=== PATIENT | female | born 1950 | race Caucasian/White ===

== ENCOUNTER → 2019-10-27 15:47 | Outpatient (BNVA) | payer MEDICARE, OTHER, SELFPAY | PROVIDERS: Visit Provider Internal Medicine | DX: K52.9 Noninfective gastroenteritis and colitis, unspecified (principal); R63.4 Abnormal weight loss; Z72.0 Tobacco use | CPT/HCPCS: 82784; 83516; 84443 ==

== ENCOUNTER 2019-11-01 09:09 | Day surgery (SDC) | payer MEDICARE, OTHER, SELFPAY ==
[2019-10-29 08:18] VITALS: BMI 21.1
[2019-11-01 09:49] VITALS: BP 171/62; PULSE 81; RESP 18; TEMP 36.1; O2SAT 100
[2019-11-01] MEDS: sodium chloride 0.9% 1,000 ML 30 ML IV (09:51)
[2019-11-01 10:02] LABS: Glucose Point of Care 121 mg/dL (70-110)
--- NOTE | 2019-11-01 10:16 | ANES.PREANE2 ---
Pre-Anesthetic Assessment Pre-Anesthetic Assessment: Height/Weight: Height 1.73 m Weight 63.049 kg Temp Pulse Resp BP Pulse Ox 97 F L 81 18 171/62 100 11/01/19 09:49 11/01/19 09:49 11/01/19 09:49 11/01/19 09:49 11/01/19 09:49 Preop Diagnosis: d Proposed Procedure: Operation Date: 11/01/19 11:00 Proposed Procedures p EGD/colon 76191 21003 K52.9(Not Applicable) - Caleb Mike MD s Colonoscopy(Not Applicable) - Caleb Mike MD Was Beta Williams taken within 24 hours: N/A Last intake: Intake Last Liquid Date 10/31/19 Last Liquid Time 16:00 Last Solid Date 10/30/19 Social: Social History: Tobacco and No alcohol Exam: Pre-Anes Outpt Exam: alert, oriented x 3, clear to auscultation bilaterally and regular rate & rhythm Airway: Submandibular: WNL Cervical ROM: WNL MP: 2 Dentition: False Pulmonary: Pulmonary: COPD CV/HEM: CV/HEM: None reported : : None reported Hepatic: Hepatic: None reported GI: Comments: Chronic diarrhea Metabolic: Metabolic: DM Musc/skel: Musc/skel: None reported Neuropsych: Neuropsych: None reported Anesthetic Plan: ASA status: 3 Anesthesia: MAC Risk of > 500 ml blood loss (7ml/kg in children): No Meds/Allergies Current Medications: Current Medications Generic Name Dose Route Start Last Admin Trade Name Freq PRN Reason Stop Dose Admin Sodium Chloride 1,000 mls @ 30 ml s/hr 11/01/19 09:45 11/01/19 09:51 Sodium Chloride 0.9% IV 30 mls/hr .Q24H DEREK Administration PFSH Anesthesia PFSH: Family History (Updated 10/27/19 @ 14:[address]) Other Cancer Diabetes Heart disease Social History (Updated 10/27/19 @ 14:54 by LEE Israel) Smoking and tobacco status: current every day smoker Alcohol intake: former Adopted: No service: No History of recent travel: No Current gender identity: Female Data Anesthesia Other Labs: Laboratory Results - last 48 hr 11/01/19 09:58 POC Glucose 121 Cardiac Studies: No Data to Display
--- NOTE | 2019-11-01 10:40 | W.PM.OPSUD ---
Surgery/Procedure H&P Update DATE OF PROCEDURE: November 01, 2019 DATE H&P PERFORMED: 10/27/19 PREOP DIAGNOSIS: d PLANNED PROCEDURE: Operation Date: 11/01/19 11:00 Proposed Procedures p EGD/colon 50796 44834 K52.9(Not Applicable) - Caleb Mike MD s Colonoscopy(Not Applicable) - Caleb Mike MD
[2019-11-01 11:00] VITALS: BP 182/74; PULSE 77; RESP 16; TEMP 36.4; O2SAT 98
--- NOTE | 2019-11-01 11:01 | ANE.PACU2 ---
Inpatient post-anesthesia follow up: Airway intact: Yes Vital signs: Temperature 97.6 F Pulse Rate 77 Respiratory Rate 16 Blood Pressure 182/74 Pulse Oximetry 98 Oxygen Delivery Me thod Nasal Cannula Oxygen Flow Rate 3.0 Fraction of Inspir ed Oxygen Hydration adequate: Yes Nausea and vomiting: No Pain level: Other (0/10) Mental status: Baseline
[2019-11-01 11:14] VITALS: BP 167/55; PULSE 74; RESP 18; O2SAT 99
[2019-11-02 07:52] LABS: H. Pylori / CLO Test Negative
== END 2019-11-01 11:35 | disposition home or self-care (01) ==
PROVIDERS: PCP Physician Assistant Medical; Visit Provider Internal Medicine
PROC: 0DJ08ZZ Inspection of Upper Intestinal Tract, Via Natural or Artificial Opening Endoscopic (ICD-10-PCS; CPT 43235; principal; 2019-11-01 11:00)
PROC: 0DJD8ZZ Inspection of Lower Intestinal Tract, Via Natural or Artificial Opening Endoscopic (ICD-10-PCS; CPT 45378; 2019-11-01 11:00)
DX: K52.9 Noninfective gastroenteritis and colitis, unspecified (principal); K29.71 Gastritis, unspecified, with bleeding; J44.9 Chronic obstructive pulmonary disease, unspecified; E11.9 Type 2 diabetes mellitus without complications; F17.200 Nicotine dependence, unspecified, uncomplicated; Z88.0 Allergy status to penicillin; Z88.2 Allergy status to sulfonamides; Z79.82 Long term (current) use of aspirin; Z79.84 Long term (current) use of oral hypoglycemic drugs
CPT/HCPCS: 12345; 36416; 43239; 45378; 82274; 82962; 83630; 87077; 87493; 87506; J2704; J7030

== ENCOUNTER 2020-06-05 07:41 | Outpatient (CLI) | payer MEDICARE, OTHER, SELFPAY ==
--- NOTE | 2020-06-05 08:05 | NM_ITS ---
WS: [id number] NUCLEAR MEDICINE HIDA SCAN HISTORY: EPIGASTRIC PAIN COMPARISON: None available. TECHNIQUE: The patient was intravenously injected with 7.8 mCi of TC99m Mebrofenin. Immediate imaging over the right upper quadrant was followed by 5 minute image and additional images for a total of 12 0 minutes. Normal uptake of radiotracer throughout the liver. Activity is never identified in the gallbladder. Imaging to 120 minutes. Activity in the proximal small bowel was seen by 20 minutes. Good washout of the radiotracer from the liver by 60 minutes. NM/NM hepatobiliary wo phar [id number] IMPRESSION: 1. Nonvisualization of the gallbladder. In the correct clinical setting this m ay represent acute cholecystitis and cystic duct obstruction. No history of sophy or cholecystectomy. 2. No common bile duct obstruction.
== END 2020-06-05 07:42 | disposition home or self-care (01) ==
LOC: RAD 07:45
PROVIDERS: PCP Physician Assistant Medical; Visit Provider Internal Medicine
DX: R10.13 Epigastric pain (principal)
CPT/HCPCS: 78226; A9537

== ENCOUNTER 2020-06-06 16:02 | Emergency (ER) | payer MEDICARE, OTHER, SELFPAY ==
[2020-06-06 16:06] VITALS: BP 171/79; PULSE 91; RESP 16; TEMP 36.5; O2SAT 97; BMI 20.5
--- NOTE | 2020-06-06 16:26 | ECG_ITS ---
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 Measurements Intervals Darby Rate: 81 P: 71 OK: 192 QRS: -5 QRSD: 97 T: 69 QT: 389 QTc: 454 Interpretive Statements SINUS RHYTHM SEPTAL MYOCARDIAL INFARCTION , PROBABLY OLD [40+ ms Q WAVE IN V1/V2] Compared to ECG 03/07/2018 01:32:35 Myocardial infarct finding now present Sinus bradycardia no longer present First degree AV block no longer present Electronically Signed On 06-06-2020 20:20:24 CDT by Yanet Darby M.D. [email or web address]
--- NOTE | 2020-06-06 16:26 | CTR_ITS ---
PROCEDURE INFORMATION: Exam: CT Abdomen And Pelvis With Contrast Exam date and time: 06/06/2020 5:04 PM Age: 69 years old Clinical indication: Nausea; Abdominal pain; Prior surgery; Surgery type: Ovary; Patient HX: PT states she is suppose to see On to schedule gb removal; Additional info: Abd pain TECHNIQUE: Imaging protocol: Computed tomography of the abdomen and pelvis with contrast. Radiation optimization: All CT scans at this facility use at least one of these dose optimization techniques: automated exposure control; mA and/or kV adjustment per patient size (includes targeted exams where dose is matched to clinical indication); or iterative reconstruction. Contrast material: OMNI 300; Contrast volume: 95 ml; Contrast route: INTRAVENOUS (IV); COMPARISON: US gall bladder [id number] 06/06/2020 4:56 PM RADIATION DOSE METRICS: Total DLP (mGy-cm): 855.7 FINDINGS: Lungs: Trace atelectasis in the lung bases. Liver: Normal size and density. No focal mass. Gallbladder and bile ducts: The patient is status post cholecystectomy with surgical clips seen in the gallbladder fossa. No biliary dilatation. Pancreas: No evidence of mass. No ductal dilation. Spleen: No splenomegaly or mass. Adrenal glands: Normal. Kidneys and ureters: No stones or hydronephrosis. No evidence of focal mass. Stomach and bowel: A few distal diverticula. No signs of acute diverticulitis. Moderate to large amount of formed stool throughout the colon. No signs of bowel obstruction. No focal bowel wall thickening or mass. Appendix: The appendix is not clearly seen, but there are no secondary signs of acute appendicitis. Intraperitoneal space: No free air. No free fluid or evidence of abscess. Vasculature: Moderate mixed hard and soft plaque throughout the abdominal aorta. Bilateral common iliac stents are noted. There is some suspected in stent restenosis. Lymph nodes: No lymphadenopathy. Urinary bladder: Normal CT appearance. Reproductive: Status post hysterectomy. Bones/joints: No acute abnormality. Soft tissues: Within normal limits. CT/CT abdomen pelvis w con* [id number] IMPRESSION: 1. The patient is status post cholecystectomy. 2. Mild to moderate distal diverticulosis. No signs of acute diverticulitis. 3. Moderate to large amount of formed stool throughout the colon suggesting constipation. 4. Moderate atherosclerotic disease with some suspected in stent stenosis of the bilateral proximal common iliac artery stents. Radiation Dose CTDIVOL = (mGy): DLP = 855.7 (mGy-cm)
--- NOTE | 2020-06-06 16:26 | XR_ITS ---
WS: [id number] Exam: XR chest 1V portable [id number] Date/Time of Exam: 06/06/2020 4:37 PM Reason For Exam: dyspnea/cough Comparison 06/02/2018 The lungs are hyperinflated and clear. Normal cardiomediastinal structures and regional bony elements . XR/XR chest 1V portable [id number] IMPRESSION: 1. Pulmonary hyperinflation. No acute process.
--- NOTE | 2020-06-06 16:37 | USR_ITS ---
PROCEDURE INFORMATION: Exam: US Abdomen, Limited; Right Upper Quadrant Exam date and time: 06/06/2020 4:44 PM Age: 69 years old Clinical indication: Abdominal pain; Acute; Additional info: Ruq abd pain TECHNIQUE: Imaging protocol: US abdomen. Real time ultrasound with image documentation. Limited exam focused on the right upper quadrant. COMPARISON: No relevant prior studies available. FINDINGS: Liver: Normal. No masses. Gallbladder: Not seen. Common bile duct: Normal. No stones. No dilation. Pancreas: Visualized pancreas is unremarkable. Right kidney: Normal size and appearance other than minimal dilatation of the renal pelvis. US/US gall bladder [id number] IMPRESSION: No acute findings.
[2020-06-06 16:38] LABS: Basophils # 0.1 10^3/uL (0.0-0.1); Basophils % 0.9 %; Eosinophils # 0.1 10^3/uL (0.0-0.8); Eosinophils % 1.9 %; Hematocrit 43.4 % (37.0-47.0); Hemoglobin 14.1 g/dL (11.5-15.3); Lymphocytes # 2.1 10^3/uL (0.8-4.8); Lymphocytes % 31.1 %; Mean Corpuscular HGB Conc 32.5 g/dL (30.0-36.0); Mean Corpuscular Volume 95.4 fL (81-99); Monocytes # 0.4 10^3/uL (0.2-0.9); Monocytes % 5.7 %; Neutrophils # 4.11 10^3/uL (1.8-7.7); Neutrophils % 60.1 %; Nucleated Red Blood Cells % 0 %; Platelet Count 254 10^3/cmm (130-400); Red Blood Count 4.55 10^6/uL (4.1-5.3); Red Cell Distribution Width 12.5 % (12.1-15.1); White Blood Count 6.8 10^3/uL (4.0-10.0)
[2020-06-06] MEDS: sodium chloride 0.9% 1,000 ML 999 ML IV (16:42)
[2020-06-06] MEDS: ondansetron 2 mg/ML SDV 2 mL 4 MG IVP (16:42)
[2020-06-06 16:50] LABS: Ketone (Acetest) Serum Negative (Negative)
[2020-06-06 16:54] LABS: Lactic Sepsis W/Reflex 1.6 mmol/L (0.5-2.2)
[2020-06-06 16:59] LABS: Alanine Aminotransferase 6 U/L (0-33); Albumin Level 3.9 g/dL (3.5-5.2); Alkaline Phosphatase 122 IU/L (35-105); Anion Gap 12.8 (5-19); Aspartate Amino Transferase 9 U/L (0-32); Blood Urea Nitrogen 15 mg/dL (8-23); Calcium 9.1 mg/dL (8.5-10.5); Carbon Dioxide 28 mmol/L (22-29); Chloride 98 mmol/L (98-107); Creatine Phosphokinase 21 U/L (26-192); Globulin 2.7 g/dL (1.3-4.6); Glomerular Filtration Rate 71.1 mL/min (90-130); Glucose 179 mg/dL (65-115); Lipase 35 U/L (13-60); Magnesium 1.8 mg/dL (1.7-2.3); Osmolality Calculated 285 mOsm/kg (285-295); Potassium 3.8 mmol/L (3.5-5.1); Sodium 135 mmol/L (136-145); Total Bilirubin 0.2 mg/dL (0.15-1.2); Total Protein 6.6 g/dL (6.6-8.7)
--- NOTE | 2020-06-06 17:03 | ED_ITS ---
HPI - Abdominal Pain General: Chief Complaint: Abdominal Pain Stated Complaint: AB PAIN, POSS GALLBLADDER ATTACK Time Seen by Provider: 06/06/20 16:19 History of Present Illness: HPI narrative: 69-year-old female presents emergency room with complaint of right upper quadrant epigastric abdominal pain she has had this for the last several weeks she has been worked up through Dr. Mike's office I do not see a ultrasound on her imaging file but I do see a HI DA scan they were not able to visualize the gallbladder. Patient complains of abdominal pain triggered by foods getting progressively worse she has severe abdominal pain right upper quadrant abdominal pain her exam is consistent with that complaint. She has been having severe nausea. She presents here stating she wants to have her gallbladder taken out. MD elicited complaint: abdominal pain Pertinent past history: other (Biliary colic) Onset (ago): week(s) Pain Consistency: constant Location: RUQ Severity: severe Quality: cramping and stabbing Radiation: R flank Exacerbating factors: eating Relieving factors: nothing Associated Symptoms: Reports bloating, GI cramping, diarrhea, nausea and poor appetite; Denies anorexia, belching, change in bowel habits, change in stool character, chills, coffee ground emesis, constipation, dyspepsia, dysuria, excessive flatus, fever(s), heartburn, hematochezia, hematuria, hematemesis, fecal incontinence, loose stools, melena, syncope and vomiting Review of Systems Const: Denies: fever(s) or chills ENMT: Denies: throat pain, ear or mastoid pain, nasal discharge or nasal congestion Card: Denies: syncope Resp: Denies: dyspnea, productive cough or non-productive cough GI: Reports: nausea, diarrhea, bloating and GI cramping; Denies: vomiting, hematemesis, coffee ground emesis, heartburn, constipation, belching, excessive flatus, fecal incontinence, change in bowel habits, change in stool character, hematochezia or melena : Denies: dysuria or hematuria Skin/Breast: Denies: rash or pruritus PFSH ED PFSH: Family History Other Cancer Diabetes Heart disease Social History Smoking and tobacco status: current every day smoker Alcohol intake: former Adopted: No service: No History of recent travel: No Current gender identity: Female Physical Exam Const: COMMON NORMALS: no acute distress GENERAL APPEARANCE: cooperative and comfortable ORIENTATION/CONSCIOUSNESS: Yes awake, Yes oriented to person, Yes oriented to place and Yes oriented to time HENMT: COMMON NORMALS: normocephalic, atraumatic and hearing grossly normal bilaterally HEAD & SCALP: normocephalic and atraumatic Eye: COMMON NORMALS: Equal, round and reactive pupils present, EOMs intact bilaterally, conjunctivae normal and no scleral icterus CONJUNCTIVA: Yes conjunctivae normal PUPIL: Yes Equal, round and reactive pupils present Neck/C-Spine: COMMON NORMALS: full ROM, no lymphadenopathy, supple and no JVD Lymph: LYMPHATIC: no lymphadenopathy noted and no lymphedema noted Resp: COMMON NORMALS: normal respiratory effort, No retractions, No use of accessory muscles and clear to auscultation bilaterally AUSCULTATION: clear to auscultation bilaterally Cardio: COMMON NORMALS: no JVD, regular rate, regular rhythm and No murmurs present (Cardio) RATE: regular rate RHYTHM: regular rhythm GI: COMMON NORMALS: Soft to palpation and No hepatosplenomegaly present AUSCULTATION: Yes normoactive bowel sounds PALPATION: Yes Soft to palpation, No Tenderness to palpation present (GI), No Guarding due to palpation present (GI) and Yes No hepatosplenomegaly present Extremity: COMMON NORMALS: normal to inspection, capillary refill normal, no clubbing, cyanosis or edema, no calf tenderness and no pedal edema Neuro: SENSORIUM/ORIENTATION: Yes oriented to person, Yes oriented to place and Yes oriented to time Skin: COMMON NORMALS: no rashes or lesions noted GENERAL SKIN EXAM: no rashes or lesions noted Course Vital Signs: Vital signs: Vital Signs Temperature 97.7 F 06/06/20 16:06 Pulse Rate 78 06/06/20 18:43 Respiratory Rate 18 06/06/20 18:43 Blood Pressure 179/76 06/06/20 18:43 Pulse Oximetry 100 06/06/20 18:43 MDM - Abdominal Pain MDM Narrative: Medical decision making narrative: Patient has biliary colic- like symptoms however 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 It was not noted on HIDA scan ultrasound or CT. In fact radiologist made a comment on the CT of the abdomen and pelvis report that the patient is post cholecystectomy. At this point I recommend that she see GI. Medications given to assist with symptoms for now encourage clear liquid diet for 24 to 48 hours and then bland diet. Lab Data: Labs: Lab Results 06/06/20 06/06/20 06/06/20 Range/Units 16:04 16:04 16:04 WBC 6.8 (4.0-10.0) 10^3/ uL RBC 4.55 (4.1-5.3) 10^6/u L Hgb 14.1 (11.5-15.3) g/dL Hct 43.4 (37.0-47.0) % MCV 95.4 (81-99) fL MCH 31.0 (28.0-34.0) pg MCHC 32.5 (30.0-36.0) g/dL RDW 12.5 (12.1-15.1) % Plt Count 254 (130-400) 10^3/c mm MPV 10.0 (7.4-10.4) fL Neut % (Auto) 60.1 % Lymph % (Auto) 31.1 % [place] % (Auto) 5.7 % Eos % (Auto) 1.9 % Baso % (Auto) 0.9 % Neut # (Auto) 4.11 (1.8-7.7) 10^3/u L Lymph # (Auto) 2.1 (0.8-4.8) 10^3/u L [place] # (Auto) 0.4 (0.2-0.9) 10^3/u L Eos # (Auto) 0.1 (0.0-0.8) 10^3/u L Baso # (Auto) 0.1 (0.0-0.1) 10^3/u L Nucleated RBC % (a uto) 0 % Nucleated RBCs # 0.0 /100WBC Sodium 135 L (136-145) mmol/L Potassium 3.8 (3.5-5.1) mmol/L Chloride 98 (98-107) mmol/L Carbon Dioxide 28 (22-29) mmol/L Anion Gap 12.8 (5-19) BUN 15 (8-23) mg/dL Creatinine 0.8 (0.5-0.9) mg/dL GFR Calculation 71.1 L (90-130) mL/min Glucose 179 H (65-115) mg/dL Calculated Osmolal ity 285 (285-295) mOsm/k g Lactic Acid 1.6 (0.5-2.2) mmol/L Calcium 9.1 (8.5-10.5) mg/dL Magnesium 1.8 (1.7-2.3) mg/dL Total Bilirubin 0.2 (0.15-1.2) mg/dL AST 9 (0-32) U/L ALT 6 (0-33) U/L Alkaline Phosphata se 122 H (35-105) IU/L Creatine Kinase 21 L (26-192) U/L Total Protein 6.6 (6.6-8.7) g/dL Albumin 3.9 (3.5-5.2) g/dL Globulin 2.7 (1.3-4.6) g/dL Lipase 35 (13-60) U/L Urine Color (Yellow) Urine Appearance (CLEAR) Urine pH (5-7) Ur Specific Gravit y (1.005-1.030) Urine Protein (Negative) Urine Glucose (UA) (Normal) Urine Ketones (Negative) Urine Blood (Negative) Urine Nitrate (Negative) Urine Bilirubin (Negative) Prot Sulfosalicyli c Acd (Negative) Urine Urobilinogen (Negative) mg/dL Ur Leukocyte Cynthia ase (Negative) Serum Ketones (Negative) 06/06/20 06/06/20 Range/Units 16:04 17:43 WBC (4.0-10.0) 10^3/ uL RBC (4.1-5.3) 10^6/u L Hgb (11.5-15.3) g/dL Hct (37.0-47.0) % MCV (81-99) fL MCH (28.0-34.0) pg MCHC (30.0-36.0) g/dL RDW (12.1-15.1) % Plt Count (130-400) 10^3/c mm MPV (7.4-10.4) fL Neut % (Auto) % Lymph % (Auto) % [place] % (Auto) % Eos % (Auto) % Baso % (Auto) % Neut # (Auto) (1.8-7.7) 10^3/u L Lymph # (Auto) (0.8-4.8) 10^3/u L [place] # (Auto) (0.2-0.9) 10^3/u L Eos # (Auto) (0.0-0.8) 10^3/u L Baso # (Auto) (0.0-0.1) 10^3/u L Nucleated RBC % (a uto) % Nucleated RBCs # /100WBC Sodium (136-145) mmol/L Potassium (3.5-5.1) mmol/L Chloride (98-107) mmol/L Carbon Dioxide (22-29) mmol/L Anion Gap (5-19) BUN (8-23) mg/dL Creatinine (0.5-0.9) mg/dL GFR Calculation (90-130) mL/min Glucose (65-115) mg/dL Calculated Osmolal ity (285-295) mOsm/k g Lactic Acid (0.5-2.2) mmol/L Calcium (8.5-10.5) mg/dL Magnesium (1.7-2.3) mg/dL Total Bilirubin (0.15-1.2) mg/dL AST (0-32) U/L ALT (0-33) U/L Alkaline Phosphata se (35-105) IU/L Creatine Kinase (26-192) U/L Total Protein (6.6-8.7) g/dL Albumin (3.5-5.2) g/dL Globulin (1.3-4.6) g/dL Lipase (13-60) U/L Urine Color Yellow (Yellow) Urine Appearance Clear (CLEAR) Urine pH 8 H (5-7) Ur Specific Gravit y 1.010 (1.005-1.030) Urine Protein Neg (Negative) Urine Glucose (UA) Norm (Normal) Urine Ketones Negative (Negative) Urine Blood Neg (Negative) Urine Nitrate Negative (Negative) Urine Bilirubin Neg (Negative) Prot Sulfosalicyli c Acd Negative (Negative) Urine Urobilinogen Norm (Negative) mg/dL Ur Leukocyte Cynthia ase Negative (Negative) Serum Ketones Negative (Negative) Discharge Plan Discharge Patient Disposition: Home Clinical Impression: Abdominal pain, Congenital absence of gallbladder Condition: Stable Prescriptions: New Reglan 10 mg tablet 10 mg PO Q6H PRN (Reason: nausea and vomiting) Qty: 60 RF: 0 No Action atorvastatin 80 mg tablet 80 mg PO DAILY RF: 0 buspirone 10 mg tablet 10 mg PO BID RF: 0 estradiol 1 mg tablet 0.5 mg PO DAILY RF: 0 gabapentin 600 mg tablet 600 mg PO TID RF: 0 lamotrigine 200 mg tablet 200 mg PO BID RF: 0 meloxicam 7.5 mg tablet 7.5 mg PO DAILY RF: 0 metformin 500 mg tablet 500 mg PO BID RF: 0 hydrocodone-acetaminophen [[place]] 5-325 mg tablet 1 tab PO Q8H PRN (Reason: Pain) RF: 0 lorazepam 0.5 mg tablet 0.5 mg PO DAILY PRNRF: 0 pantoprazole 40 mg tablet,delayed release (DR/EC) 40 mg PO BID Qty: 180 RF: 3 Discharge Orders: Discharge ED (Routine); Ordered 06/06/20 Ordered By: Giacomo Landin Referrals: Sukumar Andrade [Primary Care Provider] - Discharge Diet: Clear Liquid Discharge Activity: Increase activity as tolerated Patient Instructions: Abdominal Pain (ED), Opioid Safety Activity Restrictions/Additional Instructions: Clear liquid diet for 24 [address] Mike's office tomorrow. Advance diet as tolerated. 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
[2020-06-06 17:24] VITALS: BP 187/79; PULSE 78; RESP 18; O2SAT 97
[2020-06-06] MEDS: iohexol 300 mg/mL 100 mL Btl IV (17:41)
[2020-06-06 17:53] VITALS: RESP 18
[2020-06-06] MEDS: morphine 4 mg/mL SDV 1 mL 2 MG IVP (17:53)
[2020-06-06 18:02] VITALS: BP 194/84; PULSE 75; RESP 18; O2SAT 100
[2020-06-06] MEDS: metoclopramide 5 mg/mL SDV 2 mL 10 MG IVP (18:10)
[2020-06-06 18:43] VITALS: BP 179/76; PULSE 78; RESP 18; O2SAT 100
[2020-06-06 19:00] LABS: Add Urine Microscopic? NO
[2020-06-06 19:09] LABS: Urine Appearance Clear (CLEAR); Urine Color Yellow (Yellow); pH Urine 8 (5-7)
[2020-06-06 19:10] LABS: Bilirubin Urine Neg (Negative); Blood Urine Neg (Negative); Glucose Urine UA Norm (Normal); Ketones Urine Negative (Negative); Leukocyte Esterase Urine Negative (Negative); Nitrate Urine Negative (Negative); Protein Urine Neg (Negative); Sulfosalicylic Acid Urine Negative (Negative); Urobilinogen Urine Norm (Negative)
== END 2020-06-06 18:49 | disposition home or self-care (01) ==
PROVIDERS: Emergency Provider Family Medicine; PCP Physician Assistant Medical
DX: R10.9 Unspecified abdominal pain (principal); Q44.0 Agenesis, aplasia and hypoplasia of gallbladder; F17.210 Nicotine dependence, cigarettes, uncomplicated
CPT/HCPCS: 71045; 74177; 76705; 80053; 81003; 82009; 82550; 83605; 83690; 83735; 85025; 93005; 96374; 96375; 99284; J2270; J2405; J2765; J7030; Q9967

== ENCOUNTER 2020-07-06 01:40 | Emergency (ER) | payer MEDICARE, OTHER, SELFPAY ==
[2020-07-06 01:42] VITALS: BP 151/79; PULSE 95; RESP 20; TEMP 36.3; O2SAT 97; BMI 20.3
--- NOTE | 2020-07-06 01:50 | W.ED.NAVMDI ---
HPI - Nausea/Vomiting/Diarrhea General: Chief complaint: Nausea/Vomiting/Diarrhea Stated complaint: n/v Time Seen by Provider: 07/06/20 01:41 Source: patient and EMS Mode of arrival: EMS Limitations: no limitations History of Present Illness: HPI Narrative: 69-year-old female she history of gastroparesis states she had epigastric abdominal cramping type pain all vomiting diarrhea throughout the day. States she had multiple episodes of vomiting and diarrhea. States the pain happened after vomiting and rates it a 5 out of 10. States she feels improved here after Zofran. She denies any fevers. Denies any worsening improving factors. Associated nausea: Yes Associated symtoms: Reports nausea; Denies chest pain, dysuria or headache(s) Review of Systems Const: Denies: fever(s), chills, body aches or change in appetite Eyes: Denies: blurry vision or eye discomfort ENMT: Denies: throat pain or dental pain Card: Denies: chest pain Resp: Denies: dyspnea GI: Reports: abdominal pain, nausea, vomiting and diarrhea : Denies: dysuria Musc: Denies: neck pain or back pain Skin/Breast: Denies: rash Neuro: Denies: headache(s) Psych: Denies: depression Afshin/Lymph: Denies: easy bruising All/Imm: Denies: urticaria PFSH ED PFSH: Family History Other Cancer Diabetes Heart disease Social History Smoking and tobacco status: current every day smoker Alcohol intake: former Adopted: No service: No History of recent travel: No Current gender identity: Female Physical Exam Const: COMMON NORMALS: no acute distress, patient oriented x3 and healthy appearing HENMT: COMMON NORMALS: normocephalic and atraumatic HEAD & SCALP: normocephalic and atraumatic Eye: COMMON NORMALS: Equal, round and reactive pupils present and EOMs intact bilaterally PUPIL: Yes Equal, round and reactive pupils present Neck/C-Spine: COMMON NORMALS: full ROM and supple Chest: COMMONS NORMALS: normal inspection of the chest and normal palpation of entire chest wall Resp: COMMON NORMALS: normal respiratory effort, No retractions, No use of accessory muscles and clear to auscultation bilaterally AUSCULTATION: clear to auscultation bilaterally Cardio: COMMON NORMALS: regular rate, regular rhythm and No murmurs present (Cardio) RATE: regular rate RHYTHM: regular rhythm GI: COMMON NORMALS: Normal to inspection, nondistended, normoactive bowel sounds present, Soft to palpation, non-tender and no masses PALPATION: Yes Soft to palpation Extremity: COMMON NORMALS: normal to inspection and full ROM Neuro: COMMON NORMALS: patient oriented x3, moves all extremities and no focal motor deficits Psych: COMMON NORMALS: mental status grossly normal, Normal thought process present and cooperative THOUGHT PROCESS: Normal thought process present Skin: COMMON NORMALS: no rashes or lesions noted and no wounds GENERAL SKIN EXAM: no rashes or lesions noted Course Vital Signs: Vital signs: Vital Signs Temperature 97.4 F L 07/06/20 01:42 Pulse Rate 95 07/06/20 01:42 Respiratory Rate 20 H 07/06/20 02:03 Blood Pressure 151/79 07/06/20 01:42 Pulse Oximetry 95 07/06/20 02:03 MDM - Nausea/Vomiting/Diarrhea MDM Narrative: Medical decision making narrative: Brenda presents here with a fall along with diarrhea. She feels much improved here after Reglan is able to tolerate p.o. here. Abdominal exam at discharge is benign. Blood work here is all normal. She has Reglan at home and she is stable for discharge. She is to follow-up with PCP and return if worsening. She understands and agrees to plan. She has no signs of small bowel obstruction or acute surgical cause for her vomiting Lab Data: Labs: Lab Results 07/06/20 07/06/20 Range/Units 01:00 01:00 WBC 10.4 H (4.0-10.0) 10^3/ uL RBC 4.96 (4.1-5.3) 10^6/u L Hgb 15.2 (11.5-15.3) g/dL Hct 48.2 H (37.0-47.0) % MCV 97.2 (81-99) fL MCH 30.6 (28.0-34.0) pg MCHC 31.5 (30.0-36.0) g/dL RDW 12.6 (12.1-15.1) % Plt Count 271 (130-400) 10^3/c mm MPV 10.9 H (7.4-10.4) fL Neut % (Auto) 74.1 % Lymph % (Auto) 16.0 % [place] % (Auto) 8.0 % Eos % (Auto) 1.0 % Baso % (Auto) 0.7 % Neut # (Auto) 7.70 (1.8-7.7) 10^3/u L Lymph # (Auto) 1.7 (0.8-4.8) 10^3/u L [place] # (Auto) 0.8 (0.2-0.9) 10^3/u L Eos # (Auto) 0.1 (0.0-0.8) 10^3/u L Baso # (Auto) 0.1 (0.0-0.1) 10^3/u L Nucleated RBC % (a uto) 0 % Nucleated RBCs # 0.0 /100WBC Sodium 139 (136-145) mmol/L Potassium 3.7 (3.5-5.1) mmol/L Chloride 99 (98-107) mmol/L Carbon Dioxide 26 (22-29) mmol/L Anion Gap 17.7 (5-19) BUN 14 (8-23) mg/dL Creatinine 0.9 (0.5-0.9) mg/dL GFR Calculation 62.1 L (90-130) mL/min Glucose 193 H (65-115) mg/dL Calculated Osmolal ity 294 (285-295) mOsm/k g Calcium 9.6 (8.5-10.5) mg/dL Total Bilirubin 0.3 (0.15-1.2) mg/dL AST 11 (0-32) U/L ALT 9 (0-33) U/L Alkaline Phosphata se 179 H (35-105) IU/L Total Protein 7.0 (6.6-8.7) g/dL Albumin 4.3 (3.5-5.2) g/dL Globulin 2.7 (1.3-4.6) g/dL Lipase 23 (13-60) U/L Discharge Plan Discharge Patient Disposition: Home Clinical Impression: Vomiting Qualifiers: Vomiting type: unspecified Vomiting Intractability: non-intractable Nausea presence: with nausea Qualified Code(s): R11.2 - Nausea with vomiting, unspecified Condition: Stable Prescriptions: No Action atorvastatin 80 mg tablet 80 mg PO DAILY RF: 0 buspirone 10 mg tablet 10 mg PO BID RF: 0 estradiol 1 mg tablet 0.5 mg PO DAILY RF: 0 gabapentin 600 mg tablet 600 mg PO TID RF: 0 lamotrigine 200 mg tablet 200 mg PO BID RF: 0 meloxicam 7.5 mg tablet 7.5 mg PO DAILY RF: 0 metformin 500 mg tablet 500 mg PO BID RF: 0 polyethylene glycol 3350 [[place]] 17 gram/dose powder 17 g PO DAILY RF: 0 docusate sodium 100 mg capsule 200 mg PO .at bedtime RF: 0 hydrocodone-acetaminophen [[place]] 5-325 mg tablet 1 tab PO Q8H PRN (Reason: Pain) RF: 0 lorazepam 0.5 mg tablet 0.5 mg PO DAILY PRNRF: 0 pantoprazole 40 mg tablet,delayed release (DR/EC) 40 mg PO BID Qty: 180 RF: 3 Reglan 10 mg tablet 10 mg PO Q6H PRN (Reason: nausea and vomiting) Qty: 60 RF: 0 Discharge Orders: Discharge ED (Routine); Ordered 07/06/20 Ordered By: Martin Fay Referrals: Sukumar Andrade [Primary Care Provider] - 1-3 days Discharge Diet: Advance as tolerated Discharge Activity: Resume usual activity Patient Instructions: Acute Nausea and Vomiting (ED) Coding Level of Care Code ED 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
[2020-07-06 02:00] LABS: Basophils # 0.1 10^3/uL (0.0-0.1); Basophils % 0.7 %; Eosinophils # 0.1 10^3/uL (0.0-0.8); Hematocrit 48.2 % (37.0-47.0); Hemoglobin 15.2 g/dL (11.5-15.3); Lymphocytes # 1.7 10^3/uL (0.8-4.8); Mean Corpuscular HGB Conc 31.5 g/dL (30.0-36.0); Mean Corpuscular Hemoglobin 30.6 pg (28.0-34.0); Mean Corpuscular Volume 97.2 fL (81-99); Mean Platelet Volume 10.9 fL (7.4-10.4); Monocytes # 0.8 10^3/uL (0.2-0.9); Neutrophils % 74.1 %; Nucleated Red Blood Cells % 0 %; Platelet Count 271 10^3/cmm (130-400); Red Blood Count 4.96 10^6/uL (4.1-5.3); Red Cell Distribution Width 12.6 % (12.1-15.1); White Blood Count 10.4 10^3/uL (4.0-10.0)
[2020-07-06] MEDS: sodium chloride 0.9% 1,000 ML 999 ML IV (02:02)
[2020-07-06 02:03] VITALS: RESP 20; O2SAT 95
[2020-07-06] MEDS: morphine 4 mg/mL SDV 1 mL IVP (02:03)
[2020-07-06] MEDS: metoclopramide 5 mg/mL SDV 2 mL IVP (02:16)
[2020-07-06 02:17] LABS: Alanine Aminotransferase 9 U/L (0-33); Albumin Level 4.3 g/dL (3.5-5.2); Alkaline Phosphatase 179 IU/L (35-105); Anion Gap 17.7 (5-19); Aspartate Amino Transferase 11 U/L (0-32); Blood Urea Nitrogen 14 mg/dL (8-23); Calcium 9.6 mg/dL (8.5-10.5); Carbon Dioxide 26 mmol/L (22-29); Chloride 99 mmol/L (98-107); Globulin 2.7 g/dL (1.3-4.6); Glomerular Filtration Rate 62.1 mL/min (90-130); Glucose 193 mg/dL (65-115); Lipase 23 U/L (13-60); Osmolality Calculated 294 mOsm/kg (285-295); Potassium 3.7 mmol/L (3.5-5.1); Sodium 139 mmol/L (136-145); Total Bilirubin 0.3 mg/dL (0.15-1.2)
[2020-07-06] MEDS: diphenhydrAMINE 50 mg/mL SDV 1mL 25 MG IVP (02:19)
[2020-07-06 03:22] VITALS: BP 178/74; PULSE 82; O2SAT 97
== END 2020-07-06 03:22 | disposition home or self-care (01) ==
PROVIDERS: Emergency Provider Emergency Medicine; PCP Physician Assistant Medical
DX: R11.2 Nausea with vomiting, unspecified (principal); F17.210 Nicotine dependence, cigarettes, uncomplicated
CPT/HCPCS: 80053; 83690; 85025; 96361; 96374; 96375; 99284; J1200; J2270; J2765; J7030

== ENCOUNTER 2020-08-24 09:09 | Outpatient (CLI) | payer MEDICARE, OTHER, SELFPAY ==
--- NOTE | 2020-08-24 09:30 | USCV_ITS ---
Bertha Brenda Age: 69 Gender: F : 1950 Exam Date: 08/24/2020 09:43 Ordering Phys: Margarito Lott MD (Andy) ([email or web address] [place]) Technologist: Lee Ann Barnes [place] [facility] [place]: H[place]ORY: PROCEDURES: FINDINGS: The veins were found to be easily compressible with spontaneous blood flow. Non pulsatile flow pattern. CONCLUSIONS No evidence of DVT in the above-mentioned identifiable veins. No significant venous reflux in the superficial or deep venous system, based on the above findings. Electively small caliber superficial veins bilaterally Dr Yanet Darby MD FACC (Electronically Signed) Final Date: 24 August 2020 18:41 S
--- NOTE | 2020-08-24 11:00 | USCV_ITS ---
Bertha Brenda Age: 69 Gender: F : 1950 Exam Date: 08/24/2020 09:25 Ordering Phys: Margarito Lott MD ([place] [place] Technologist: Lee Ann Barnes [place] [facility] [place]: Occlusion and stenosis of bilateral carotid arteries Risk Factors: Previous Vascular Surgery: Right Brachial BP: / Left Brachial BP: / Right Left Velocity (cm/s) Spectral Plaque Velocity (cm/s) Spectral Plaque Syst/Diast Broadening Syst/Diast Broadening 118.00/16.50 Prox CCA 92.00 / 21.00 91.50/ 13.20 Mid CCA 100.30/ 22.10 69.10/ 12.90 Distal CCA 227.20/ 60.30 89.40/ 12.70 Prox ICA 246.50/ 48.90 97.40/ 18.80 Mid ICA 135.20/ 40.40 101.20/23.30 Distal ICA 107.00/ 31.70 96.30 ECA 148.60 0.86 ICA/CCA 2.46 Antegrade Vertebral Antegrade 46.60/ 5.40 cm/s 83.70/ 17.90 cm/s Bi Subclavian Bi 215.9 224.5 0 0 FINDINGS Comparison: none available. Diffuse bilateral scattered calcified plaque and intimal thickening throughout the common carotid arteries and extending through the bifurcation. Moderate elevation of velocity left ICA. Antegrade vertebral arteries. CONCLUSIONS Left ICA stenosis 50-69%. Right ICA stenosis < 50%. Dr. Marely Gilmore DO (Electronically Signed) Final Date: 24 August 2020 10:03 S
== END 2020-08-24 09:10 | disposition home or self-care (01) ==
LOC: RAD 09:11
PROVIDERS: PCP Physician Assistant Medical; Visit Provider Thoracic Surgery (Cardiothoracic Vascular Surgery)
DX: M79.606 Pain in leg, unspecified (principal); I65.23 Occlusion and stenosis of bilateral carotid arteries
CPT/HCPCS: 93880; 93970

== ENCOUNTER 2021-02-23 10:25 | Outpatient (CLI) | payer MEDICARE, OTHER, SELFPAY ==
--- NOTE | 2021-02-23 11:00 | USCV_ITS ---
Brenda Stone Age: 70 Gender: F : 1950 Exam Date: 02/23/2021 10:35 Ordering Phys: Margarito Lott MD (Andy) ([email or web address] [place]) Technologist: CECELIA Exam Location: [facility] [place] Indication: s/p RIGHT endarterectomy 2016 Risk Factors: long-term smoker, quit 2019. DM2 Previous Vascular Surgery: RIGHT endarterectomy 2016. No current carotid territory symptoms. Right Brachial BP: / Left Brachial BP: / Right Left Velocity (cm/s) Spectral Plaque Velocity (cm/s) Spectral Plaque Syst/Diast Broadening Syst/Diast Broadening 82.70/ 6.60 Min Homo Prox CCA 84.00 / 18.90 Min Homo 75.00/ 13.20 Min Homo Mid CCA 94.80 / 27.60 Min Homo 70.60/ 18.70 Min Homo Distal CCA 108.10/ 26.50 Min Homo 86.00/ 14.30 Min Homo Prox ICA 203.30/ 44.10 Mod Homo 84.90/ 22.10 Min Homo Mid ICA 192.50/ 43.20 Mod Homo 101.40/25.40 Min Homo Distal ICA 106.10/ 30.60 Min Hetro 140.00 Mod Homo ECA 192.50 Mod Homo 1.23 ICA/CCA 2.05 Antegrade Vertebral Antegrade 32.00/ 8.80 cm/s 55.10/ 14.30 cm/s Tri Subclavian Tri 65.10 84.90 FINDINGS Comparison:. 08/24/20. Prior right carotid endarterectomy. Diffuse bilateral scattered calcified plaque and intimal thickening throughout the common carotid arteries and extending through the bifurcation. No progression of plaque or stenosis. Moderate stenosis left ICA. Antegrade vertebral arteries. CONCLUSIONS No interval change in stenosis since prior exam. Left ICA stenosis 50-69%. Right ICA stenosis < 50%. Dr. Marely Gilmore DO (Electronically Signed) Final Date: 23 February 2021 13:16 S
== END 2021-02-23 10:26 | disposition home or self-care (01) ==
LOC: US 10:26
PROVIDERS: PCP Physician Assistant Medical; Visit Provider Thoracic Surgery (Cardiothoracic Vascular Surgery)
DX: I65.23 Occlusion and stenosis of bilateral carotid arteries (principal)
CPT/HCPCS: 93880

== ENCOUNTER 2021-04-22 10:54 | Emergency (ER) | payer MEDICARE, OTHER, SELFPAY ==
[2021-04-22 11:27] VITALS: BP 152/70; PULSE 89; RESP 18; TEMP 36.4; O2SAT 98; BMI 21.9
--- NOTE | 2021-04-22 11:36 | W.ED.EXTPRO ---
HPI - Extremity Problem General: Chief complaint: Extremity Problem,Nontraumatic Stated complaint: bilateral feet pain Time Seen by Provider: 04/22/21 11:36 History of Present Illness: Ms. Stone is a 70-year-old lady with significant past medical history of diabetes on oral agents, history of vascular stenting, and history of tobaccoism (quit about 7 months ago) who presents emergency department due to discoloration and increased pain in her feet. She previously saw podiatry for consideration of diabetic shoes. She received these short time ago and noted that they initially were not comfortable. About 10 days ago she had a day where she was walking in them for most of the day and subsequently had increased foot pain. She is has since noticed increased discoloration of her toes and feet. She denies specific numbness however does endorse overall feeling cold. She has not noticed any weakness. Overall the course of symptoms has been worsening. Intensity of pain is moderate. She had a ultrasound study on Friday that showed decreased blood flow and was supposed to have a CTA and vascular surgery follow-up however last night/today she noticed black spots on her toes and decided to come to the emergency department. Denies any trauma or known wounds. No other significant changes in health, exacerbating, relieving factors identified. Onset (ago): week(s) Pain Consistency: intermittent Location: left, right and lower extremity Radiation: none Associated symptoms: Reports no associated symptoms Review of Systems General: Reports: 10 or more systems reviewed and unremarkable except in HPI and below PFSH ED PFSH: Medical History Epilepsy FH: carotid endarterectomy Hyperlipemia Stenosis of peripheral vascular stent Type 2 diabetes mellitus Surgical History H/O abdominal hysterectomy S/P knee surgery Family History Other Cancer Diabetes Heart disease Social History Smoking and tobacco status: former smoker Quit status (tobacco): has quit using tobacco Year quit tobacco: 2020 Former quit date comment: 6 WEEKS AGO Alcohol intake: former Adopted: No service: No History of recent travel: No Current gender identity: Female Physical Exam Const: COMMON NORMALS: alert GENERAL APPEARANCE: cooperative and well developed HENMT: COMMON NORMALS: normocephalic and atraumatic HEAD & SCALP: normocephalic and atraumatic Eye: COMMON NORMALS: conjunctivae normal CONJUNCTIVA: Yes conjunctivae normal SCLERA: sclerae normal Neck/C-Spine: COMMON NORMALS: supple GENERAL: Yes trachea midline Resp: COMMON NORMALS: normal respiratory effort EFFORT & INSPECTION: Yes able to speak in complete sentences Cardio: COMMON NORMALS: regular rate and regular rhythm RATE: regular rate RHYTHM: regular rhythm GI: COMMON NORMALS: Soft to palpation PALPATION: Yes Soft to palpation and No Tenderness to palpation present (GI) PERCUSSION: normal to percussion Extremity: NARRATIVE EXTREMITY EXAM: Bilateral lower extremities have some discoloration from proximal forefoot towards the toes. Mildly purple with few focal few millimeter in diameter distal circles of darker purple. There is no evidence of wounds. Bilateral DP pulses faint but palpable. Cap refill approx 3 seconds Motor intact. GENERAL: No edema Neuro: COMMON NORMALS: moves all extremities SENSORIUM/ORIENTATION: Yes alert and No Orientation impaired Psych: COMMON NORMALS: mental status grossly normal and Normal thought process present THOUGHT PROCESS: Normal thought process present Course ED course: - Patient was seen and evaluated by me at bedside - Patient placed on cardiac monitors, IV access obtained - Initial evaluation notable for exam as above - Labs notable for no leukocytosis. Metabolic panel without significant derangement requiring intervention. - Imaging notable for multivessel atherosclerotic disease with multiple regions of stenosis. The patient's prior grafts are noted to have mild to moderate in-stent stenosis. There is mention of loss of flow in the distal most vessels however in comparison to ultrasound report which was obtained where flow was present in bilateral DPs I believe that there is a component of differences strictly related to imaging modality. I do not believe based on clinical history or exam that the patient has had complete occlusion of DPs within the past 2 days. - I discussed additional findings including mesenteric disease, patient does have symptoms of postprandial pain - Discussed with cardiothoracic surgeon Dr. Lott, as patient is seen him in clinic before, plan to start antiplatelet agent and pentoxifylline and have patient follow-up. - Upon serial reexamination after treatment the patient was - Based on patient history, evaluation, labs, and imaging as interpreted the most likely cause of the patient's condition is peripheral arterial disease - The results of ED evaluation were discussed with the patient including prescriptions and/or symptomatic cares (if applicable) including appropriate and responsible use, followup plan, and return precautions. The patient verbalized understanding and felt safe for discharge. - Patient discharged in satisfactory condition. Note: Click bubbles or prepopulated cox in note writing are used for assistance with data collection and billing and are inherently more limited than narrative and other text portions of this note. Please use narrative for additional clinical history and defer to narrative/free test for any case of contradictory information. If information appears in only free text or click bubble it should be considered present or absent as reported. Please contact note telegraphic typewriter mechanic for clarifications of clinical information or contradictory information. MDM is a brief summary, contradictory or erroneous seeming information should be clarified and full note should be reviewed. Discussed with Dr Lott Vital Signs: Vital signs: Vital Signs Temperature 97.6 F 04/22/21 11:27 Pulse Rate 77 04/22/21 15:35 Respiratory Rate 12 04/22/21 15:35 Blood Pressure 162/76 04/22/21 15:35 Pulse Oximetry 100 04/22/21 15:35 MDM - Extremity (Nontraumatic) Medical Decision Making 70-year-old lady with history of known peripheral arterial disease requiring stenting, history of tobaccoism (formerly), and history of diabetes presenting to the emergency department with bilateral foot discoloration. She was previously evaluated and had ultrasounds performed approximately 2 days ago. CTA imaging obtained. Case was discussed with Dr. Lott, who patient has previously seen, patient satisfactory for outpatient management with additional medications. Most likely etiology of the patient's symptoms unfortunately is largely small vessel and microvascular in nature. Satisfactory for outpatient follow-up. Medical Records I reviewed the patient's medical records. Lab Data I reviewed the patient's lab results. : 04/22/21 11:57 04/22/21 11:57 Radiology Impressions Aorta w/Runoff CTA 04/22/21 12:51 IMPRESSION: Multi-vessel atherosclerotic disease with multiple regions of stenosis as described in detail above. Laboratory Results WBC 6.5 10^3/uL (4.0-10.0) 04/22/21 11:57 RBC 4.22 10^6/uL (4.1-5.3) 04/22/21 11:57 Hgb 12.8 g/dL (11.5-15.3) 04/22/21 11:57 Hct 40.4 % (37.0-47.0) 04/22/21 11:57 MCV 95.7 fl (81-99) 04/22/21 11:57 MCH 30.3 pg (28.0-34.0) 04/22/21 11:57 MCHC 31.7 g/dL (30.0-36.0) 04/22/21 11:57 RDW 12.5 % (12.1-15.1) 04/22/21 11:57 Plt Count 268 10^3/cmm (130-400) 04/22/21 11:57 MPV 10.4 fL (7.4-10.4) 04/22/21 11:57 Neut % (Auto) 67.8 % 04/22/21 11:57 Lymph % (Auto) 21.8 % 04/22/21 11:57 [place] % (Auto) 6.5 % 04/22/21 11:57 Eos % (Auto) 2.8 % 04/22/21 11:57 Baso % (Auto) 0.8 % 04/22/21 11:57 Neut # (Auto) 4.38 10^3/uL (1.8-7.7) 04/22/21 11:57 Lymph # (Auto) 1.4 10^3/uL (0.8-4.8) 04/22/21 11:57 [place] # (Auto) 0.4 10^3/uL (0.2-0.9) 04/22/21 11:57 Eos # (Auto) 0.2 10^3/uL (0.0-0.8) 04/22/21 11:57 Baso # (Auto) 0.1 10^3/uL (0.0-0.1) 04/22/21 11:57 Nucleated RBC % (auto) 0 % 04/22/21 11:57 Nucleated RBCs # 0.0 /100WBC 04/22/21 11:57 PT 12.60 SECONDS (12.1-14.9) 04/22/21 12:30 INR 0.92 (0.8-1.2) 04/22/21 12:30 APTT 27.5 SECONDS (23.9-36.7) 04/22/21 12:30 Sodium 140 mmol/L (136-145) 04/22/21 11:57 Potassium 3.9 mmol/L (3.5-5.1) 04/22/21 11:57 Chloride 106 mmol/L (98-107) 04/22/21 11:57 Carbon Dioxide 21 mmol/L (22-29) L 04/22/21 11:57 Anion Gap 16.9 (5-19) 04/22/21 11:57 BUN 13 mg/dL (8-23) 04/22/21 11:57 Creatinine 0.9 mg/dL (0.5-0.9) 04/22/21 11:57 GFR Calculation 61.9 mL/min (90-130) L 04/22/21 11:57 Glucose 134 mg/dL (65-115) H 04/22/21 11:57 Calculated Osmolality 292 mOsm/kg (285-295) 04/22/21 11:57 Lactic Acid 1.5 mmol/L (0.5-2.2) 04/22/21 12:30 Calcium 9.9 mg/dL (8.5-10.5) 04/22/21 11:57 Total Bilirubin 0.3 mg/dL (0.15-1.2) 04/22/21 11:57 AST 12 U/L (0-32) 04/22/21 11:57 ALT 10 U/L (0-33) 04/22/21 11:57 Alkaline Phosphatase 149 IU/L (35-105) H 04/22/21 11:57 Total Protein 6.9 g/dL (6.6-8.7) 04/22/21 11:57 Albumin 4.6 g/dL (3.5-5.2) 04/22/21 11:57 Globulin 2.3 g/dL (1.3-4.6) 04/22/21 11:57 Discharge Plan Discharge Patient Disposition: Home Clinical Impression: PAD (peripheral artery disease), Mesenteric vascular insufficiency, Vascular insufficiency of limb Condition: Stable Prescriptions: New aspirin 325 mg tablet,delayed release (DR/EC) 325 mg PO DAILY Qty: 30 0RF hydrocodone-acetaminophen 5-325 mg tablet 1 tab PO Q6H PRN (Reason: pain) Qty: 20 0RF No Action atorvastatin 80 mg tablet 80 mg PO DAILY 0RF buspirone 10 mg tablet 10 mg PO BID 0RF estradiol 1 mg tablet 0.5 mg PO DAILY 0RF gabapentin 600 mg tablet 600 mg PO TID 0RF lamotrigine 200 mg tablet 200 mg PO BID 0RF meloxicam 7.5 mg tablet 7.5 mg PO DAILY 0RF metformin 500 mg tablet 1,000 mg PO BID 0RF (DME) Diabetic shoes with 3 inserts See Rx Instructions .ROUTE .MEDSUPPLY Qty: 1 0RF Rx Instructions: As directed by DIAN&O docusate sodium 100 mg capsule 200 mg PO .at bedtime PRN0RF polyethylene glycol 3350 [ClearLax] 17 gram/dose powder 17 g PO DAILY PRN0RF hydrocodone-acetaminophen [[place]] 5-325 mg tablet 1 tab PO Q8H PRN (Reason: Pain) 0RF lorazepam 0.5 mg tablet 0.5 mg PO DAILY PRN0RF nifedipine 30 mg tablet extended release 30 mg PO DAILY Qty: 30 3RF pantoprazole 40 mg tablet,delayed release (DR/EC) 40 mg PO BID Qty: 180 3RF Reglan 10 mg tablet 10 mg PO Q6H PRN (Reason: nausea and vomiting) Qty: 60 0RF Discharge Orders: Discharge ED (Routine); Ordered 04/22/21 Ordered By: Praful Griffin Referrals: Sukumra Andrade [Primary Care Provider] - Discharge Diet: Usual diet Discharge Activity: Resume usual activity Patient Instructions: Peripheral Artery Disease (ED), Opioid Safety Activity Restrictions/Additional Instructions: Thank you for visiting the emergency department. You were seen and evaluated for bilateral foot distal coloration. This is likely related to your chronic peripheral arterial disease. Based on ED evaluation and discussion with vascular surgery you can safely be seen in clinic and optimize medical management. I will message our rn field case manager for assistance in scheduling. As discussed, you have significant arterial disease noted on your imaging. Your symptoms may be consistent with intestinal angina and may require further intervention. Please follow-up with your primary care provider. Please follow-up with Dr. Lott. Please return to the emergency department for worsening symptoms, loss of motor function, wounds, or anything else that you are concerned about and feel needs emergency department evaluation. Coding Level of Care Code ED Rn Ed for [facility] Exam Comprehensive
[2021-04-22 11:44] VITALS: BP 174/80; PULSE 81; RESP 16; O2SAT 97
[2021-04-22 12:04] LABS: Basophils # 0.1 10^3/uL (0.0-0.1); Basophils % 0.8 %; Eosinophils # 0.2 10^3/uL (0.0-0.8); Eosinophils % 2.8 %; Hematocrit 40.4 % (37.0-47.0); Hemoglobin 12.8 g/dL (11.5-15.3); Lymphocytes # 1.4 10^3/uL (0.8-4.8); Lymphocytes % 21.8 %; Mean Corpuscular HGB Conc 31.7 g/dL (30.0-36.0); Mean Corpuscular Hemoglobin 30.3 pg (28.0-34.0); Mean Corpuscular Volume 95.7 fl (81-99); Mean Platelet Volume 10.4 fL (7.4-10.4); Monocytes # 0.4 10^3/uL (0.2-0.9); Monocytes % 6.5 %; Neutrophils # 4.38 10^3/uL (1.8-7.7); Neutrophils % 67.8 %; Nucleated Red Blood Cells % 0 %; Platelet Count 268 10^3/cmm (130-400); Red Blood Count 4.22 10^6/uL (4.1-5.3); Red Cell Distribution Width 12.5 % (12.1-15.1); White Blood Count 6.5 10^3/uL (4.0-10.0)
[2021-04-22 12:08] VITALS: RESP 16
[2021-04-22] MEDS: morphine 4 mg/mL SDV 1 mL IVP (12:08)
--- NOTE | 2021-04-22 12:12 | PC.NURSE ---
Pt provided warm blankets at this time.
[2021-04-22 12:39] LABS: Alanine Aminotransferase 10 U/L (0-33); Albumin Level 4.6 g/dL (3.5-5.2); Alkaline Phosphatase 149 IU/L (35-105); Anion Gap 16.9 (5-19); Aspartate Amino Transferase 12 U/L (0-32); Blood Urea Nitrogen 13 mg/dL (8-23); Calcium 9.9 mg/dL (8.5-10.5); Carbon Dioxide 21 mmol/L (22-29); Chloride 106 mmol/L (98-107); Globulin 2.3 g/dL (1.3-4.6); Glomerular Filtration Rate 61.9 mL/min (90-130); Glucose 134 mg/dL (65-115); Osmolality Calculated 292 mOsm/kg (285-295); Potassium 3.9 mmol/L (3.5-5.1); Sodium 140 mmol/L (136-145); Total Bilirubin 0.3 mg/dL (0.15-1.2); Total Protein 6.9 g/dL (6.6-8.7)
--- NOTE | 2021-04-22 12:51 | CTR_ITS ---
PROCEDURE INFORMATION: Exam: CTA Angiogram of the Abdominal Aorta and Bilateral Lower Extremities (Run-off) With IV Contrast Exam date and time: 04/22/2021 12:51 PM Age: 70 years old Clinical indication: Foot pain; Bilateral; Prior surgery; Surgery date: 6+ months; Surgery type: Iliac stents, knee; Patient HX: C/O ble pain and discoloration; Additional info: Bilat foot discoloration, HX iliac stents, abnormal US TECHNIQUE: Imaging protocol: CT angiogram of the abdominal aorta, pelvis and bilateral lower extremities with IV iodinated contrast. 3D rendering (Not supervised by radiologist): MIP and/or 3D reconstructed images were created by the technologist. Radiation optimization: All CT scans at this facility use at least one of these dose optimization techniques: automated exposure control; mA and/or kV adjustment per patient size (includes targeted exams where dose is matched to clinical indication); or iterative reconstruction. Contrast material: OMNI 350; Contrast volume: 95 ml; Contrast route: INTRAVENOUS (IV); COMPARISON: CT abdomen pelvis w con* [id number] 06/06/2020 5:54 PM RADIATION DOSE METRICS: Total DLP (mGy-cm): 1333.79 FINDINGS: Aorta: There is atherosclerotic plaque throughout the abdominal aorta with regions of mild narrowing. No aortic aneurysm. No aortic dissection. Celiac trunk and mesenteric arteries: There is a short segment of moderate to severe stenosis of the proximal celiac trunk measuring 3 mm in AP dimension with poststenotic dilatation measuring 9 mm. There is moderate stenosis of the proximal superior mesenteric artery with poststenotic dilatation measuring 7 mm. Inferior mesenteric artery not visualized. Renal arteries: Atherosclerotic plaque at the origin of the left renal artery results in focal moderate to severe stenosis. There is normal flow 1.1 mm distal to the origin. There is atherosclerotic plaque at the origin of the main right renal artery without significant stenosis. There is and accessory right renal artery originating from the aorta inferior to the main right renal artery. Atherosclerotic plaque at the origin of the accessory right renal artery results in focal severe stenosis. Right iliac arteries: There is a stent in the right common iliac artery. Visualization within the stent is limited however there appears to be some mild to moderate in stent stenosis. There is atherosclerotic plaque in the external iliac artery with regions of mild narrowing. Right femoral/popliteal arteries: There is scattered atherosclerotic plaque in the common femoral, superficial femoral, and popliteal arteries with regions of mild narrowing of the distal right superficial femoral and popliteal arteries. Right infrapopliteal arteries: There is thready flow in the mid right anterior tibialis artery. No flow is seen within the distal right anterior tibialis artery. No flow is seen in within the distal most aspect of the peroneal artery. Left iliac arteries: There is a stent in the left common iliac artery. Visualization within the stent is limited however there appears to be some mild to moderate in stent stenosis. There is atherosclerotic plaque in the external iliac artery without significant stenosis. Left femoral/popliteal arteries: Scattered atherosclerotic plaque in the common femoral , superficial femoral, and popliteal arteries with regions of mild stenosis. Left infrapopliteal arteries: No flow is seen within the distal most aspects of the anterior tibialis and peroneal arteries. Liver: No mass. Gallbladder and bile ducts: The gallbladder has been removed. Prominence of the intrahepatic and extrahepatic biliary ducts. This can be seen after cholecystectomy. No radiopaque retained stones are seen. Pancreas: Unremarkable. No mass. No ductal dilation. Spleen: Normal. No splenomegaly. Adrenals: Normal. No mass. Kidneys and ureters: Normal. No mass. Stomach and bowel: There is diverticulosis of the colon without evidence of diverticulitis. Colonic constipation is present. Appendix: No evidence of appendicitis. Urinary bladder: Unremarkable. No mass. Reproductive: The uterus is not visualized, consistent with hysterectomy. Intraperitoneal space: Unremarkable. No free air. No significant fluid collection. Lymph nodes: No lymphadenopathy. Bones/joints: No acute fracture. No dislocation. Soft tissues: Unremarkable. CT/CT angio abd aorta runof [id number] IMPRESSION: Multi-vessel atherosclerotic disease with multiple regions of stenosis as described in detail above.
[2021-04-22 13:02] LABS: INR 0.92 (0.8-1.2)
[2021-04-22 13:03] LABS: Partial Thromboplastin Time 27.5 SECONDS (23.9-36.7)
[2021-04-22 13:08] LABS: Lactic Sepsis W/Reflex 1.5 mmol/L (0.5-2.2)
[2021-04-22] MEDS: iohexol 350 mg/mL 100 mL Btl IV (13:23)
[2021-04-22 13:33] VITALS: BP 169/59; PULSE 78; RESP 16; O2SAT 100
[2021-04-22 15:35] VITALS: BP 162/76; PULSE 77; RESP 12; O2SAT 100
--- NOTE | 2021-04-24 12:02 | DCPLANNER ---
Addendum entered by Mira Campbell 04/27/21 09:20: Patient had an appointment scheduled for 04.26.21 with [facility] - patient did attend appointment. Original Note: car inspection and repair manager had message to schedule a follow up appointment for patient with [facility]. car inspection and repair manager called [facility], spoke with Sirena, gave clinic patients information. A follow up appointment was scheduled for patient for April at 10:[address] Lott, patient is aware of appointment.
== END 2021-04-22 15:36 | disposition home or self-care (01) ==
PROVIDERS: Emergency Provider Emergency Medicine; PCP Physician Assistant Medical
DX: I73.9 Peripheral vascular disease, unspecified (principal); K55.1 Chronic vascular disorders of intestine; I99.8 Other disorder of circulatory system; Z79.84 Long term (current) use of oral hypoglycemic drugs; E78.5 Hyperlipidemia, unspecified; E11.9 Type 2 diabetes mellitus without complications; Z87.891 Personal history of nicotine dependence
CPT/HCPCS: 75635; 80053; 83605; 85025; 85610; 85730; 96374; 99284; J2270; Q9967

== ENCOUNTER 2021-05-28 21:05 | Emergency (ER) | payer MEDICARE, OTHER, SELFPAY ==
[2021-05-28 21:20] VITALS: BP 128/71; PULSE 123; RESP 18; TEMP 36.8; O2SAT 96; BMI 23.4
[2021-05-28 21:35] LABS: Basophils # 0.1 10^3/uL (0.0-0.1); Basophils % 0.8 %; Eosinophils # 0.3 10^3/uL (0.0-0.8); Eosinophils % 3.3 %; Hematocrit 39.1 % (37.0-47.0); Hemoglobin 12.4 g/dL (11.5-15.3); Lymphocytes # 1.1 10^3/uL (0.8-4.8); Mean Corpuscular HGB Conc 31.7 g/dL (30.0-36.0); Mean Corpuscular Hemoglobin 30.7 pg (28.0-34.0); Mean Corpuscular Volume 96.8 fl (81-99); Mean Platelet Volume 10.2 fL (7.4-10.4); Monocytes # 0.7 10^3/uL (0.2-0.9); Monocytes % 7.9 %; Neutrophils # 6.57 10^3/uL (1.8-7.7); Neutrophils % 74.8 %; Nucleated Red Blood Cells % 0 %; Platelet Count 303 10^3/cmm (130-400); Red Blood Count 4.04 10^6/uL (4.1-5.3); White Blood Count 8.8 10^3/uL (4.0-10.0)
[2021-05-28 21:47] LABS: Alanine Aminotransferase 12 U/L (0-33); Albumin Level 4.4 g/dL (3.5-5.2); Alkaline Phosphatase 138 IU/L (35-105); Anion Gap 18.9 (5-19); Aspartate Amino Transferase 12 U/L (0-32); Blood Urea Nitrogen 17 mg/dL (8-23); Calcium 8.6 mg/dL (8.5-10.5); Carbon Dioxide 19 mmol/L (22-29); Chloride 104 mmol/L (98-107); Globulin 2.5 g/dL (1.3-4.6); Glomerular Filtration Rate 44.4 mL/min (90-130); Glucose 190 mg/dL (65-115); Lipase 17 U/L (13-60); Osmolality Calculated 293 mOsm/kg (285-295); Potassium 3.9 mmol/L (3.5-5.1); Sodium 138 mmol/L (136-145); Total Bilirubin 0.3 mg/dL (0.15-1.2); Total Protein 6.9 g/dL (6.6-8.7)
[2021-05-28 22:48] VITALS: BP 166/98; PULSE 107; RESP 18; TEMP 36.4; O2SAT 95
[2021-05-28] MEDS: sodium chloride 0.9% 1,000 ML 999 ML IV (22:58)
[2021-05-28] MEDS: ondansetron 2 mg/ML SDV 2 mL 4 MG IVP (22:58)
--- NOTE | 2021-05-28 23:02 | ED_ITS ---
HPI - Nausea/Vomiting/Diarrhea General: Chief complaint: Nausea/Vomiting/Diarrhea Stated complaint: N\V Time Seen by Provider: 05/28/21 22:38 History of Present Illness: Patient is a 70-year-old female comes to the ED with nausea and vomiting. Symptoms started 2 days ago. Nausea has been constant for the past 2 days whenever she tries to eat something she throws it up. She denies any diarrhea and has been having normal daily bowel movements. She states that she feels a little dehydrated. She is unsure what caused symptoms and she has not been in contact with anybody who has had similar symptoms. Denies any fever, abdominal pain, chest pains, shortness of breath, upper respiratory symptoms, fever, chills, dysuria or hematuria. Associated nausea: Yes Associated symtoms: Reports nausea; Denies change in vision, chest pain, dysuria, fatigue, headache(s) or palpitations Review of Systems Const: Denies: fever(s), chills or fatigue Eyes: Denies: change in vision or eye discomfort ENMT: Denies: throat pain, odynophagia, nasal discharge or nasal congestion Card: Denies: chest pain, palpitations, edema, swelling of feet/ankles, dyspnea on exertion or orthopnea Resp: Denies: dyspnea, productive cough or non-productive cough GI: Reports: nausea and vomiting; Denies: abdominal pain, diarrhea, constipation or hematochezia : Denies: flank pain, dysuria or hematuria Musc: Denies: neck pain, back pain or extremity swelling Skin/Breast: Denies: rash or new lesions Neuro: Denies: headache(s), numbness in extremities or weakness in extremities PFS ED PFSH: Medical History Epilepsy FH: carotid endarterectomy Hyperlipemia Stenosis of peripheral vascular stent Type 2 diabetes mellitus Surgical History H/O abdominal hysterectomy S/P knee surgery Family History Other Cancer Diabetes Heart disease Social History Smoking and tobacco status: former smoker Quit status (tobacco): has quit using tobacco Year quit tobacco: 2020 Former quit date comment: 6 WEEKS AGO Alcohol intake: former Adopted: No service: No History of recent travel: No Current gender identity: Female Physical Exam Const: COMMON NORMALS: no acute distress, patient oriented x3, healthy ap pearing and alert GENERAL APPEARANCE: cooperative and comfortable HENMT: COMMON NORMALS: normocephalic HEAD & SCALP: normocephalic MOUTH: moist mucous membranes abnormal (Mild dryness to oral mucous membranes.) THROAT: posterior oropharynx normal and uvula midline Eye: COMMON NORMALS: Equal, round and reactive pupils present and conjunctivae normal CONJUNCTIVA: Yes conjunctivae normal PUPIL: Yes Equal, round and reactive pupils present Neck/C-Spine: COMMON NORMALS: supple GENERAL: Yes normal visual inspection Resp: COMMON NORMALS: normal respiratory effort, No retractions, No use of accessory muscles and clear to auscultation bilaterally AUSCULTATION: clear to auscultation bilaterally Cardio: COMMON NORMALS: regular rate, regular rhythm, S1 normal heart sound present, S2 normal heart sound present, No gallops present (Cardio), No clicks present (Cardio), No murmurs present (Cardio) and Peripheral pulses 2+ throughout RATE: regular rate RHYTHM: regular rhythm HEART SOUNDS: S1 normal heart sound present and S2 normal heart sound present PERIPHERAL PULSES: Peripheral pulses 2+ throughout GI: COMMON NORMALS: Normal to inspection, nondistended, normoactive bowel sounds present, Soft to palpation, non-tender and no masses PALPATION: Yes Soft to palpation and No Tenderness to palpation present (GI) : COMMON NORMALS: Yes no CVA tenderness BLADDER/KIDNEY EXAM: Yes no CVA tenderness Back/Pelvis: COMMON NORMALS: no CVA tenderness Extremity: COMMON NORMALS: normal to inspection Neuro: COMMON NORMALS: patient oriented x3 and moves all extremities SENSO RIUM/ORIENTATION: Yes alert Skin: GENERAL SKIN EXAM: dry skin Course Reevaluation(s): Reevaluation #1: After patient received 1 L of IV fluids and some Zofran she said her symptoms had improved. She was having no more nausea and felt a lot better. She was given p.o. water and was able to keep it down and had no nausea or episodes of emesis after drinking water. Patient states she is ready to be discharged home. Time: 00:16 Vital Signs: Vital signs: Vital Signs Temperature 97.6 F 05/28/21 22:48 Pulse Rate 107 H 05/28/21 22:48 Respiratory Rate 18 05/28/21 22:48 Blood Pressure 166/98 05/28/21 22:48 Pulse Oximetry 95 05/28/21 22:48 MDM - Nausea/Vomiting/Diarrhea Medical Decision Making Patient is a 70-year-old female who comes to the ED with nausea and vomiting. Symptoms started approximately 2 days ago. She is had a hard time keeping any food or fluids down since start of symptoms. She feels a little dehydrated currently. Denies any fever, chills, abdominal pain, bladder or bowel symptoms. Patient had a pulse of 123 during triage in the rest of her vitals were unremarkable. Her pulse improved and was close to 100 after she received IV fluids and Zofran. Patient appears nontoxic and in no acute distress or pain. Exam showed some mild dryness of oral mucous membranes. She has no abdominal tenderness and rest of exam is benign. CBC unremarkable. Creatinine was 1.2 but the rest of CMP, lipase and UA were unremarkable. She was given 1 L of IV fluids and Zofran here in the ED and her symptoms improved greatly. She says she felt a lot better and had no more nausea. She was given p.o. fluids here in the ED and she was able to keep it down and had no episodes of emesis. Patient was stable for discharge home and was diagnosed with acute nausea and vomiting and elevated creatinine. She was told to follow-up with her PCP in the next 3 days for reevaluation and to have her creatinine level rechecked. She was sent home with a prescription for Zofran for nausea. Return to ED precautions given. Patient understood and agreed with plan. Lab Data I reviewed the patient's lab results. : 05/28/21 21:31 05/28/21 21:31 Laboratory Results WBC 8.8 10^3/uL (4.0-10.0) 05/28/21 21: RBC 4.04 10^6/uL (4.1-5.3) L 05/28/21 21: Hgb 12.4 g/dL (11.5-15.3) 05/28/21 21: Hct 39.1 % (37.0-47.0) 05/28/21 21: MCV 96.8 fl (81-99) 05/28/21 21: MCH 30.7 pg (28.0-34.0) 05/28/21 21: MCHC 31.7 g/dL (30.0-36.0) 05/28/21 21: RDW 13.0 % (12.1-15.1) 05/28/21 21: Plt Count 303 10^3/cmm (130-400) 05/28/21 21: MPV 10.2 fL (7.4-10.4) 05/28/21 21: Neut % (Auto) 74.8 % 05/28/21 21: Lymph % (Auto) 13.0 % 05/28/21 21: [place] % (Auto) 7.9 % 05/28/21 21: Eos % (Auto) 3.3 % 05/28/21 21: Baso % (Auto) 0.8 % 05/28/21 21: Neut # (Auto) 6.57 10^3/uL (1.8-7.7) 05/28/21 21: Lymph # (Auto) 1.1 10^3/uL (0.8-4.8) 05/28/21 21: [place] # (Auto) 0.7 10^3/uL (0.2-0.9) 05/28/21 21: Eos # (Auto) 0.3 10^3/uL (0.0-0.8) 05/28/21 21: Baso # (Auto) 0.1 10^3/uL (0.0-0.1) 05/28/21: Nucleated RBC % (auto) 0 % 05/28/21: Nucleated RBCs # 0.0 /100WBC 05/28/21 21: Sodium 138 mmol/L (136-145) 05/28/21 21: Potassium 3.9 mmol/L (3.5-5.1) 05/28/21 21: Chloride 104 mmol/L (98-107) 05/28/21 21: Carbon Dioxide 19 mmol/L (22-29) L 05/28/21 21: Anion Gap 18.9 (5-19) 05/28/21 21: BUN 17 mg/dL (8-23) 05/28/21 21:31 Creatinine 1.2 mg/dL (0.5-0.9) H 05/28/21 21:31 GFR Calculation 44.4 mL/min (90-130) L 05/28/21 21:31 Glucose 190 mg/dL (65-115) H 05/28/21 21:31 Calculated Osmolality 293 mOsm/kg (285-295) 05/28/21 21:31 Calcium 8.6 mg/dL (8.5-10.5) 05/28/21 21:31 Total Bilirubin 0.3 mg/dL (0.15-1.2) 05/28/21 21: AST 12 U/L (0-32) 05/28/21 21: ALT 12 U/L (0-33) 05/28/21 21: Alkaline Phosphatase 138 IU/L (35-105) H 05/28/21 21:31 Total Protein 6.9 g/dL (6.6-8.7) 05/28/21 21: Albumin 4.4 g/dL (3.5-5.2) 05/28/21 21: Globulin 2.5 g/dL (1.3-4.6) 05/28/21 21: Lipase 17 U/L (13-60) 05/28/21 21:31 Urine Color Yellow (Yellow) 05/28/21 23:40 Urine Appearance Sl hazy (CLEAR) 05/28/21 23:40 Urine pH 5 (5-7) 05/28/21 23:40 Ur Specific [place] 1.015 (1.005-1.030) 05/28/21 23:40 Urine Protein Neg (Negative) 05/28/21 23:40 Urine Glucose (UA) 4+ (Normal) H 05/28/21 23:40 Urine Ketones Negative (Negative) 05/28/21 23:40 Urine Blood Neg (Negative) 05/28/21 23:40 Urine Nitrate Negative (Negative) 05/28/21 23:40 Urine Bilirubin Neg (Negative) 05/28/21 23:40 Urine Urobilinogen Norm mg/dL (Negative) 05/28/21 23:40 Ur Leukocyte Esterase Negative (Negative) 05/28/21 23:40 Urine RBC 0-4 /hpf (0-2) H 05/28/21 23:40 Urine WBC 15-25 /hpf (0-5) H 05/28/21 23:40 Ur Squamous Epith Cells 25-40 /hpf (0-5) H 05/28/21 23:40 Amorphous Sediment Not Reportable 05/28/21 23:40 Urine Bacteria 4+ /hpf (NONE) H 05/28/21 23:40 Discharge Plan Discharge Patient Disposition: Home Clinical Impression: Elevated serum creatinine Nausea & vomiting Qualifiers: Vomiting type: unspecified Qualified Code(s): R11.2 - Nausea with vomiting, unspecified Condition: Stable Prescriptions: New ondansetron 4 mg tablet,disintegrating 4 mg PO Q8H PRN (Reason: nausea and vomiting) Qty: 15 0RF No Action atorvastatin 80 mg tablet 80 mg PO DAILY 0RF buspirone 10 mg tablet 10 mg PO BID 0RF estradiol 1 mg tablet 0.5 mg PO DAILY 0RF gabapentin 600 mg tablet 600 mg PO TID 0RF lamotrigine 200 mg tablet 200 mg PO BID 0RF meloxicam 7.5 mg tablet 7.5 mg PO DAILY 0RF metformin 500 mg tablet 1,000 mg PO BID 0RF (DME) Diabetic shoes with 3 inserts See Rx Instructions .ROUTE .MEDSUPPLY Qty: 1 0RF Rx Instructions: As directed by DIAN&O docusate sodium 100 mg capsule 200 mg PO .at bedtime PRN0RF polyethylene glycol 3350 [ClearLax] 17 gram/dose powder 17 g PO DAILY PRN0RF cilostazol 50 mg tablet 50 mg PO BID Qty: 180 3RF lorazepam 0.5 mg tablet 0.5 mg PO DAILY PRN0RF nifedipine 30 mg tablet extended release 30 mg PO DAILY Qty: 30 3RF pantoprazole 40 mg tablet,delayed release (DR/EC) 40 mg PO BID Qty: 180 3RF Reglan 10 mg tablet 10 mg PO Q6H PRN (Reason: nausea and vomiting) Qty: 60 0RF aspirin 325 mg tablet,delayed release (DR/EC) 325 mg PO DAILY Qty: 30 0RF hydrocodone-acetaminophen 5-325 mg tablet 1 tab PO Q6H PRN (Reason: pain) Qty: 20 0RF Discharge Orders: Discharge ED (Routine); Ordered 05/29/21 Ordered By: Victorino Rodriguez Referrals: Sukumar Andrade [Primary Care Provider] - Discharge Diet: Advance as tolerated and Clear Liquid Discharge Activity: Increase activity as tolerated Activity Restrictions/Additional Instructions: Follow-up with medical provider as directed in the next 3 to 5 days for reevaluation. Have your primary care doctor also reach check your creatinine level at next visit. Continue a clear liquid diet for the next 12 hours then ad suh diet as tolerated. Make sure you drink plenty of fluids and stay hydrated. Take medications as prescribed. Return to the ER or your medical provider if condition worsens. Please read and understand discharge instructions. Thank you for choosing [facility] for your healthcare needs today. Please realize this is an emergency room and that we are providing you with a medical screening exam and this may not be complete and all inclusive of all the testing and or work up that you may need to determine your ailment or severity of your illness. It is very important that you follow up as instructed or that you return to the Emergency Department should you have concerns or if your condition changes or worsens in any way. 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
[2021-05-29 00:11] LABS: Add Urine Microscopic? YES; Bilirubin Urine Neg (Negative); Blood Urine Neg (Negative); Glucose Urine UA 4+ (Normal); Ketones Urine Negative (Negative); Leukocyte Esterase Urine Negative (Negative); Nitrate Urine Negative (Negative); Protein Urine Neg (Negative); Specific Gravity, Urine 1.015 (1.005-1.030); Urine Appearance SL Hazy (CLEAR); Urine Color Yellow (Yellow); Urobilinogen Urine Norm (Negative); pH Urine 5 (5-7)
[2021-05-29 00:12] LABS: Add Urine Culture? No; Bacteria Urine 4+ /hpf; RBC Urine 0-4 /hpf (0-2); Squamous Epithelial Cell Urine 25-40 /hpf (0-5); WBC Urine 15-25 /hpf (0-5)
== END 2021-05-29 00:33 | disposition home or self-care (01) ==
PROVIDERS: Emergency Provider Physician Assistant; PCP Physician Assistant Medical
DX: R11.2 Nausea with vomiting, unspecified (principal); R74.8 Abnormal levels of other serum enzymes; Z79.84 Long term (current) use of oral hypoglycemic drugs; Z79.82 Long term (current) use of aspirin; E78.5 Hyperlipidemia, unspecified; E11.9 Type 2 diabetes mellitus without complications; Z87.891 Personal history of nicotine dependence
CPT/HCPCS: 80053; 81001; 81003; 83690; 85025; 96361; 96374; 99284; J2405; J7030

== ENCOUNTER → 2021-06-07 14:01 | Outpatient (BNVA) | payer MEDICARE, OTHER, SELFPAY | PROVIDERS: PCP Physician Assistant Medical; Visit Provider Nurse Practitioner Family | DX: I73.9 Peripheral vascular disease, unspecified (principal); Z87.891 Personal history of nicotine dependence | CPT/HCPCS: 99213 ==

== ENCOUNTER → 2021-10-01 12:46 | Outpatient (BNVA) | payer MEDICARE, OTHER, SELFPAY | PROVIDERS: PCP Physician Assistant Medical; Visit Provider Internal Medicine | DX: I73.9 Peripheral vascular disease, unspecified (principal); E11.9 Type 2 diabetes mellitus without complications; I10 Essential (primary) hypertension; Z87.891 Personal history of nicotine dependence; Z79.84 Long term (current) use of oral hypoglycemic drugs; R06.00 Dyspnea, unspecified | CPT/HCPCS: 99214 ==

== ENCOUNTER 2021-10-23 06:47 | Outpatient (CLI) | payer MEDICARE, OTHER, SELFPAY ==
--- NOTE | 2021-10-23 06:56 | USCV_ITS ---
Bertha Brenda Age: 71 Gender: F : 1950 Exam Date: 10/23/2021 07:17 Ordering Phys: Margarito Lott MD (Andy) ([email or web address] [place]) Technologist: Devin Argueta Exam Location: [facility] [place] Indication: occlusion and stenosis of carotid arteries Risk Factors: Previous Vascular Surgery: Right Brachial BP: / Left Brachial BP: / Right Left Velocity (cm/s) Spectral Plaque Velocity (cm/s) Spectral Plaque Syst/Diast Broadening Syst/Diast Broadening 81.60/ 14.30 Prox CCA 62.40 / 11.80 71.70/ 15.40 Mid CCA 81.10 / 19.90 71.70/ 16.50 Distal CCA 81.30 / 16.60 102.50/16.20 Prox ICA 276.50/ 59.70 89.70/ 25.60 Mid ICA 194.70/ 35.40 81.10/ 24.30 Distal ICA 125.70/ 36.70 111.10 ECA 116.70 1.25 ICA/CCA 2.40 Antegrade Vertebral Antegrade 25.20/ 4.30 cm/s 76.90/ 22.60 cm/s Tri Subclavian Bi 73.00 68.90 FINDINGS Comparison:. 02/23/21. Prior right endarterectomy. Normal velocities right carotid artery. Increasing velocity left ICA since the prior exam. Spectral broadening left ICA and increasing plaque left carotid. Antegrade vertebral arteries. CONCLUSIONS Left ICA stenosis 70-99%. Increasing velocity since the prior study, stenosis estimated at just greater than 70%. Right ICA stenosis < 50%. Dr. Marely Gilmore DO (Electronically Signed) Final Date: 23 October 2021 08:06 S
== END 2021-10-23 06:48 | disposition home or self-care (01) ==
LOC: RAD 06:47
PROVIDERS: PCP Physician Assistant Medical; Visit Provider Thoracic Surgery (Cardiothoracic Vascular Surgery)
DX: I65.23 Occlusion and stenosis of bilateral carotid arteries (principal)
CPT/HCPCS: 93880

== ENCOUNTER 2021-11-08 14:14 | Outpatient (CLI) | payer MEDICARE, OTHER, SELFPAY ==
--- NOTE | 2021-11-08 14:30 | USCV_ITS ---
Brenda Stone Age: 71 Gender: F : 1950 Exam Date: 11/08/2021 14:36 Ordering Phys: Martir Myers M.D ([email or web address]) Technologist: ELIZA Exam Location: [facility] [place] Indication: SOB, dyspnea BP: 130 / 64 HR: 85 Rhythm: Sinus Technical Quality: adequate MEASUREMENTS (Male / Female) Normal Values 2D ECHO LV Diastolic Diameter PLAX 3.5 cm 4.2 - 5.9 / 3.9 - 5.3 cm LV Systolic Diameter PLAX 1.9 cm IVS Diastolic Thickness 1.5 cm 0.6 - 1.0 / 0.6 - 0.9 cm IVS Systolic Thickness 1.5 cm LVPW Diastolic Thickness 1.2 cm 0.6 - 1.0 / 0.6 - 0.9 cm LVPW Systolic Thickness 1.6 cm LVOT Diameter 2.0 cm LV Ejection Fraction 2D Teich 77.4 % LV Ejection Fraction MOD 2C 66.1 % LV Ejection Fraction 2C AL 66.4 % LA Diameter 2.9 cm RA Width 3.4 cm RA Height 4.1 cm Aorta at Sinotubular Diameter 2.2 cm M-MODE MV E Point Septal Separation 0.5 cm DOPPLER AV Peak Velocity 136.0 cm/s LVOT Peak Velocity 62.0 cm/s AV Area Cont Eq vti 1.4 cm squared AV Area Cont Eq pk 1.4 cm squared MV Peak Velocity 98.0 cm/s MV Area PHT 5.0 cm squared Mitral E to A Ratio 0.7 MV E' Velocity 39.5 cm/s Mitral E to MV E' Ratio 10.4 Mitral E to LV E' Lateral Ratio 9.3 Mitral E to LV E' Septal Ratio 11.7 TR Peak Velocity 227.0 cm/s TR Peak Gradient 20.6 mmHg Right Atrial Pressure 5.0 mmHg Pulmonary Artery Systolic Pressu 25.6 mmHg PV Peak Velocity 76.0 cm/s FINDINGS Left Ventricle Left ventricle is normal in size. LV systolic function is normal with EF of 55 to 60%. No regional wall motion abnormalities are seen. Grade 1 diastolic dysfunction. Right Ventricle Right ventricle is normal in size and function. Right Atrium Normal in size Left Atrium Normal in size Mitral Valve Structurally normal mitral valve. Mild mitral regurgitation. Aortic Valve Grossly normal. No significant stenosis or regurgitation seen. Tricuspid Valve Trace tricuspid regurgitation. Insufficient TR jet to calculate RVSP. Pulmonic Valve Not well-visualized Pericardium Normal Aorta Normal in size IVC CONCLUSIONS LV systolic function is normal with EF 55 to 60%. Grade 1 diastolic dysfunction. Mild mitral regurgitation. Trace tricuspid regurgitation. No comparison studies are available Martir Myers MD (Electronically Signed) Final Date: 21 November 2021 21:19 S
== END 2021-11-08 14:15 | disposition home or self-care (01) ==
LOC: RAD 14:16
PROVIDERS: PCP Physician Assistant Medical; Visit Provider Internal Medicine
DX: R06.00 Dyspnea, unspecified (principal); R06.02 Shortness of breath; I08.1 Rheumatic disorders of both mitral and tricuspid valves
CPT/HCPCS: 93306

== ENCOUNTER → 2021-11-15 14:04 | Outpatient (BNVA) | payer MEDICARE, OTHER, SELFPAY | PROVIDERS: PCP Physician Assistant Medical; Visit Provider Thoracic Surgery (Cardiothoracic Vascular Surgery) | DX: I65.22 Occlusion and stenosis of left carotid artery (principal); Z87.891 Personal history of nicotine dependence | CPT/HCPCS: 99213 ==

== ENCOUNTER 2022-01-19 12:38 | Inpatient (IN) | payer MEDICARE, OTHER, SELFPAY ==
[2022-01-19] VITALS (7 sets, daily range): BP systolic 125–166; BP diastolic 63–85; PULSE 89–106; RESP 14–16; TEMP 38.2; O2SAT 94–96; BMI 24.3
--- NOTE | 2022-01-19 12:56 | CTR_ITS ---
PROCEDURE INFORMATION: Exam: CT Head Without Contrast Exam date and time: 01/19/2022 1:11 PM Age: 71 years old Clinical indication: Other: Weakness TECHNIQUE: Imaging protocol: Computed tomography of the head without contrast. Radiation optimization: All CT scans at this facility use at least one of these dose optimization techniques: automated exposure control; mA and/or kV adjustment per patient size (includes targeted exams where dose is matched to clinical indication); or iterative reconstruction. 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 There is generalized chronic atrophy with prominence of the ventricles and sulci. No intracranial hemorrhage, edema or other acute abnormality. There is no mass effect or midline shift. Cerebral ventricles: Mild ventricular prominence consistent with chronic atrophy. Paranasal sinuses: Visualized sinuses are unremarkable. No fluid levels. Mastoid air cells: Visualized mastoid air cells are well aerated. Bones/joints: Unremarkable. No acute fracture. Soft tissues: Unremarkable. CT/CT head wo con* [id number] IMPRESSION: No acute intracranial abnormality.
--- NOTE | 2022-01-19 12:59 | ED_ITS ---
HPI - Weakness General: Chief complaint: Weakness Stated complaint: WEAKNESS Time Seen by Provider: 01/19/22 12:42 History of Present Illness: 71-year-old female who comes in for generalized weakness. Patient received her second COVID booster, Moderna yesterday. During the night, she started having weakness. This morning when her tried to get her up to the bathroom, she was unable to walk, having difficulty with weakness of both arms and both legs. He also thought she had a petit mal seizure. She has a history of a seizure disorder. She has not missed any of her medications. She has not had loss of bowel or bladder control. No fever. She denies a headache or neck pain. Last known normal was 7 PM last night. She does have a history of diabetes as well as hyperlipidemia. Review of Systems Const: Reports: fatigue and malaise GI: Reports: diarrhea and constipation Neuro: Reports: weakness in extremities, difficulty walking and seizure-like activity PFSH ED PFSH: Medical History Epilepsy FH: carotid endarterectomy Hyperlipemia Stenosis of peripheral vascular stent Type 2 diabetes mellitus Surgical History H/O abdominal hysterectomy S/P knee surgery Family History Other Cancer Diabetes Heart disease Social History Smoking and tobacco status: former smoker Quit status (tobacco): has quit using tobacco Year quit tobacco: 2020 Former quit date comment: 6 WEEKS AGO Alcohol intake: former Adopted: No service: No History of recent travel: No Current gender identity: Female Physical Exam Narrative: EXAM NARRATIVE: Well appearing female; no acute distress; clear speech; patient is alert Const: COMMON NORMALS: no acute distress, healthy appearing, alert and well nourished HENMT: COMMON NORMALS: normocephalic, atraumatic and moist oral mucous membranes HEAD & SCALP: normocephalic and atraumatic Eye: COMMON NORMALS: Equal, round and reactive pupils present and EOMs intact bilaterally PUPIL: Yes Equal, round and reactive pupils present Neck/C-Spine: COMMON NORMALS: full ROM and no meningeal signs Resp: COMMON NORMALS: normal respiratory effort, No retractions, No use of accessory muscles and clear to auscultation bilaterally AUSCULTATION: clear to auscultation bilaterally Cardio: COMMON NORMALS: regular rate and regular rhythm RATE: regular rate RHYTHM: regular rhythm GI: COMMON NORMALS: Normal to inspection, nondistended, normoactive bowel sounds present, Soft to palpation and non-tender (tender in suprapubic region) PALPATION: Yes Soft to palpation Neuro: SENSORIUM/ORIENTATION: Yes alert MENINGEAL SIGNS: Yes no meningeal signs CRANIAL NERVES: Yes CN normal except as noted COORDINATION/BALANCE: [id number] test normal MOTOR EXAM: Motor fasciculations not present and Abnormal motor strength present (lower ext 2/5 bilaterally) COORDINATION: [id number]-[id number] test normal PUPIL EXAM: Normal pupillary reactivity/response: bilateral OTHER: bilateral upper extremity weakness 4/5 strength bilaterall; lower extremities 2/5 stregth; DTRs intact upper extremities 0/4 reflexes in lower extremities bilaterally Skin: COMMON NORMALS: no rashes or lesions noted and turgor normal GENERAL SKIN EXAM: no rashes or lesions noted and turgor normal Procedures Lumbar Puncture Time Out Performed: Yes Patient Position: left lateral decubitus Skin Prep: Povidone-Iodine 1% Local Anesthetic: lidocaine 1% Amount of anesthesia used (mL): 5 Spinal Needle Gauge: 22G Interspace Used: L3-L4 Fluid Initially Obtained: clear Complications: none Course ED course: Patient's been evaluated in the emergency department. She presents with a low-grade fever and generalized weakness, lower extremities more severe than upper extremities. She is hyperreflexic in her lower extremities but not in her upper extremities. She had an IV placed and labs obtained. She has been given Tylenol for her fever. She is had blood cultures and a lactic acid obtained. Laboratory studies to reveal a low magnesium of 1.3. White blood cell count is normal. Chest x-ray is negative. Her urinalysis is negative. Her strength is significantly improved after IV magnesium has been infused. This suggest that this is probably weakness due to hypomagnesemia. Given that she is postvaccination for COVID, as of yesterday with a low-grade fever, certainly Fiorella StarksDestini is of concern. Discussed with the hospitalist who were request that neurology be consulted first in the event the patient may need plasmapheresis. Reevaluation(s): Reevaluation #1: Patient's strength has improved but not back to normal Reevaluation #2: patient is able to stand and get up to commode with assistance Consultations: Consultation #1: Dr. Joy - requests neuology be consulted Consultation #2: Discussed with neurology at [place] who recommended a lumbar puncture to evaluate for protein levels as well as having respiratory check a sniff which hurst was - 58 which anything over 20 is considered okay. Consultation #3: CSF normal; NIF normal. Discussed iwth Dr. Joy who will admit the patient. Vital Signs: Vital signs: Vital Signs Temperature 100.8 F H 01/19/22 12:41 Pulse Rate 96 01/19/22 12:41 Respiratory Rate 16 01/19/22 12:41 Blood Pressure 166/85 01/19/22 12:41 Pulse Oximetry 96 01/19/22 12:41 Oxygen Delivery Me thod 01/19/22 12:41 Oxygen Flow Rate 2 01/19/22 12:41 MDM - Weakness Medical Decision Making 71-year-old female, history of seizure disorder as well as hypertension and diabetes who presents with generalized weakness. She has a low-grade fever. Certainly urinary tract infection or sepsis could be the cause. She could have COVID. With receiving her COVID booster yesterday, concern for transverse myelitis or [place] Starks?. She also could have an electrolyte abnormality contributing to her generalized weakness. Will obtain labs, CT of her head, given IV fluid bolus and treat her fever. Differential Diagnosis Likely anemia, hypoglycemia, hypothyroidism, sepsis and dehydration Lab Data : 01/19/22 13:05 01/19/22 13:[address] 01/19/22 12:56 IMPRESSION: No acute intracranial abnormality. Chest X-Ray 01/19/22 13:21 IMPRESSION: No acute findings. Laboratory Results WBC 5.2 10^3/uL (4.0-10.0) 01/19/22 13:05 RBC 4.33 10^6/uL (4.1-5.3) 01/19/22 13:05 Hgb 12.5 g/dL (11.5-15.3) 01/19/22 13:05 Hct 39.1 % (37.0-47.0) 01/19/22 13:05 MCV 90.3 fl (81-99) 01/19/22 13:05 MCH 28.9 pg (28.0-34.0) 01/19/22 13:05 MCHC 32.0 g/dL (30.0-36.0) 01/19/22 13:05 RDW 12.5 % (12.1-15.1) 01/19/22 13:05 Plt Count 248 10^3/cmm (130-400) 01/19/22 13:05 MPV 10.5 fL (7.4-10.4) H 01/19/22 13:05 Neut % (Auto) 82.2 % 01/19/22 13:05 Lymph % (Auto) 11.6 % 01/19/22 13:05 [place] % (Auto) 4.6 % 01/19/22 13:05 Eos % (Auto) 0.4 % 01/19/22 13:05 Baso % (Auto) 0.8 % 01/19/22 13:05 Neut # (Auto) 4.27 10^3/uL (1.8-7.7) 01/19/22 13:05 Lymph # (Auto) 0.6 10^3/uL (0.8-4.8) L 01/19/22 13:05 [place] # (Auto) 0.2 10^3/uL (0.2-0.9) 01/19/22 13:05 Eos # (Auto) 0.0 10^3/uL (0.0-0.8) 01/19/22 13:05 Baso # (Auto) 0.0 10^3/uL (0.0-0.1) 01/19/22 13:05 Nucleated RBC % (auto) 0 % 01/19/22 13:05 Nucleated RBCs # 0.0 /100WBC 01/19/22 13:05 Sodium 137 mmol/L (136-145) 01/19/22 13:05 Potassium 3.5 mmol/L (3.5-5.1) 01/19/22 13:05 Chloride 98 mmol/L (98-107) 01/19/22 13:05 Carbon Dioxide 25 mmol/L (22-29) 01/19/22 13:05 Anion Gap 17.5 (5-19) 01/19/22 13:05 BUN 13 mg/dL (8-23) 01/19/22 13:05 Creatinine 1.0 mg/dL (0.5-0.9) H 01/19/22 13:05 GFR Calculation Not Reportable 01/19/22 13:05 Glucose 250 mg/dL (65-115) H 01/19/22 13:05 Calculated Osmolality 293 mOsm/kg (285-295) 01/19/22 13:05 Lactate 1.3 mmol/L (0.5-2.2) 01/19/22 13:05 Calcium 9.6 mg/dL (8.5-10.5) 01/19/22 13:05 Magnesium 1.3 mg/dL (1.7-2.3) L 01/19/22 13:05 Total Bilirubin 0.4 mg/dL (0.15-1.2) 01/19/22 13:05 AST 13 U/L (0-32) 01/19/22 13:05 ALT 9 U/L (0-33) 01/19/22 13:05 Alkaline Phosphatase 142 U/L (35-105) H 01/19/22 13:05 Creatine Kinase 41 U/L (26-192) 01/19/22 13:05 Total Protein 6.8 g/dL (6.6-8.7) 01/19/22 13:05 Albumin 3.9 g/dL (3.5-5.2) 01/19/22 13:05 Globulin 2.9 g/dL (1.3-4.6) 01/19/22 13:05 TSH 0.01 uIU/mL (0.27-4.20) L 01/19/22 13:05 Urine Color Yellow (Yellow) 01/19/22 14:00 Urine Appearance Clear (CLEAR) 01/19/22 14:00 Urine pH 7 (5-7) 01/19/22 14:00 Ur Specific [place] 1.005 (1.005-1.030) 01/19/22 14:00 Urine Protein Neg (Negative) 01/19/22 14:00 Urine Glucose (UA) 4+ (Normal) H 01/19/22 14:00 Urine Ketones Negative (Negative) 01/19/22 14:00 Urine Blood Neg (Negative) 01/19/22 14:00 Urine Nitrate Negative (Negative) 01/19/22 14:00 Urine Bilirubin Neg (Negative) 01/19/22 14:00 Urine Urobilinogen Norm mg/dL (Negative) 01/19/22 14:00 Ur Leukocyte Esterase Negative (Negative) 01/19/22 14:00 Urine RBC None /hpf (0-2) 01/19/22 14:00 Urine WBC None /hpf (0-5) 01/19/22 14:00 Ur Squamous Epith Cells 5-10 /hpf (0-5) H 01/19/22 14:00 Amorphous Sediment Not Reportable 01/19/22 14:00 Urine Bacteria 1+ /hpf (NONE) H 01/19/22 14:00 Hyaline Casts 0-4 /lpf H 01/19/22 14:00 Urine Mucus 1+ /hpf 01/19/22 14:00 CSF Appearance Clear (CLEAR) 01/19/22 16:50 CSF Appearance Clear (CLEAR) 01/19/22 16:50 CSF Color Colorless (COLORLESS) 01/19/22 16:50 CSF Color Colorless (COLORLESS) 01/19/22 16:50 CSF WBC 1 /uL (0-5) 01/19/22 16:50 CSF WBC 1 /uL (0-5) 01/19/22 16:50 CSF RBC 0 10^3/uL (0-0) 01/19/22 16:50 CSF RBC 0 10^3/uL (0-0) 01/19/22 16:50 CSF Mononuclear # Auto 0.000 10^3/uL (50-90) L 01/19/22 16:50 CSF Mononuclear # Auto 0.001 10^3/uL (50-90) L 01/19/22 16:50 CSF Mononuclear WBCs % 0 % (50-90) L 01/19/22 16:50 CSF Mononuclear WBCs % 100 % (50-90) H 01/19/22 16:50 CSF Polynuclear WBCs # 0.000 10^3/uL (0-10) 01/19/22 16:50 CSF Polynuclear WBCs # 0.001 10^3/uL (0-10) 01/19/22 16:50 CSF Polynuclear WBCs % 0 % (0-10) 01/19/22 16:50 CSF Polynuclear WBCs % 100 % (0-10) H 01/19/22 16:50 CSF Diff Comment Yes 01/19/22 16:50 CSF Glucose 135 mg/dL (40-70) H 01/19/22 16:50 CSF Total Protein 36 mg/dL (15-45) 01/19/22 16:50 Nasal Influ A H1 2009 PCR Not detected (NOT DETECT) 01/19/22 13:40 Coronavirus 229E (PCR) Not detected (NOT DETECT) 01/19/22 13:40 Influenza A (H1) PCR Not detected (NOT DETECT) 01/19/22 13:40 Influenza A (H3) PCR Not detected (NOT DETECT) 01/19/22 13:40 Influenza Type A (PCR) Not detected (NOT DETECT) 01/19/22 13:40 Influenza Type B (PCR) Not detected (NOT DETECT) 01/19/22 13:40 SARS-CoV-2 (PCR) Not detected (NOT DETECT) 01/19/22 13:40 EKG Data EKG 1: EKG interpretation date: 01/19/22 EKG interpretation time: 14:23 Interpretation: normal sinus rhythm, no ST or T wave changes Critical Care Time Critical Care Time: Critical Care Time: Yes Total Critical Care Time: 45 Attestation: Critical care time involved interviewing the patient and her family, reevaluation of the patient, ordering tests and treatment, discussion with admission to hospitalist as well as specialist. Discharge Plan Discharge Patient Disposition: Placed in Observation Clinical Impression: Hypomagnesemia, Bilateral leg weakness, Fever Coding Level of Care Code ED [place] Worker for [facility] History Comprehensive Exam Comprehensive Medical Decision Making High Complexity Time Spent (min) 120
[2022-01-19 13:15] LABS: Basophils % 0.8 %; Eosinophils % 0.4 %; Hematocrit 39.1 % (37.0-47.0); Hemoglobin 12.5 g/dL (11.5-15.3); Lymphocytes # 0.6 10^3/uL (0.8-4.8); Lymphocytes % 11.6 %; Mean Corpuscular Hemoglobin 28.9 pg (28.0-34.0); Mean Corpuscular Volume 90.3 fl (81-99); Mean Platelet Volume 10.5 fL (7.4-10.4); Monocytes # 0.2 10^3/uL (0.2-0.9); Monocytes % 4.6 %; Neutrophils # 4.27 10^3/uL (1.8-7.7); Neutrophils % 82.2 %; Nucleated Red Blood Cells % 0 %; Platelet Count 248 10^3/cmm (130-400); Red Blood Count 4.33 10^6/uL (4.1-5.3); Red Cell Distribution Width 12.5 % (12.1-15.1); White Blood Count 5.2 10^3/uL (4.0-10.0)
--- NOTE | 2022-01-19 13:21 | XRR_ITS ---
PROCEDURE INFORMATION: Exam: XR Chest Exam date and time: 01/19/2022 1:42 PM Age: 71 years old Clinical indication: Fever TECHNIQUE: Imaging protocol: Radiologic exam of the chest. Views: 1 view. COMPARISON: CR XR chest 1V portable [id number] 06/06/2020 5:22 PM FINDINGS: Lungs: Unremarkable. No consolidation. Pleural spaces: Unremarkable. No pleural effusion. No pneumothorax. Heart/Mediastinum: Unremarkable. No cardiomegaly. Bones/joints: Unremarkable. XR/XR chest 1V portable [id number] IMPRESSION: No acute findings.
--- NOTE | 2022-01-19 13:37 | ECG_ITS ---
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 Measurements Intervals [place] Rate: 93 P: 41 SD: 164 QRS: -17 QRSD: 98 T: 56 QT: 380 QTc: 474 Interpretive Statements SINUS RHYTHM MODERATE VOLTAGE CRITERIA FOR LVH, CONSIDER NORMAL VARIANT [MEETS CRITERIA IN ONE OF: R(aVL), S(V1), R(V5), R(V5/V6)+S(V1)] NONSPECIFIC T-WAVE ABNORMALITY Compared to ECG 06/06/2020 16:46:50 T-wave abnormality now present Myocardial infarct finding no longer present Electronically Signed On 01-19-2022 15:26:08 CDT by Lilian Senior M.D. [id number]
[2022-01-19 13:44] LABS: Alanine Aminotransferase 9 U/L (0-33); Albumin Level 3.9 g/dL (3.5-5.2); Alkaline Phosphatase 142 U/L (35-105); Blood Urea Nitrogen 13 mg/dL (8-23); Calcium 9.6 mg/dL (8.5-10.5); Carbon Dioxide 25 mmol/L (22-29); Chloride 98 mmol/L (98-107); Creatine Phosphokinase 41 U/L (26-192); Globulin 2.9 g/dL (1.3-4.6); Glucose 250 mg/dL (65-115); Magnesium 1.3 mg/dL (1.7-2.3); Osmolality Calculated 293 mOsm/kg (285-295); Sodium 137 mmol/L (136-145); Total Bilirubin 0.4 mg/dL (0.15-1.2); Total Protein 6.8 g/dL (6.6-8.7)
[2022-01-19] MEDS: acetaminophen 325 mg Tablet 650 MG PO (13:46)
[2022-01-19] MEDS: lactated ringers 1,000 ML 999 ML IV (13:46)
[2022-01-19 13:48] LABS: Anion Gap 17.5 (5-19)
[2022-01-19 13:49] LABS: Aspartate Amino Transferase 13 U/L (0-32); Potassium 3.5 mmol/L (3.5-5.1)
[2022-01-19 14:18] LABS: Thyroid Stimulating Hormone 0.01 uIU/mL (0.27-4.20)
[2022-01-19] MEDS: magnesium sulfate premix 2 GM/50 ML PIGGYBACK IV (14:36)
[2022-01-19] MEDS: ondansetron 2 mg/ML SDV 2 mL 4 MG IVP (14:36)
[2022-01-19 14:37] LABS: Lactate (Lactic Acid level) 1.3 mmol/L (0.5-2.2)
[2022-01-19 15:14] LABS: Add Urine Microscopic? YES; Bilirubin Urine Neg (Negative); Blood Urine Neg (Negative); Glucose Urine UA 4+ (Normal); Ketones Urine Negative (Negative); Leukocyte Esterase Urine Negative (Negative); Nitrate Urine Negative (Negative); Protein Urine Neg (Negative); Specific Gravity, Urine 1.005 (1.005-1.030); Urine Appearance Clear (CLEAR); Urine Color Yellow (Yellow); Urobilinogen Urine Norm (Negative); pH Urine 7 (5-7)
[2022-01-19 15:15] LABS: Bacteria Urine 1+ /hpf; Hyaline Casts Urine 0-4 /lpf; Mucus Urine 1+ /hpf
[2022-01-19 15:16] LABS: Add Urine Culture? No
[2022-01-19 15:53] LABS: Adenovirus Not Detected (NOT DETECT); Chlamydia Pneumoniae Not Detected (NOT DETECT); Coronavirus 229E,HKU1,NL63,OC4 Not Detected (NOT DETECT); Human Metapneumovirus Not Detected (NOT DETECT); Human Rhinovirus/Enterovirus Not Detected (NOT DETECT); Influenza A Not Detected (NOT DETECT); Influenza A H1 Not Detected (NOT DETECT); Influenza A H1-2009 Not Detected (NOT DETECT); Influenza A H3 Not Detected (NOT DETECT); Influenza B Not Detected (NOT DETECT); Mycoplasma Pneumoniae Not Detected (NOT DETECT); Parainfluenza Virus Type 1 Not Detected (NOT DETECT); Parainfluenza Virus Type 2 Not Detected (NOT DETECT); Parainfluenza Virus Type 3 Not Detected (NOT DETECT); Parainfluenza Virus Type 4 Not Detected (NOT DETECT); Respiratory Syncytial Virus A Not Detected (NOT DETECT); Respiratory Syncytial Virus B Not Detected (NOT DETECT); SARS-COV-2 Not Detected (NOT DETECT)
[2022-01-19 15:56] LABS: Results from Genmark
--- NOTE | 2022-01-19 16:24 | PC.RESP ---
NIF -[id number]
[2022-01-19 17:10] LABS: Cyto Order Verification No Order
[2022-01-19 17:13] LABS: CSF Mononuclear # 0.001 10^3/uL (50-90); Mononuclear WBC CSF % 100 % (50-90); Polynuclear WBC CSF % 0 % (0-10); Red Blood Cell CSF 0 10^3/uL (0-0)
[2022-01-19 17:16] LABS: Appearance CSF CLEAR (CLEAR); Color CSF COLORLESS (COLORLESS); White Blood Cell CSF 1 /uL (0-5)
[2022-01-19 17:27] LABS: Mononuclear WBC CSF % 0 % (50-90); Polynuclear Cells ,CSF # 0.001 10^3/uL (0-10); Polynuclear WBC CSF % 100 % (0-10); Red Blood Cell CSF 0 10^3/uL (0-0); White Blood Cell CSF 1 /uL (0-5)
[2022-01-19 17:28] LABS: Appearance CSF CLEAR (CLEAR); Color CSF COLORLESS (COLORLESS); Pathology Referral Yes
[2022-01-19 17:33] LABS: Glucose CSF 135 mg/dL (40-70); Total Protein CSF 36 mg/dL (15-45)
[2022-01-19 17:39] LABS: Pathology Referral Yes
[2022-01-19 18:03] LABS: Magnesium 1.9 mg/dL (1.7-2.3)
--- NOTE | 2022-01-19 18:25 | MRR_ITS ---
PROCEDURE INFORMATION: Exam: MR Cervical Spine Without and With Contrast Exam date and time: 01/19/2022 8:41 PM Age: 71 years old Clinical indication: Patient HX: Upper/lower extremity weakness; Additional info: Acute onset of exetremity weakness TECHNIQUE: Imaging protocol: Magnetic resonance imaging of the cervical spine without and with contrast. Contrast material: MULTIHANCE; Contrast volume: 16 ml; Contrast route: INTRAVENOUS (IV); COMPARISON: CT cervical spin wo con* [id number] 03/07/2018 1:48 AM FINDINGS: Bones/joints: Unremarkable. No fracture. Normal alignment. Negative for abnormal enhancement. Spinal cord: The upper cervical spinal cord is unremarkable in shape and diameter. No intrinsic signal abnormality is identified. Negative for abnormal enhancement. The distal cervical spinal cord and the included upper thoracic spinal cord has a diminished caliber of uncertain significance with no definite focal cord lesion. C2-C3: No significant disc disease. No significant spinal stenosis. C3-C4: No significant disc disease. No significant spinal stenosis. C4-C5: No significant disc disease. No significant spinal stenosis. C5-C6: No significant disc disease. No significant spinal stenosis. C6-C7: Moderate to severe disc height loss. Relatively large broad posterior disc osteophyte complex. Moderate severity spinal canal stenosis. Mild severity bilateral foraminal stenosis. C7-T1: No significant disc disease. No significant spinal stenosis. Soft tissues: Unremarkable. Negative for abnormal enhancement. Vasculature: Expected flow voids in the vertebral arteries. MR/MR cervical spine wo/w [id number] IMPRESSION: 1. Negative for acute cervical spine abnormality. 2. Significant intervertebral disc disease at C6-C7. 3. Unusual caliber change with diminished thickness of the lower cervical spinal cord and included thoracic spinal cord of uncertain significance.
--- NOTE | 2022-01-19 18:25 | MRR_ITS ---
PROCEDURE INFORMATION: Exam: MR Thoracic Spine Without and With Contrast Exam date and time: 01/19/2022 8:50 PM Age: 71 years old Clinical indication: Patient HX: Upper/lower extremity weakness; Additional info: Acute onset of exetremity weakness TECHNIQUE: Imaging protocol: Magnetic resonance imaging of the thoracic spine without and with contrast. Contrast material: MULTIHANCE; Contrast volume: 16 ml; Contrast route: INTRAVENOUS (IV); COMPARISON: MR cervical spine wo/w [id number] 01/19/2022 8:41 PM FINDINGS: Bones/joints: Unremarkable. No fracture. Normal alignment. Negative for abnormal enhancement.The thoracic spine demonstrates mild degenerative changes at multiple levels. Spinal cord: The thoracic spinal cord has a generally diminished caliber throughout its course. Negative for abnormal enhancement. No definite focal lesion identified. Soft tissues: Unremarkable. MR/MR thoracic spine wo/w [id number] IMPRESSION: 1. Negative for acute thoracic spine abnormality. 2. Diffuse, mild diminished caliber of the thoracic spinal cord without focal lesion which is of uncertain significance.
--- NOTE | 2022-01-19 18:25 | MRR_ITS ---
PROCEDURE INFORMATION: Exam: MR Lumbar Spine Without and With Contrast Exam date and time: 01/19/2022 7:55 PM Age: 71 years old Clinical indication: Patient HX: Upper/lower extremity weakness; Additional info: Acute onset of exetremity weakness TECHNIQUE: Imaging protocol: Magnetic resonance imaging of the lumbar spine without and with contrast. Contrast material: MULTIHANCE; Contrast volume: 16 ml; Contrast route: INTRAVENOUS (IV); COMPARISON: CT angio abd aorta runof [id number] 04/22/2021 1:21 PM FINDINGS: Bones/joints: Unremarkable. No fracture. Normal alignment. Negative for abnormal enhancement. Spinal cord: Visualized cord, conus medullaris and cauda equina are unremarkable without compression. Negative for abnormal enhancement. L1-L2: No significant disc disease. No significant spinal canal stenosis. No neural foraminal stenosis. L2-L3: No significant disc disease. No significant spinal canal stenosis. No neural foraminal stenosis. L3-L4: No significant disc disease. No significant spinal canal stenosis. No neural foraminal stenosis. Mild severity arthropathic changes of facet joints. L4-L5: No significant disc disease. No significant spinal canal stenosis. No neural foraminal stenosis. Mild severity arthropathic changes of facet joints. L5-S1: No significant disc disease. No significant spinal canal stenosis. No neural foraminal stenosis. Mild severity arthropathic changes of facet joints. Soft tissues: Unremarkable. Negative for fluid collection. Negative for abnormal enhancement. MR/MR lumbar spine wo/w con [id number] IMPRESSION: Negative for acute lumbar spine abnormality.
--- NOTE | 2022-01-19 18:25 | MRR_ITS ---
PROCEDURE INFORMATION: Exam: MR Head Without and With Contrast Exam date and time: 01/19/2022 8:22 PM Age: 71 years old Clinical indication: Weakness, extremity; Bilateral; Additional info: Acute onset of extremity weakness TECHNIQUE: Imaging protocol: Magnetic resonance imaging of the head without and with contrast. Contrast material: MULTIHANCE; Contrast volume: 16 ml; Contrast route: INTRAVENOUS (IV); COMPARISON: CT head wo con* [id number] 01/19/2022 1:11 PM FINDINGS: Brain: Mild diffuse cerebral cortical volume loss. No acute infarct. No hemorrhage. No small area of subcortical white matter gliosis in the right frontal lobe. Small focus T2 hyperintense signal change in the subcortical white matter of the posterior right cerebral hemisphere. Negative for abnormal intracranial enhancement. No edema. Cerebral ventricles: Normal. No ventriculomegaly. Bones/joints: Unremarkable. Paranasal sinuses: Normal as visualized. No acute sinusitis. Mastoid air cells: Normal as visualized. No mastoid effusion. Orbital cavities: Unremarkable. Soft tissues: Unremarkable. MR/MR head wo/w con [id number] IMPRESSION: No acute findings.
--- NOTE | 2022-01-19 18:38 | P.HP_ITS ---
Providers/Chief Complaint Primary Care Provider: Sukumar Andrade Chief Complaint: WEAKNESS History of Present Illness Brenda Stone is a 71 year old female with past medical history of hypertension peripheral arterial disease, seizure disorder, Was brought in with chief complaint of acute onset of extremity weakness, more in bilateral lower extremity, started around 3 AM this morning, when she woke up to go to the bathroom, was also concerned about she having possible seizure, patient currently, denies any, headache, neck pain ,chest pain shortness of breath cough, has control over her bowel and bladder function, denies any fever, chills at home, but on arrival in the ER her T-max was noted to be 100.8. Patient has received her second COVID Moderna booster shot. Post vaccinations she started having generalized weakness. Upon arrival in the ER she was worked up for above-mentioned complaint. Pertinent imaging studies: CT head without contrast: No acute intracranial pathology. Chest x-ray: No acute findings. Pertinent labs: WBC 5.2, H&H:12/39 , PLT : 248 , serum sodium 137 serum potassium 3.5, BUN and serum creatinine 13/ 1 RBS : 250 , TSH 0.01, CSF: CSF WBC 1 , CSF total protein: 36 36 , no albumin cytological dissociation COVID PCR negative MRI brain with contrast: MRI spine with contrast: Review of Systems General: Reports: 10 or more systems reviewed and unremarkable except in HPI and below Const: Denies: chills, body aches, change in appetite or diaphoresis Card: Denies: palpitations, edema, swelling of feet/ankles, dyspnea on exertion, orthopnea or leg pain with exertion Resp: Denies: dyspnea, productive cough, wheezing or pain on inspiration GI: Denies: abdominal pain, nausea, vomiting, diarrhea or constipation : Denies: flank pain Musc: Denies: back pain, extremity pain or extremity swelling Neuro: Reports: difficulty walking; Denies: headache(s) or confusion Medications/Allergies Home Medications Medication Instructions Recorded Confirmed Last Taken Type atorvastatin 80 mg tablet 80 mg PO DAILY 10/18/19 01/19/22 01/18/22 History buspirone 10 mg tablet 10 mg PO BID 10/18/19 01/19/22 01/19/22 History estradiol 1 mg tablet 0.5 mg PO DAILY 10/18/19 01/19/22 01/18/22 History gabapentin 600 mg tablet 600 mg PO TID 10/18/19 01/19/22 01/19/22 History lamotrigine 200 mg tablet 200 mg PO BID 10/18/19 01/19/22 01/19/22 History meloxicam 7.5 mg tablet 7.5 mg PO DAILY 10/18/19 01/19/22 01/19/22 History pantoprazole 40 mg tablet,delayed 40 mg PO BID #180 tabs 11/23/19 01/19/22 01/19/22 Rx release lorazepam 0.5 mg tablet 0.5 mg PO DAILY PRN Anxiety 06/08/20 01/19/22 Unknown History Diabetic shoes with 3 inserts #1 ea 09/12/20 01/19/22 Unknown Rx aspirin 325 mg tablet,delayed 325 mg PO DAILY #30 tabs 04/22/21 01/19/22 01/19/22 Rx release hydrocodone 5 mg-acetaminophen 325 1 tab PO Q6H PRN pain #20 tabs 04/22/21 01/19/22 Unknown Rx mg tablet docusate sodium 100 mg capsule 200 mg PO BEDTIME PRN Constipation 04/26/21 01/19/22 Unknown History polyethylene glycol 3350 17 17 g PO DAILY PRN Constipation 04/26/21 01/19/22 Unknown History gram/dose oral powder (ClearLax) cilostazol 50 mg tablet 50 mg PO BID #180 tabs 05/08/21 01/19/22 01/19/22 Rx nifedipine 30 mg tablet,extended 30 mg PO DAILY #90 tabs 07/05/21 01/19/22 01/19/22 Rx release furosemide 40 mg tablet (Lasix) 40 mg PO DAILY 10/01/21 01/19/22 01/19/22 History metformin 500 mg tablet 500 mg PO BID 10/01/21 01/19/22 01/19/22 History potassium 99 mg tablet 99 mg PO DAILY 10/01/21 01/19/22 01/19/22 History Allergies Allergy/AdvReac Type Severity Reaction Status Date / Time pentoxifylline Allergy Severe ITCHING Verified 01/19/22 12:45 Penicillins Allergy Mild unknown Verified 01/19/22 12:45 Sulfa (Sulfonamide Allergy Mild unknown Verified 01/19/22 12:45 Antibiotics) PFSH Acute PFSH: Medical History Epilepsy FH: carotid endarterectomy Hyperlipemia Stenosis of peripheral vascular stent Type 2 diabetes mellitus Surgical History H/O abdominal hysterectomy S/P knee surgery Family History Other Cancer Diabetes Heart disease Social History Smoking and tobacco status: former smoker Quit status (tobacco): has quit using tobacco Year quit tobacco: 2020 Former quit date comment: 6 WEEKS AGO Alcohol intake: former Adopted: No service: No History of recent travel: No Current gender identity: Female Vitals/I&O/Wt Last Vital Signs Temp 100.8 F H 01/19/22 12:41 Pulse 95 01/19/22 18:34 Resp 14 01/19/22 18:34 BP 125/68 01/19/22 18:34 Pulse Ox 94 01/19/22 18:34 O2 Del Method 01/19/22 18:34 O2 Flow Rate 2 01/19/22 12:41 Weight last 48 hrs Weight 72.575 kg Physical Exam Const: COMMON NORMALS: patient oriented x3 HENMT: COMMON NORMALS: normocephalic, atraumatic, hearing grossly normal bilaterally and external ears normal HEAD & SCALP: normocephalic and atraumatic EXTERNAL EAR: Yes external ears normal Resp: COMMON NORMALS: normal respiratory effort, No retractions, No use of accessory muscles and clear to auscultation bilaterally EFFORT & INSPECTION: Yes symmetric chest movement AUSCULTATION: clear to auscultation bilaterally Cardio: COMMON NORMALS: regular rate, regular rhythm, S1 normal heart sound present, S2 normal heart sound present, No gallops present (Cardio), No murmurs present (Cardio), No rub (Cardio) and Peripheral pulses 2+ throughout RATE: regular rate RHYTHM: regular rhythm HEART SOUNDS: S1 normal heart sound present and S2 normal heart sound present PERIPHERAL PULSES: Peripheral pulses 2+ throughout GI: COMMON NORMALS: Normal to inspection, nondistended, normoactive bowel sounds present, Soft to palpation, non-tender, No hepatosplenomegaly present and no masses AUSCULTATION: Yes normoactive bowel sounds PALPATION: Yes Soft to palpation and Yes No hepatosplenomegaly present RECTAL EXAM: deferred Extremity: COMMON NORMALS: no clubbing, cyanosis or edema and no pedal edema Neuro: COMMON NORMALS: patient oriented x3 OTHER: Bilateral lower and upper extremity sensations intact, bilateral lower extremity power 4/5, reflexes intact Data : 01/19/22 13:05 01/19/22 13:05 Micro: Microbiology 01/19/22 14:20 Blood Culture - Preliminary Blood SPECIMEN COLLECTED 01/19/22 14:23 Blood Culture - Preliminary Blood SPECIMEN COLLECTED A&P Assessment and plan (1) Hypomagnesemia: (2) Bilateral leg weakness: (3) Fever: (4) Hypertension: (5) Type 2 diabetes mellitus: Plan 71 year old female with past medical history of hypertension peripheral arterial disease, seizure disorder, Was brought in with chief complaint of acute onset of extremity weakness, more in bilateral lower extremity, started around 3 AM this morning, when she woke up to go to the bathroom, was also concerned about she having possible seizure, patient currently, denies any, headache, neck pain ,chest pain shortness of breath cough, has control over her bowel and bladder function, denies any fever, chills at home, but on arrival in the ER her T-max was noted to be 100.8. Patient has received her second COVID Moderna booster shot. Post vaccinations she started having generalized weakness. Assessment: Extremity weakness predominantly bilateral lower extremity weakness: Bilateral upper extremity weakness has resolved: Initial consideration was possible transverse myelitis, Guillain-Starks? syndrome, possible Taye's paralysis, given the possibility of seizure at home. Abnormal TSH History of seizure History of hypertension History of PAD Fever: Possibly postvaccination Plan: CSF fluid analysis: Results appreciated:, No albumin cytological dissociation CT head without contrast: No acute intracranial pathology. MRI brain with contrast: MRI spine with contrast: Follow Blood culture CSF culture Lactic acid:1.3 Follow repeat TSH free T3 free T4 Follow lamotrigine level Hypomagnesemia has been corrected Monitor and correct electrolytes Case was discussed with neurology at [facility], currently there clinical suspicion for GBS is low For now we will avoid any antibiotics, will monitor for now off antibiotics. CODE STATUS: Full code DVT prophylaxis: On Lovenox Attestations Medical Necessity Statement*: Patient is in hospital for management of bilateral lower extremity weakness. Anticipated length of stay greater 2 midnights. Time Spent in Patient Care: Greater than 35 minutes (>than 50% of time spent in counselling and/or direct pt care on unit) . Coding Level of Care Code Acute Food Safety Director for Chg Fwd Diagnoses Hypomagnesemia E83.42 Bilateral leg weakness R29.898 Fever R50.9 Hypertension I10 Type 2 diabetes mellitus E11.9
--- NOTE | 2022-01-19 19:24 | PC.NURSE ---
attempted to call nurse report, no answer at this time. Will attempt again after shift change.
[2022-01-19] MEDS: gadobenate dimeglumine 20 mL vial IV (21:06)
[2022-01-20 00:30] VITALS: BP 132/61; PULSE 102; RESP 16; TEMP 37.7; O2SAT 93
[2022-01-20 03:46] VITALS: BP 146/73; PULSE 86; RESP 14; TEMP 36.8; O2SAT 93
[2022-01-20 05:39] LABS: Basophils % 0.7 %; Eosinophils % 1.3 %; Hematocrit 36.6 % (37.0-47.0); Hemoglobin 11.5 g/dL (11.5-15.3); Lymphocytes # 0.6 10^3/uL (0.8-4.8); Lymphocytes % 21.1 %; Mean Corpuscular HGB Conc 31.4 g/dL (30.0-36.0); Mean Corpuscular Hemoglobin 28.5 pg (28.0-34.0); Mean Corpuscular Volume 90.6 fl (81-99); Mean Platelet Volume 10.3 fL (7.4-10.4); Monocytes # 0.4 10^3/uL (0.2-0.9); Monocytes % 12.1 %; Neutrophils # 1.92 10^3/uL (1.8-7.7); Neutrophils % 64.5 %; Nucleated Red Blood Cells % 0 %; Platelet Count 225 10^3/cmm (130-400); Red Blood Count 4.04 10^6/uL (4.1-5.3); Red Cell Distribution Width 12.5 % (12.1-15.1)
[2022-01-20 06:00] VITALS: PULSE 83
[2022-01-20 06:13] LABS: Alanine Aminotransferase 12 U/L (0-33); Albumin Level 3.8 g/dL (3.5-5.2); Alkaline Phosphatase 129 U/L (35-105); Anion Gap 15.3 (5-19); Aspartate Amino Transferase 19 U/L (0-32); Blood Urea Nitrogen 10 mg/dL (8-23); Calcium 9.2 mg/dL (8.5-10.5); Carbon Dioxide 28 mmol/L (22-29); Chloride 97 mmol/L (98-107); Globulin 2.6 g/dL (1.3-4.6); Glucose 234 mg/dL (65-115); Magnesium 1.9 mg/dL (1.7-2.3); Osmolality Calculated 291 mOsm/kg (285-295); Phosphorus 3.4 mg/dL (2.5-4.5); Potassium 3.3 mmol/L (3.5-5.1); Procalcitonin 0.29 ng/mL (0-0.5); Sodium 137 mmol/L (136-145); Thyroid Stimulating Hormone 0.01 uIU/mL (0.27-4.20); Total Bilirubin 0.3 mg/dL (0.15-1.2); Total Protein 6.4 g/dL (6.6-8.7)
[2022-01-20] MEDS: enoxaparin 40 mg/0.4 mL Syringe SUBCUT (06:17)
[2022-01-20 06:36] LABS: Glucose Point of Care 228 mg/dL (70-110)
[2022-01-20 07:18] VITALS: BP 145/73; PULSE 84; RESP 18; TEMP 36.8; O2SAT 94
[2022-01-20 08:00] VITALS: PULSE 80; O2SAT 94
[2022-01-20] MEDS: insulin lispro 100 unit/1 mL SUBCUT ×2 (08:38→12:39)
[2022-01-20] MEDS: lamoTRIgine 100 mg Tablet 200 MG PO (08:39)
[2022-01-20] MEDS: gabapentin 300 mg Capsule 600 MG PO (08:39)
[2022-01-20] MEDS: BuSPIRONE 10 mg Tablet PO (08:39)
[2022-01-20] MEDS: aspirin 325 mg EC Tablet PO (08:39)
[2022-01-20] MEDS: atorvastatin 40 mg Tablet 80 MG PO (08:40)
[2022-01-20 11:50] LABS: Glucose Point of Care 197 mg/dL (70-110)
--- NOTE | 2022-01-20 12:25 | PM.DCS ---
Discharge Providers Date of Admission: 01/19/22 18:01 Date of Discharge: January 20, 2022 Attending Provider at Admission: Javier Joy MD Attending Provider at Discharge: Javier Joy MD Primary Care Provider: Sukumar Andrade Diagnoses at Discharge Discharge Diagnosis (1) Hypomagnesemia: Status: Acute (2) Bilateral leg weakness: Status: Acute (3) Fever: Status: Acute (4) Hypertension: Status: Acute (5) Type 2 diabetes mellitus: Status: Acute Reason for Visit Reason for Visit: WEAKNESS Hospital Course Hospital Course Brenda Stone is a 71 year old female with past medical history of hypertension peripheral arterial disease, seizure disorder, Was brought in with chief complaint of acute onset of extremity weakness, more in bilateral lower extremity, started around 3 AM this morning, when she woke up to go to the bathroom, was also concerned about she having possible seizure, patient currently, denies any, headache, neck pain ,chest pain shortness of breath cough, has control over her bowel and bladder function, denies any fever, chills at home, but on arrival in the ER her T-max was noted to be 100.8. Patient has received her second COVID Moderna booster shot. Post vaccinations she started having generalized weakness. She was admitted for the management of both upper and lower extremity weakness, with profound lower extremity weakness, underwent extensive work-up, including extensive imaging studies: That included CT head without contrast: Which showed no acute intracranial pathology, MRI brain with MRI spine: Which was unremarkable in the current clinical setting: MRI C-spine though showed: Significant intervertebral disc disease at C6-C7. She also underwent lumbar puncture: CSF WBC 1 , CSF total protein: 36 36 , no albumin cytological dissociation. Upon arrival in the ER she was worked up for above-mentioned complaint. Chest x-ray:?No acute findings. Hypomagnesemia was corrected. Though she had abnormal TSH, but her free T4 and free T3 was normal, COVID PCR was negative.Extremity weakness started improving later, at the time of discharge she was ambulating well, though she was still little wobbly but that is her baseline. Possible explanation for acute extremity weakness could be hypomagnesemia, or possible Taye's paralysis. I did not feel the need to pursue EMG or NCV. Overall patient responded well to medical management and she was advised to follow-up with neurology as outpatient, which she refused. Patient was discharged in stable condition to home. Physical Exam Const: COMMON NORMALS: patient oriented x3 HENMT: COMMON NORMALS: normocephalic and atraumatic HEAD & SCALP: normocephalic and atraumatic Resp: COMMON NORMALS: clear to auscultation bilaterally EFFORT & INSPECTION: Yes symmetric chest movement AUSCULTATION: clear to auscultation bilaterally Cardio: COMMON NORMALS: regular rate, regular rhythm, S1 normal heart sound present, S2 normal heart sound present, No gallops present (Cardio), No murmurs present (Cardio), No rub (Cardio) and Peripheral pulses 2+ throughout RATE: regular rate RHYTHM: regular rhythm HEART SOUNDS: S1 normal heart sound present and S2 normal heart sound present PERIPHERAL PULSES: Peripheral pulses 2+ throughout GI: COMMON NORMALS: Normal to inspection, nondistended, normoactive bowel sounds present, Soft to palpation, non-tender, No hepatosplenomegaly present and no masses AUSCULTATION: Yes normoactive bowel sounds PALPATION: Yes Soft to palpation and Yes No hepatosplenomegaly present RECTAL EXAM: deferred Extremity: COMMON NORMALS: no clubbing, cyanosis or edema and no pedal edema Neuro: COMMON NORMALS: patient oriented x3 Discharge Data Studies Completed and Pending Completed Studies During Hospitalization Category Date Time Status CT head wo con* [id number] Stat Cat Scan 01/19/22 12:56 Completed XR chest 1V portable [id number] Stat Exams 01/19/22 13:21 Completed MR cervical spine wo/w [id number] Stat MRI 01/19/22 18:25 Completed MR head wo/w con [id number] Stat MRI 01/19/22 18:25 Completed MR lumbar spine wo/w con [id number] Stat MRI 01/19/22 18:25 Completed MR thoracic spine wo/w [id number] Stat MRI 01/19/22 18:25 Completed Pending at discharge Category Date Time Status Blood Culture Stat Lab 01/19/22 14:20 Results CSF Culture Stat Lab 01/19/22 16:50 Results Complete Blood Count w/Auto AM LABS Lab 01/21/22 04:00 Ordered Complete Blood Count w/Auto AM LABS Lab 01/22/22 04:00 Ordered Comprehensive Metabolic Panel AM LABS Lab 01/21/22 04:00 Ordered Comprehensive Metabolic Panel AM LABS Lab 01/22/22 04:00 Ordered Lamotrigine (Lamictal) Level AM LABS Lab 01/20/22 05:21 Received Magnesium AM LABS Lab 01/21/22 04:00 Ordered Magnesium AM LABS Lab 01/22/22 04:00 Ordered Radiology Impressions Head CT 01/19/22 12:56 IMPRESSION: No acute intracranial abnormality. Chest X-Ray 01/19/22 13:21 IMPRESSION: No acute findings. Cervical Spine MRI 01/19/22 18:25 IMPRESSION: 1. Negative for acute cervical spine abnormality. 2. Significant intervertebral disc disease at C6-C7. 3. Unusual caliber change with diminished thickness of the lower cervical spinal cord and included thoracic spinal cord of uncertain significance. Head MRI 01/19/22 18:25 IMPRESSION: No acute findings. Lumbar Spine MRI 01/19/22 18:25 IMPRESSION: Negative for acute lumbar spine abnormality. Thoracic Spine MRI 01/19/22 18:25 IMPRESSION: 1. Negative for acute thoracic spine abnormality. 2. Diffuse, mild diminished caliber of the thoracic spinal cord without focal lesion which is of uncertain significance. Laboratory Results WBC 3.0 10^3/uL (4.0-10.0) L 01/20/22 05:21 RBC 4.04 10^6/uL (4.1-5.3) L 01/20/22 05:21 Hgb 11.5 g/dL (11.5-15.3) 01/20/22 05:21 Hct 36.6 % (37.0-47.0) L 01/20/22 05:21 MCV 90.6 fl (81-99) 01/20/22 05:21 MCH 28.5 pg (28.0-34.0) 01/20/22 05:21 MCHC 31.4 g/dL (30.0-36.0) 01/20/22 05:21 RDW 12.5 % (12.1-15.1) 01/20/22 05:21 Plt Count 225 10^3/cmm (130-400) 01/20/22 05:21 MPV 10.3 fL (7.4-10.4) 01/20/22 05:21 Neut % (Auto) 64.5 % 01/20/22 05:21 Lymph % (Auto) 21.1 % 01/20/22 05:21 [place] % (Auto) 12.1 % 01/20/22 05:21 Eos % (Auto) 1.3 % 01/20/22 05:21 Baso % (Auto) 0.7 % 01/20/22 05:21 Neut # (Auto) 1.92 10^3/uL (1.8-7.7) 01/20/22 05:21 Lymph # (Auto) 0.6 10^3/uL (0.8-4.8) L 01/20/22 05:21 [place] # (Auto) 0.4 10^3/uL (0.2-0.9) 01/20/22 05:21 Eos # (Auto) 0.0 10^3/uL (0.0-0.8) 01/20/22 05:21 Baso # (Auto) 0.0 10^3/uL (0.0-0.1) 01/20/22 05:21 Nucleated RBC % (auto) 0 % 01/20/22 05:21 Nucleated RBCs # 0.0 /100WBC 01/20/22 05:21 Sodium 137 mmol/L (136-145) 01/20/22 05:21 Potassium 3.3 mmol/L (3.5-5.1) L 01/20/22 05:21 Chloride 97 mmol/L (98-107) L 01/20/22 05:21 Carbon Dioxide 28 mmol/L (22-29) 01/20/22 05:21 Anion Gap 15.3 (5-19) 01/20/22 05:21 BUN 10 mg/dL (8-23) 01/20/22 05:21 Creatinine 0.9 mg/dL (0.5-0.9) 01/20/22 05:21 GFR Calculation Not Reportable 01/20/22 05:21 Glucose 234 mg/dL (65-115) H 01/20/22 05:21 POC Glucose 197 mg/dL (70-110) H 01/20/22 11:01 Calculated Osmolality 291 mOsm/kg (285-295) 01/20/22 05:21 Lactate 1.3 mmol/L (0.5-2.2) 01/19/22 13:05 Calcium 9.2 mg/dL (8.5-10.5) 01/20/22 05:21 Phosphorus 3.4 mg/dL (2.5-4.5) 01/20/22 05:21 Magnesium 1.9 mg/dL (1.7-2.3) 01/20/22 05:21 Total Bilirubin 0.3 mg/dL (0.15-1.2) 01/20/22 05:21 AST 19 U/L (0-32) 01/20/22 05:21 ALT 12 U/L (0-33) 01/20/22 05:21 Alkaline Phosphatase 129 U/L (35-105) H 01/20/22 05:21 Creatine Kinase 41 U/L (26-192) 01/19/22 13:05 Total Protein 6.4 g/dL (6.6-8.7) L 01/20/22 05:21 Albumin 3.8 g/dL (3.5-5.2) 01/20/22 05:21 Globulin 2.6 g/dL (1.3-4.6) 01/20/22 05:21 Procalcitonin 0.29 ng/mL (0-0.5) 01/20/22 05:21 TSH 0.01 uIU/mL (0.27-4.20) L 01/20/22 05:21 Free T4 2.40 ng/dL (0.82-1.77) H 01/20/22 05:21 Free T3 4.0 PG/ML (2.0-4.4) 01/20/22 05:21 Urine Color Yellow (Yellow) 01/19/22 14:00 Urine Appearance Clear (CLEAR) 01/19/22 14:00 Urine pH 7 (5-7) 01/19/22 14:00 Ur Specific [place] 1.005 (1.005-1.030) 01/19/22 14:00 Urine Protein Neg (Negative) 01/19/22 14:00 Urine Glucose (UA) 4+ (Normal) H 01/19/22 14:00 Urine Ketones Negative (Negative) 01/19/22 14:00 Urine Blood Neg (Negative) 01/19/22 14:00 Urine Nitrate Negative (Negative) 01/19/22 14:00 Urine Bilirubin Neg (Negative) 01/19/22 14:00 Urine Urobilinogen Norm mg/dL (Negative) 01/19/22 14:00 Ur Leukocyte Esterase Negative (Negative) 01/19/22 14:00 Urine RBC None /hpf (0-2) 01/19/22 14:00 Urine WBC None /hpf (0-5) 01/19/22 14:00 Ur Squamous Epith Cells 5-10 /hpf (0-5) H 01/19/22 14:00 Amorphous Sediment Not Reportable 01/19/22 14:00 Urine Bacteria 1+ /hpf (NONE) H 01/19/22 14:00 Hyaline Casts 0-4 /lpf H 01/19/22 14:00 Urine Mucus 1+ /hpf 01/19/22 14:00 CSF Appearance Clear (CLEAR) 01/19/22 16:50 CSF Appearance Clear (CLEAR) 01/19/22 16:50 CSF Color Colorless (COLORLESS) 01/19/22 16:50 CSF Color Colorless (COLORLESS) 01/19/22 16:50 CSF WBC 1 /uL (0-5) 01/19/22 16:50 CSF WBC 1 /uL (0-5) 01/19/22 16:50 CSF RBC 0 10^3/uL (0-0) 01/19/22 16:50 CSF RBC 0 10^3/uL (0-0) 01/19/22 16:50 CSF Mononuclear # Auto 0.000 10^3/uL (50-90) L 01/19/22 16:50 CSF Mononuclear # Auto 0.001 10^3/uL (50-90) L 01/19/22 16:50 CSF Mononuclear WBCs % 0 % (50-90) L 01/19/22 16:50 CSF Mononuclear WBCs % 100 % (50-90) H 01/19/22 16:50 CSF Polynuclear WBCs # 0.000 10^3/uL (0-10) 01/19/22 16:50 CSF Polynuclear WBCs # 0.001 10^3/uL (0-10) 01/19/22 16:50 CSF Polynuclear WBCs % 0 % (0-10) 01/19/22 16:50 CSF Polynuclear WBCs % 100 % (0-10) H 01/19/22 16:50 CSF Diff Comment Yes 01/19/22 16:50 CSF Diff Comment Yes 01/19/22 16:50 CSF Glucose 135 mg/dL (40-70) H 01/19/22 16:50 CSF Total Protein 36 mg/dL (15-45) 01/19/22 16:50 Nasal Influ A H1 2009 PCR Not detected (NOT DETECT) 01/19/22 13:40 Coronavirus 229E (PCR) Not detected (NOT DETECT) 01/19/22 13:40 Influenza A (H1) PCR Not detected (NOT DETECT) 01/19/22 13:40 Influenza A (H3) PCR Not detected (NOT DETECT) 01/19/22 13:40 Influenza Type A (PCR) Not detected (NOT DETECT) 01/19/22 13:40 Influenza Type B (PCR) Not detected (NOT DETECT) 01/19/22 13:40 SARS-CoV-2 (PCR) Not detected (NOT DETECT) 01/19/22 13:40 Vitals Last Vital Signs Temp 98.3 F 01/20/22 07:18 Pulse 80 01/20/22 08:00 Resp 18 01/20/22 07:18 BP 145/73 01/20/22 07:18 Pulse Ox 94 01/20/22 08:00 O2 Del Method 01/20/22 08:00 O2 Flow Rate 2 01/20/22 00:30 Discharge Plan Discharge Patient Disposition: Home Condition: Stable Prescriptions: New magnesium L-lactate 84 mg tablet extended release 84 mg PO BID 7 Days Qty: 14 0RF Continued atorvastatin 80 mg tablet 80 mg PO DAILY buspirone 10 mg tablet 10 mg PO BID estradiol 1 mg tablet 0.5 mg PO DAILY gabapentin 600 mg tablet 600 mg PO TID lamotrigine 200 mg tablet 200 mg PO BID meloxicam 7.5 mg tablet 7.5 mg PO DAILY metformin 500 mg tablet 500 mg PO BID (DME) Diabetic shoes with 3 inserts See Rx Instructions .ROUTE .MEDSUPPLY Qty: 1 0RF Rx Instructions: As directed by DIAN&O docusate sodium 100 mg capsule 200 mg PO BEDTIME PRN (Reason: Constipation) polyethylene glycol 3350 [ClearLax] 17 gram/dose powder 17 g PO DAILY PRN (Reason: Constipation) cilostazol 50 mg tablet 50 mg PO BID Qty: 180 3RF lorazepam 0.5 mg tablet 0.5 mg PO DAILY PRN (Reason: Anxiety) furosemide [Lasix] 40 mg tablet 40 mg PO DAILY potassium 99 mg tablet 99 mg PO DAILY pantoprazole 40 mg tablet,delayed release (DR/EC) 40 mg PO BID Qty: 180 3RF nifedipine 30 mg tablet extended release 30 mg PO DAILY Qty: 90 4RF aspirin 325 mg tablet,delayed release (DR/EC) 325 mg PO DAILY Qty: 30 0RF hydrocodone-acetaminophen 5-325 mg tablet 1 tab PO Q6H PRN (Reason: pain) Qty: 20 0RF Discharge Orders: Discharge Order (Routine); Ordered 01/20/22 Ordered By: Javier Joy Referrals: Sukumar Andrade [Primary Care Provider] - 1 week (Please call Friday to schedule a follow up appointment.) Patient Instructions: Magnesium (By mouth), Weakness (DC), Hypomagnesemia (ED) Discharge Attestations Time Spent in Discharge Care*: less than 30 min Quality Metrics Clinical Quality Measures [ No reported AMI, CVA or VTE this stay] Coding Level of Care Code Acute Chg FW DC note Diagnoses Hypomagnesemia E83.42 Bilateral leg weakness R29.898 Fever R50.9 Hypertension I10 Type 2 diabetes mellitus E11.9
[2022-01-20] MEDS: potassium chloride ER 20 mEq Tablet 40 MEQ PO (12:38)
[2022-01-20 13:47] VITALS: BP 145/73; PULSE 80; RESP 18; TEMP 36.8; O2SAT 94
[2022-01-29 09:51] LABS: Lamotrigine (Lamictal) Level 7.4 mcg/mL (4.0-18.0)
== END 2022-01-20 13:48 | disposition home or self-care (01) | DRG 641 ==
LOC: ER 15:33 → MEDSURG 18:52
PROVIDERS: Admitting Provider Internal Medicine; Emergency Provider Emergency Medicine; PCP Physician Assistant Medical; Visit Provider Internal Medicine
DX: E83.42 Hypomagnesemia (principal); M50.323 Other cervical disc degeneration at C6-C7 level; I10 Essential (primary) hypertension; E11.51 Type 2 diabetes mellitus with diabetic peripheral angiopathy without gangrene; Z95.820 Peripheral vascular angioplasty status with implants and grafts; G40.909 Epilepsy, unspecified, not intractable, without status epilepticus; E78.5 Hyperlipidemia, unspecified; Z87.891 Personal history of nicotine dependence; R50.9 Fever, unspecified; G83.84 Todd's paralysis (postepileptic); Z79.890 Hormone replacement therapy; Z79.84 Long term (current) use of oral hypoglycemic drugs; Z79.891 Long term (current) use of opiate analgesic
CPT/HCPCS: 36415; 36416; 70450; 70553; 71045; 72156; 72157; 72158; 80053; 80175; 80503; 81001; 82550; 82945; 82962; 83605; 83735; 84100; 84145; 84157; 84439; 84443; 84481; 85025; 87040; 87070; 87075; 87205; 87631; 87635; 89050; 93005; 96365; 96367; 96372; 96375; 97161; 99285; A9577; J1650; J1815; J2405; J3475; J7120

== ENCOUNTER → 2022-03-20 13:08 | Outpatient (BNVA) | payer MEDICARE, OTHER, SELFPAY | PROVIDERS: PCP Physician Assistant Medical; Visit Provider Internal Medicine Cardiovascular Disease | DX: I65.22 Occlusion and stenosis of left carotid artery (principal); R42 Dizziness and giddiness; I73.9 Peripheral vascular disease, unspecified; E11.42 Type 2 diabetes mellitus with diabetic polyneuropathy; Z79.84 Long term (current) use of oral hypoglycemic drugs; K31.84 Gastroparesis; Z87.891 Personal history of nicotine dependence | CPT/HCPCS: 99213 ==

== ENCOUNTER 2022-05-04 15:54 | Inpatient (IN) | payer MEDICARE, OTHER, SELFPAY ==
[2022-05-04] VITALS (21 sets, daily range): BP systolic 129–180; BP diastolic 64–97; PULSE 87–102; RESP 12–18; TEMP 36.6–36.7; O2SAT 87–97; BMI 25.0
--- NOTE | 2022-05-04 16:05 | CTR_ITS ---
PROCEDURE INFORMATION: Exam: CT Abdomen And Pelvis With Contrast Exam date and time: 05/04/2022 6:35 PM Age: 71 years old Clinical indication: Abdominal pain; Generalized; Prior surgery; Surgery date: 6+ months; Surgery type: Juanita; Hyst; Additional info: Eval diverticulitis, abdominal chadwick and diarrhea, prev rosanne TECHNIQUE: Imaging protocol: Computed tomography of the abdomen and pelvis with contrast. Radiation optimization: All CT scans at this facility use at least one of these dose optimization techniques: automated exposure control; mA and/or kV adjustment per patient size (includes targeted exams where dose is matched to clinical indication); or iterative reconstruction. Contrast material: OMNI 350; Contrast volume: 100 ml; Contrast route: INTRAVENOUS (IV); Other protocol: This patient has received [address] and 0 known cardiac nuclear medicine studies in the 12 months prior to the current study. COMPARISON: CT abdomen pelvis w con* [id number] 06/06/2020 5:54 PM RADIATION DOSE METRICS: Total DLP (mGy-cm): 390.44 FINDINGS: Lungs: There is subpleural atelectasis of the dependent portions of the lungs. Liver: Unremarkable.No mass. Gallbladder and bile ducts: There has been a cholecystectomy. There is no common bile duct dilation. Pancreas: The pancreas is normal. Spleen: The spleen is normal. Adrenal glands: The adrenal glands are normal. Kidneys and ureters: There is no evidence of hydronephrosis. There is no evidence of renal calcifications. There is unchanged mild atrophy of the right kidney. Stomach and bowel: Moderate diverticulosis is present in the distal colon. There is no evidence of intestinal perforation or obstruction. There is diffuse small bowel wall thickening, consistent with infectious, ischemic, or inflammatory enteritis. The wall of the entire colon is thickened but partially collapsed. Wall thickening is most prominently involving the descending and sigmoid colon. There is mild haziness of the distal pericolonic fat compatible with mild colitis. Gastric wall is mildly thickened but is also partially collapsed. Appendix: The appendix is not definitively identified. However, there is no CT evidence of a right lower quadrant inflammatory process. Intraperitoneal space: Unremarkable. No free air. No significant fluid collection. Vasculature: No aortic aneurysm. Diffuse atherosclerotic changes of the aorta are noted. Lymph nodes: Unremarkable.No enlarged lymph nodes. Urinary bladder: The bladder is normal. Reproductive: There has been a hysterectomy. Bones/joints: Unremarkable. No acute fracture. Soft tissues: Unremarkable. CT/CT abdomen pelvis w con* [id number] IMPRESSION: 1. There is diffuse small bowel wall thickening, consistent with infectious, ischemic, or inflammatory enteritis. 2. The wall of the entire colon is thickened but partially collapsed. Wall thickening is most prominently involving the descending and sigmoid colon. There is mild haziness of the distal pericolonic fat compatible with mild colitis.
--- NOTE | 2022-05-04 16:19 | ECG_ITS ---
[facility] Test Date: 2022-05-04 Pat Name: Brenda Stone Department: Room: Gender: Female Telephone Messenger: : 1950 Requested By: Hansel Wylie Order Number: [id number] Adames MD: Yanet Darby M.D. Measurements Intervals [place] Rate: 96 P: 62 AR: 215 QRS: -7 QRSD: 90 T: 102 QT: 363 QTc: 460 Interpretive Statements SINUS RHYTHM WITH FIRST DEGREE AV BLOCK POSSIBLE LEFT ATRIAL ENLARGEMENT [-0.1mV P-WAVE IN V1/V2] LOW QRS VOLTAGE IN PRECORDIAL LEADS [QRS DEFLECTION < 1.0 mV IN CHEST LEADS] LEFT VENTRICULAR HYPERTROPHY AND ST-T CHANGE [VOLTAGE CRITERIA PLUS ST/T ABNORMALITY] POSSIBLE ANTERIOR MYOCARDIAL INFARCTION , PROBABLY OLD [30 ms Q WAVE IN V3/V4, OR R < 0.2 mV IN V4] Compared to ECG 01/19/2022 14:13:19 First degree AV block now present Low QRS voltage now present ST (T wave) deviation now present Myocardial infarct finding now present T-wave abnormality no longer present Electronically Signed On 05-04-2022 19:33:14 OPERATIONS INSPECTOR by Yanet Darby M.D. [id number]
[2022-05-04] MEDS: ketorolac 30 mg/mL INJ 15 MG IVP (16:21)
[2022-05-04] MEDS: dicyclomine 20 mg Tablet PO (16:21)
[2022-05-04] MEDS: sodium chloride 0.9% 1,000 ML 999 ML IV ×3 (16:22→19:50)
--- NOTE | 2022-05-04 16:28 | PC.NURSE ---
PT FOUND TO BE AT 84% ON ROOM AIR. PT DENIES USE OF HOME OXYGEN. STATES SHE OFTEN FEELS DIZZY AND SHORT OF BREATH WHEN UP MOVING AROUND AT HOME. IS SCHEDULED TO SEE CARDIOLOGY ON FRIDAY. NURSE PLACED PATIENT ON 2L NC AND IMPROVED SATURATIONS NOTED (MID 90S) PHYSICIAN NOTIFIED.
--- NOTE | 2022-05-04 16:35 | XRR_ITS ---
PROCEDURE INFORMATION: Exam: XR Chest Exam date and time: 05/04/2022 4:41 PM Age: 71 years old Clinical indication: Dyspnea; Additional info: Hypoxia TECHNIQUE: Imaging protocol: Radiologic exam of the chest. Views: 1 view. COMPARISON: CR XR chest 1V portable [id number] 01/19/2022 1:42 PM FINDINGS: Lungs: Mild basilar fibrosis/scarring. No consolidation. Pulmonary vascularity is within normal limits. The lungs are hyperinflated. Pleural spaces: Unremarkable. No pleural effusion. No pneumothorax. Heart/Mediastinum: Unremarkable. No cardiomegaly. Bones/joints: No acute abnormality. XR/XR chest 1V portable [id number] IMPRESSION: No acute findings.
[2022-05-04 16:43] LABS: Basophils % 0.5 %; Eosinophils # 0.1 10^3/uL (0.0-0.8); Eosinophils % 0.8 %; Hematocrit 41.8 % (37.0-47.0); Hemoglobin 13.1 g/dL (11.5-15.3); Lymphocytes # 1.2 10^3/uL (0.8-4.8); Lymphocytes % 14.6 %; Mean Corpuscular HGB Conc 31.3 g/dL (30.0-36.0); Mean Corpuscular Volume 89.3 fl (81-99); Mean Platelet Volume 10.2 fL (7.4-10.4); Monocytes # 0.7 10^3/uL (0.2-0.9); Monocytes % 8.4 %; Neutrophils # 6.34 10^3/uL (1.8-7.7); Neutrophils % 75.6 %; Nucleated Red Blood Cells % 0 %; Platelet Count 365 10^3/cmm (130-400); Red Blood Count 4.68 10^6/uL (4.1-5.3); Red Cell Distribution Width 14.8 % (12.1-15.1); White Blood Count 8.4 10^3/uL (4.0-10.0)
[2022-05-04 17:15] LABS: Alanine Aminotransferase 7 U/L (0-33); Alkaline Phosphatase 150 U/L (35-105); Anion Gap 21.5 (5-19); Aspartate Amino Transferase 11 U/L (0-32); Blood Urea Nitrogen 16 mg/dL (8-23); Calcium 9.5 mg/dL (8.5-10.5); Carbon Dioxide 24 mmol/L (22-29); Chloride 94 mmol/L (98-107); Globulin 2.6 g/dL (1.3-4.6); Glucose 195 mg/dL (65-115); NT Pro B Type Natriuretic Pept 164 pg/mL (0-125); Osmolality Calculated 291 mOsm/kg (285-295); Sodium 137 mmol/L (136-145); Total Bilirubin 0.2 mg/dL (0.15-1.2); Total Protein 6.6 g/dL (6.6-8.7)
[2022-05-04 17:18] LABS: Potassium 2.5 mmol/L (3.5-5.1)
[2022-05-04] MEDS: potassium chloride oral liq 20 mEq/15 mL UDC 40 MEQ PO (17:32)
[2022-05-04] MEDS: potassium chloride premix 100 ML 25 MEQ IV (17:34)
--- NOTE | 2022-05-04 18:02 | P.HP_ITS ---
Providers/Chief Complaint Primary Care Provider: XIMENA Su Chief Complaint: N/V History of Present Illness Brenda Stone is a 71 year old female with a past medical history of noninsulin- dependent type 2 diabetes mellitus, history of diabetic gastroparesis, history of severe gastritis, history of seizures, history of chronic weakness bilateral extremities, dizziness, history of peripheral arterial disease with bilateral iliac stents, history of carotid artery stenosis status post carotid enterectomy who presents [facility] due to diarrhea, nausea, vomiting. Patient tells me that her symptoms started a few days ago, when she was not feeling well she is not exactly sure what she felt dizzy, she has been dealing with her dizziness for some period of time she has an event monitor ordered she sees cardiology. Denies ever passing out, denies any facial droop no slurring of her words, no paresthesias, no back pain, no urinary or bowel incontinence. Denies ever blacking out. But then her symptoms progressed to developing profuse watery diarrhea, with nausea. No bloody or black stools. No history of antibio tic exposure. No history of food poisoning. No other person the family is sick at home. She tells me that this similar thing happened roughly 2 years ago when she saw Dr. Miek she had a colonoscopy which showed something that only Dr. Mike knows about, according to patient, and she was given something and she got better. She is not exactly sure what it was. She is on Reglan for diabetic gastroparesis but that is not working anymore, so she is on this new medication she cannot remember. Denies any chest pain, palpitations, lightheadedness her potassium was 2.5. Her creatinine was 1.3. Review of Systems Const: Reports: fatigue and malaise; Denies: fever(s) or chills Eyes: Denies: change in vision Card: Reports: lightheadedness; Denies: chest pain or palpitations Resp: Denies: dyspnea or non-productive cough GI: Reports: nausea, vomiting and diarrhea; Denies: abdominal pain : Denies: flank pain Musc: Denies: back pain Skin/Breast: Denies: rash Neuro: Denies: headache(s) or numbness in extremities Psych: Denies: anxiety Endo: Denies: polyuria Medications/Allergies Home Medications Medication Instructions Recorded Confirmed Last Taken Type atorvastatin 80 mg tablet 80 mg PO DAILY 10/18/19 05/04/22 05/03/22 History buspirone 10 mg tablet 10 mg PO BID 10/18/19 05/04/22 05/04/22 History estradiol 1 mg tablet 0.5 mg PO DAILY 10/18/19 05/04/22 05/04/22 History gabapentin 600 mg tablet 600 mg PO TID 10/18/19 05/04/22 05/04/22 History lamotrigine 200 mg tablet 200 mg PO BID 10/18/19 05/04/22 05/04/22 History meloxicam 7.5 mg tablet 7.5 mg PO DAILY 10/18/19 05/04/22 05/03/22 History pantoprazole 40 mg tablet,delayed 40 mg PO BID #180 tabs 11/23/19 05/04/22 05/04/22 Rx release lorazepam 0.5 mg tablet 0.5 mg PO DAILY PRN Anxiety 06/08/20 05/04/22 Unknown History Diabetic shoes with 3 inserts #1 ea 09/12/20 05/04/22 Unknown Rx aspirin 325 mg tablet,delayed 325 mg PO DAILY #30 tabs 04/22/21 05/04/22 05/04/22 Rx release hydrocodone 5 mg-acetaminophen 325 1 tab PO Q6H PRN pain #20 tabs 04/22/21 05/04/22 Unknown Rx mg tablet docusate sodium 100 mg capsule 200 mg PO BEDTIME PRN Constipation 04/26/21 05/04/22 05/03/22 History polyethylene glycol 3350 17 17 g PO DAILY PRN Constipation 04/26/21 05/04/22 Unknown History gram/dose oral powder (ClearLax) cilostazol 50 mg tablet 50 mg PO BID #180 tabs 05/08/21 05/04/22 05/04/22 Rx nifedipine 30 mg tablet,extended 30 mg PO DAILY #90 tabs 07/05/21 05/04/22 05/04/22 Rx release furosemide 40 mg tablet (Lasix) 40 mg PO DAILY 10/01/21 05/04/22 05/04/22 History metformin 500 mg tablet 500 mg PO BID 10/01/21 05/04/22 05/03/22 History magnesium L-lactate 84 mg 84 mg PO DAILY 03/20/22 05/04/2205/04/23 History tablet,extended release potassium chloride 10 mEq 10 meq PO DAILY 03/20/22 05/04/22 05/04/22 History tablet,extended release lansoprazole 30 mg capsule,delayed 30 mg PO DAILY 05/04/22 05/04/22 05/04/22 History release Allergies Allergy/AdvReac Type Severity Reaction Status Date / Time pentoxifylline Allergy Severe ITCHING Verified 03/20/22 09:20 Penicillins Allergy Mild unknown Verified 03/20/22 09:20 Sulfa (Sulfonamide Allergy Mild unknown Verified 03/20/22 09:20 Antibiotics) PFSH Acute PFSH: Medical History Bilateral leg weakness Dizziness Epilepsy Fever FH: carotid endarterectomy Hyperlipemia Hypertension Hypomagnesemia Stenosis of peripheral vascular stent Type 2 diabetes mellitus Surgical History H/O abdominal hysterectomy S/P knee surgery Family History Other Cancer Diabetes Heart disease Social History Smoking and tobacco status: former smoker Quit status (tobacco): has quit using tobacco Year quit tobacco: 2020 Former quit date comment: 6 WEEKS AGO Alcohol intake: former Adopted: No service: No Current gender identity: Female Vitals/I&O/Wt Last Vital Signs Temp 98.0 F 05/04/22 15:58 Pulse 90 05/04/22 16:51 Resp 16 05/04/22 16:51 BP 158/81 05/04/22 17:25 Pulse Ox 93 05/04/22 17:25 O2 Del Method 05/04/22 16:51 05/04/22 05/04/22 05/04/22 06:59 14:59 22:59 Intake Total 1000 / 1000 Balance 1000 / 1000 Weight last 48 hrs Weight 74.843 kg Physical Exam Const: COMMON NORMALS: no acute distress and patient oriented x3 HENMT: COMMON NORMALS: normocephalic Eye: COMMON NORMALS: Equal, round and reactive pupils present Neck/C-Spine: COMMON NORMALS: full ROM Lymph: LYMPHATIC: no lymphadenopathy noted Resp: COMMON NORMALS: normal respiratory effort, No retractions, No use of accessory muscles and clear to auscultation bilaterally AUSCULTATION: clear to auscultation bilaterally Cardio: COMMON NORMALS: no JVD, regular rate, regular rhythm, S1 normal heart sound present and S2 normal heart sound present RATE: regular rate RHYTHM: regular rhythm HEART SOUNDS: S1 normal heart sound present and S2 normal heart sound present GI: COMMON NORMALS: Normal to inspection, nondistended, normoactive bowel sounds present, Soft to palpation and non-tender : COMMON NORMALS: Yes no CVA tenderness Extremity: COMMON NORMALS: no pedal edema Neuro: COMMON NORMALS: patient oriented x3, CN's II-XII intact bilaterally, moves all extremities and no focal motor deficits Psych: COMMON NORMALS: mental status grossly normal Data 05/04/22 16:15 05/04/22 16:15 A&P Assessment and plan (1) Acute hypokalemia: (2) Dizziness: (3) Diabetic peripheral neuropathy associated with type 2 diabetes mellitus: (4) Gastroparesis: (5) Gastritis: (6) Tobacco abuse: (7) Type 2 diabetes mellitus: (8) Hypertension: (9) Goals of care, counseling/discussion: Plan Acute hypokalemia -No chest pain, no palpitations, no lightheadedness, no acute ST-T wave changes -Ordered telemetry monitoring -Has received 40 p.o. in the emergency room currently receiving IV -Recheck BMP at 11 PM -Magnesium, phosphorus -No lightheadedness, dizziness Acute diarrhea -Reports a chronic history of diarrhea and diabetic gastroparesis had a colonoscopy [place] [address] Mike that showed severe gastritis -Protonix 40 IV twice daily -Carafate -Stool studies -KELLY -Celiac panel Dizziness -Acute on chronic dizziness -She has had hospitalizations for bilateral leg weakness -We will continue IV hydration -Has a history of carotid artery stenosis, monitor -Currently event monitor ordered, no acute events that I can see Type 2 diabetes mellitus, low-dose sliding scale Generalized weakness, PT OT MOOKIE, IV fluids Diabetic gastroparesis, Reglan as needed Peripheral vascular disease, with history of arthrosclerosis of abdominal arteries -Aortic Aorta: There is atherosclerotic plaque throughout the abdominal aorta with regions of mild narrowing. No aortic aneurysm. No aortic dissection. Celiac trunk and mesenteric arteries: There is a short segment of moderate to severe stenosis of the proximal celiac trunk measuring 3 mm in AP dimension with poststenotic dilatation measuring 9 mm. There is moderate stenosis of the proximal superior mesenteric artery with poststenotic dilatation measuring 7 mm. Inferior mesenteric artery not visualized. Renal arteries: Atherosclerotic plaque at the origin of the left renal artery results in focal moderate to severe stenosis. There is normal flow 1.1 mm distal to the origin. There is atherosclerotic plaque at the origin of the main right renal artery without significant stenosis. There is and accessory right renal artery originating from the aorta inferior to the main right renal artery. Atherosclerotic plaque at the origin of the accessory right renal artery results in focal severe stenosis. Right iliac arteries: There is a stent in the right common iliac artery. Visualization within the stent is limited however there appears to be some mild to moderate in stent stenosis. There is atherosclerotic plaque in the external iliac artery with regions of mild narrowing. Right femoral/popliteal arteries: There is scattered atherosclerotic plaque in the common femoral, superficial femoral, and popliteal arteries with regions of mild narrowing of the distal right superficial femoral and popliteal arteries. Right infrapopliteal arteries: There is thready flow in the mid right anterior tibialis artery. No flow is seen within the distal right anterior tibialis artery. No flow is seen in within the distal most aspect of the peroneal artery. Left iliac arteries: There is a stent in the left common iliac artery. Visualization within the stent is limited however there appears to be some mild to moderate in stent stenosis. There is atherosclerotic plaque in the external iliac artery without significant stenosis. Left femoral/popliteal arteries: Scattered atherosclerotic plaque in the common femoral , superficial femoral, and popliteal arteries with regions of mild stenosis. Left infrapopliteal arteries: No flow is seen within the distal most aspects of the anterior tibialis and peroneal arteries. -Abdominal exam benign -Obtain lactic acid -IV fluids -CT angiogram abdomen pelvis Goals of care discussion, she does not want chest compressions, she is okay with intubation if required, she is okay with ICU admission, but she does not want to be kept on life-sustaining measures Her TSH has been depressed, check free T3, check free T4 Attestations Medical Necessity Statement*: Patient requires hospitalization, for diarrhea, nausea, vomiting, hypokalemia, MOOKIE, dehydration, dizziness Diagnoses Acute hypokalemia E87.6 Dizziness R42 Diabetic peripheral neuropathy associated with type 2 diabetes mellitus E11.42 Gastroparesis K31.84 Gastritis K29.70 Tobacco abuse Z72.0 Type 2 diabetes mellitus E11.9 Hypertension I10 Goals of care, counseling/discussion Z71.89
--- NOTE | 2022-05-04 18:19 | ECG_ITS ---
[facility] Test Date: 2022-05-04 Pat Name: Brenda Stone Department: Room: Gender: Female Route Sales Specialist: : 1950 Requested By: Hansel Wylie Order Number: [id number] Adames MD: Yanet Darby M.D. Measurements Intervals [place] Rate: 92 P: 48 FL: 176 QRS: -1 QRSD: 90 T: 76 QT: 394 QTc: 487 Interpretive Statements SINUS RHYTHM LOW QRS VOLTAGE IN PRECORDIAL LEADS [QRS DEFLECTION < 1.0 mV IN CHEST LEADS] MINIMAL VOLTAGE CRITERIA FOR LVH, CONSIDER NORMAL VARIANT [MEETS CRITERIA IN ONE OF: R(aVL), S(V1), R(V5), R(V5/V6)+S(V1)] SEPTAL MYOCARDIAL INFARCTION , OF INDETERMINATE AGE [40+ ms Q WAVE IN V1/V2] Compared to ECG 05/04/2022 16:19:44 First degree AV block no longer present ST (T wave) deviation no longer present Myocardial infarct finding still present Electronically Signed On 05-04-2022 19:34:04 RECYCLING SPECIALIST by Yanet Darby M.D. [email or web address] [email or web address] [facility].[employer]/store/[id number]
[2022-05-04 18:29] LABS: Magnesium 1.2 mg/dL (1.7-2.3)
[2022-05-04 18:32] LABS: Lactate (Lactic Acid level) 2.2 mmol/L (0.5-2.2)
[2022-05-04] MEDS: iohexol 350 mg/mL 500 mL Btl (per mL) IV (18:43)
[2022-05-04 18:50] LABS: Phosphorus 2.9 mg/dL (2.5-4.5)
[2022-05-04 18:52] LABS: Troponin(5th) Baseline 11 ng/L (0-10)
[2022-05-04 19:30] LABS: Lactic Sepsis W/Reflex 5.4 mmol/L (0.5-2.2)
[2022-05-04] MEDS: ondansetron 2 mg/ML SDV 2 mL 4 MG IVP (19:50)
[2022-05-04 20:15] LABS: Reflex Lactate Order REFLEX LACTIC ORDERD
--- NOTE | 2022-05-04 20:22 | ECG_ITS ---
[facility] Test Date: 2022-05-04 Pat Name: Brenda Stone Department: Room: 255 Gender: Female [place]: : 1950 Requested By: Yordan Mejia Order Number: [id number] Rosangela MD: Yanet Darby M.D. Measurements Intervals [place] Rate: 85 P: 71 FL: 220 QRS: 0 QRSD: 92 T: 73 QT: 420 QTc: 501 Interpretive Statements SINUS RHYTHM WITH FIRST DEGREE AV BLOCK NONSPECIFIC T-WAVE ABNORMALITY Compared to ECG 05/04/2022 18:19:54 First degree AV block now present T-wave abnormality now present Myocardial infarct finding no longer present Electronically Signed On 05-05-2022 22:14:27 ELECTRICIAN SUPERVISOR AIRPLANE by Yanet Darby M.D. [email or web address]/[id number]
[2022-05-04] MEDS: pantoprazole 40 mg SDV IVP (21:12)
[2022-05-04] MEDS: BuSPIRONE 10 mg Tablet PO (21:12)
[2022-05-04] MEDS: gabapentin 300 mg Capsule 600 MG PO (21:12)
[2022-05-04] MEDS: enoxaparin 40 mg/0.4 mL Syringe SUBCUT (21:12)
[2022-05-04] MEDS: sucralfate 1 gm Tablet PO (21:12)
[2022-05-04] MEDS: sodium chlor 0.9% + KCl 20 mEq 20 MEQ/1,000 ML BAG 100 MEQ IV (21:14)
[2022-05-04 21:41] LABS: Lactic Acid level (Lactate) 1.6 mmol/L (0.5-2.2)
[2022-05-04 21:45] LABS: Troponin 5 2HR 16.61 ng/L (0-10)
[2022-05-04 21:47] LABS: Troponin 5 2HR Delta 5.61 ABS# (0-10)
[2022-05-04 21:52] LABS: Chol HDL Ratio 3.54 mg/dL (0.0-4.40); Cholesterol 131 mg/dL (0-200); HDL Cholesterol 37 mg/dL (60-100); LDL Cholesterol Calculated 65 mg/dL (50-129); LDL HDL Ratio 1.76 RATIO (0.00-3.22); Thyroid Stimulating Hormone 0.06 uIU/mL (0.27-4.20); Triglycerides 145 mg/dL (0-150)
[2022-05-04 21:57] LABS: Glucose Point of Care 132 mg/dL (70-110)
[2022-05-04 22:09] LABS: Add Urine Microscopic? YES; Bilirubin Urine Neg (Negative); Blood Urine Neg (Negative); Glucose Urine UA Norm (Normal); Ketones Urine 1+ (Negative); Leukocyte Esterase Urine Negative (Negative); Nitrate Urine Negative (Negative); Protein Urine 1+ (Negative); Specific Gravity, Urine 1.015 (1.005-1.030); Urine Appearance Clear (CLEAR); Urine Color Yellow (Yellow); Urobilinogen Urine Neg (Negative); pH Urine 7 (5-7)
[2022-05-04 22:15] LABS: Add Urine Culture? No; Bacteria Urine TRACE /hpf; Mucus Urine TRACE /hpf; RBC Urine 0-4 /hpf (0-2); Renal Epithelial Cells Urine 0 /hpf; Squamous Epithelial Cell Urine 0-4 /hpf (0-5); WBC Urine 0-4 /hpf (0-5)
[2022-05-04 23:56] LABS: Anion Gap 10.6 (5-19); Blood Urea Nitrogen 14 mg/dL (8-23); Calcium 8.3 mg/dL (8.5-10.5); Carbon Dioxide 27 mmol/L (22-29); Chloride 102 mmol/L (98-107); Glucose 130 mg/dL (65-115); Osmolality Calculated 284 mOsm/kg (285-295); Potassium 3.6 mmol/L (3.5-5.1); Sodium 136 mmol/L (136-145)
[2022-05-05] VITALS (8 sets, daily range): BP systolic 119–170; BP diastolic 66–76; PULSE 76–90; RESP 16; TEMP 36.5–36.8; O2SAT 90–99
[2022-05-05 01:11] LABS: Free T4 Free Thyroxine 1.48 ng/dL (0.82-1.77); T3 Free 3.6 PG/ML (2.0-4.4)
[2022-05-05] MEDS: sodium chlor 0.9% + KCl 20 mEq 20 MEQ/1,000 ML BAG 100 MEQ IV ×3 (05:23→19:24)
[2022-05-05 05:36] LABS: Basophils % 0.9 %; Eosinophils # 0.1 10^3/uL (0.0-0.8); Eosinophils % 2.2 %; Hematocrit 32.5 % (37.0-47.0); Hemoglobin 9.8 g/dL (11.5-15.3); Lymphocytes # 1.2 10^3/uL (0.8-4.8); Lymphocytes % 26.7 %; Mean Corpuscular HGB Conc 30.2 g/dL (30.0-36.0); Mean Corpuscular Hemoglobin 27.8 pg (28.0-34.0); Mean Corpuscular Volume 92.1 fl (81-99); Mean Platelet Volume 10.1 fL (7.4-10.4); Monocytes # 0.5 10^3/uL (0.2-0.9); Monocytes % 10.3 %; Neutrophils # 2.66 10^3/uL (1.8-7.7); Neutrophils % 59.7 %; Nucleated Red Blood Cells % 0 %; Platelet Count 281 10^3/cmm (130-400); Red Blood Count 3.53 10^6/uL (4.1-5.3); White Blood Count 4.5 10^3/uL (4.0-10.0)
[2022-05-05 05:55] LABS: Magnesium 1.3 mg/dL (1.7-2.3); Phosphorus 1.8 mg/dL (2.5-4.5)
[2022-05-05 05:57] LABS: Estmated Average Glucose 174; Hemoglobin A1C 7.7 % (4.0-6.0)
--- NOTE | 2022-05-05 06:12 | ED_ITS ---
HPI - Abdominal Pain General: Chief Complaint: Abdominal Pain Stated Complaint: N/V Time Seen by Provider: 05/04/22 15:59 History of Present Illness: Brenda presents with 3 days of nausea, vomiting, and diarrhea. There has been no blood in the stool or emesis associated with this visit. She was progressively worse over the last few days as judged by her increase in dizziness. She describes the dizziness as lightheadedness and feeling as if she will be unstable on her feet, not associated with vertiginous symptoms. She has baseline peripheral neuropathy secondary to her diabetes and her bilateral lower extremities which is not assist her in walking. Furthermore she has vascular stents in her bilateral lower extremities. Denies claudication type symptoms in her legs when she is walking, however. Denies fevers, sweats, chills, chest pain. She states she has diffuse cramping abdominal pain. She is having up to 6 loose bowel movements per day and a few episodes of nausea and nonbloody vomiting. Associated Symptoms: Reports nausea and vomiting; Denies chills, fever(s) and hematemesis Review of Systems General: Reports: 10 or more systems reviewed and unremarkable except in HPI and below Const: Denies: fever(s) or chills Eyes: Denies: change in vision or blurry vision ENMT: Denies: throat pain or uvular edema Card: Denies: chest pain or palpitations Resp: Denies: dyspnea or productive cough GI: Reports: abdominal pain (Diffuse crampy abdominal pain), nausea and vomiti ng; Denies: hematemesis : Denies: flank pain or difficulty voiding Musc: Denies: neck pain or back pain Skin/Breast: Denies: rash or pruritus Neuro: Denies: headache(s) or numbness in extremities Endo: Denies: polyuria or polydipsia PFSH ED PFSH: Medical History Bilateral leg weakness Dizziness Epilepsy Fever FH: carotid endarterectomy Hyperlipemia Hypertension Hypomagnesemia Stenosis of peripheral vascular stent Type 2 diabetes mellitus Surgical History H/O abdominal hysterectomy S/P knee surgery Family History Other Cancer Diabetes Heart disease Social History Smoking and tobacco status: former smoker Quit status (tobacco): has quit using tobacco Year quit tobacco: 2020 Former quit date comment: 6 WEEKS AGO Alcohol intake: former Adopted: No service: No Current gender identity: Female Physical Exam Const: COMMON NORMALS: no acute distress HENMT: COMMON NORMALS: normocephalic and atraumatic HEAD & SCALP: normocephalic and atraumatic TEETH & GINGIVA: Yes other (Dry mucous membranes) THROAT: no uvular edema Eye: COMMON NORMALS: Equal, round and reactive pupils present and EOMs intact bilaterally PUPIL: Yes Equal, round and reactive pupils present Course Vital Signs: Vital signs: Vital Signs Temperature 97.7 F 05/05/22 04:00 Pulse Rate 80 05/05/22 06:43 Respiratory Rate 16 05/05/22 04:00 Blood Pressure 147/76 05/05/22 04:00 Pulse Oximetry 91 05/05/22 04:00 Oxygen Delivery Me thod 05/05/22 04:00 MDM - Abdominal Pain Medical Decision Making 71-year-old female with history of gastroenteritis presenting with a recurrent episode today. Vitals demonstrate tachycardia and intermittent hypoxia that resolves with sitting upright and small amount of nasal oxygen cannula. Considering intra-abdominal pathology including vascular stent stenosis, diverticulitis, bowel obstruction, others. Electrolyte derangements not ruled out given history of excessive vomiting episodes. Electrolytes determine critical potassium level. Initiate repletion of potassi um along with intravenous fluids for tachycardia. Other findings during this emergency encounter nonactionable. Hospitalist consulted for admission for continued electrolyte repletion and volume resuscitation. EKG: EKG demonstrates tachycardic rate with IL interval greater than 200. No ischemia or ischemia equivalents. Not paced rhythm, QRS within normal limits Procedure: Bedside [id number] trans abdominal aortic ultrasonography. Cardiac probe utilized to scan the lateral plane of the aorta from the subcostal area to the branching of the iliac arteries. No evidence of aneurysmal changes, false lumen, or free fluid. Lab Data 05/05/22 04:58 05/04/22 23:05 Labs/Radiology: Radiology Impressions Abdomen/Pelvis CT 05/04/22 16:05 IMPRESSION: 1. There is diffuse small bowel wall thickening, consistent with infectious, ischemic, or inflammatory enteritis. 2. The wall of the entire colon is thickened but partially collapsed. Wall thickening is most prominently involving the descending and sigmoid colon. There is mild haziness of the distal pericolonic fat compatible with mild colitis. Chest X-Ray 05/04/22 16:35 IMPRESSION: No acute findings. Laboratory Results WBC 8.4 10^3/uL (4.0-10.0) 05/04/22 16:15 RBC 4.68 10^6/uL (4.1-5.3) 05/04/22 16:15 Hgb 13.1 g/dL (11.5-15.3) 05/04/22 16:15 Hct 41.8 % (37.0-47.0) 05/04/22 16:15 MCV 89.3 fl (81-99) 05/04/22 16:15 MCH 28.0 pg (28.0-34.0) 05/04/22 16:15 MCHC 31.3 g/dL (30.0-36.0) 05/04/22 16:15 RDW 14.8 % (12.1-15.1) 05/04/22 16:15 Plt Count 365 10^3/cmm (130-400) 05/04/22 16:15 MPV 10.2 fL (7.4-10.4) 05/04/22 16:15 Neut % (Auto) 75.6 % 05/04/22 16:15 Lymph % (Auto) 14.6 % 05/04/22 16:15 [place] % (Auto) 8.4 % 05/04/22 16:15 Eos % (Auto) 0.8 % 05/04/22 16:15 Baso % (Auto) 0.5 % 05/04/22 16:15 Neut # (Auto) 6.34 10^3/uL (1.8-7.7) 05/04/22 16:15 Lymph # (Auto) 1.2 10^3/uL (0.8-4.8) 05/04/22 16:15 [place] # (Auto) 0.7 10^3/uL (0.2-0.9) 05/04/22 16:15 Eos # (Auto) 0.1 10^3/uL (0.0-0.8) 05/04/22 16:15 Baso # (Auto) 0.0 10^3/uL (0.0-0.1) 05/04/22 16:15 Nucleated RBC % (auto) 0 % 05/04/22 16:15 Nucleated RBCs # 0.0 /100WBC 05/04/22 16:15 Sodium 137 mmol/L (136-145) 05/04/22 16:15 Potassium 2.5 mmol/L (3.5-5.1) L* 05/04/22 16:15 Chloride 94 mmol/L (98-107) L 05/04/22 16:15 Carbon Dioxide 24 mmol/L (22-29) 05/04/22 16:15 Anion Gap 21.5 (5-19) H 05/04/22 16:15 BUN 16 mg/dL (8-23) 05/04/22 16:15 Creatinine 1.3 mg/dL (0.5-0.9) H 05/04/22 16:15 GFR Calculation Not Reportable 05/04/22 16:15 Glucose 195 mg/dL (65-115) H 05/04/22 16:15 Calculated Osmolality 291 mOsm/kg (285-295) 05/04/22 16:15 Lactic Acid 5.4 mmol/L (0.5-2.2) H* 05/04/22 16:15 Calcium 9.5 mg/dL (8.5-10.5) 05/04/22 16:15 Phosphorus 2.9 mg/dL (2.5-4.5) 05/04/22 16:15 Total Bilirubin 0.2 mg/dL (0.15-1.2) 05/04/22 16:15 AST 11 U/L (0-32) 05/04/22 16:15 ALT 7 U/L (0-33) 05/04/22 16:15 Alkaline Phosphatase 150 U/L (35-105) H 05/04/22 16:15 Troponin T Baseline 11 ng/L (0-10) H 05/04/22 16:15 NT-Pro-B Natriuret Pep 164 pg/mL (0-125) H 05/04/22 16:15 Total Protein 6.6 g/dL (6.6-8.7) 05/04/22 16:15 Albumin 4.0 g/dL (3.5-5.2) 05/04/22 16:15 Globulin 2.6 g/dL (1.3-4.6) 05/04/22 16:15 Urine Color Yellow (Yellow) 05/04/22 16:50 Urine Appearance Clear (CLEAR) 05/04/22 16:50 Urine pH 7 (5-7) 05/04/22 16:50 Ur Specific Damar 1.015 (1.005-1.030) 05/04/22 16:50 Urine Protein 1+ (Negative) H 05/04/22 16:50 Urine Glucose (UA) Norm (Normal) 05/04/22 16:50 Urine Ketones 1+ (Negative) H 05/04/22 16:50 Urine Blood Neg (Negative) 05/04/22 16:50 Urine Nitrate Negative (Negative) 05/04/22 16:50 Urine Bilirubin Neg (Negative) 05/04/22 16:50 Urine Urobilinogen Neg mg/dL (Negative) 05/04/22 16:50 Ur Leukocyte Esterase Negative (Negative) 05/04/22 16:50 Urine RBC 0-4 /hpf (0-2) H 05/04/22 16:50 Urine WBC 0-4 /hpf (0-5) H 05/04/22 16:50 Ur Squamous Epith Cells 0-4 /hpf (0-5) H 05/04/22 16:50 Ur Renal Epithelial Cell 0 /hpf 05/04/22 16:50 Amorphous Sediment Not Reportable 05/04/22 16:50 Urine Bacteria Trace /hpf (NONE) 05/04/22 16:50 Urine Mucus Trace /hpf 05/04/22 16:50 Discharge Plan Discharge Patient Disposition: Admitted As Inpatient Admit Provider: Yodran Mejia Clinical Impression: Acute hypokalemia Condition: Stable Coding Level of Care Code 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
[2022-05-05 07:41] LABS: Adenovirus Not Detected (NOT DETECT); Chlamydia Pneumoniae Not Detected (NOT DETECT); Coronavirus 229E,HKU1,NL63,OC4 Not Detected (NOT DETECT); Human Metapneumovirus Not Detected (NOT DETECT); Human Rhinovirus/Enterovirus Not Detected (NOT DETECT); Influenza A Not Detected (NOT DETECT); Influenza A H1 Not Detected (NOT DETECT); Influenza A H1-2009 Not Detected (NOT DETECT); Influenza A H3 Not Detected (NOT DETECT); Influenza B Not Detected (NOT DETECT); Mycoplasma Pneumoniae Not Detected (NOT DETECT); Parainfluenza Virus Type 1 Not Detected (NOT DETECT); Parainfluenza Virus Type 2 Not Detected (NOT DETECT); Parainfluenza Virus Type 3 Not Detected (NOT DETECT); Parainfluenza Virus Type 4 Not Detected (NOT DETECT); Respiratory Syncytial Virus A Not Detected (NOT DETECT); Respiratory Syncytial Virus B Not Detected (NOT DETECT); SARS-COV-2 Not Detected (NOT DETECT)
[2022-05-05 08:53] LABS: Glucose Point of Care 118 mg/dL (70-110)
[2022-05-05] MEDS: atorvastatin 40 mg Tablet 80 MG PO (09:56)
[2022-05-05] MEDS: lamoTRIgine 100 mg Tablet 200 MG PO ×2 (09:56→17:51)
[2022-05-05] MEDS: NIFEdipine ER (24 hr) 30 mg Tablet PO (09:57)
[2022-05-05] MEDS: gabapentin 300 mg Capsule 600 MG PO ×3 (09:57→21:42)
[2022-05-05] MEDS: estradiol 1 mg Tablet 0.5 MG PO (09:57)
[2022-05-05] MEDS: cilostazol 100 mg Tablet 50 MG PO ×2 (09:58→17:51)
[2022-05-05] MEDS: phosphorus 250 mg Tablet PO ×2 (09:58→17:51)
[2022-05-05] MEDS: sucralfate 1 gm Tablet PO ×2 (09:58→21:43)
--- NOTE | 2022-05-05 09:59 | USR_ITS ---
PROCEDURE INFORMATION: Exam: US Soft Tissue Head and Neck, Thyroid Exam date and time: 05/05/2022 1:35 PM Age: 71 years old Clinical indication: Condition or disease; Other: Low tsh TECHNIQUE: Imaging protocol: Real-time ultrasound scan of the neck with image documentation. Exam focused on the thyroid. COMPARISON: CT head wo con* [id number] 01/19/2022 1:11 PM FINDINGS: Right thyroid lobe: No nodules. Left thyroid lobe: No nodules. Isthmus: No nodules. US/US thyroid [id number] IMPRESSION: Unremarkable thyroid.
[2022-05-05] MEDS: aspirin 325 mg EC Tablet PO (10:00)
[2022-05-05] MEDS: BuSPIRONE 10 mg Tablet PO ×2 (10:00→17:51)
[2022-05-05] MEDS: magnesium sulfate premix 4 GM/100 ML PREMIX IV (10:00)
[2022-05-05] MEDS: pantoprazole 40 mg SDV IVP ×2 (10:00→21:42)
--- NOTE | 2022-05-05 11:08 | PC.OT ---
HOLD UNTIL 05/06; PT NOT FEELING WELL AND DID NOT WANT TO MOVE; PT REFUSED EVALUATION
[2022-05-05 11:24] LABS: Erythrocyte Sedimentation Rate 4 mm/hr (0-15)
[2022-05-05 11:29] LABS: Glucose Point of Care 157 mg/dL (70-110)
[2022-05-05] MEDS: ondansetron 2 mg/ML SDV 2 mL 4 MG IVP (12:48)
[2022-05-05] MEDS: insulin lispro 100 unit/1 mL SUBCUT ×2 (12:48→17:50)
--- NOTE | 2022-05-05 13:59 | PM.PN ---
Subjective Subjective: Patient was seen this morning, she had 1 bout of diarrhea earlier this morning that is bothering her continues to have abdominal pain, no fevers, no chills, she denies a history of ulcerative colitis or Crohn's disease, no history of food poisoning, Vitals/I&O/Wt Last Vital Signs Temp 98.1 F 05/05/22 12:00 Pulse 76 05/05/22 12:00 Resp 16 05/05/22 12:00 BP 170/73 05/05/22 12:00 Pulse Ox 90 05/05/22 12:00 O2 Del Method 05/05/22 12:00 05/04/22 05/05/22 05/05/22 22:59 06:59 14:59 Intake Total 19995 / 3915 460 / 460 Balance 1999 460 / 460 Weight last 48 hrs Weight 62.505 kg Weight 74.843 kg Physical Exam Const: COMMON NORMALS: no acute distress and patient oriented x3 Resp: COMMON NORMALS: normal respiratory effort, No retractions, No use of accessory muscles and clear to auscultation bilaterally AUSCULTATION: clear to auscultation bilaterally Cardio: COMMON NORMALS: regular rate, regular rhythm, S1 normal heart sound present and S2 normal heart sound present RATE: regular rate RHYTHM: regular rhythm HEART SOUNDS: S1 normal heart sound present and S2 normal heart sound present GI: COMMON NORMALS: Normal to inspection, nondistended, normoactive bowel sounds present and non-tender Extremity: COMMON NORMALS: no pedal edema Neuro: COMMON NORMALS: patient oriented x3 Psych: COMMON NORMALS: mental status grossly normal Data 05/05/22 04:58 05/04/22 23:05 Micro: Microbiology 05/04/22 20:50 Blood Culture - Preliminary Blood SPECIMEN COLLECTED 05/04/22 20:45 Blood Culture - Preliminary Blood SPECIMEN COLLECTED A&P Assessment and plan (1) Acute hypokalemia: (2) Dizziness: (3) Diabetic peripheral neuropathy associated with type 2 diabetes mellitus: (4) Gastroparesis: (5) Gastritis: (6) Tobacco abuse: (7) Type 2 diabetes mellitus: (8) Hypertension: (9) Goals of care, counseling/discussion: (10) Thickened small bowel: (11) Colitis: (12) Lactic acidosis: (13) Hypophosphatemia: (14) Hypomagnesemia: (15) Anemia: Plan Lactic acidosis, 5.4 -Currently 1.0 -Likely secondary dehydration -No abdominal pain complaints, abdominal exam benign -However ischemic colitis could be a possibility however no significant CT evidence -Monitor for now Small bowel wall thickening, colitis 1. There is diffuse small bowel wall thickening, consistent with infectious, ischemic, or inflammatory enteritis. 2. The wall of the entire colon is thickened but partially collapsed. Wall thickening is most prominently involving the descending and sigmoid colon. There is mild haziness of the distal pericolonic fat compatible with mild colitis. Plan -We will start on high-dose steroids for possible ulcerative colitis -Await stool studies -ESR ordered -Spoke to general surgery, General surgery consulted for consideration of EGD and colonoscopy Acute anemia -Hemoglobin 9.8, likely dilutional, monitor repeat at 6 PM Acute hypokalemia -Resolved -No chest pain, no palpitations, no lightheadedness, no acute ST-T wave changes -Ordered telemetry monitoring -Receiving IV replacement -No lightheadedness, dizziness Hypomagnesemia, will replace Hypophosphatemia we will replace Acute diarrhea -Reports a chronic history of diarrhea and diabetic gastroparesis had a colonoscopy [place] [address] Mike that showed severe gastritis -Protonix 40 IV twice daily -Carafate -Stool studies -KELLY -Celiac panel Dizziness -Acute on chronic dizziness -She has had hospitalizations for bilateral leg weakness -We will continue IV hydration -Has a history of carotid artery stenosis, monitor -Currently event monitor ordered, no acute events that I can see Type 2 diabetes mellitus, low-dose sliding scale Generalized weakness, PT OT MOOKIE, IV fluids Diabetic gastroparesis, Reglan as needed Peripheral vascular disease, with history of arthrosclerosis of abdominal arteries -Aortic Aorta: There is atherosclerotic plaque throughout the abdominal aorta with regions of mild narrowing. No aortic aneurysm. No aortic dissection. Celiac trunk and mesenteric arteries: There is a short segment of moderate to severe stenosis of the proximal celiac trunk measuring 3 mm in AP dimension with poststenotic dilatation measuring 9 mm. There is moderate stenosis of the proximal superior mesenteric artery with poststenotic dilatation measuring 7 mm. Inferior mesenteric artery not visualized. Renal arteries: Atherosclerotic plaque at the origin of the left renal artery results in focal moderate to severe stenosis. There is normal flow 1.1 mm distal to the origin. There is atherosclerotic plaque at the origin of the main right renal artery without significant stenosis. There is and accessory right renal artery originating from the aorta inferior to the main right renal artery. Atherosclerotic plaque at the origin of the accessory right renal artery results in focal severe stenosis. Right iliac arteries: There is a stent in the right common iliac artery. Visualization within the stent is limited however there appears to be some mild to moderate in stent stenosis. There is atherosclerotic plaque in the external iliac artery with regions of mild narrowing. Right femoral/popliteal arteries: There is scattered atherosclerotic plaque in the common femoral, superficial femoral, and popliteal arteries with regions of mild narrowing of the distal right superficial femoral and popliteal arteries. Right infrapopliteal arteries: There is thready flow in the mid right anterior tibialis artery. No flow is seen within the distal right anterior tibialis artery. No flow is seen in within the distal most aspect of the peroneal artery. Left iliac arteries: There is a stent in the left common iliac artery. Visualization within the stent is limited however there appears to be some mild to moderate in stent stenosis. There is atherosclerotic plaque in the external iliac artery without significant stenosis. Left femoral/popliteal arteries: Scattered atherosclerotic plaque in the common femoral , superficial femoral, and popliteal arteries with regions of mild stenosis. Left infrapopliteal arteries: No flow is seen within the distal most aspects of the anterior tibialis and peroneal arteries. -Abdominal exam benign -Obtain lactic acid -IV fluids -CT angiogram abdomen pelvis Goals of care discussion, she does not want chest compressions, she is okay with intubation if required, she is okay with ICU admission, but she does not want to be kept on life-sustaining measures Her TSH has been depressed, normal free T3, normal free T4, order thyroid ultrasound Attestations Medical Necessity Statement*: Patient requires hospitalization for colitis, hypokalemia, hypomagnesemia, hypophosphatemia, diarrhea, anemia Diagnoses Acute hypokalemia E87.6 Dizziness R42 Diabetic peripheral neuropathy associated with type 2 diabetes mellitus E11.42 Gastroparesis K31.84 Gastritis K29.70 Tobacco abuse Z72.0 Type 2 diabetes mellitus E11.9 Hypertension I10 Goals of care, counseling/discussion Z71.89 Thickened small bowel K63.9 Colitis K52.9 Lactic acidosis E87.20 Hypophosphatemia E83.39 Hypomagnesemia E83.42 Anemia D64.9
--- NOTE | 2022-05-05 15:03 | PM.CONSULT ---
Providers/Reason For Consult Consulting Physician/Specialty*: Galina Chan DO/General surgery Reason for Consult*: Gastritis and colitis Attending Physician: Yordan Mejia MD Primary Care Provider: XIMENA Su History of Present Illness History of Present Illness Brenda Stone is a 71 year old female reported to the hospital with abdominal pain and diarrhea. She reports that she has been dealing with this for months. She reports that she has epigastric abdominal pain that does not radiate. Nothing seems to make the pain better or worse. She reports that she is having nausea and vomiting but denies any hematemesis. She also reports diarrhea but denies any hematochezia and/or melena. No one she is around is sick. CT shows gastritis, enteritis and colitis. Review of Systems General: Reports: 10 or more systems reviewed and unremarkable except in HPI and below Medications/Allergies Home Medications Medication Instructions Recorded Confirmed Last Taken Type atorvastatin 80 mg tablet 80 mg PO DAILY 10/18/19 05/04/22 05/03/22 History buspirone 10 mg tablet 10 mg PO BID 10/18/19 05/04/22 05/04/22 History estradiol 1 mg tablet 0.5 mg PO DAILY 10/18/19 05/04/22 05/04/22 History gabapentin 600 mg tablet 600 mg PO TID 10/18/19 05/04/22 05/04/22 History lamotrigine 200 mg tablet 200 mg PO BID 10/18/19 05/04/22 05/04/22 History meloxicam 7.5 mg tablet 7.5 mg PO DAILY 10/18/19 05/04/22 05/03/22 History pantoprazole 40 mg tablet,delayed 40 mg PO BID #180 tabs 11/23/19 05/04/22 05/04/22 Rx release lorazepam 0.5 mg tablet 0.5 mg PO DAILY PRN Anxiety 06/08/20 05/04/22 Unknown History Diabetic shoes with 3 inserts #1 ea 09/12/20 05/04/22 Unknown Rx aspirin 325 mg tablet,delayed 325 mg PO DAILY #30 tabs 04/22/21 05/04/22 05/04/22 Rx release hydrocodone 5 mg-acetaminophen 325 1 tab PO Q6H PRN pain #20 tabs 04/22/21 05/04/22 Unknown Rx mg tablet docusate sodium 100 mg capsule 200 mg PO BEDTIME PRN Constipation 04/26/21 05/04/22 05/03/22 History polyethylene glycol 3350 17 17 g PO DAILY PRN Constipation 04/26/21 05/04/22 Unknown History gram/dose oral powder (ClearLax) cilostazol 50 mg tablet 50 mg PO BID #180 tabs 05/08/21 05/04/22 05/04/22 Rx nifedipine 30 mg tablet,extended 30 mg PO DAILY #90 tabs 07/05/21 05/04/22 05/04/22 Rx release furosemide 40 mg tablet (Lasix) 40 mg PO DAILY 10/01/21 05/04/22 05/04/22 History metformin 500 mg tablet 500 mg PO BID 10/01/21 05/04/22 05/03/22 History magnesium L-lactate 84 mg 84 mg PO DAILY 03/20/22 05/04/22 05/04/22 History tablet,extended release potassium chloride 10 mEq 10 meq PO DAILY 03/20/22 05/04/22 05/04/22 History tablet,extended release lansoprazole 30 mg capsule,delayed 30 mg PO DAILY 05/04/22 05/04/22 05/04/22 History release Allergies Allergy/AdvReac Type Severity Reaction Status Date / Time pentoxifylline Allergy Severe ITCHING Verified 03/20/22 09:20 Penicillins Allergy Mild unknown Verified 03/20/22 09:20 Sulfa (Sulfonamide Allergy Mild unknown Verified 03/20/22 09:20 Antibiotics) Current Medications Generic Name Dose Route Start Last Admin Trade Name Freq PRN Reason Stop Dose Admin Aspirin 325 mg 05/05/22 09:00 05/05/22 10:00 Aspirin 325 Mg Ec Tablet PO 325 mg DAILY DEREK Administration Atorvastatin Calcium 80 mg 05/05/22 09:00 05/05/22 09:56 Atorvastatin 40 Mg Tablet PO 80 mg DAILY DEREK Administration Buspirone HCl 10 mg 05/04/22 20:22 05/05/22 10:00 Buspirone 10 Mg Tablet PO 10 mg BID DEREK Administration Cilostazol 50 mg 05/05/22 09:00 05/05/22 09:58 Cilostazol 100 Mg Tablet PO 50 mg BID DEREK Administration Enoxaparin Sodium 40 mg 05/04/22 20:22 05/04/22 21:12 Enoxaparin 40 Mg/0.4 Ml Syringe SUBCUT 40 mg Q24H DEREK Administration Estradiol 0.5 mg 05/05/22 09:00 05/05/22 09:57 Estradiol 1 Mg Tablet PO 0.5 mg DAILY DEREK Administration Gabapentin 600 mg 05/04/22 21:00 05/05/22 14:24 Gabapentin 300 Mg Capsule PO 600 mg TID DEREK Administration Potassium Chloride/Sodium Chloride 20 meq in 1,000 mls @ 100 mls/hr 05/04/22 20:22 05/05/22 14:24 Sodium Chlor 0.9% + Kcl 20 Meq IV 100 mls/hr .Q10H DEREK Administration Insulin Human Lispro 0 unit 05/04/22 20:22 05/05/22 12:48 Insulin Lispro 100 Unit/1 Ml SUBCUT 2 unit TIDWM DEREK Administration Protocol Lamotrigine 200 mg 05/05/22 09:00 05/05/22 09:56 Lamotrigine 100 Mg Tablet PO 200 mg BID DEREK Administration Nifedipine 30 mg 05/05/22 09:00 05/05/22 09:57 Nifedipine Er (24 Hr) 30 Mg Tablet PO 30 mg DAILY DEREK Administration Ondansetron HCl 4 mg 05/04/22 20:22 05/05/22 12:48 Ondansetron 2 Mg/Ml Sdv 2 Ml IVP 4 mg Q8H PRN Administration vomiting, or N/V if npo Pantoprazole Sodium 40 mg 05/04/22 20:22 05/05/22 10:00 Pantoprazole 40 Mg Sdv IVP 40 mg Q12H DEREK Administration Potassium Phosphate 250 mg 05/05/22 09:00 05/05/22 09:58 Phosphorus 250 Mg Tablet PO 250 mg BID DEREK Administration Sucralfate 1 gm 05/04/22 20:22 05/05/22 09:58 Sucralfate 1 Gm Tablet PO 1 gm Q12H DEREK Administration PFSH Acute PFSH: Medical History Bilateral leg weakness Dizziness Epilepsy Fever FH: carotid endarterectomy Hyperlipemia Hypertension Hypomagnesemia Stenosis of peripheral vascular stent Type 2 diabetes mellitus Surgical History H/O abdominal hysterectomy S/P knee surgery Family History Other Cancer Diabetes Heart disease Social History Smoking and tobacco status: former smoker Quit status (tobacco): has quit using tobacco Year quit tobacco: 2020 Former quit date comment: 6 WEEKS AGO Alcohol intake: former Adopted: No service: No Current gender identity: Female Vitals/I&O/Wt Last Vital Signs Temp 98.1 F 05/05/22 12:00 Pulse 76 05/05/22 12:00 Resp 16 05/05/22 12:00 BP 170/73 05/05/22 12:00 Pulse Ox 90 05/05/22 12:00 O2 Del Method 05/05/22 12:00 05/05/22 05/05/22 05/05/22 06:59 14:59 22:59 Intake Total 1914 / 5 1361.667 / 1361.667 Balance 1914 / 5 1361.667 / 1361.667 Weight last 48 hrs Weight 137 lb 12.8 oz Weight 165 lb Physical Exam Narrative: General : Patient is well developed , no acute distress, oriented x3 Head : Normal cephalic, a-traumatic. Ears : Pinnae and external canal are normal. Hearing is normal. Eyes : PERRLA, Sclera and injection are normal. No conjunctival discharge. Nose : Mucous membranes are without erythema. Throat : buccal mucosa is normal, gums are without significant recession or hypertrophy. Lungs : Equal chest rise bilaterally, no use of accessory muscles, trachea is midline. Cor : Rate and rhythm are normal. Abdomen : Soft, ND, mild epigastric tenderness, no g/r/m Extremities : No edema, no cyanosis or clubbing, dorsalis pedis pulses are present bilaterally, non-tender to palpation of calves. Upper extremities are normal bilaterally. Back : non-tender to palpation, no CVA tenderness. Neuro : CN II - XII intact, Upper and lower extremities have equal and full strength Data 05/05/22 04:58 05/04/22 23:05 Micro: Microbiology 05/04/22 20:50 Blood Culture - Preliminary Blood SPECIMEN COLLECTED 05/04/22 20:45 Blood Culture - Preliminary Blood SPECIMEN COLLECTED A&P Assessment and plan (1) Colitis: (2) Thickened small bowel: (3) Gastritis: Plan The inflammation naturally is either inflammatory, infectious or ischemic. I favor inflammatory given its extensive nature and duration. I would like her to be medically treated for inflammatory bowel disease prior to any colonoscopy. This much inflammation in her colon increases the risk of perforation from the procedure. I do want to proceed with upper endoscopy though. N.p.o. after midnight EGD The risks and benefits of the procedure, including bleeding, infection, intestinal perforation requiring surgery, missed lesion were explained to the patient. The patient is understanding of the risks and wishes to proceed. Coding Level of Care Code Acute Code for [facility] Fwd Diagnoses Colitis K52.9 Thickened small bowel K63.9 Gastritis K29.70
[2022-05-05 17:03] LABS: Glucose Point of Care 292 mg/dL (70-110)
[2022-05-05 18:39] LABS: Basophils % 0.7 %; Hematocrit 34.8 % (37.0-47.0); Hemoglobin 10.7 g/dL (11.5-15.3); Lymphocytes # 0.6 10^3/uL (0.8-4.8); Lymphocytes % 20.8 %; Mean Corpuscular HGB Conc 30.7 g/dL (30.0-36.0); Mean Corpuscular Hemoglobin 28.3 pg (28.0-34.0); Mean Corpuscular Volume 92.1 fl (81-99); Neutrophils # 2.26 10^3/uL (1.8-7.7); Neutrophils % 77.2 %; Nucleated Red Blood Cells % 0 %; Platelet Count 303 10^3/cmm (130-400); Red Blood Count 3.78 10^6/uL (4.1-5.3); Red Cell Distribution Width 15.1 % (12.1-15.1); White Blood Count 2.9 10^3/uL (4.0-10.0)
--- NOTE | 2022-05-05 21:12 | CTR_ITS ---
PROCEDURE INFORMATION: Exam: CT Head Without Contrast Exam date and time: 05/05/2022 9:32 PM Age: 71 years old Clinical indication: Other: N/v; Additional info: Change in neurological status TECHNIQUE: Imaging protocol: Computed tomography of the head without contrast. Radiation optimization: All CT scans at this facility use at least one of these dose optimization techniques: automated exposure control; mA and/or kV adjustment per patient size (includes targeted exams where dose is matched to clinical indication); or iterative reconstruction. Other protocol: This patient has received 2 known CTs and 0 known cardiac nuclear medicine studies in the 12 months prior to the current study. COMPARISON: MR head wo/w con [id number] 01/19/2022 8:22 PM RADIATION DOSE METRICS: Total DLP (mGy-cm): 1281.7 FINDINGS: Brain: There is mild diffuse cerebral atrophy present, consistent with this patient's age.Periventricular and subcortical white matter low densities are present which at this age likely represent microvascular ischemic change. 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 Please note acute ischemia can be occult by head CT. No evidence for acute intracranial hemorrhage. Cerebral ventricles: No ventriculomegaly. Paranasal sinuses: Visualized sinuses are unremarkable. No fluid levels. Mastoid air cells: Visualized mastoid air cells are well aerated. Bones/joints: Unremarkable. No acute fracture. Soft tissues: Unremarkable. Vasculature: Calcified plaque is present within the carotid siphons. CT/CT head wo con* [id number] IMPRESSION: There are senescent changes of the brain as described above. No evidence for large acute ischemic infarction or acute intracranial injury.
[2022-05-05 21:16] LABS: Glucose Point of Care 169 mg/dL (70-110)
[2022-05-05 21:28] LABS: ABG PH Result 7.46 (7.35-7.45); Arterial Blood Gas Hematocrit 34.2 % (37-47); Base Excess ABG 2.7 mmol/L (-2.0-2.0); Blood Gas Allen Test Pos; Blood Gas Sample Site Radial, right; Blood Gas Sample Type Arterial; Carboxyhemoglobin 1.3 %THgb (0.4-20.1); HCO3 ABG 26.7 mmol/L (22-26); HGB O2 Sat 91.7 % (95-100); Ionized Calcium Level - ABG 1.3 mmol/L (1.1-1.4); Methemoglobin 0.8 % (0.4-1.5); Oxygen Device ROOM AIR; Oxygen Saturation ABG 93.6; PO2 ABG 63.4 mmHg (80.0-100.0); Potassium Level - ABG 3.3 mmol/L (3.5-5.0); Total Hemoglobin 11.2 g/dL (12-16)
[2022-05-05 21:51] LABS: Alanine Aminotransferase < 5 U/L (0-33); Albumin Level 3.6 g/dL (3.5-5.2); Alkaline Phosphatase 120 U/L (35-105); Anion Gap 14.3 (5-19); Aspartate Amino Transferase 10 U/L (0-32); Blood Urea Nitrogen 12 mg/dL (8-23); Calcium 9.1 mg/dL (8.5-10.5); Carbon Dioxide 27 mmol/L (22-29); Chloride 103 mmol/L (98-107); Globulin 2.1 g/dL (1.3-4.6); Glucose 143 mg/dL (65-115); Osmolality Calculated 294 mOsm/kg (285-295); Potassium 3.3 mmol/L (3.5-5.1); Sodium 141 mmol/L (136-145); Total Bilirubin 0.2 mg/dL (0.15-1.2); Total Protein 5.7 g/dL (6.6-8.7)
[2022-05-05] MEDS: acetaminophen 325 mg Tablet 650 MG PO (22:30)
[2022-05-05] MEDS: enoxaparin 40 mg/0.4 mL Syringe SUBCUT (22:32)
[2022-05-05] MEDS: potassium chloride ER 20 mEq Tablet 40 MEQ PO (22:41)
--- NOTE | 2022-05-05 23:40 | PC.NURSE ---
Upon entering the pt room @ approximately 20:45 to give medication and preform nurse shift assessment the pt was very lethargic. The pt had a new onset of confusion she was A&O to name and and speech was delayed, pt care associate were equal but pt was weak. Pt PERRLA. Pt vitals were 182/72, 97% RA, HR 89 and blood glucose was 169. This nurse contacted Dr Leo via phone to inform him of change in neurological status at approximately 21:10, this nurse discussed pt meds and informed Dr of the vital signs and glucose. gave verbal order for STAT ABG, STAT CT of the head wo contrast, and STAT CMP. Pt was taken to CT by this nurse and YOSI Brush. Upon arriving back to the unit pt was A&Ox4 and more awake. Pt was able to take oral medications. Updated Dr. Leo via VOLATE @ approximately 22:35 of pt neurological status and of pt headache, Tylenol was administered to pt @22:30 and her BP was 146/69.
[2022-05-06] VITALS (8 sets, daily range): BP systolic 110–162; BP diastolic 50–70; PULSE 73–91; RESP 16–18; TEMP 36.1–36.7; O2SAT 93–95
[2022-05-06] MEDS: sodium chlor 0.9% + KCl 20 mEq 20 MEQ/1,000 ML BAG 100 MEQ IV (04:14)
[2022-05-06 04:20] LABS: Basophils % 0.2 %; Hemoglobin 10.1 g/dL (11.5-15.3); Lymphocytes # 0.7 10^3/uL (0.8-4.8); Lymphocytes % 12.9 %; Mean Corpuscular HGB Conc 29.7 g/dL (30.0-36.0); Mean Corpuscular Hemoglobin 28.6 pg (28.0-34.0); Mean Corpuscular Volume 96.3 fl (81-99); Mean Platelet Volume 10.3 fL (7.4-10.4); Monocytes # 0.1 10^3/uL (0.2-0.9); Monocytes % 1.2 %; Neutrophils # 4.36 10^3/uL (1.8-7.7); Neutrophils % 85.3 %; Nucleated Red Blood Cells % 0 %; Platelet Count 279 10^3/cmm (130-400); Red Blood Count 3.53 10^6/uL (4.1-5.3); Red Cell Distribution Width 14.7 % (12.1-15.1); White Blood Count 5.1 10^3/uL (4.0-10.0)
[2022-05-06 04:55] LABS: Alanine Aminotransferase < 5 U/L (0-33); Albumin Level 2.9 g/dL (3.5-5.2); Alkaline Phosphatase 107 U/L (35-105); Blood Urea Nitrogen 11 mg/dL (8-23); Calcium 8.5 mg/dL (8.5-10.5); Carbon Dioxide 21 mmol/L (22-29); Chloride 107 mmol/L (98-107); Globulin 2.5 g/dL (1.3-4.6); Glucose 169 mg/dL (65-115); Osmolality Calculated 293 mOsm/kg (285-295); Sodium 140 mmol/L (136-145); Total Bilirubin 0.2 mg/dL (0.15-1.2); Total Protein 5.4 g/dL (6.6-8.7)
[2022-05-06 04:57] LABS: Anion Gap 16.4 (5-19)
[2022-05-06 04:58] LABS: Aspartate Amino Transferase 10 U/L (0-32); Potassium 4.4 mmol/L (3.5-5.1)
[2022-05-06 07:41] LABS: Glucose Point of Care 164 mg/dL (70-110)
[2022-05-06] MEDS: atorvastatin 40 mg Tablet 80 MG PO (10:00)
[2022-05-06] MEDS: NIFEdipine ER (24 hr) 30 mg Tablet PO (10:00)
[2022-05-06] MEDS: BuSPIRONE 10 mg Tablet PO (10:00)
[2022-05-06] MEDS: gabapentin 300 mg Capsule 600 MG PO ×2 (10:00→14:22)
[2022-05-06] MEDS: sucralfate 1 gm Tablet PO (10:01)
[2022-05-06] MEDS: lamoTRIgine 100 mg Tablet 200 MG PO (10:01)
[2022-05-06] MEDS: cilostazol 100 mg Tablet 50 MG PO (10:01)
[2022-05-06] MEDS: pantoprazole 40 mg SDV IVP (10:01)
[2022-05-06] MEDS: insulin lispro 100 unit/1 mL SUBCUT ×2 (10:02→13:26)
[2022-05-06] MEDS: estradiol 1 mg Tablet 0.5 MG PO (10:03)
--- NOTE | 2022-05-06 10:05 | W.PM.OPSUD ---
Surgery/Procedure H&P Update DATE OF PROCEDURE: May 06, 2022 DATE H&P PERFORMED: 05/05/22 H&P UPDATE INFORMATION: I have reviewed H&P completed within last 30 days, I have examined patient prior to procedure and No changes to prior documentation PREOP DIAGNOSIS: gastritis PLANNED PROCEDURE: Operation Date: 05/06/22 11:30 Proposed Procedures p EGD(Not Applicable) - Domenico Chan DO
--- NOTE | 2022-05-06 10:11 | PC.CHAP ---
Pastoral Care Encounter/Spiritual Assessment Type of Contact [] Declined blueprint trimmer visit [] Patient/Family/Request visit [] Outpatient visit [] Follow-up visit [] Physician referral [] Code/Alert [] Routine visit [] Staff referral [] Actively dying [] Patient sleeping [] Family support [] [] Out of room [] Palliative care [] [x] Receiving care in room [] Pre-surgical visit [] Trauma [] Long length of stay [] ICU visit [] Other: Relational/Emotional Strength [] Patient feels connected with others/family/visitors/staff [] Distress [] Loneliness/isolation [] Abandonment Spirituality of Patient [] Person of Татьяна [] Attends Anabaptist of their Татьяна [] Believes in Prayer [] Reads Bible or Baptist materials [] There are Spiritual issues to be addressed Quality Review Trainer Interventions [] Prayer [] Active listening [] Non-anxious presence [] Spiritual/emotional support [] Crisis/trauma care [] Spiritual counseling [] Bereavement support [] Provided bereavement packet [] Provided Bible/devotional materials [] Provided toy/stuffed animal, coloring book to patient or family member [] Provided Communion [] Anointing/[place] [] Salvation [] Completed spiritual assessment [] Other: Impact on Illness or Injury [] Angry [] Fearful [] Anxious [] Often cries [] Exhaustion [] Unable to work [] Unable to attend mosque [] Unable to walk/stand [] Unable to read [] Unable to drive [] Unable to eat/drink [] Unable to sleep [] Unable to be with family [] Patient intubated [] Other: Summary Time spent with patient
--- NOTE | 2022-05-06 10:20 | ANES.PREANE2 ---
Pre-Anesthetic Assessment Height/Weight: Height 1.73 m Weight 62.505 kg Temp Pulse Resp BP Pulse Ox O2 Del Method 97.9 F 75 16 123/66 94 05/06/22 07:17 05/06/22 07:17 05/06/22 07:17 05/06/22 07:17 05/06/22 07:17 05/06/22 07:17 Preop Diagnosis: gastritis Operation Date: 05/06/22 11:30 Proposed Procedures p EGD(Not Applicable) - Domenico Chan DO Familial anesthetic complications: none Was Beta Williams taken within 24 hours: N/A Was Clonidine taken within 24 hours: N/A Last Intake: 23:00 Social No alcohol and No tobacco (stop 2 years ago ) Exam alert, oriented x 3, clear to auscultation bilaterally and regular rate & rhythm Airway Submandibular: within normal limits Cervical ROM: within normal limits Mallampati: Class I Dentition: false Pulmonary Shortness of Breath CV/HEM Congestive Heart Failure, Hypertension and Peripheral Vascular Disease (CEA on right 5 years ago) None reported Hepatic None reported GI Gastroesophageal Reflux Disease Metabolic Diabetes Mellitus (2) Musc/skel Osteoarthritis/DJD Neuropsych Anxiety, Depression, Seizure (grand mal last 3 years ago) and Transient Ischemic Attack Anesthetic Plan ASA status: 3 Anesthesia: MAC Risk of > 500 ml blood loss (7ml/kg in children): No Medications/Allergies Home Medications Medication Instructions Recorded Confirmed Last Taken Type atorvastatin 80 mg tablet 80 mg PO DAILY 10/18/19 05/04/22 05/03/22 History buspirone 10 mg tablet 10 mg PO BID 10/18/19 05/04/22 05/04/22 History estradiol 1 mg tablet 0.5 mg PO DAILY 10/18/19 05/04/22 05/04/22 History gabapentin 600 mg tablet 600 mg PO TID 10/18/19 05/04/22 05/04/22 History lamotrigine 200 mg tablet 200 mg PO BID 10/18/19 05/04/22 05/04/22 History meloxicam 7.5 mg tablet 7.5 mg PO DAILY 10/18/19 05/04/22 05/03/22 History pantoprazole 40 mg tablet,delayed 40 mg PO BID #180 tabs 11/23/19 05/04/22 05/04/22 Rx release lorazepam 0.5 mg tablet 0.5 mg PO DAILY PRN Anxiety 06/08/20 05/04/22 Unknown History Diabetic shoes with 3 inserts #1 ea 09/12/20 05/04/22 Unknown Rx aspirin 325 mg tablet,delayed 325 mg PO DAILY #30 tabs 04/22/21 05/04/22 05/04/22 Rx release hydrocodone 5 mg-acetaminophen 325 1 tab PO Q6H PRN pain #20 tabs 04/22/21 05/04/22 Unknown Rx mg tablet docusate sodium 100 mg capsule 200 mg PO BEDTIME PRN Constipation 04/26/21 05/04/22 05/03/22 History polyethylene glycol 3350 17 17 g PO DAILY PRN Constipation 04/26/21 05/04/22 Unknown History gram/dose oral powder (ClearLax) cilostazol 50 mg tablet 50 mg PO BID #180 tabs 05/08/21 05/04/22 05/04/22 Rx nifedipine 30 mg tablet,extended 30 mg PO DAILY #90 tabs 07/05/21 05/04/22 05/04/22 Rx release furosemide 40 mg tablet (Lasix) 40 mg PO DAILY 10/01/21 05/04/22 05/04/22 History metformin 500 mg tablet 500 mg PO BID 10/01/21 05/04/22 05/03/22 History magnesium L-lactate 84 mg 84 mg PO DAILY 03/20/22 05/04/22 05/04/22 History tablet,extended release potassium chloride 10 mEq 10 meq PO DAILY 03/20/22 05/04/22 05/04/22 History tablet,extended release lansoprazole 30 mg capsule,delayed 30 mg PO DAILY 05/04/22 05/04/22 05/04/22 History release Allergies Allergy/AdvReac Type Severity Reaction Status Date / Time pentoxifylline Allergy Severe ITCHING Verified 03/20/22 09:20 Penicillins Allergy Mild unknown Verified 03/20/22 09:20 Sulfa (Sulfonamide Allergy Mild unknown Verified 03/20/22 09:20 Antibiotics) Current Medications Generic Name Dose Route Start Last Admin Trade Name Freq PRN Reason Stop Dose Admin Acetaminophen 650 mg 05/04/22 20:22 05/05/22 22:30 Acetaminophen 325 Mg Tablet PO 650 mg Q6H PRN Administration Mild/Mod Pain Or Temp >/= 101 Aspirin 325 mg 05/05/22 09:00 05/06/22 10:06 Aspirin 325 Mg Ec Tablet PO Not Given DAILY DEREK Atorvastatin Calcium 80 mg 05/05/22 09:00 05/06/22 10:00 Atorvastatin 40 Mg Tablet PO 80 mg DAILY DEREK Administration Buspirone HCl 10 mg 05/04/22 20:22 05/06/22 10:00 Buspirone 10 Mg Tablet PO 10 mg BID DEREK Administration Cilostazol 50 mg 05/05/22 09:00 05/06/22 10:01 Cilostazol 100 Mg Tablet PO 50 mg BID DEREK Administration Enoxaparin Sodium 40 mg 05/04/22 20:22 05/05/22 22:32 Enoxaparin 40 Mg/0.4 Ml Syringe SUBCUT 40 mg Q24H DEREK Administration Estradiol 0.5 mg 05/05/22 09:00 05/06/22 10:03 Estradiol 1 Mg Tablet PO 0.5 mg DAILY DEREK Administration Gabapentin 600 mg 05/04/22 21:00 05/06/22 10:00 Gabapentin 300 Mg Capsule PO 600 mg TID DEREK Administration Potassium Chloride/Sodium Chloride 20 meq in 1,000 mls @ 100 mls/hr 05/04/22 20:22 05/06/22 04:14 Sodium Chlor 0.9% + Kcl 20 Meq IV 100 mls/hr .Q10H DEREK Administration Insulin Human Lispro 0 unit 05/04/22 20:22 05/06/22 10:02 Insulin Lispro 100 Unit/1 Ml SUBCUT 2 unit TIDWM DEREK Administration Protocol Lamotrigine 200 mg 05/05/22 09:00 05/06/22 10:01 Lamotrigine 100 Mg Tablet PO 200 mg BID DEREK Administration Methylprednisolone Sodium Succinate 40 mg 05/05/22 18:00 05/06/22 10:02 Methylprednisolone Sod Succ 40 Mg/Ml Inj IVP 40 mg Q8H DEREK Administration Nifedipine 30 mg 05/05/22 09:00 05/06/22 10:00 Nifedipine Er (24 Hr) 30 Mg Tablet PO 30 mg DAILY DEREK Administration Ondansetron HCl 4 mg 05/04/22 20:22 05/05/22 12:48 Ondansetron 2 Mg/Ml Sdv 2 Ml IVP 4 mg Q8H PRN Administration vomiting, or N/V if npo Pantoprazole Sodium 40 mg 05/04/22 20:22 05/06/22 10:01 Pantoprazole 40 Mg Sdv IVP 40 mg Q12H DEREK Administration Potassium Phosphate 250 mg 05/05/22 09:00 05/06/22 10:05 Phosphorus 250 Mg Tablet PO Not Given BID DEREK Sucralfate 1 gm 05/04/22 20:22 05/06/22 10:01 Sucralfate 1 Gm Tablet PO 1 gm Q12H DEREK Administration PFSH Anesthesia Medical History Bilateral leg weakness Dizziness Epilepsy Fever FH: carotid endarterectomy Hyperlipemia Hypertension Hypomagnesemia Stenosis of peripheral vascular stent Type 2 diabetes mellitus Surgical History H/O abdominal hysterectomy S/P knee surgery Family History Other Cancer Diabetes Heart disease Social History Smoking and tobacco status: former smoker Quit status (tobacco): has quit using tobacco Year quit tobacco: 2020 Former quit date comment: 6 WEEKS AGO Alcohol intake: former Adopted: No service: No Current gender identity: Female Data Anesthesia 05/06/22 03:47 05/06/22 03:47 Short CBC 05/04/22 05/05/22 05/05/22 Range/Units 16:15 04:58 18:13 WBC 8.4 4.5 2.9 L (4.0-10.0) 10^3/uL Hgb 13.1 9.8 L 10.7 L (11.5-15.3) g/dL Hct 41.8 32.5 L 34.8 L (37.0-47.0) % MCV 89.3 92.1 92.1 (81-99) fl Plt Count 365 281 303 (130-400) 10^3/cmm Neut % (Auto) 75.6 59.7 77.2 % Neut # (Auto) 6.34 2.66 2.26 (1.8-7.7) 10^3/uL 05/06/22 Range/Units 03:47 WBC 5.1 (4.0-10.0) 10^3/uL Hgb 10.1 L (11.5-15.3) g/dL Hct 34.0 L (37.0-47.0) % MCV 96.3 (81-99) fl Plt Count 279 (130-400) 10^3/cmm Neut % (Auto) 85.3 % Neut # (Auto) 4.36 (1.8-7.7) 10^3/uL BMP 05/04/22 05/04/22 05/05/22 16:15 23:05 21:24 Sodium 137 136 141 Potassium 2.5 L* 3.6 3.3 L Chloride 94 L 102 103 Carbon Dioxide 24 27 27 BUN 16 14 12 Creatinine 1.3 H 1.0 H 1.0 H Glucose 195 H 130 H 143 H Calcium 9.5 8.3 L 9.1 05/06/22 03:47 Sodium 140 Potassium 4.4 Chloride 107 Carbon Dioxide 21 L BUN 11 Creatinine 1.0 H Glucose 169 H Calcium 8.5 Cardiac Enzymes 05/04/22 05/04/22 05/04/22 Range/Units 16:15 16:15 20:45 Troponin T Baseline 11 H (0-10) ng/L Troponin T 120 Minute 16.61 H (0-10) ng/L Delta Troponin T 5.61 (0-10) ABS# Troponin T Hi Sens 6Hr (0-10) ng/L Troponin T Hi Sens 6Hr Delta (0-12) ng/L NT-Pro-B Natriuret Pep 164 H (0-125) pg/mL 05/04/22 Range/Units 23:05 Troponin T Baseline (0-10) ng/L Troponin T 120 Minute (0-10) ng/L Delta Troponin T (0-10) ABS# Troponin T Hi Sens 6Hr 20.60 H (0-10) ng/L Troponin T Hi Sens 6Hr Delta 9.60 (0-12) ng/L NT-Pro-B Natriuret Pep (0-125) pg/mL Liver Function 05/04/22 05/05/22 05/06/22 Range/Units 16:15 21:24 03:47 Total Bilirubin 0.2 0.2 0.2 (0.15-1.2) mg/dL AST 11 10 10 (0-32) U/L ALT 7 < 5 < 5 (0-33) U/L Alkaline Phosphatase 150 H 120 H 107 H (35-105) U/L Albumin 4.0 3.6 2.9 L (3.5-5.2) g/dL Urine 05/04/22 Range/Units 16:50 Urine Color Yellow (Yellow) Urine Appearance Clear (CLEAR) Urine pH 7 (5-7) Ur Specific [place] 1.015 (1.005-1.030) Urine Protein 1+ H (Negative) Urine Glucose (UA) Norm (Normal) Urine Ketones 1+ H (Negative) Urine Nitrate Negative (Negative) Urine Bilirubin Neg (Negative) Ur Leukocyte Esterase Negative (Negative) Urine RBC 0-4 H (0-2) /hpf Urine WBC 0-4 H (0-5) /hpf Ur Renal Epithelial Cell 0 /hpf COVID Results 05/05/22 04:25 Coronavirus 229E (PCR) Not detected SARS-CoV-2 (PCR) Not detected Coags 05/05/22 04:58 ESR 4 ABG 05/05/22 21:25 Specimen Type Arterial Sample Site Radial, right ABG pH 7.46 H ABG pCO2 38.0 ABG pO2 63.4 L ABG HCO3 26.7 H ABG O2 Saturation 93.6 ABG Base Excess 2.7 H A-a O2 Gradient 5.0 O2 Delivery Device Room air Microbiology 05/04/22 20:50 Blood Culture - Preliminary Blood NEGATIVE TO DATE 05/04/22 20:45 Blood Culture - Preliminary Blood NEGATIVE TO DATE Cardiac Studies: Echocardiogram 11/08/21 Cardiac Event Monitor 03/20/22
[2022-05-06 10:30] LABS: Glucose Point of Care 160 mg/dL (70-110)
[2022-05-06] MEDS: sodium chloride 0.9% 1,000 ML 30 ML IV (10:30)
[2022-05-06 11:52] LABS: Glucose Point of Care 181 mg/dL (70-110)
--- NOTE | 2022-05-06 12:06 | PM.DCS ---
Discharge Providers Date of Admission: 05/04/22 17:39 Date of Discharge: May 06, 2022 Attending Provider at Admission: Yordan Mejia MD Attending Provider at Discharge: Yordan Mejia MD Primary Care Provider: XIMENA Su Diagnoses at Discharge Discharge Diagnosis (1) Colitis: Status: Acute (2) Thickened small bowel: Status: Acute (3) Gastritis: Status: Acute Reason for Visit Reason for Visit: N/V Hospital Course Hospital Course Brenda Stone is a 71 year old female with a past medical history of noninsulin-dependent type 2 diabetes mellitus, history of diabetic gastroparesis, history of severe gastritis, history of seizures, history of chronic weakness bilateral extremities, dizziness, history of peripheral arterial disease with bilateral iliac stents, history of carotid artery stenosis status post carotid enterectomy who presents [facility] due to diarrhea, nausea, vomiting.? Patient tells me that her symptoms started a few days ago, when she was not feeling well she is not exactly sure what she felt dizzy, she has been dealing with her dizziness for some period of time she has an event monitor ordered she sees cardiology.? Denies ever passing out, denies any facial droop no slurring of her words, no paresthesias, no back pain, no urinary or bowel incontinence.? Denies ever blacking out.? But then her symptoms progressed to developing profuse watery diarrhea, with nausea.? No bloody or black stools.? No history of antibiotic exposure.? No history of food poisoning.? No other person the family is sick at home.? She tells me that this similar thing happened roughly 2 years ago when she saw Dr. Mike she had a colonoscopy which showed something that only Dr. Mike knows about, according to patient, and she was given something and she got better.? She is not exactly sure what it was.? She is on Reglan for diabetic gastroparesis but that is not working anymore, so she is on this new medication she cannot remember.? Denies any chest pain, palpitations, lightheadedness her potassium was 2.5.? Her creatinine was 1.3. Patient was admitted to [facility] for acute hypokalemia, hypomagnesemia, hypophosphatemia, lactic acidosis secondary to severe dehydration, diarrhea. In addition CAT scan found small bowel wall thickening, severe colitis. She was admitted to [facility] received IV hydration, electrolyte replacement, given CAT scan findings, highly suspicious for ulcerative colitis, she has had recurrent diarrhea, recurrent hospitalizations. She was given high-dose steroids for 48 hours and her diarrhea completely resolved, she significantly was feeling better. This is highly suspicious that this could indeed be ulcerative colitis. I am going to discharge on a long prednisone taper, with mesalamine, with a close follow-up with Dr. Mike as outpatient. She will have a repeat colonoscopy in [address] Chan's office. In terms of her EGD, she was found to have severe gastritis, she will be discharged on Protonix, Carafate, biopsies taken, follow-up with Dr. Chan. Physical Exam Const: COMMON NORMALS: no acute distress and patient oriented x3 Resp: COMMON NORMALS: normal respiratory effort, No retractions, No use of accessory muscles and clear to auscultation bilaterally AUSCULTATION: clear to auscultation bilaterally Cardio: COMMON NORMALS: regular rate, regular rhythm, S1 normal heart sound present and S2 normal heart sound present RATE: regular rate RHYTHM: regular rhythm HEART SOUNDS: S1 normal heart sound present and S2 normal heart sound present GI: COMMON NORMALS: Normal to inspection, nondistended, normoactive bowel sounds present and non-tender Extremity: COMMON NORMALS: no pedal edema Neuro: COMMON NORMALS: patient oriented x3 Psych: COMMON NORMALS: mental status grossly normal Discharge Data Studies Completed and Pending Completed Studies During Hospitalization Category Date Time Status CT abdomen pelvis w con* [id number] Stat Cat Scan 05/04/22 16:[address] head wo con* [id number] Stat Cat Scan 05/05/22 21:12 Completed XR chest 1V portable [id number] Stat Exams 05/04/22 16:35 Completed US thyroid [id number] Routine Ultrasound 05/05/22 09:59 Completed Pending at discharge Category Date Time Status KELLY Profile Rheumatology Stat Lab 05/04/22 20:45 Received Blood Culture Routine Lab 05/04/22 20:50 Results Celiac Disease Diagniostic [place] Stat Lab 05/04/22 20:45 Received Clostridioides Difficile PCR Routine Lab 05/04/22 20:22 Ordered Complete Blood Count w/Auto AM LABS Lab 05/07/22 04:00 Ordered Complete Blood Count w/Auto AM LABS Lab 05/08/22 04:00 Ordered Comprehensive Metabolic Panel AM LABS Lab 05/07/22 04:00 Ordered Comprehensive Metabolic Panel AM LABS Lab 05/08/22 04:00 Ordered Enteric Bacterial Panel by PCR Routine Lab 05/04/22 20:22 Ordered Enteric Parasite Panel by PCR Routine Lab 05/04/22 20:22 Ordered Immunochemical Fecal OCB Routine Lab 05/04/22 20:22 Ordered Lactoferrin Routine Lab 05/04/22 20:22 Ordered Radiology Impressions Abdomen/Pelvis CT 05/04/22 16:05 IMPRESSION: 1. There is diffuse small bowel wall thickening, consistent with infectious, ischemic, or inflammatory enteritis. 2. The wall of the entire colon is thickened but partially collapsed. Wall thickening is most prominently involving the descending and sigmoid colon. There is mild haziness of the distal pericolonic fat compatible with mild colitis. Chest X-Ray 05/04/22 16:35 IMPRESSION: No acute findings. Thyroid Ultrasound 05/05/22 09:59 IMPRESSION: Unremarkable thyroid. Head CT 05/05/22 21:12 IMPRESSION: There are senescent changes of the brain as described above. No evidence for large acute ischemic infarction or acute intracranial injury. Laboratory Results WBC 5.1 10^3/uL (4.0-10.0) 05/06/22 03:47 RBC 3.53 10^6/uL (4.1-5.3) L 05/06/22 03:47 Hgb 10.1 g/dL (11.5-15.3) L 05/06/22 03:47 Hct 34.0 % (37.0-47.0) L 05/06/22 03:47 MCV 96.3 fl (81-99) 05/06/22 03:47 MCH 28.6 pg (28.0-34.0) 05/06/22 03:47 MCHC 29.7 g/dL (30.0-36.0) L 05/06/22 03:47 RDW 14.7 % (12.1-15.1) 05/06/22 03:47 Plt Count 279 10^3/cmm (130-400) 05/06/22 03:47 MPV 10.3 fL (7.4-10.4) 05/06/22 03:47 Neut % (Auto) 85.3 % 05/06/22 03:47 Lymph % (Auto) 12.9 % 05/06/22 03:47 [place] % (Auto) 1.2 % 05/06/22 03:47 Eos % (Auto) 0.0 % 05/06/22 03:47 Baso % (Auto) 0.2 % 05/06/22 03:47 Neut # (Auto) 4.36 10^3/uL (1.8-7.7) 05/06/22 03:47 Lymph # (Auto) 0.7 10^3/uL (0.8-4.8) L 05/06/22 03:47 [place] # (Auto) 0.1 10^3/uL (0.2-0.9) L 05/06/22 03:47 Eos # (Auto) 0.0 10^3/uL (0.0-0.8) 05/06/22 03:47 Baso # (Auto) 0.0 10^3/uL (0.0-0.1) 05/06/22 03:47 Nucleated RBC % (auto) 0 % 05/06/22 03:47 Nucleated RBCs # 0.0 /100WBC 05/06/22 03:47 ESR 4 mm/hr (0-15) 05/05/22 04:58 Specimen Type Arterial 05/05/22 21:25 Sample Site Radial, right 05/05/22 21:25 ABG pH 7.46 (7.35-7.45) H 05/05/22 21:25 ABG pCO2 38.0 mmHg (35-45) 05/05/22 21:25 ABG pO2 63.4 mmHg (80.0-100.0) L 05/05/22 21:25 ABG HCO3 26.7 mmol/L (22-26) H 05/05/22 21:25 ABG O2 Saturation 93.6 05/05/22 21:25 ABG Base Excess 2.7 mmol/L (-2.0-2.0) H 05/05/22 21:25 Kiran Test Pos 05/05/22 21:25 A-a O2 Gradient 5.0 mmHg (5-10) 05/05/22 21:25 Hematocrit 34.2 % (37-47) L 05/05/22 21:25 Hgb O2 Saturation 91.7 % (95-100) L 05/05/22 21:25 Carboxyhemoglobin 1.3 %THgb (0.4-20.1) 05/05/22 21:25 Methemoglobin 0.8 % (0.4-1.5) 05/05/22 21:25 Total Hemoglobin 11.2 g/dL (12-16) L 05/05/22 21:25 Sodium 142.0 mmol/L (131-143) 05/05/22 21:25 Potassium 3.3 mmol/L (3.5-5.0) L 05/05/22 21:25 Glucose 127.0 mg/dL (70-115) H 05/05/22 21:25 Ionized Calcium 1.3 mmol/L (1.1-1.4) 05/05/22 21:25 O2 Delivery Device Room air 05/05/22 21:25 [employer] Sales[employer] ID Samanta 05/05/22 21:25 Sodium 140 mmol/L (136-145) 05/06/22 03:47 Potassium 4.4 mmol/L (3.5-5.1) 05/06/22 03:47 Chloride 107 mmol/L (98-107) 05/06/22 03:47 Carbon Dioxide 21 mmol/L (22-29) L 05/06/22 03:47 Anion Gap 16.4 (5-19) 05/06/22 03:47 BUN 11 mg/dL (8-23) 05/06/22 03:47 Creatinine 1.0 mg/dL (0.5-0.9) H 05/06/22 03:47 GFR Calculation Not Reportable 05/06/22 03:47 Glucose 169 mg/dL (65-115) H 05/06/22 03:47 POC Glucose 181 mg/dL (70-110) H 05/06/22 11:43 Estimat Average Glucose 174 05/05/22 04:58 Hemoglobin A1c 7.7 % (4.0-6.0) H 05/05/22 04:58 Calculated Osmolality 293 mOsm/kg (285-295) 05/06/22 03:47 Lactic Acid 5.4 mmol/L (0.5-2.2) H* 05/04/22 16:15 Lactic Acid (Sepsis) 1.6 mmol/L (0.5-2.2) 05/04/22 20:45 Lactate 1.0 mmol/L (0.5-2.2) 05/05/22 09:02 Calcium 8.5 mg/dL (8.5-10.5) 05/06/22 03:47 Phosphorus 1.8 mg/dL (2.5-4.5) L 05/05/22 04:58 Magnesium 1.3 mg/dL (1.7-2.3) L 05/05/22 04:58 Total Bilirubin 0.2 mg/dL (0.15-1.2) 05/06/22 03:47 AST 10 U/L (0-32) 05/06/22 03:47 ALT < 5 U/L (0-33) 05/06/22 03:47 Alkaline Phosphatase 107 U/L (35-105) H 05/06/22 03:47 Troponin T Baseline 11 ng/L (0-10) H 05/04/22 16:15 Troponin T 120 Minute 16.61 ng/L (0-10) H 05/04/22 20:45 Delta Troponin T 5.61 ABS# (0-10) 05/04/22 20:45 Troponin T Hi Sens 6Hr 20.60 ng/L (0-10) H 05/04/22 23:05 Troponin T Hi Sens 6Hr Delta 9.60 ng/L (0-12) 05/04/22 23:05 NT-Pro-B Natriuret Pep 164 pg/mL (0-125) H 05/04/22 16:15 Total Protein 5.4 g/dL (6.6-8.7) L 05/06/22 03:47 Albumin 2.9 g/dL (3.5-5.2) L 05/06/22 03:47 Globulin 2.5 g/dL (1.3-4.6) 05/06/22 03:47 Triglycerides 145 mg/dL (0-150) 05/04/22 20:45 Cholesterol 131 mg/dL (0-200) 05/04/22 20:45 LDL Cholesterol, Calc 65 mg/dL (50-129) 05/04/22 20:45 HDL Cholesterol 37 mg/dL (60-100) L 05/04/22 20:45 LDL/HDL Ratio 1.76 RATIO (0.00-3.22) 05/04/22 20:45 Cholesterol/HDL Ratio 3.54 mg/dL (0.0-4.40) 05/04/22 20:45 TSH 0.06 uIU/mL (0.27-4.20) L 05/04/22 20:45 Free T4 1.48 ng/dL (0.82-1.77) 05/04/22 18:00 Free T3 3.6 PG/ML (2.0-4.4) 05/04/22 18:00 Urine Color Yellow (Yellow) 05/04/22 16:50 Urine Appearance Clear (CLEAR) 05/04/22 16:50 Urine pH 7 (5-7) 05/04/22 16:50 Ur Specific [place] 1.015 (1.005-1.030) 05/04/22 16:50 Urine Protein 1+ (Negative) H 05/04/22 16:50 Urine Glucose (UA) Norm (Normal) 05/04/22 16:50 Urine Ketones 1+ (Negative) H 05/04/22 16:50 Urine Blood Neg (Negative) 05/04/22 16:50 Urine Nitrate Negative (Negative) 05/04/22 16:50 Urine Bilirubin Neg (Negative) 05/04/22 16:50 Urine Urobilinogen Neg mg/dL (Negative) 05/04/22 16:50 Ur Leukocyte Esterase Negative (Negative) 05/04/22 16:50 Urine RBC 0-4 /hpf (0-2) H 05/04/22 16:50 Urine WBC 0-4 /hpf (0-5) H 05/04/22 16:50 Ur Squamous Epith Cells 0-4 /hpf (0-5) H 05/04/22 16:50 Ur Renal Epithelial Cell 0 /hpf 05/04/22 16:50 Amorphous Sediment Not Reportable 05/04/22 16:50 Urine Bacteria Trace /hpf (NONE) 05/04/22 16:50 Urine Mucus Trace /hpf 05/04/22 16:50 Coronavirus 229E (PCR) Not detected (NOT DETECT) 05/05/22 04:25 SARS-CoV-2 (PCR) Not detected (NOT DETECT) 05/05/22 04:25 Vitals Last Vital Signs Temp 98.1 F 05/06/22 11:50 Pulse 81 05/06/22 11:50 Resp 16 05/06/22 11:50 BP 133/65 05/06/22 11:50 Pulse Ox 95 05/06/22 11:50 O2 Del Method 05/06/22 11:50 Discharge Plan Discharge Patient Disposition: Home Condition: Stable Prescriptions: New sucralfate 1 gram Tablet 1 g PO Q12H 30 Days Qty: 60 0RF mesalamine 400 mg capsule (with del rel tablets) 400 mg PO QID 30 Days Qty: 120 0RF prednisone 10 mg tablet See Rx Instructions .ROUTE .COMPLEX Qty: 53 0RF Rx Instructions: 4 tabs for 5 days, 3 tabs for 5 days, 2 tabs for 5 days, 1 tab for 5 days,0.5 for 5 days Continued atorvastatin 80 mg tablet 80 mg PO DAILY buspirone 10 mg tablet 10 mg PO BID estradiol 1 mg tablet 0.5 mg PO DAILY gabapentin 600 mg tablet 600 mg PO TID lamotrigine 200 mg tablet 200 mg PO BID metformin 500 mg tablet 500 mg PO BID (DME) Diabetic shoes with 3 inserts See Rx Instructions .ROUTE .MEDSUPPLY Qty: 1 0RF Rx Instructions: As directed by DIAN&O docusate sodium 100 mg capsule 200 mg PO BEDTIME PRN (Reason: Constipation) polyethylene glycol 3350 [ClearLax] 17 gram/dose powder 17 g PO DAILY PRN (Reason: Constipation) cilostazol 50 mg tablet 50 mg PO BID Qty: 180 3RF lorazepam 0.5 mg tablet 0.5 mg PO DAILY PRN (Reason: Anxiety) furosemide [Lasix] 40 mg tablet 40 mg PO DAILY potassium chloride 10 mEq tablet extended release 10 meq PO DAILY magnesium L-lactate 84 mg tablet extended release 84 mg PO DAILY nifedipine 30 mg tablet extended release 30 mg PO DAILY Qty: 90 4RF aspirin 325 mg tablet,delayed release (DR/EC) 325 mg PO DAILY Qty: 30 0RF hydrocodone-acetaminophen 5-325 mg tablet 1 tab PO Q6H PRN (Reason: pain) Qty: 20 0RF pantoprazole 40 mg tablet,delayed release (DR/EC) 40 mg PO BID 30 Days Qty: 60 0RF Discontinued meloxicam 7.5 mg tablet 7.5 mg PO DAILY lansoprazole 30 mg capsule,delayed release(DR/EC) 30 mg PO DAILY Discharge Orders: Discharge Order (Routine); Ordered 05/06/22 Ordered By: Yordan Mejia Referrals: Domenico Chan DO [Physician] - 2 weeks Caleb Mike MD [Physician] - 1-3 days Santiago Andrade PA [Primary Care Provider] - Discharge Diet: Advance as tolerated Discharge Activity: Resume usual activity Patient Instructions: Ulcerative Colitis (DC), GI Discharge Instructions, Opioid Safety Activity Restrictions/Additional Instructions: - For your colitis, potential ulcerative colitis take steroid taper as prescribed -Start mesalamine as prescribed -Please follow-up with Dr. Mike earlier on this week -As in discharge and steroids monitor blood sugars closely -If your blood sugar greater than [address] Mike's office -Please hydrate well drink plenty of electrolyte balanced fluids -Follow-up with Dr. Chan in 2 weeks -For your severe gastritis please continue Protonix, Carafate Discharge Attestations Time Spent in Discharge Care*: greater than 30 min Quality Metrics Clinical Quality Measures [ No reported AMI, CVA or VTE this stay] Coding Level of Care Code 97339 Total time (in minutes) for Discharge: 40 Diagnoses Colitis K52.9 Thickened small bowel K63.9 Gastritis K29.70
[2022-05-06 12:33] LABS: COMPLEMENT COMPONENT C3C 147 mg/dL (83-193); COMPLEMENT COMPONENT C4C 37 mg/dL (15-57)
--- NOTE | 2022-05-06 14:24 | ANE.PACU2 ---
Inpatient post-anesthesia follow up: Airway intact: Yes Vital signs: Temperature 98.1 F Pulse Rate 81 Respiratory Rate 16 Blood Pressure 133/65 Pulse Oximetry 95 Oxygen Delivery Me thod Room Air Oxygen Flow Rate Fraction of Inspir ed Oxygen Hydration adequate: Yes Nausea and vomiting: Yes Pain level: 1 Mental status: Baseline
[2022-05-07 11:05] LABS: CENTROMERE B ANTIBODY <1.0 NEG AI (<1.0 NEG); JO-1 ANTIBODY <1.0 NEG AI (<1.0 NEG); RNP ANTIBODY <1.0 NEG AI (<1.0 NEG); SCL-70 ANTIBODY <1.0 NEG AI (<1.0 NEG); SJOGREN'S ANTIBODY (SS-A) <1.0 NEG AI (<1.0 NEG); SM ANTIBODY <1.0 NEG AI (<1.0 NEG); SS-B <1.0 NEG AI (<1.0 NEG)
[2022-05-07 13:49] LABS: THYROID PEROXIDASE ANTIBODIES 1 IU/mL (<9)
[2022-05-08 03:15] LABS: Gliadin Ab.IgA <1.0 U/mL; Gliadin Ab.IgG <1.0 U/mL; Tissue Transglutaminase IgA Ab <1.0 U/mL; Tissue transglutaminase Ab.IgG <1.0 U/mL
[2022-05-08 10:34] LABS: ANA SCREEN, IFA POSITIVE (NEGATIVE); ANA TITER 1:40 titer
[2022-05-08 13:29] LABS: Immunoglobulin A 137 mg/dL (70-320)
[2022-05-08 14:23] LABS: COMPLEMENT, TOTAL (CH50) >60 U/mL (31-60)
[2022-05-09 13:20] LABS: DNA AB (DS) CRITHIDIA,IFA NEGATIVE (NEGATIVE)
== END 2022-05-06 15:05 | disposition home or self-care (01) | DRG 386 ==
LOC: ER 17:37 → MEDSURG 18:51
PROVIDERS: Student in an Organized Health Care Education/Training Program; Surgery; Admitting Provider Family Medicine; Emergency Provider General Practice; PCP Physician Assistant Medical; Visit Provider Family Medicine
PROC: 0DJ08ZZ Inspection of Upper Intestinal Tract, Via Natural or Artificial Opening Endoscopic (ICD-10-PCS; CPT 43235; principal; 2022-05-06 11:30)
DX: K51.90 Ulcerative colitis, unspecified, without complications (principal); E87.20 Acidosis, unspecified; N17.9 Acute kidney failure, unspecified; E87.6 Hypokalemia; K29.80 Duodenitis without bleeding; E11.43 Type 2 diabetes mellitus with diabetic autonomic (poly)neuropathy; K31.84 Gastroparesis; E11.51 Type 2 diabetes mellitus with diabetic peripheral angiopathy without gangrene; E11.40 Type 2 diabetes mellitus with diabetic neuropathy, unspecified; Z95.820 Peripheral vascular angioplasty status with implants and grafts; E83.42 Hypomagnesemia; E86.0 Dehydration; K29.70 Gastritis, unspecified, without bleeding; Z79.890 Hormone replacement therapy; Z79.84 Long term (current) use of oral hypoglycemic drugs; Z79.891 Long term (current) use of opiate analgesic; G40.909 Epilepsy, unspecified, not intractable, without status epilepticus; Z87.891 Personal history of nicotine dependence; D64.9 Anemia, unspecified; R42 Dizziness and giddiness
CPT/HCPCS: 36415; 36416; 36600; 43239; 43255; 70450; 71045; 74177; 76536; 80048; 80051; 80053; 80061; 81001; 82330; 82784; 82805; 82962; 83036; 83516; 83605; 83735; 83880; 84100; 84439; 84443; 84481; 84484; 85025; 85651; 86160; 86162; 86235; 86255; 86376; 87040; 87635; 88305; 93005; 94664; 96372; 96374; 96375; 97161; 99285; C9113; J1650; J1815; J1885; J2405; J2704; J2920; J2930; J3475; J3480; J7030; J8499; Q9967

== ENCOUNTER → 2022-07-01 12:56 | Outpatient (BNVA) | payer MEDICARE, OTHER, SELFPAY | PROVIDERS: PCP Physician Assistant Medical; Visit Provider Internal Medicine | DX: I73.9 Peripheral vascular disease, unspecified (principal); I10 Essential (primary) hypertension; E11.9 Type 2 diabetes mellitus without complications; Z87.891 Personal history of nicotine dependence; Z79.82 Long term (current) use of aspirin; Z79.4 Long term (current) use of insulin | CPT/HCPCS: 99214 ==

== ENCOUNTER 2022-07-11 10:05 | Outpatient (CLI) | payer MEDICARE, OTHER, SELFPAY ==
--- NOTE | 2022-07-11 10:15 | USCV_ITS ---
Brenda Stone Age: 71 Gender: F : 1950 Exam Date: 07/11/2022 10:35 Ordering Phys: Margarito Lott MD (Andy) ([email or web address] [place], [place]) Technologist: RAJANI [place] [facility] [place]: Stenosis Risk Factors: Previous Vascular Surgery: Right Brachial BP: / Left Brachial BP: / Right Left Velocity (cm/s) Spectral Plaque Velocity (cm/s) Spectral Plaque Syst/Diast Broadening Syst/Diast Broadening 103.60/19.80 Prox CCA 101.40/ 23.20 87.10/ 17.60 Mid CCA 114.70/ 29.80 92.60/ 22.10 Distal CCA 133.40/ 32.00 125.20/19.00 Prox ICA 177.70/ 27.30 106.50/30.20 Mid ICA 240.60/ 43.90 93.30/ 28.90 Distal ICA 94.80 / 19.70 113.50 ECA 169.30 1.21 ICA/CCA 1.80 Antegrade Vertebral Antegrade 46.50/ 7.50 cm/s 55.50/ 19.70 cm/s Tri Subclavian Tri 128.7 201.1 0 0 FINDINGS Comp 10/23/21 CONCLUSIONS Right ICA stenosis 50-69% at the lower end of the range. Right CEA. Mild atheromatous plaque right carotid bulb/ICA. Left ICA stenosis 50-69% proximal ICA and 70-99% mid ICA at the lower end of the range. Velocities are similar to previous Mild atheromatous plaque left carotid bulb/ICA. Normal antegrade Doppler flow noted in the right vertebral artery. Normal antegrade Doppler flow noted in the left vertebral artery. Ranjeet Donohue MD (Electronically Signed) Final Date: 11 July 2022 11:45 S
== END 2022-07-11 10:06 | disposition home or self-care (01) ==
LOC: RAD 10:07
PROVIDERS: PCP Physician Assistant Medical; Visit Provider Thoracic Surgery (Cardiothoracic Vascular Surgery)
DX: I65.23 Occlusion and stenosis of bilateral carotid arteries (principal)
CPT/HCPCS: 93880

== ENCOUNTER → 2022-07-25 10:02 | Outpatient (BNVA) | payer MEDICARE, OTHER, SELFPAY | PROVIDERS: PCP Physician Assistant Medical; Visit Provider Thoracic Surgery (Cardiothoracic Vascular Surgery) | DX: I65.22 Occlusion and stenosis of left carotid artery (principal); Z87.891 Personal history of nicotine dependence | CPT/HCPCS: 99213 ==

== ENCOUNTER 2022-07-31 09:06 | Outpatient (CLI) | payer MEDICARE, OTHER, SELFPAY ==
[2022-07-31 09:50] VITALS: BMI 23.8
--- NOTE | 2022-07-31 09:52 | NMCV_ITS ---
NM misti perf SPECT r/s* [id number] Brenda Stone Age: 71 Gender: F : 1950 Exam Date: 07/31/2022 10:26 Ordering Phys: Martir Myers M.D ([email or web address]) Technologist: RAJ Mitchell Exam Location: [facility] Indications: CHEST PAIN, SHORTNESS OF BREATH STRESS TEST Please see separate stress test report in [facility] for full findings IMAGE PROTOCOL Rest/Stress 1 Lexiscan Day Radiopharmaceutical Dose (mCi) Administration Site Administered by Rest: Tc-99m 10.6 IV RAJ Kelly Sestamibi Stress:Tc-99m 32.9 IV RAJ Mitchell Sestamiaudrey Rest: 31-Jul-2022 60 Discovery 630 Stress: 31-Jul-2022 30 Discovery 630 0.4mg Lexiscan. Images obtained in supine and prone position. SPECT RESULTS Technical Quality: Excellent Raw Data Analysis: Normal Image Corrections: No attenuation or motion correction applied Summed Stress Score: 3 Summed Rest Score: 4 Summed Difference Score: 1 PERFUSION FINDINGS There is a small sized fixed perfusion defect noted in apical and apical inferior hinojosa. No evidence of ischemia. FUNCTIONAL RESULTS (calculated via Gated SPECT) Stress Image LV EF (%): 75 Stress EDV (mL):80 TID: 0.88 Stress ESV (mL):20 FUNCTIONAL FINDINGS: There is normal left ventricular systolic function. IMPRESSIONS 1. Small sized area of prior infarct noted in the apical and apical inferior hinojosa. No evidence of ischemia. 2. LV systolic function is normal. Martir Myers MD (Electronically Signed) Final Date: 01 Aug 2022 13:25 S
--- NOTE | 2022-07-31 09:52 | ECG_ITS ---
[facility] Test Date: 2022-07-31 Pat Name: Brenda Stone Department: Room: Gender: Female Mounter Smoking Pipe: : 1950 Requested By: Martir Myers Order Number: [id number] Rosangela MD: Martir Myers M.D. Interpretive Statements NAME OF STUDY: LEXISCAN SESTAMIBI STRESS TEST INDICATION: [Chest Pain; Shortness of Breath, ] Procedure: At the baseline, the blood pressure was 217/87 mmHg with a heart rate of 74 bpm. The electrocardiogram showed normal sinus rhythm, normal axis with normal ST and T's. The Lexiscan was infused over a period of 20 seconds. A total of 0.4 mg of Lexiscan was infused. The stress phase was continued for a total of 5 minutes. Heart rate was at the end of stress phase was 84 bpm and a blood pressure of 190/84 mmHg. The EKG at the peak infusion revealed normal sinus rhythm with no significant ST-T wave changes. Sestamibi was injected 20 seconds after the Lexiscan infusion. Blood pressure at the end of recovery phase was 183/81 mmHg with a heart rate of 82 bpm. Conclusion: 1. Normal EKG response to Lexiscan infusion 2. No Lexiscan induced chest pain or cardiac arrhythmia. 3. Normal blood pressure and heart rate response. 4. Sestamibi/sestamibi perfusion scan pending; see separate report. Electronically Signed On 08-03-2022 21:26:31 CDT by Martir Myers M.D. [email or web address].[address] [employer]/store/OM/[id number]
[2022-07-31] MEDS: regadenoson 0.4 Mg/5 ml Syringe IVP (11:05)
[2022-07-31] MEDS: ondansetron 2 mg/ML SDV 2 mL 4 MG IVP (11:17)
[2022-07-31 11:18] VITALS: BP 183/81; PULSE 82
== END 2022-07-31 09:07 | disposition home or self-care (01) ==
LOC: CDL 09:07
PROVIDERS: PCP Physician Assistant Medical; Visit Provider Internal Medicine
DX: R07.9 Chest pain, unspecified (principal); R06.02 Shortness of breath
CPT/HCPCS: 36415; 78452; 93017; 96374; 96375; A9500; J2405; J2785

== ENCOUNTER 2022-12-25 10:52 | Outpatient (CLI) | payer MEDICARE, OTHER, SELFPAY ==
--- NOTE | 2022-12-25 11:15 | USCV_ITS ---
Bertha Brenda Age: 72 Gender: F : 1950 Exam Date: 12/25/2022 11:00 Ordering Phys: Margarito Lott MD (Andy) ([email or web address] [place] Technologist: CT Exam Location: [facility] [place] Indication: previous rt cea, stenosis Risk Factors: Previous Vascular Surgery: Right Brachial BP: / Left Brachial BP: / Right Left Velocity (cm/s) Spectral Plaque Velocity (cm/s) Spectral Plaque Syst/Diast Broadening Syst/Diast Broadening 98.50/ 15.90 Prox CCA 114.90/ 18.90 102.20/16.90 Mid CCA 127.50/ 24.90 101.50/14.80 Distal CCA 106.70/ 19.80 159.20/14.50 Prox ICA 176.00/ 18.40 144.80/20.90 Mid ICA 233.90/ 39.60 127.50/22.30 Distal ICA 149.30/ 25.20 179.80 ECA 192.80 1.56 ICA/CCA 1.83 Antegrade Vertebral Antegrade 66.50/ 14.90 cm/s 111.6/ 21.50 cm/s 0 Tri Subclavian Bi 158.5 155.2 0 0 FINDINGS Comparison:. 07/11/22 Systolic velocity increased bilaterally throughout the carotid arteries. No progression since the prior exam. Antegrade vertebral arteries. Diffuse bilateral scattered calcified plaque and intimal thickening throughout the common carotid arteries and extending through the bifurcation. CONCLUSIONS Bilateral ICA stenosis less than 50%. No interval change in stenosis since prior exam. Diffuse bilateral carotid plaque. Dr. Marely Gilmore DO (Electronically Signed) Final Date: 25 December 2022 13:45 S
== END 2022-12-25 10:53 | disposition home or self-care (01) ==
LOC: RAD 10:52
PROVIDERS: PCP Physician Assistant Medical; Visit Provider Thoracic Surgery (Cardiothoracic Vascular Surgery)
DX: I65.23 Occlusion and stenosis of bilateral carotid arteries (principal)
CPT/HCPCS: 93880

== ENCOUNTER → 2022-12-30 14:55 | Outpatient (BNVA) | payer MEDICARE, OTHER, SELFPAY | PROVIDERS: PCP Physician Assistant Medical; Visit Provider Internal Medicine | DX: I10 Essential (primary) hypertension (principal); E11.9 Type 2 diabetes mellitus without complications; I73.9 Peripheral vascular disease, unspecified; Z72.0 Tobacco use | CPT/HCPCS: 36415; 80053; 83735; 99214 ==

== ENCOUNTER → 2023-01-23 10:40 | Outpatient (BNVA) | payer MEDICARE, OTHER, SELFPAY | PROVIDERS: PCP Physician Assistant Medical; Visit Provider Thoracic Surgery (Cardiothoracic Vascular Surgery) | DX: I65.23 Occlusion and stenosis of bilateral carotid arteries (principal); Z87.891 Personal history of nicotine dependence; I10 Essential (primary) hypertension | CPT/HCPCS: 99213 ==

== ENCOUNTER 2023-05-10 13:40 | Inpatient (IN) | payer MEDICARE, OTHER, SELFPAY ==
[2023-05-10] VITALS (22 sets, daily range): BP systolic 106–210; BP diastolic 49–102; PULSE 86–124; RESP 16; TEMP 37.4–40.1; O2SAT 91–99
--- NOTE | 2023-05-10 13:49 | CTR_ITS ---
PROCEDURE INFORMATION: Exam: CT Head Without Contrast Exam date and time: 05/10/2023 1:42 PM Age: 72 years old Clinical indication: Stroke-like symptoms; Generalized numbness/paresthesia; Additional info: Symptoms of acute stroke TECHNIQUE: Imaging protocol: Computed tomography of the head without contrast. Radiation optimization: All CT scans at this facility use at least one of these dose optimization techniques: automated exposure control; mA and/or kV adjustment per patient size (includes targeted exams where dose is matched to clinical indication); or iterative reconstruction. Other technique: STROKE PROTOCOL was implemented. COMPARISON: CT head wo con* [id number] 05/05/2022 9:32 PM RADIATION DOSE METRICS: Total DLP (mGy-cm): 1127.78 FINDINGS: Brain: Moderate cerebral and cerebellar atrophy. Mild nonspecific periventricular white matter disease. No acute intracranial hemorrhage. Normal differentiation of stoll-white matter. No midline shift. Cerebral ventricles: Ventricles are normal in caliber. Paranasal sinuses: Visualized paranasal sinuses are clear. Mastoid air cells: Mastoid air cells are clear. Bones/joints: No acute osseous findings. Soft tissues: Superficial soft tissues are within normal limits. CT/CT head thrombolytic [id number] IMPRESSION: No acute intracranial findings. ASSESSMENT: ASPECTS ([place] Stroke Program Early CT Score) is 10.
--- NOTE | 2023-05-10 13:49 | XRR_ITS ---
PROCEDURE INFORMATION: Exam: XR Chest Exam date and time: 05/10/2023 2:19 PM Age: 72 years old Clinical indication: Patient HX: AMS; Stroke like symptoms TECHNIQUE: Imaging protocol: Radiologic exam of the chest. Views: 1 view. COMPARISON: CR XR chest 1V portable [id number] 05/04/2022 4:41 PM FINDINGS: Lungs: Left lower lobe atelectasis versus minimal infiltrate. Pleural spaces: Unremarkable. No pleural effusion. No pneumothorax. Heart/Mediastinum: Cardiomegaly and mild pulmonary vascular congestion. Bones/joints: Unremarkable. XR/XR chest 1V portable [id number] IMPRESSION: 1. Cardiomegaly and mild pulmonary vascular congestion. 2. Left lower lobe atelectasis versus minimal infiltrate.
--- NOTE | 2023-05-10 13:49 | ECG_ITS ---
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 Measurements Intervals [place] Rate: 122 P: 71 MD: 168 QRS: -34 QRSD: 96 T: 88 QT: 348 QTc: 498 Interpretive Statements SINUS TACHYCARDIA WITH FREQUENT VENTRICULAR PREMATURE COMPLEXES LEFT AXIS DEVIATION [QRS AXIS < -30] LEFT VENTRICULAR HYPERTROPHY AND ST-T CHANGE [VOLTAGE CRITERIA PLUS ST/T ABNORMALITY] POSSIBLE SEPTAL MYOCARDIAL INFARCTION , PROBABLY OLD [30 ms Q WAVE IN V1/V2] INTERPRETATION BASED ON A DEFAULT AGE OF 40 YEARS Compared to ECG 05/04/2022 22:56:06 Ventricular premature complex(es) now present Left-axis deviation now present.Left ventricular hypertrophy now present ST (T wave) deviation now present Myocardial infarct finding now present.Sinus rhythm no longer present First degree AV block no longer present. T-wave abnormality no longer present Electronically Signed On 05-10-2023 15:33:15 TREASURY MANAGEMENT SALES CONSULTANT by Yanet Darby M.D. [email or web address].[facility].[employer]/store/NU/[id number] f
--- NOTE | 2023-05-10 13:57 | ED_ITS ---
HPI - Altered Mental Status 2 General: Chief Complaint: Altered Mental Status Stated Complaint: AMS Time Seen by Provider: 05/10/23 13:48 Limitations: altered mental status History of Present Illness: EMS presents with the patient for altered mental status, possible slurring of her speech or incoherent speech. EMS stated patient was fine and normal this morning and she started feeling unwell about 1030 and wanted to lay down and take a nap. At about 1130 patient's woke her up and noticed slurring speech and she was slumped over less responsive. Upon EMS arrival patient had a blood glucose of 464 temperature 100.4 O2 saturation of 88% on room air with a blood pressure 162/60. She did have emesis x 1 on route they gave her 4 mg of Zofran 4. Patient did have loss of control of bowel and bladder on route. Patient is lethargic upon arrival and will not follow commands. Patient will withdraw from painful stimuli. Review of Systems 2 General: Reports: ROS unobtainable due to mental status PFSH ED 2 PFSH: Medical History Dizziness Fever Bilateral leg weakness Hypomagnesemia Hypertension Type 2 diabetes mellitus Hyperlipemia Epilepsy FH: carotid endarterectomy Stenosis of peripheral vascular stent Surgical History H/O abdominal hysterectomy S/P knee surgery Family History Other Cancer Diabetes Heart disease Social History Smoking and tobacco/nicotine status: former use of tobacco/nicotine Quit status (tobacco/nicotine): has quit using Year quit tobacco: 2020 Former quit date comment: 6 WEEKS AGO Alcohol intake: former Substance/Drug Use: never Adopted: No service: No Current gender identity: Female Physical Exam 2 Const: COMMON NORMALS: average body habitus and well nourished; negative for patient oriented x3 OTHER: Lethargic, will not answer questions, sometimes makes unintelligible mumbles, will not follow commands, HENMT: COMMON NORMALS: normocephalic, atraumatic, Normal external nose present and moist oral mucous membranes HEAD & SCALP: normocephalic and atraumatic NOSE: Normal external nose present Eye: COMMON NORMALS: Equal, round and reactive pupils present, conjunctivae normal and no scleral icterus CONJUNCTIVA: Yes conjunctivae normal PUPIL: Yes Equal, round and reactive pupils present Neck/C-Spine: COMMON NORMALS: no lymphadenopathy, supple, no meningeal signs, no JVD and Thyroid normal THYROID: Thyroid normal Chest: COMMONS NORMALS: normal inspection of the chest and normal palpation of entire chest wall Resp: COMMON NORMALS: normal respiratory effort, No retractions and No use of accessory muscles; negative for clear to auscultation bilaterally (Decreased breath sounds bilaterally with occasional wheeze) AUSCULTATION: not clear to auscultation bilaterally (Decreased breath sounds bilaterally with occasional wheeze) Cardio: COMMON NORMALS: no JVD, regular rhythm, S1 normal heart sound present, S2 normal heart sound present, No gallops present (Cardio), No clicks present (Cardio), No murmurs present (Cardio) and No rub (Cardio); negative for regular rate (Tachycardic) RATE: abnormal rate (Tachycardic) RHYTHM: regular rhythm HEART SOUNDS: S1 normal heart sound present and S2 normal heart sound present GI: COMMON NORMALS: Normal to inspection, nondistended, normoactive bowel sounds present, Soft to palpation, non-tender, No hepatosplenomegaly present and no masses PALPATION: Yes Soft to palpation and Yes No hepatosplenomegaly present Neuro: COMMON NORMALS: negative for patient oriented x3 MENINGEAL SIGNS: Y es no meningeal signs OTHER: Pupils equal round reactive to light, withdraws from painful stimuli in all 4 extremities, is able to hold arms up when lifted up and told to hold them. Will not lift them up herself. Will not hold legs up. Will not follow other simple commands. Course 2 Vital Signs: Vital signs: Vital Signs Temperature 100.0 F H 05/10/23 15:01 Pulse Rate 115 H 05/10/23 17:00 Blood Pressure 126/71 05/10/23 17:00 Pulse Oximetry 95 05/10/23 17:00 Oxygen Delivery Me thod Nasal Cannula 05/10/23 17:00 Oxygen Flow Rate 2 05/10/23 17:00 MDM - Altered Mental Status Medical Decision Making Dr. Villagomez to bedside for physical exam. Patient is now more alert awake and able to follow simple commands. Patient may have had a seizure and is now in a postictal state. Would add on ammonia, CPK, 1000 mg Keppra and see if patient responds, also continue with sepsis workup. Differential Diagnosis Likely altered mental status and sepsis; Unlikely alcoholic intoxication, delirium, dementia, hypoglycemia, hyponatremia or subarachnoid hemorrhage Medical Records I reviewed the patient's medical records. Lab Data I reviewed the patient's lab results. 05/10/23 13:35 05/10/23 13:35 Radiology Impressions Chest X-Ray 05/10/23 13:49 IMPRESSION: 1. Cardiomegaly and mild pulmonary vascular congestion. 2. Left lower lobe atelectasis versus minimal infiltrate. Head CT 05/10/23 13:49 IMPRESSION: No acute intracranial findings. ASSESSMENT: ASPECTS ([place] Stroke Program Early CT Score) is 10. Laboratory Results WBC 15.72 10^3/uL (3.29-11.43) H 05/10/23 13:35 RBC 5.01 10^6/uL (3.85-5.65) 05/10/23 13:35 Hgb 13.00 g/dL (11.27-16.99) 05/10/23 13:35 Hct 42.4 % (36-47) 05/10/23 13:35 MCV 84.6 fl (85-98) L 05/10/23 13:35 MCH 25.9 pg (27-33) L 05/10/23 13:35 MCHC 30.7 g/dL (30-55) 05/10/23 13:35 RDW 16.2 % (12.1-15.1) H 05/10/23 13:35 Plt Count 284 10^3/cmm (157-399) 05/10/23 13:35 MPV 11.2 fL (7.4-10.4) H 05/10/23 13:35 Neut % (Auto) 89.2 % 05/10/23 13:35 Lymph % (Auto) 6.6 % 05/10/23 13:35 [place] % (Auto) 3.2 % 05/10/23 13:35 Eos % (Auto) 0.1 % 05/10/23 13:35 Baso % (Auto) 0.4 % 05/10/23 13:35 Neut # (Auto) 14.03 10^3/uL (1.8-7.7) H 05/10/23 13:35 Lymph # (Auto) 1.0 10^3/uL (0.8-4.8) 05/10/23 13:35 [place] # (Auto) 0.5 10^3/uL (0.2-0.9) 05/10/23 13:35 Eos # (Auto) 0.0 10^3/uL (0.0-0.8) 05/10/23 13:35 Baso # (Auto) 0.1 10^3/uL (0.0-0.1) 05/10/23 13:35 Nucleated RBC % (auto) 0 % 05/10/23 13:35 Nucleated RBCs # 0.0 /100WBC 05/10/23 13:35 PT 12.80 SECONDS (12.1-14.9) 05/10/23 13:35 INR 0.94 (0.8-1.2) 05/10/23 13:35 APTT 25.5 SECONDS (23.9-36.7) 05/10/23 13:35 Specimen Type Arterial 05/10/23 14:05 Sample Site Brachial, right 05/10/23 14:05 ABG pH 7.42 (7.35-7.45) 05/10/23 14:05 ABG pCO2 38.8 mmHg (35-45) 05/10/23 14:05 ABG pO2 56.9 mmHg (80.0-100.0) L 05/10/23 14:05 ABG PO2/FiO2 Ratio 0 05/10/23 14:05 ABG HCO3 24.9 mmol/L (22-26) 05/10/23 14:05 ABG O2 Saturation 91.2 05/10/23 14:05 ABG Base Excess 0.4 mmol/L (-2.0-2.0) 05/10/23 14:05 Kiran Test N/a 05/10/23 14:05 A-a O2 Gradient 12.3 mmHg (5-10) H 05/10/23 14:05 Hematocrit 38.4 % (37-47) 05/10/23 14:05 Hgb O2 Saturation 89.4 % (95-100) L 05/10/23 14:05 Carboxyhemoglobin 1.2 %THgb (0.4-20.1) 05/10/23 14:05 Methemoglobin 0.7 % (0.4-1.5) 05/10/23 14:05 Total Hemoglobin 12.5 g/dL (12-16) 05/10/23 14:05 Sodium 138.0 mmol/L (131-143) 05/10/23 14:05 Potassium 3.7 mmol/L (3.5-5.0) 05/10/23 14:05 Glucose 341.0 mg/dL (70-115) H 05/10/23 14:05 Ionized Calcium 1.3 mmol/L (1.1-1.4) 05/10/23 14:05 O2 Delivery Device Nc 05/10/23 14:05 O2 Liters/Min 2.0 % 05/10/23 14:05 FiO2 28.0 % 05/10/23 14:05 Pocketed Spring Assembler ID Amh 05/10/23 14:05 Sodium 138 mmol/L (136-145) 05/10/23 13:35 Potassium 4.1 mmol/L (3.5-5.1) 05/10/23 13:35 Chloride 98 mmol/L (98-107) 05/10/23 13:35 Carbon Dioxide 25 mmol/L (22-29) 05/10/23 13:35 Anion Gap 19.1 (5-19) H 05/10/23 13:35 BUN 19 mg/dL (8-23) 05/10/23 13:35 Creatinine 1.6 mg/dL (0.5-0.9) H 05/10/23 13:35 GFR Calculation Not Reportable 05/10/23 13:35 Glucose 384 mg/dL (65-115) H 05/10/23 13:35 Calculated Osmolality 304 mOsm/kg (285-295) H 05/10/23 13:35 Lactic Acid 3.7 mmol/L (0.5-2.2) H 05/10/23 13:35 Lactic Acid (Sepsis) 2.6 mmol/L (0.5-2.2) H 05/10/23 16:40 Calcium 9.7 mg/dL (8.5-10.5) 05/10/23 13:35 Magnesium 1.8 mg/dL (1.7-2.3) 05/10/23 13:35 Total Bilirubin 0.2 mg/dL (0.15-1.2) 05/10/23 13:35 AST 9 U/L (0-32) 05/10/23 13:35 ALT 7 U/L (0-33) 05/10/23 13:35 Alkaline Phosphatase 188 U/L (35-105) H 05/10/23 13:35 Ammonia 21 umol/L (11-51) 05/10/23 15:12 Creatine Kinase 28 U/L (26-192) 05/10/23 13:35 Troponin T Baseline 41 ng/L (0-10) H 05/10/23 13:35 Troponin T 120 Minute 33.66 ng/L (0-10) H 05/10/23 15:12 Delta Troponin T -7.34 ABS# (0-10) L 05/10/23 15:12 C-Reactive Protein 19.9 mg/L (0.0-4.9) H 05/10/23 13:35 NT-Pro-B Natriuret Pep 1045 pg/mL (0-125) H 05/10/23 13:35 Total Protein 7.0 g/dL (6.6-8.7) 05/10/23 13:35 Albumin 4.1 g/dL (3.5-5.2) 05/10/23 13:35 Globulin 2.9 g/dL (1.3-4.6) 05/10/23 13:35 Procalcitonin 0.08 ng/mL (0-0.5) 05/10/23 13:35 TSH 2.67 uIU/mL (0.27-4.20) 05/10/23 13:35 Prolactin 16.79 ng/mL (4.8-23.3) 05/10/23 13:35 Urine Color Straw (Yellow) 05/10/23 14:02 Urine Appearance Clear (CLEAR) 05/10/23 14:02 Urine pH 7 (5-7) 05/10/23 14:02 Ur Specific [place] 1.005 (1.005-1.030) 05/10/23 14:02 Urine Protein Neg (Negative) 05/10/23 14:02 Urine Glucose (UA) 4+ (Normal) H 05/10/23 14:02 Urine Ketones Negative (Negative) 05/10/23 14:02 Urine Blood Neg (Negative) 05/10/23 14:02 Urine Nitrate Negative (Negative) 05/10/23 14:02 Urine Bilirubin Neg (Negative) 05/10/23 14:02 Urine Urobilinogen Norm mg/dL (Negative) 05/10/23 14:02 Ur Leukocyte Esterase Negative (Negative) 05/10/23 14:02 Urine Opiates Screen Negative ng/mL (Negative) 05/10/23 14:02 Ur Barbiturates Screen Negative ng/mL (Negative) 05/10/23 14:02 Ur Phencyclidine Scrn Negative ng/mL (Negative) 05/10/23 14:02 Ur Amphetamines Screen Negative ng/mL (Negative) 05/10/23 14:02 U Benzodiazepines Scrn Negative ng/mL (Negative) 05/10/23 14:02 Urine Cocaine Screen Negative ng/mL (Negative) 05/10/23 14:02 U Marijuana (THC) Screen Negative ng/mL (Negative) 05/10/23 14:02 Ethyl Alcohol < 10 mg/dL (0-10) 05/10/23 13:35 Serum Ketones Negative (Negative) 05/10/23 13:35 Adenovirus (PCR) Not detected (NOT DETECT) 05/10/23 14:58 C. pneumoniae DNA (PCR) Not detected (NOT DETECT) 05/10/23 14:58 Coronavirus 229E (PCR) Not detected (NOT DETECT) 05/10/23 14:58 Human Metapneumovir PCR Not detected (NOT DETECT) 05/10/23 14:58 Influenza A (H1) PCR Not detected (NOT DETECT) 05/10/23 14:58 Influ A (H1/09) PCR Not detected (NOT DETECT) 05/10/23 14:58 Influenza A (H3) PCR Not detected (NOT DETECT) 05/10/23 14:58 Influenza Type A (PCR) Not detected (NOT DETECT) 05/10/23 14:58 Influenza Type B (PCR) Not detected (NOT DETECT) 05/10/23 14:58 M. pneumoniae (PCR) Not detected (NOT DETECT) 05/10/23 14:58 Parainfluenza 1 (PCR) Not detected (NOT DETECT) 05/10/23 14:58 Parainfluenza 2 (PCR) Not detected (NOT DETECT) 05/10/23 14:58 Parainfluenza 3 (PCR) Not detected (NOT DETECT) 05/10/23 14:58 Parainfluenza 4 (PCR) Not detected (NOT DETECT) 05/10/23 14:58 RSV Type A (PCR) Not detected (NOT DETECT) 05/10/23 14:58 RSV Type B (PCR) Not detected (NOT DETECT) 05/10/23 14:58 Entero/Rhino (PCR) Not detected (NOT DETECT) 05/10/23 14:58 SARS-CoV-2 (PCR) Not detected (NOT DETECT) 05/10/23 14:58 All radiology interpretation(s) finalized by discharge EKG Data EKG 1: I personally reviewed and interpreted this EKG as follows: EKG interpretation date: 05/10/23 EKG interpretation time: 13:52 Prior EKG tracings: not available for review Interpretation: Ventricular rate 122 bpm, CT interval 160, QRS duration 96, QTc of 421, sinus tachycardia with PVCs, left axis deviation, left ventricular hypertrophy EKG 2: I personally reviewed and interpreted this EKG as follows: EKG interpretation date: 05/10/23 EKG interpretation time: 15:20 Prior EKG tracings: available for review Interpretation: Ventricular rate 123 bpm, CT interval 162, QRS duration 101, QTc of 493, sinus tachycardia, left axis deviation, left ventricular hypertrophy Discharge Plan Discharge Patient Disposition: Admitted As Inpatient Admit Provider: Erika Cosme Clinical Impression: Altered mental status, Sepsis, Seizure, Non-compliance Condition: Stable Coding Level of Care Code ED Echocardiography Radiology Technologist for Rain Tran
[2023-05-10 14:00] LABS: Basophils # 0.1 10^3/uL (0.0-0.1); Basophils % 0.4 %; Eosinophils % 0.1 %; Hematocrit 42.4 % (36-47); Lymphocytes % 6.6 %; Mean Corpuscular HGB Conc 30.7 g/dL (30-55); Mean Corpuscular Hemoglobin 25.9 pg (27-33); Mean Corpuscular Volume 84.6 fl (85-98); Mean Platelet Volume 11.2 fL (7.4-10.4); Monocytes # 0.5 10^3/uL (0.2-0.9); Monocytes % 3.2 %; Neutrophils # 14.03 10^3/uL (1.8-7.7); Neutrophils % 89.2 %; Nucleated Red Blood Cells % 0 %; Platelet Count 284 10^3/cmm (157-399); Red Blood Count 5.01 10^6/uL (3.85-5.65); Red Cell Distribution Width 16.2 % (12.1-15.1); White Blood Count 15.72 10^3/uL (3.29-11.43)
--- NOTE | 2023-05-10 14:10 | PC.NURSE ---
pt had episode of vomiting with EMS. GCS 9 currently. suction set up at bedside and pt placed in high-fowlers position with bed at 90 degrees
[2023-05-10 14:11] LABS: Add Urine Microscopic? NO; Charge for UA Resulting for Rev
[2023-05-10 14:12] LABS: Ketone (Acetest) Serum Negative (Negative)
[2023-05-10 14:15] LABS: Bilirubin Urine Neg (Negative); Blood Urine Neg (Negative); Glucose Urine UA 4+ (Normal); Ketones Urine Negative (Negative); Leukocyte Esterase Urine Negative (Negative); Nitrate Urine Negative (Negative); Protein Urine Neg (Negative); Specific Gravity, Urine 1.005 (1.005-1.030); Urine Appearance Clear (CLEAR); Urine Color Straw (Yellow); Urobilinogen Urine Norm (Negative); pH Urine 7 (5-7)
[2023-05-10 14:16] LABS: INR 0.94 (0.8-1.2); Lactic Sepsis W/Reflex 3.7 mmol/L (0.5-2.2); Partial Thromboplastin Time 25.5 SECONDS (23.9-36.7)
[2023-05-10 14:17] LABS: ABG PCO2 38.8 mmHg (35-45); ABG PH Result 7.42 (7.35-7.45); Alveolar-Arterial Oxygen Gradi 12.3 mmHg (5-10); Arterial Blood Gas Hematocrit 38.4 % (37-47); Base Excess ABG 0.4 mmol/L (-2.0-2.0); Blood Gas Operator Identificat AMH; Blood Gas Sample Site Brachial, right; Blood Gas Sample Type Arterial; Carboxyhemoglobin 1.2 %THgb (0.4-20.1); HCO3 ABG 24.9 mmol/L (22-26); HGB O2 Sat 89.4 % (95-100); Ionized Calcium Level - ABG 1.3 mmol/L (1.1-1.4); Methemoglobin 0.7 % (0.4-1.5); Oxygen Device NC; Oxygen Saturation ABG 91.2; PO2 ABG 56.9 mmHg (80.0-100.0); PO2 FiO2 Ratio Arterial Blood 0; Potassium Level - ABG 3.7 mmol/L (3.5-5.0); Total Hemoglobin 12.5 g/dL (12-16)
[2023-05-10 14:21] LABS: Amphetamines Screen Urine Negative (Negative); Barbiturates Screen Urine Negative (Negative); Benzodiazepines Screen Urine Negative (Negative); Cocaine Screen Urine Negative (Negative); Opiate Screen Urine Negative (Negative); PCP Screen Urine Negative (Negative); THC Screen Urine Negative (Negative)
[2023-05-10 14:28] LABS: NT Pro B Type Natriuretic Pept 1045 pg/mL (0-125); Procalcitonin 0.08 ng/mL (0-0.5); Prolactin 16.79 ng/mL (4.8-23.3); Thyroid Stimulating Hormone 2.67 uIU/mL (0.27-4.20)
--- NOTE | 2023-05-10 14:31 | PC.NURSE ---
unable to assess pt on arrival d/t AMS
[2023-05-10 14:39] LABS: Alanine Aminotransferase 7 U/L (0-33); Albumin Level 4.1 g/dL (3.5-5.2); Alkaline Phosphatase 188 U/L (35-105); Anion Gap 19.1 (5-19); Aspartate Amino Transferase 9 U/L (0-32); Blood Urea Nitrogen 19 mg/dL (8-23); C Reactive Protein 19.9 mg/L (0.0-4.9); Calcium 9.7 mg/dL (8.5-10.5); Carbon Dioxide 25 mmol/L (22-29); Chloride 98 mmol/L (98-107); Globulin 2.9 g/dL (1.3-4.6); Glucose 384 mg/dL (65-115); Magnesium 1.8 mg/dL (1.7-2.3); Osmolality Calculated 304 mOsm/kg (285-295); Potassium 4.1 mmol/L (3.5-5.1); Sodium 138 mmol/L (136-145); Total Bilirubin 0.2 mg/dL (0.15-1.2)
[2023-05-10 14:41] LABS: Alcohol Level < 10 mg/dL (0-10); Creatinine Clr Calc Pharmacy 36.9882
--- NOTE | 2023-05-10 14:41 | PC.NURSE ---
pt GCS currently 12. pt starting to become more alert, able to follow some commands. pt still altered, incoherent speech. pt able to say yup when asked where she is at.
[2023-05-10] MEDS: hyDRALAzine 20 mg/mL INJ 1 mL 10 MG IVP (14:53)
[2023-05-10] MEDS: sodium chloride 0.9% 1,000 ML 999 ML IV (14:54)
--- NOTE | 2023-05-10 15:00 | ECG_ITS ---
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 Measurements Intervals [place] Rate: 123 P: 61 AL: 162 QRS: -33 QRSD: 101 T: 68 QT: 420 QTc: 602 Interpretive Statements SINUS TACHYCARDIA LEFT AXIS DEVIATION [QRS AXIS < -30] LEFT VENTRICULAR HYPERTROPHY AND ST-T CHANGE [VOLTAGE CRITERIA PLUS ST/T ABNORMALITY] POSSIBLE ANTEROSEPTAL MYOCARDIAL INFARCTION , PROBABLY OLD [30 ms Q WAVE IN V1-V4] Compared to ECG 05/10/2023 13:52:01 Ventricular premature complex(es) no longer present ST (T wave) deviation still present Myocardial infarct finding still present Electronically Signed On 05-10-2023 15:33:27 SUPPLIER DIVERSITY DIRECTOR by Yanet Darby M.D. [email or web address].ZilloPaynorth sunflower medical centerNextworthvan [facility].[employer]/store/OM/[id number]
--- NOTE | 2023-05-10 15:01 | PC.NURSE ---
temp recheck, 100 deg. F orally
--- NOTE | 2023-05-10 15:02 | PC.NURSE ---
pt given 1L NS en route from [facility]
--- NOTE | 2023-05-10 15:02 | PC.NURSE ---
Medication Delay: Ciprofloxacin and Zithromax ordered @1424 delayed d/t needing blood cultures drawn.
[2023-05-10] MEDS: levETIRAcetam 1,000 MG/100 ML PREMIX 400 MG IV (15:07)
--- NOTE | 2023-05-10 15:09 | P.CONIM_ITS ---
Providers/Reason For Consult 2 Consulting Physician/Specialty*: dr. claros Reason for Consult*: Altered mental status, possible stroke Primary Care Provider: XIMENA Su History of Present Illness History of Present Illness I was called stat for stroke team for this 72-year-old woman who was last known well at 1030 this morning when she laid down for a nap. EMS was called because when she woke up she was confused. She was incontinent of bowel and bladder. She presented here with a temperature of 104, diffusely altered with decreased response, not answering any questions or following commands. Her white count was elevated at 15.7 with a left shift. 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 As I examined her in the emergency department Dr. Claros reported that her exam has improved. Review of Systems 2 Narrative: Temperature was 104 on arrival and she has received fluids IV. She is a long- term diabetic. She is following with Dr. Lott for bilateral Carotid stenosis and just saw him in January. She is diabetic, type II and has been a long-term heavy smoker but quit in 2020. She has peripheral vascular disease that has required stenting. She suffers from hypertension. Medications/Allergies Home Medications Medication Instructions Recorded Confirmed Last Taken Type buspirone 10 mg tablet 10 mg PO BID 10/18/19 05/10/23 05/10/23 History gabapentin 600 mg tablet 600 mg PO TID 10/18/19 05/10/23 05/10/23 History lamotrigine 200 mg tablet 200 mg PO BID 10/18/19 05/10/23 05/10/23 History Diabetic shoes with 3 inserts #1 ea 09/12/20 05/10/23 Unknown Rx aspirin 325 mg tablet,delayed 325 mg PO DAILY #30 tabs 04/22/21 05/10/23 05/10/23 Rx release cilostazol 50 mg tablet 50 mg PO BID #180 tabs 05/08/21 05/10/23 05/10/23 Rx potassium chloride 10 mEq 10 meq PO DAILY 03/20/22 05/10/23 05/10/23 History tablet,extended release pantoprazole 40 mg tablet,delayed 40 mg PO BID 30 days #60 tabs 05/06/22 05/10/23 05/10/23 Rx release furosemide 20 mg tablet (Lasix) 10 mg PO DAILY 07/01/22 05/10/23 05/10/23 History nifedipine 30 mg tablet,extended 30 mg PO DAILY #90 tabs 07/11/22 05/10/23 05/10/23 Rx release albuterol sulfate 90 mcg/actuation 2 inh inhalation Q6H PRN Shortness 01/23/23 05/10/23 Unknown History breath activated powder inhaler Of Breath Or Wheezing atorvastatin 20 mg tablet 20 mg PO BEDTIME 05/10/23 05/10/23 05/09/23 History estradiol 1 mg tablet 0.5 mg PO DAILY 05/10/23 05/10/23 05/10/23 History insulin glargine U-300 conc 300 See Rx Instructions .Route .COMPLEX 05/10/23 05/10/23 05/10/23 History unit/mL (1.5 mL) subcutaneous pen (Toujeo SoloStar U-300 Insulin) Allergies Allergy/AdvReac Type Severity Reaction Status Date / Time pentoxifylline Allergy Severe ITCHING Verified 05/10/23 14:19 Penicillins Allergy Mild unknown Verified 05/10/23 14:19 Sulfa (Sulfonamide Allergy Mild unknown Verified 05/10/23 14:19 Antibiotics) Current Medications Generic Name Dose Route Start Last Admin Trade Name Freq PRN Reason Stop Dose Admin Sodium Chloride 1,000 mls @ 999 mls/hr 05/10/23 14:11 05/10/23 14:54 Sodium Chloride 0.9% IV 05/10/23 15:11 999 mls/hr .Q1H1M ONE Administration PFSH Acute 2 PFSH: Medical History Dizziness Fever Bilateral leg weakness Hypomagnesemia Hypertension Type 2 diabetes mellitus Hyperlipemia Epilepsy FH: carotid endarterectomy Stenosis of peripheral vascular stent Surgical History H/O abdominal hysterectomy S/P knee surgery Family History Other Cancer Diabetes Heart disease Social History Smoking and tobacco/nicotine status: former use of tobacco/nicotine Quit status (tobacco/nicotine): has quit using Year quit tobacco: 2020 Former quit date comment: 6 WEEKS AGO Alcohol intake: former Substance/Drug Use: never Adopted: No service: No Current gender identity: Female Vitals/I&O/Wt Last Vital Signs Temp 100.0 F H 05/10/23 15:01 Pulse 124 H 05/10/23 13:49 BP 210/49 05/10/23 14:46 Pulse Ox 91 05/10/23 13:49 O2 Del Method Nasal Cannula 05/10/23 13:49 O2 Flow Rate 2 05/10/23 13:49 Weight last 48 hrs Weight 195 lb Physical Exam 2 Narrative: General: She looks older than her age. Lying quietly on the stretcher with oxygen in place by nasal cannula. Mental status exam: She regards the examiner and follows simple, axial commands. She does not repeat a simple phrase although she mumbles in response to my question. She could not tell me her birthdate or her age but she mumbled responses that I could not understand. She is alert. She has diffuse myoclonic jerks. Cranial nerves: Visual cox were full to threat as far as I can determine. She had full ocular movements. Facial movements were symmetric with no asymmetry of the face and tongue was midline in the mouth. Motor: She is able to keep the arms elevated for 10 seconds with myoclonic jerks. She has similar myoclonus in the legs with leg extension but she is moving all 4 extremities well with no focal weakness. Deep tendon reflexes: Plantar responses down bilaterally. Sensory: She is anesthetic to the upper shins bilaterally to sharp sensation. Coordination diffuse myoclonus. Gait not tested. HEENT: She looks puffy. Her forehead was minimally warm. Neck: Supple. Chest: Clear to auscultation. Cardiovascular: S1 and S2 normal without murmur or gallop. Extremities: No rash. Data 05/10/23 13:35 05/10/23 13:35 Micro: Microbiology 05/10/23 14:20 Blood Culture - Preliminary Blood SPECIMEN COLLECTED 05/10/23 14:15 Blood Culture - Preliminary Blood SPECIMEN COLLECTED A&P Assessment and plan (1) Toxic metabolic encephalopathy: 72-year-old woman with multiple significant health problems including peripheral vascular disease, smoking-related illness, who presents with sudden onset of encephalopathy that happened after she laid down to take a nap at 1030 this morning. We are 4-1/2 hours out of the window for treatment with thrombolytic therapy and she does not have focal neurologic findings. Her encephalopathy appears to be diffuse although her behavior is of concern for receptive aphasia. She has known left carotid stenosis. I could not demonstrate a visual field cut but she was not cooperative. She is outside the window for thrombolytic therapy and does not have enough findings to justify workup for embolectomy. I suspect she had a seizure based upon her profound sudden onset of encephalopathy, her diffuse myoclonus on exam now, elevated lactic acid and white count. Her mental status is improving. Her neck is supple and I do not think we need to obtain spinal fluid currently. She is on lamotrigine 200 mg twice daily chronically and if she took a few extra doses of lamotrigine that could explain her myoclonus. Obtain a lamotrigine level. Recommend 1000 mg of Keppra IV now to see if it helps her mental status. I would not continue it further unless there is a marked benefit. Thanks for allowing me to participate in her care. No indication for thrombolytic therapy at this time. (2) Seizure disorder: (3) Type 2 diabetes mellitus: (4) Peripheral arterial disease: (5) Carotid stenosis, left: Consult Attestations 2 Medical Necessity Statement: Profound encephalopathy of sudden onset, possible underlying seizure Critical Care Time: Critical Care Time (min): 45 Coding Level of Care Code [facility] Diagnoses Toxic metabolic encephalopathy G92.8 Seizure disorder G40.909 Type 2 diabetes mellitus E11.9 Peripheral arterial disease I73.9 Carotid stenosis, left I65.22
[2023-05-10] MEDS: azithromycin 500 MG in sodium chloride 0.9% 250 ML 250 MG IV (15:23)
[2023-05-10 15:33] LABS: Troponin(5th) Baseline 41 ng/L (0-10)
[2023-05-10 15:34] LABS: Creatine Phosphokinase 28 U/L (26-192)
[2023-05-10 15:42] LABS: Troponin 5 2HR 33.66 ng/L (0-10)
[2023-05-10 15:43] LABS: Ammonia 21 umol/L (11-51)
[2023-05-10 15:44] LABS: Reflex Lactate Order REFLEX LACTIC ORDERD
[2023-05-10 15:45] LABS: Troponin 5 2HR Delta -7.34 ABS# (0-10)
[2023-05-10 16:54] LABS: Adenovirus Not Detected (NOT DETECT); Chlamydia Pneumoniae Not Detected (NOT DETECT); Coronavirus 229E,HKU1,NL63,OC4 Not Detected (NOT DETECT); Human Metapneumovirus Not Detected (NOT DETECT); Human Rhinovirus/Enterovirus Not Detected (NOT DETECT); Influenza A Not Detected (NOT DETECT); Influenza A H1 Not Detected (NOT DETECT); Influenza A H1-2009 Not Detected (NOT DETECT); Influenza A H3 Not Detected (NOT DETECT); Influenza B Not Detected (NOT DETECT); Mycoplasma Pneumoniae Not Detected (NOT DETECT); Parainfluenza Virus Type 1 Not Detected (NOT DETECT); Parainfluenza Virus Type 2 Not Detected (NOT DETECT); Parainfluenza Virus Type 3 Not Detected (NOT DETECT); Parainfluenza Virus Type 4 Not Detected (NOT DETECT); Respiratory Syncytial Virus A Not Detected (NOT DETECT); Respiratory Syncytial Virus B Not Detected (NOT DETECT); SARS-COV-2 Not Detected (NOT DETECT)
[2023-05-10] MEDS: ciprofloxacin 400 MG/200 ML PREMIX 200 MG IV (16:59)
[2023-05-10 17:12] LABS: Lactic Acid level (Lactate) 2.6 mmol/L (0.5-2.2)
--- NOTE | 2023-05-10 17:15 | ECG_ITS ---
[facility] Test Date: 2023-05-10 Pat Name: Brenda Stone Department: Room: Gender: Female [employer]: : 1950 Requested By: Ashkan Delaney Order Number: [id number] Rosangela MD: Yanet Darby M.D. Measurements Intervals [place] Rate: 114 P: 58 AL: 165 QRS: -31 QRSD: 96 T: 74 QT: 358 QTc: 493 Interpretive Statements SINUS TACHYCARDIA LEFT AXIS DEVIATION [QRS AXIS < -30] LEFT VENTRICULAR HYPERTROPHY AND ST-T CHANGE [VOLTAGE CRITERIA PLUS ST/T ABNORMALITY] POSSIBLE ANTERIOR MYOCARDIAL INFARCTION , PROBABLY OLD [30 ms Q WAVE IN V3/V4, OR R < 0.2 mV IN V4] Compared to ECG 05/10/2023 15:20:54 No significant changes Electronically Signed On 05-11-2023 21:00:51 NEW PATIENT ESCORT by Yanet Darby M.D. [id number]
--- NOTE | 2023-05-10 18:42 | PM.HP ---
Providers/Chief Complaint Admitting Physician: Erika Cosme MD Primary Care Provider: XIMENA Su Chief Complaint: AMS History of Present Illness Brenda Stone is a 72 yo woman w/ who was brought to the EMS on 05/10/2023 for AMS. Per , patient woke up around 6am, had her morning routine, then she tried on clothes in anticipation of a planned cruise next month. Around 10:30am, she complained that she felt really cold, so the helped her back to bed and turned the heater on. Around 11:30am, she wanted to use the restroom, but she could not get out of bed. The helped her get to the bathroom, but the patient lost control of her bladder on her way to the bathroom. The states that the patient could move her feet, but he had to physically support her. He cleaned her up and got her to her recliner in the living room. The patient's then noticed that the patient was not coherent, could not recognize him, could not talk without mumbling, did not know her birthdate, and was seeing fuzzies on the carpet. With these, the called EMS. When EMS arrived, prior to putting the patient in the ambulance, she vomited; however, according to the patient's , prior to this state of AMS, the patient had not had any complaints of abdominal pain,n/v, diarrhea, constipation, melena, hematochezia, dysuria, hematuria, increased urinary urgency/freq, f/c, malaise, poor appetite, CP, palpitation, dizziness, light headedness, headaches, visual disturbances, The states that the patient has not had a grand mal seizure in ~3 years, but she gets petite seizures, where she gets confused for ~10-20secs at a time. Per , patient had just completed PT to strengthen her b/l LE. They had made plans to go to the movies today. Per ED notes, patient was given numerous IVP of Zofran arrival to the ED, and she did have loss of control of bowel and bladder. She was febrile, tachycardic and hypoxic in the ED. Her ABG was 7.42/38.8/56.9. She had a wbc of 15.7, a BG of 384 w/ an AGAP of 19. Her UA was negative for a UTI, but she had 4+ glucosuria. She was given 2L NS bolus. Her CT head was negative. Her CXR showed mild pulm vascular congestion, LLL atelectasis vs infiltrate. There was concern for a CVA vs a seizure. The Neurologist was consulted who deemed her to have had a generalized tonic clonic seizure. She was given Keppra 1g, Cipro 400mg IVP x 1, Azithromycin 500mg IV, & 1g of IV Tylenol, Review of Systems General: Reports: ROS unobtainable due to medical condition and ROS unobtainable due to mental status Medications/Allergies Home Medications Medication Instructions Recorded Confirmed Last Taken Type buspirone 10 mg tablet 10 mg PO BID 10/18/19 05/10/23 05/10/23 History gabapentin 600 mg tablet 600 mg PO TID 10/18/19 05/10/23 05/10/23 History lamotrigine 200 mg tablet 200 mg PO BID 10/18/19 05/10/23 05/10/23 History Diabetic shoes with 3 inserts #1 ea 09/12/20 05/10/23 Unknown Rx aspirin 325 mg tablet,delayed 325 mg PO DAILY #30 tabs 04/22/21 05/10/23 05/10/23 Rx release cilostazol 50 mg tablet 50 mg PO BID #180 tabs 05/08/21 05/10/23 05/10/23 Rx potassium chloride 10 mEq 10 meq PO DAILY 03/20/22 05/10/23 05/10/23 History tablet,extended release pantoprazole 40 mg tablet,delayed 40 mg PO BID 30 days #60 tabs 05/06/22 05/10/23 05/10/23 Rx release furosemide 20 mg tablet (Lasix) 10 mg PO DAILY 07/01/22 05/10/23 05/10/23 History nifedipine 30 mg tablet,extended 30 mg PO DAILY #90 tabs 07/11/22 05/10/23 05/10/23 Rx release albuterol sulfate 90 mcg/actuation 2 inh inhalation Q6H PRN Shortness 01/23/23 05/10/23 Unknown History breath activated powder inhaler Of Breath Or Wheezing atorvastatin 20 mg tablet 20 mg PO BEDTIME 05/10/23 05/10/23 05/09/23 History estradiol 1 mg tablet 0.5 mg PO DAILY 05/10/23 05/10/23 05/10/23 History insulin glargine U-300 conc 300 See Rx Instructions .Route .COMPLEX 05/10/23 05/10/23 05/10/23 History unit/mL (1.5 mL) subcutaneous pen (Toujeo SoloStar U-300 Insulin) Allergies Allergy/AdvReac Type Severity Reaction Status Date / Time pentoxifylline Allergy Severe ITCHING Verified 05/10/23 14:19 Penicillins Allergy Mild unknown Verified 05/10/23 14:19 Sulfa (Sulfonamide Allergy Mild unknown Verified 05/10/23 14:19 Antibiotics) PFSH Acute PFSH: Medical History Dizziness Fever Bilateral leg weakness Hypomagnesemia Hypertension Type 2 diabetes mellitus Hyperlipemia Epilepsy FH: carotid endarterectomy Stenosis of peripheral vascular stent Surgical History H/O abdominal hysterectomy S/P knee surgery Family History Other Cancer Diabetes Heart disease Social History Smoking and tobacco/nicotine status: former use of tobacco/nicotine Quit status (tobacco/nicotine): has quit using Year quit tobacco: 2020 Alcohol intake: former Substance/Drug Use: never Adopted: No service: No Current gender identity: Female Vitals/I&O/Wt Last Vital Signs Temp 100.0 F H 05/10/23 15:01 Pulse 115 H 05/10/23 17:00 BP 126/71 05/10/23 17:00 Pulse Ox 95 05/10/23 17:00 O2 Del Method Nasal Cannula 05/10/23 17:00 O2 Flow Rate 2 05/10/23 17:00 05/10/23 05/10/23 05/10/23 06:59 14:59 22:59 Intake Total 1350 / 1350 Balance 1350 / 1350 Weight last 48 hrs Weight 88.451 kg Physical Exam Const: GENERAL APPEARANCE: comfortable ORIENTATION/CONSCIOUSNESS: Yes oriented to person HENMT: HEAD & SCALP: normocephalic and atraumatic FACE & SINUS: normal facial exam GENERAL EAR: hearing grossly impaired EXTERNAL EAR: Yes external ears normal MOUTH: Normal oral and palatal mucosa present THROAT: posterior oropharynx normal Eye: CONJUNCTIVA: Yes conjunctivae normal PUPIL: Yes Equal, round and reactive pupils present EOM: No EOM abnormal Neck/C-Spine: GENERAL: Yes normal visual inspection and Yes trachea midline THYROID: Thyroid normal CAROTIDS: No bruit Lymph: LYMPHATIC: No lymphadenopathy Resp: OTHER: CTAB on anterior auscultation, no w/r/r Cardio: OTHER: RRR, no m/r/g/clicks. 2+ radial and 2+ DP pulses. No carotid bruits b/l GI: OTHER: BS+, non-tender, non-distended, no guarding, no rigidity, no rebound tenderness, no hepatosplenomegaly Extremity: GENERAL: No clubbing, No cyanosis and No edema Neuro: ZULEYMA COMA SCALE: document GCS findings [place] coma scale eye opening: Spontaneous [place] coma scale verbal response: Words [place] coma scale motor response: None Zuleyma coma scale total score: 8 Psych: OTHER: Unable to assess given mental status. Skin: GENERAL SKIN EXAM: no rashes or lesions noted Data 05/10/23 13:35 05/10/23 13:35 Micro: Microbiology 05/10/23 14:20 Blood Culture - Preliminary Blood SPECIMEN COLLECTED 05/10/23 14:15 Blood Culture - Preliminary Blood SPECIMEN COLLECTED A&P Assessment and plan (1) Acute encephalopathy: (2) Toxic metabolic encephalopathy: (3) Altered mental status: Qualifiers: Altered mental status type: stupor Qualified Code(s): R40.1 - Stupor (4) Seizure disorder: (5) Seizure: (6) Type 2 diabetes mellitus: Qualifiers: Diabetes mellitus computer terminal operator insulin use: unspecified shelter insulin use status Diabetes mellitus complication status: with other specified complication Qualified Code(s): E11.69 - Type 2 diabetes mellitus with other specified complication (7) Hypertension: Qualifiers: Hypertension type: primary hypertension Qualified Code(s): I10 - Essential (primary) hypertension (8) Gastroparesis: Plan Brenda Stone is a 72 yo woman w/ who was brought to the EMS on 05/10/2023 for AMS. Per ED notes, patient was given numerous IVP of Zofran arrival to the ED, and she did have loss of control of bowel and bladder. She was febrile, tachycardic and hypoxic in the ED. Her ABG was 7.42/38.8/56.9. She had a wbc of 15.7, a BG of 384 w/ an AGAP of 19. Her UA was negative for a UTI, but she had 4+ glucosuria. She was given 2L NS bolus. Her CT head was negative. Her CXR showed mild pulm vascular congestion, LLL atelectasis vs infiltrate. There was concern for a CVA vs a seizure. The Neurologist was consulted who deemed her to have had a generalized tonic clonic seizure. She was given Keppra 1g, Cipro 400mg IVP x 1, Azithromycin 500mg IV, & 1g of IV Tylenol, #Acute Encephalopathy: likely secondary to seizure. F/u #Acute hypoxic respiratory failure: Wean O2 as tolerated. #SIRS: Unclear cause. F/u BCx. Start Vanc/Cefepime. Continue Azithromycin #Possible pneumonia: CT scan w/o contrast in the AM. #Lactic acidosis: Monitor. #Generalized tonic clonic seizure, #Seizure d/o: s/p Keppra IVP x 1. Will continue. Differ EEG to Neurology. #AGAP metabolic acidosis: F/u lactic acid and BHOB. #Hyperlycemia: #IDDM2 #Diabetic gastroparesis - On Lantus qAM & qHS, medium SSI in the day and low dose SSI at night. - F/u A1c. #GERD: PPI IVP #HTN: IV Hydralazine w/ parameters. #PAD s/p b/l Iliac stents #Carotid Artery Stenosis s/p R. Carotid endarterectomy & severe L. Carotid stenosis #HLD - On Aspirin, Cilostazol, & Atorvastatin #Anxiety d/o: Hold Buspirone. DVT ppx: Lovenox. Attestations Medical Necessity Statement*: Patient is expected to be hospitalized for >2 midnights for Acute encephalopathy, Seizure, SIRS, Acute hypoxic respiratory failure. Coding Level of Care Code 05332 Diagnoses Acute encephalopathy G93.40 Toxic metabolic encephalopathy G92.8 Altered mental status R40.1 Altered mental status type: stupor Seizure disorder G40.909 Seizure R56.9 Type 2 diabetes mellitus with other specified complication, unspecified whether shelter insulin use E11.69 Diabetes mellitus computer terminal operator insulin use: unspecified computer terminal operator insulin use status Diabetes mellitus complication status: with other specified complication Primary hypertension I10 Hypertension type: primary hypertension Gastroparesis K31.84
[2023-05-10 20:10] LABS: Troponin 5 6HR 49.27 ng/L (0-10); Troponin 5 6HR Delta 8.27 ng/L (0-12)
[2023-05-10] MEDS: sodium chloride 0.9% 1,000 ML 75 ML IV (20:54)
[2023-05-10] MEDS: enoxaparin 40 mg/0.4 mL Syringe SUBCUT (20:54)
[2023-05-10] MEDS: acetaminophen 1,000 MG/100 ML PIGGYBACK 400 MG IV (21:03)
--- NOTE | 2023-05-10 21:18 | ECG_ITS ---
[facility] Test Date: 2023-05-10 Pat Name: Brenda Stone Department: Room: 258 Gender: Female [employer]: : 1950 Requested By: Ashkan Delaney Order Number: [id number] Adames MD: Yanet Darby M.D. Measurements Intervals [place] Rate: 99 P: 46 IA: 152 QRS: -25 QRSD: 99 T: 72 QT: 382 QTc: 491 Interpretive Statements SINUS RHYTHM BORDERLINE LEFT AXIS DEVIATION [QRS AXIS < -20] VOLTAGE CRITERIA FOR LVH [MEETS CRITERIA IN ONE OF: R(aVL), S(V1), R(V5), R(V5/V6)+S(V1)] NONSPECIFIC T-WAVE ABNORMALITY Compared to ECG 05/10/2023 17:15:31 T-wave abnormality now present Sinus tachycardia no longer present ST (T wave) deviation no longer present Myocardial infarct finding no longer present Electronically Signed On 05-11-2023 21:01:05 CLINICAL TRAINING SPECIALIST by Yanet Darby M.D. [id number]
[2023-05-10] MEDS: sodium chloride 0.9% 1,000 ML 250 ML IV (22:16)
[2023-05-10] MEDS: cefepime 1,000 MG in sodium chloride 0.9% (plus) 50 ML 100 MG IV (22:17)
[2023-05-10] MEDS: vancomycin 1,750 MG/350 ML PIGGYBACK 233.330000000000013 MG IV (22:18)
[2023-05-10 22:38] LABS: Glucose Point of Care 308 mg/dL (70-110)
[2023-05-10 22:54] LABS: Glucose 315 mg/dL (65-115); Lactate (Lactic Acid level) 2.2 mmol/L (0.5-2.2)
[2023-05-11] VITALS (10 sets, daily range): BP systolic 114–167; BP diastolic 59–83; PULSE 80–95; RESP 16–18; TEMP 36.7–37.4; O2SAT 90–97
[2023-05-11 02:59] LABS: Basophils # 0.1 10^3/uL (0.0-0.1); Basophils % 0.3 %; Hematocrit 34.6 % (36-47); Lymphocytes # 1.6 10^3/uL (0.8-4.8); Mean Corpuscular HGB Conc 29.8 g/dL (30-55); Mean Corpuscular Hemoglobin 25.8 pg (27-33); Mean Corpuscular Volume 86.5 fl (85-98); Mean Platelet Volume 10.8 fL (7.4-10.4); Monocytes # 1.3 10^3/uL (0.2-0.9); Monocytes % 6.6 %; Neutrophils # 16.69 10^3/uL (1.8-7.7); Neutrophils % 84.6 %; Nucleated Red Blood Cells % 0 %; Platelet Count 212 10^3/cmm (157-399); Red Cell Distribution Width 16.7 % (12.1-15.1); White Blood Count 19.71 10^3/uL (3.29-11.43)
[2023-05-11 03:11] LABS: INR 1.02 (0.8-1.2)
[2023-05-11 03:12] LABS: Partial Thromboplastin Time 33.8 SECONDS (23.9-36.7)
[2023-05-11 03:18] LABS: Estmated Average Glucose 315; Hemoglobin A1C 12.6 % (4.0-6.0)
[2023-05-11 03:24] LABS: Lactate (Lactic Acid level) 1.3 mmol/L (0.5-2.2)
[2023-05-11 03:26] LABS: Alanine Aminotransferase 11 U/L (0-33); Alkaline Phosphatase 129 U/L (35-105); Anion Gap 12.2 (5-19); Aspartate Amino Transferase 28 U/L (0-32); Blood Urea Nitrogen 20 mg/dL (8-23); Calcium 7.9 mg/dL (8.5-10.5); Carbon Dioxide 24 mmol/L (22-29); Chloride 103 mmol/L (98-107); Creatinine Clr Calc Pharmacy 34.8124; Globulin 2.1 g/dL (1.3-4.6); Glucose 268 mg/dL (65-115); Magnesium 1.8 mg/dL (1.7-2.3); Osmolality Calculated 292 mOsm/kg (285-295); Potassium 4.2 mmol/L (3.5-5.1); Sodium 135 mmol/L (136-145); Thyroid Stimulating Hormone 1.19 uIU/mL (0.27-4.20); Total Bilirubin 0.3 mg/dL (0.15-1.2); Total Protein 5.1 g/dL (6.6-8.7)
[2023-05-11] MEDS: pantoprazole 40 mg SDV IVP (06:06)
--- NOTE | 2023-05-11 06:15 | PC.PHAR ---
Telepharmacy dosed Vancomycin high Trough Vanco Initial Dosing Patient Information Sex F M/F Last Name WALL AGE 72 years First Name THANIA Miner 68 inches : 1950 ABW 88.451 kg Location: [facility] IBW 63.9 kg If loading dose given: DW 73.7204 kg Loading DOSE: 1750 mg SCr 1.7 mg/dl This Dose = 23.7 mg/kg CrCl 30.2 ml/min 1st dose Cmax: 31.2 mcg/ml Vd 55.2903 liters Time elapsed: 24.0 hrs Ke 0.029 hrs-1 Serum Conc. = 15.4 mcg/ml t1/2 24 hrs Hrs until 20 mcg/ml 16.1 hrs Hrs until 15 mcg/ml 25.9 hours Hrs until 10 mcg/ml 39.6 hours Dose Tau (Freq) Levels expected Standard 1250 24 Cmax 43.3 Targets 16.96 35.3 Cpeak 42.1 25 to 40 mg/kg hours Cmin 22.7 10 to 20
[2023-05-11 06:54] LABS: Glucose Point of Care 206 mg/dL (70-110)
[2023-05-11] MEDS: insulin glargine 100 units/1 mL 15 UNIT SUBCUT (08:08)
[2023-05-11] MEDS: acetaminophen 325 mg Tablet 650 MG PO (08:08)
[2023-05-11] MEDS: insulin lispro 100 unit/1 mL SUBCUT (08:08)
[2023-05-11] MEDS: cefepime 1,000 MG in sodium chloride 0.9% (plus) 50 ML 100 MG IV (08:09)
[2023-05-11] MEDS: HYDROmorphone 1 mg/mL INJ 1 mL 0.5 MG IVP (08:57)
--- NOTE | 2023-05-11 09:50 | PM.PN ---
Subjective Subjective: The patient is awake, alert and orientated. She tells me that she does not miss doses of her Lamotrigine, so I restarted it. This morning, she has a lot of unremitting pain in her back and butt this morning. She feels as if she is hot, but she denies any fever, chills, dizziness, light headedness, abd pain,n/v. She has not had a BM today. She has a booker cath in place draining yellow urine. She is on 2L NC O2. Today her leukocytosis is worse. She has an MOOKIE on likely CKD. Unique to her physical exam is that she has point tenderness on palpation of her T12 to Sacral spine. Vitals/I&O/Wt Last Vital Signs Temp 98.3 F 05/11/23 07:37 Pulse 89 05/11/23 07:37 Resp 18 05/11/23 07:37 BP 155/71 05/11/23 07:37 Pulse Ox 92 05/11/23 07:37 O2 Del Method Room Air 05/11/23 07:37 O2 Flow Rate 2 05/11/23 04:28 05/10/23 05/11/23 05/11/23 22:59 06:59 14:59 Intake Total 1768.75 / 1768.75 1400 / 3168.75 50 / 50 Output Total 1050 / 1050 Balance 1768.75 / 1768.75 350 / 2118.75 50 / 50 Weight last 48 hrs Weight 92.221 kg Weight 88.451 kg Physical Exam Const: GENERAL APPEARANCE: comfortable ORIENTATION/CONSCIOUSNESS: Yes oriented to person HENMT: COMMON NORMALS: normocephalic, atraumatic and external ears normal HEAD & SCALP: normocephalic and atraumatic FACE & SINUS: normal facial exam GENERAL EAR: hearing grossly impaired EXTERNAL EAR: Yes external ears normal MOUTH: Normal oral and palatal mucosa present THROAT: posterior oropharynx normal Eye: COMMON NORMALS: Equal, round and reactive pupils present and conjunctivae normal CONJUNCTIVA: Yes conjunctivae normal PUPIL: Yes Equal, round and reactive pupils present EOM: No EOM abnormal Neck/C-Spine: COMMON NORMALS: Thyroid normal GENERAL: Yes normal visual inspection and Yes trachea midline THYROID: Thyroid normal CAROTIDS: No bruit Lymph: LYMPHATIC: No lymphadenopathy Resp: OTHER: CTAB on anterior auscultation, no w/r/r Cardio: OTHER: RRR, no m/r/g/clicks. 2+ radial and 2+ DP pulses. No carotid bruits b/l GI: OTHER: BS+, non-tender, non-distended, no guarding, no rigidity, no rebound tenderness, no hepatosplenomegaly Back/Pelvis: OTHER: point tenderness on palpation of her T12 to Sacral spine. Extremity: GENERAL: No clubbing, No cyanosis and No edema Neuro: ZULEYMA COMA SCALE: document GCS findings Zuleyma coma scale eye opening: Spontaneous [place] coma scale verbal response: Words [place]yma coma scale motor response: None [place] coma scale total score: 8 SENSORIUM/ORIENTATION: Yes oriented to person Psych: OTHER: Unable to assess given mental status. Skin: COMMON NORMALS: no rashes or lesions noted GENERAL SKIN EXAM: no rashes or lesions noted Urinary Catheter Management: Booker Latex: Cath Placed During This Visit: yes Reason for Continuing Indwelling Catheter: Other Urinary Catheter Date of Insertion: 05/10/23 Urinary Catheter Time of Insertion: 21:55 Data 05/11/23 02:38 05/11/23 02:38 Micro: Microbiology 05/10/23 14:20 Blood Culture - Preliminary Blood SPECIMEN COLLECTED 05/10/23 14:15 Blood Culture - Preliminary Blood SPECIMEN COLLECTED A&P Assessment and plan (1) Acute encephalopathy: (2) Toxic metabolic encephalopathy: (3) Altered mental status: Qualifiers: Altered mental status type: stupor Qualified Code(s): R40.1 - Stupor (4) Seizure disorder: (5) Seizure: (6) Type 2 diabetes mellitus: Qualifiers: Diabetes mellitus complication status: with other specified complication Diabetes mellitus termite control servicer insulin use: unspecified assisted insulin use status Qualified Code(s): E11.69 - Type 2 diabetes mellitus with other specified complication (7) Hypertension: Qualifiers: Hypertension type: primary hypertension Qualified Code(s): I10 - Essential (primary) hypertension (8) Gastroparesis: Plan Brenda Stone is a 72 yo woman w/ seizure d/o, IDDM2, PAD s/p b/l iliac stents who was brought to the EMS on 05/10/2023 for AMS. Per ED notes, patient was given numerous IVP of Zofran arrival to the ED, and she did have loss of control of bowel and bladder. She was febrile, tachycardic and hypoxic in the ED. Her ABG was 7.42/38.8/56.9. She had a wbc of 15.7, a BG of 384 w/ an AGAP of 19. Her UA was negative for a UTI, but she had 4+ glucosuria. She was given 2L NS bolus. Her CT head was negative. Her CXR showed mild pulm vascular congestion, LLL atelectasis vs infiltrate. There was concern for a CVA vs a seizure. The Neurologist was consulted who deemed her to have had a generalized tonic clonic seizure. She was given Keppra 1g, Cipro 400mg IVP x 1, Azithromycin 500mg IV, & 1g of IV Tylenol, #Acute Encephalopathy: likely secondary to seizure. F/u #Acute hypoxic respiratory failure: Wean O2 as tolerated. #Sepsis: Unclear cause. F/u BCx. Start Vanc/Cefepime. Continue Azithromycin #ALEJANDRA pneumonia: noted on CT scan w/o contrast in the AM. F/u w/ CT chest in 3 months to r/o malignancy. #Lactic acidosis: Monitor. #Generalized tonic clonic seizure, #Seizure d/o: s/p Keppra IVP x 1. Will continue. Differ EEG to Neurology. #AGAP metabolic acidosis: F/u lactic acid and BHOB. #MOOKIE on CKD: Continue IVF. #Concern for Osteomyelitis: ESR of 19. CRP of 120. Consider discussion w/ Radiology to decide on the best image to evaluate for Osteomyelitis in the setting of an MOOKIE. #Hyperlycemia: #IDDM2 #Diabetic gastroparesis - On Lantus qAM & qHS, low dose SSI in the day and low dose SSI at night. - A1c of 12.6 on 05/11/2023. #GERD: PPI IVP #HTN: IV Hydralazine w/ parameters. Resume home meds. #PAD s/p b/l Iliac stents #Carotid Artery Stenosis s/p R. Carotid endarterectomy & severe L. Carotid stenosis #HLD - On Aspirin, Cilostazol, & Atorvastatin #Anxiety d/o: Hold Buspirone. DVT ppx: Lovenox. Attestations Medical Necessity Statement*: Patient needs to remain hospitalized for Encephalopathy, MOOKIE, unexplained leukocytosis and acute back pain concerning for Osteomyelitis. Coding Level of Care Code 98496 Diagnoses Acute encephalopathy G93.40 Toxic metabolic encephalopathy G92.8 Altered mental status R40.1 Altered mental status type: stupor Seizure disorder G40.909 Seizure R56.9 Type 2 diabetes mellitus with other specified complication, unspecified whether assisted insulin use E11.69 Diabetes mellitus complication status: with other specified complication Diabetes mellitus termite control servicer insulin use: unspecified termite control servicer insulin use status Primary hypertension I10 Hypertension type: primary hypertension Gastroparesis K31.84
[2023-05-11 11:08] LABS: Erythrocyte Sedimentation Rate 19 mm/hr (0-15)
--- NOTE | 2023-05-11 11:21 | CTR_ITS ---
PROCEDURE INFORMATION: Exam: CT Chest Without Contrast; Diagnostic Exam date and time: 05/11/2023 1:18 PM Age: 72 years old Clinical indication: Abnormal findings; Abnormal lab test; Elevated wbc; Patient HX: Leukocytosis TECHNIQUE: Imaging protocol: Diagnostic computed tomography of the chest without contrast. Radiation optimization: All CT scans at this facility use at least one of these dose optimization techniques: automated exposure control; mA and/or kV adjustment per patient size (includes targeted exams where dose is matched to clinical indication); or iterative reconstruction. COMPARISON: CR (CHEST, ) 05/10/2023 2:19 PM RADIATION DOSE METRICS: Total DLP (mGy-cm): 1210.54 FINDINGS: Thyroid: No significant thyroid pathology. Lungs: Localized area of airspace consolidation is located in the posterolateral aspect of the left upper lobe abutting the posterolateral pleural and fissural surfaces. Within this area there is an area of nodular opacity measuring 2.0 x 1.4 cm on series 6, image 21. Severe pulmonary emphysema. Bilateral lower lobe scarring or atelectasis. Pleural spaces: Trace bilateral pleural effusion. Heart: Unremarkable. No cardiomegaly. No pericardial effusion. Coronary arteries: Coronary artery calcifications. Lymph nodes: No enlarged nodes by criteria. Vasculature: No evidence of thoracic aortic aneurysm. Diaphragm: Small hiatal hernia. Bones/joints: Mild degenerative change present in the spine. Soft tissues: Unremarkable. COMMENTS: The presence of pulmonary emphysema on CT is an independent risk factor for lung cancer. In the absence of a history or active diagnosis of lung cancer, it is recommended that this patient with emphysema be evaluated for enrollment in a low dose CT lung cancer screening program. PROCEDURE INFORMATION: Exam: CT Abdomen And Pelvis Without Contrast Exam date and time: 05/11/2023 1:18 PM Age: 72 years old Clinical indication: Abnormal findings; Abnormal lab test; Elevated wbc; Patient HX: Leukocytosis TECHNIQUE: Imaging protocol: Computed tomography of the abdomen and pelvis without contrast. Radiation optimization: All CT scans at this facility use at least one of these dose optimization techniques: automated exposure control; mA and/or kV adjustment per patient size (includes targeted exams where dose is matched to clinical indication); or iterative reconstruction. COMPARISON: CT abdomen pelvis w con* [id number] 05/04/2022 6:35 PM RADIATION DOSE METRICS: Total DLP (mGy-cm): 1210.54 FINDINGS: Lungs: Visualized lung bases are free of significant pathology. Diaphragm: Small hiatal hernia. Liver: Hepatic steatosis. Gallbladder and bile ducts: Prior cholecystectomy. No biliary dilatation. Pancreas: No significant pancreatic pathology. Spleen: No significant splenic pathology. Adrenal glands: No significant adrenal pathology. Kidneys and ureters: Asymmetric left renal cortical atrophy. Right kidney unremarkable. Stomach and bowel: Colonic diverticulosis without evidence of focal inflammatory change. Moderate amount of colonic stool. Interval resolution of small bowel fold and wall thickening seen on prior study. Appendix: No appendiceal pathology evident. Intraperitoneal space: No ascites. Vasculature: No abdominal aortic aneurysm. Lymph nodes: No enlarged nodes by criteria. Urinary bladder: Urinary bladder is decompressed by Rodriguez catheter limiting assessment of the wall. Reproductive: Prior hysterectomy. No significant adnexal pathology. Bones/joints: No significant bony pathology. Soft tissues: Small fat containing umbilical hernia. Small bilateral fat containing inguinal hernias. Findings consistent with pelvic floor laxity. CT/[place] [id number] IMPRESSION: 1. Localized area of airspace consolidation in the posterolateral aspect of the left upper lobe most likely representing infectious/inflammatory pathology. Given partial nodular morphology as described above, posttreatment follow-up in 3 months is recommended to exclude underlying fixed pathology including neoplasm. 2. Severe pulmonary emphysema and trace pleural effusions. IMPRESSION: 1. No acute abdominopelvic pathology. 2. Minor findings described above.
[2023-05-11 11:50] LABS: Glucose Point of Care 68 mg/dL (70-110)
[2023-05-11] MEDS: lamoTRIgine 100 mg Tablet 200 MG PO ×2 (12:43→16:52)
[2023-05-11] MEDS: SODIUM CHLORIDE 0.9% IV (12:44)
[2023-05-11] MEDS: CEFEPIME IV (12:44)
[2023-05-11] MEDS: sodium chloride 0.9% 1,000 ML 75 ML IV (13:40)
[2023-05-11] MEDS: azithromycin 500 MG in sodium chloride 0.9% 250 ML 250 MG IV (15:45)
[2023-05-11] MEDS: pantoprazole DR 40 mg Tablet PO (15:46)
[2023-05-11] MEDS: HYDROmorphone 1 mg/mL INJ 1 mL IVP ×2 (15:53→21:11)
[2023-05-11 16:18] LABS: Glucose Point of Care 106 mg/dL (70-110)
[2023-05-11] MEDS: BuSPIRONE 10 mg Tablet PO (16:52)
[2023-05-11 20:47] LABS: Glucose Point of Care 125 mg/dL (70-110)
[2023-05-11] MEDS: insulin glargine 100 units/1 mL 10 UNIT SUBCUT (20:58)
[2023-05-11] MEDS: enoxaparin 40 mg/0.4 mL Syringe SUBCUT (20:58)
[2023-05-11] MEDS: cefepime 2,000 MG in sodium chloride 0.9% (plus) 50 ML 100 MG IV (23:18)
[2023-05-11] MEDS: vancomycin 1,250 MG/250 ML PIGGYBACK 250 MG IV (23:19)
[2023-05-12] VITALS (11 sets, daily range): BP systolic 155–201; BP diastolic 68–80; PULSE 59–97; RESP 14–23; TEMP 36.3–36.7; O2SAT 91–98
[2023-05-12] MEDS: HYDROmorphone 1 mg/mL INJ 1 mL IVP (02:32)
[2023-05-12] MEDS: ondansetron 2 mg/ML SDV 2 mL 4 MG IVP ×2 (03:12→04:30)
[2023-05-12 04:01] LABS: Basophils # 0.1 10^3/uL (0.0-0.1); Basophils % 0.3 %; Eosinophils % 0.1 %; Hematocrit 35.5 % (36-47); Lymphocytes # 1.6 10^3/uL (0.8-4.8); Lymphocytes % 10.9 %; Mean Corpuscular HGB Conc 29.3 g/dL (30-55); Mean Corpuscular Hemoglobin 26.1 pg (27-33); Mean Corpuscular Volume 89.2 fl (85-98); Mean Platelet Volume 11.5 fL (7.4-10.4); Monocytes # 0.8 10^3/uL (0.2-0.9); Monocytes % 5.6 %; Neutrophils # 12.17 10^3/uL (1.8-7.7); Neutrophils % 82.6 %; Nucleated Red Blood Cells % 0 %; Platelet Count 159 10^3/cmm (157-399); Red Blood Count 3.98 10^6/uL (3.85-5.65); White Blood Count 14.74 10^3/uL (3.29-11.43)
[2023-05-12 04:04] LABS: Glucose Point of Care 115 mg/dL (70-110)
[2023-05-12 04:20] LABS: Alanine Aminotransferase 14 U/L (0-33); Albumin Level 2.9 g/dL (3.5-5.2); Alkaline Phosphatase 149 U/L (35-105); Blood Urea Nitrogen 15 mg/dL (8-23); Calcium 8.4 mg/dL (8.5-10.5); Carbon Dioxide 21 mmol/L (22-29); Chloride 112 mmol/L (98-107); Creatinine Clr Calc Pharmacy 46.4551; Globulin 2.7 g/dL (1.3-4.6); Glucose 97 mg/dL (65-115); Osmolality Calculated 295 mOsm/kg (285-295); Phosphorus 2.4 mg/dL (2.5-4.5); Sodium 142 mmol/L (136-145); Total Bilirubin 0.2 mg/dL (0.15-1.2); Total Protein 5.6 g/dL (6.6-8.7)
--- NOTE | 2023-05-12 04:26 | PC.NURSE ---
Patient complained of pain and dilaudid was given. Shortly after, patient became very hot, dizzy, and nauseous. Patient began puking green bile. Patient was given 4mg zofran. Zofran did not help. Patient was cleaned up. Patient's blood pressure is reading 201/79 and a heart rate of 99, patient has a history of hypertension and takes 30mg nifedipine po daily but has not been receiving home medication. Patient's blood pressure has not been that high this stay. Patient is still having nausea and vomiting as well.
[2023-05-12 04:28] LABS: Aspartate Amino Transferase 32 U/L (0-32)
[2023-05-12] MEDS: dilTIAZem 30 mg Tablet PO (04:30)
[2023-05-12] MEDS: sodium chloride 0.9% 1,000 ML 75 ML IV (04:31)
[2023-05-12] MEDS: pantoprazole 40 mg SDV IVP (06:15)
[2023-05-12 06:46] LABS: Glucose Point of Care 138 mg/dL (70-110)
[2023-05-12] MEDS: lamoTRIgine 100 mg Tablet 200 MG PO ×2 (08:26→17:45)
[2023-05-12] MEDS: dilTIAZem ER (24HR) 120 mg Capsule PO (08:27)
[2023-05-12] MEDS: BuSPIRONE 10 mg Tablet PO ×2 (08:27→17:47)
--- NOTE | 2023-05-12 09:09 | PC.SOCIAL ---
IMM Update pg 2 of IMM updated and reviewed w/ patient. Copy provided and copy dated, initialed and placed in chart.
[2023-05-12] MEDS: ondansetron 2 mg/ML SDV 2 mL 8 MG IVP (10:03)
--- NOTE | 2023-05-12 10:48 | PC.CHAP ---
Pastoral Care Encounter/Spiritual Assessment Type of Contact [] Declined database security administrator visit [] Patient/Family/Request visit [] Outpatient visit [] Follow-up visit [] Physician referral [] Code/Alert [x] Routine visit [] Staff referral [] Actively dying [] Patient sleeping [x] Family support [] [] Out of room [] Palliative care [] [] Receiving care in room [] Pre-surgical visit [] Trauma [] Long length of stay [] ICU visit [] Other: Relational/Emotional Strength [] Patient feels connected with others/family/visitors/staff [] Distress [] Loneliness/isolation [] Abandonment Spirituality of Patient [x] Person of Татьяна [] Attends Temple of their Татьяна [x] Believes in Prayer [] Reads Bible or Yarsani materials [] There are Spiritual issues to be addressed Plastic Surgery Nurse Interventions [x] Prayer [x] Active listening [x] Non-anxious presence [x] Spiritual/emotional support [] Crisis/trauma care [] Spiritual counseling [] Bereavement support [] Provided bereavement packet [] Provided Bible/devotional materials [] Provided toy/stuffed animal, coloring book to patient or family member [] Provided Communion [] Anointing/[facility] [] Salvation [x] Completed spiritual assessment [] Other: Impact on Illness or Injury [] Angry [] Fearful [] Anxious [] Often cries [] Exhaustion [] Unable to work [] Unable to attend nondenominational [] Unable to walk/stand [] Unable to read [] Unable to drive [] Unable to eat/drink [] Unable to sleep [] Unable to be with family [] Patient intubated [] Other: Summary Time spent with patient 10 min
[2023-05-12 11:18] LABS: Creatine Phosphokinase 1188 U/L (26-192)
[2023-05-12] MEDS: cefepime 2,000 MG in sodium chloride 0.9% (plus) 50 ML 100 MG IV (11:33)
[2023-05-12] MEDS: HYDROcodone-acetaminophen 5-325 mg Tablet 1 TAB PO (11:33)
[2023-05-12 11:38] LABS: Glucose Point of Care 150 mg/dL (70-110)
--- NOTE | 2023-05-12 11:50 | CTR_ITS ---
PROCEDURE INFORMATION: Exam: CT Thoracic Spine Without Contrast Exam date and time: 05/12/2023 3:48 PM Age: 72 years old Clinical indication: Pain in thoracic spine; Additional info: Severe back pain TECHNIQUE: Imaging protocol: Computed tomography of the thoracic spine without contrast. Radiation optimization: All CT scans at this facility use at least one of these dose optimization techniques: automated exposure control; mA and/or kV adjustment per patient size (includes targeted exams where dose is matched to clinical indication); or iterative reconstruction. COMPARISON: MR thoracic spine wo/w [id number] 01/19/2022 8:50 PM RADIATION DOSE METRICS: Total DLP (mGy-cm): 913 FINDINGS: Bones/joints: The bony structures demonstrate diffuse osteopenia. Vertebral body spurring can be seen at multiple levels. Soft tissues: Unremarkable. Pleural spaces: Small bilateral pleural effusions are noted along with bibasilar atelectasis. CT/CT thoracic spin wo con* [id number] IMPRESSION: 1. I see no acute bony abnormality. 2. Osteoporosis 3. Multilevel vertebral body spurring 4. Bilateral pleural effusions
--- NOTE | 2023-05-12 11:51 | CTR_ITS ---
PROCEDURE INFORMATION: Exam: CT Lumbar Spine Without Contrast Exam date and time: 05/12/2023 3:48 PM Age: 72 years old Clinical indication: Low back pain; Additional info: Severe back pain TECHNIQUE: Imaging protocol: Computed tomography of the lumbar spine without contrast. Radiation optimization: All CT scans at this facility use at least one of these dose optimization techniques: automated exposure control; mA and/or kV adjustment per patient size (includes targeted exams where dose is matched to clinical indication); or iterative reconstruction. COMPARISON: MR lumbar spine wo/w con [id number] 01/19/2022 7:55 PM RADIATION DOSE METRICS: Total DLP (mGy-cm): 966 FINDINGS: Bones/joints: The bony structures demonstrate diffuse osteopenia. Facet arthropathy can be seen at multiple levels. No fracture noted. Mild disc bulges are noted at L4-L5 and L5-S1. Soft tissues: Unremarkable. CT/CT lumbar spine wo con* [id number] IMPRESSION: 1. I see no acute abnormality. 2. Osteoporosis 3. Multilevel facet arthropathy 4. Bulging discs at L4-L5 and L5-S1
[2023-05-12] MEDS: sodium chloride 0.9% 1,000 ML 100 ML IV (12:35)
[2023-05-12] MEDS: insulin lispro 100 unit/1 mL SUBCUT ×2 (12:35→21:38)
--- NOTE | 2023-05-12 12:51 | P.PN_ITS ---
Subjective 2 Subjective: Patient was seen this morning, family members are at bedside, she is complaining of very severe back pain, she reports generalized weakness, she is alert to person, place, not to time, she seems a bit confused to me, but family members at bedside tell me that this is the norm for her, whenever she has had a big seizure episode, for a few days she is confused, and then she goes back to normal, she tells me that throughout the day on a good day she has petit mall seizures throughout the day, they have tried multiple medications for her but they have not ever found a working solution and she typically lives like this, at home she is ambulatory, she has not been ambulatory for at least this last 72 hours, she has not had anything to eat or drink for the last 72 hours that she has been n.p.o., she denies any chest pain, no shortness of breath no abdominal pain, but just complains of severe back pain she has exquisite point tenderness throughout her thoracic and lumbar spine, her CT chest abdomen pelvis was discussed with family that shows a left upper lobe posterior lateral pneumonia, likely from aspiration, patient and family is unsure if she has physical therapy see her yesterday, patient is quite uncomfortable in bed currently, she is restless, family help reposition her, I did examine her spine, I cannot discern any skin breakdown, but she does have tenderness throughout the lower lumbar and thoracic spine Vitals/I&O/Wt Last Vital Signs Temp 97.7 F 05/12/23 12:00 Pulse 77 05/12/23 12:00 Resp 18 05/12/23 12:00 BP 183/77 05/12/23 12:00 Pulse Ox 98 05/12/23 12:00 O2 Del Method Nasal Cannula 05/12/23 12:00 O2 Flow Rate 2 05/12/23 08:18 05/11/23 05/12/23 05/12/23 22:59 06:59 14:59 Intake Total 330 / 1207.5 1300 / 2507.5 290 / 290 Output Total 950 / 950 600 / 1550 450 / 450 Balance -620 / 257.5 700 / 957.5 -160 / -160 Weight last 48 hrs Weight 87.725 kg Weight 92.221 kg Weight 88.451 kg Physical Exam 2 Const: COMMON NORMALS: no acute distress ORIENTATION/CONSCIOUSNESS: Yes awake, Yes oriented to person and Yes oriented to place; not oriented to time Resp: COMMON NORMALS: normal respiratory effort, No retractions, No use of accessory muscles and clear to auscultation bilaterally AUSCULTATION: clear to auscultation bilaterally Cardio: COMMON NORMALS: regular rate, regular rhythm, S1 normal heart sound present and S2 normal heart sound present RATE: regular rate RHYTHM: r egular rhythm HEART SOUNDS: S1 normal heart sound present and S2 normal heart sound present GI: COMMON NORMALS: Normal to inspection, nondistended, normoactive bowel sounds present and non-tender Extremity: COMMON NORMALS: no pedal edema Neuro: SENSORIUM/ORIENTATION: Yes oriented to person, Yes oriented to place and No oriented to time Psych: COMMON NORMALS: mental status grossly normal Urinary Catheter Management: Rodriguez Latex: Cath Placed During This Visit: yes Reason for Continuing Indwelling Catheter: Acute Urinary Retention or Obstruction Urinary Catheter Date of Insertion: 05/10/23 Urinary Catheter Time of Insertion: 21:55 Data 05/12/23 03:04 05/12/23 03:04 Micro: Microbiology 05/10/23 14:20 Blood Culture - Preliminary Blood NEGATIVE TO DATE 05/10/23 14:15 Blood Culture - Preliminary Blood NEGATIVE TO DATE A&P Assessment and plan (1) Acute encephalopathy: (2) Toxic metabolic encephalopathy: (3) Altered mental status: Qualifiers: Altered mental status type: stupor Qualified Code(s): R40.1 - Stupor (4) Seizure disorder: (5) Seizure: (6) Type 2 diabetes mellitus: Qualifiers: Diabetes mellitus long-term insulin use: unspecified terminal superintendent insulin use status Diabetes mellitus complication status: with other specified complication Qualified Code(s): E11.69 - Type 2 diabetes mellitus with other specified complication (7) Hypertension: Qualifiers: Hypertension type: primary hypertension Qualified Code(s): I10 - Essential (primary) hypertension (8) Gastroparesis: (9) PNA (pneumonia): (10) Rhabdomyolysis: (11) Intractable back pain: Plan Brneda Stone is a 72 yo woman w/ seizure d/o, IDDM2, PAD s/p b/l iliac stents who was brought to the EMS on 05/10/2023 for AMS. Per ED notes, patient was given numerous IVP of Zofran arrival to the ED, and she did have loss of control of bowel and bladder. She was febrile, tachycardic and hypoxic in the ED. Her ABG was 7.42/38.8/56.9. She had a wbc of 15.7, a BG of 384 w/ an AGAP of 19. Her UA was negative for a UTI, but she had 4+ glucosuria. She was given 2L NS bolus. Her CT head was negative. Her CXR showed mild pulm vascular congestion, LLL atelectasis vs infiltrate. There was concern for a CVA vs a seizure. The Neurologist was consulted who deemed her to have had a generalized tonic clonic seizure. She was given Keppra 1g, Cipro 400mg IVP x 1, Azithromycin 500mg IV, & 1g of IV Tylenol, #Acute Encephalopathy: According to family back to her baseline, according to family she has several petit mall seizures throughout the day, and a few days after her grand mal seizures she has episodes of confusion, currently alert oriented x 2, following all commands #Acute hypoxic respiratory failure: Wean O2 as tolerated. #Sepsis: Likely secondary to left upper lobe pneumonia, posterior lateral lobe, continue vancomycin, cefepime, discontinue azithromycin #ALEJANDRA pneumonia: noted on CT scan w/o contrast in the AM. F/u w/ CT chest in 3 months to r/o malignancy. #Lactic acidosis: Monitor. #Generalized tonic clonic seizure, #Seizure d/o: s/p Keppra IVP x 1. Will continue. Differ EEG to Neurology. #AGAP metabolic acidosis: Monitor #MOOKIE on CKD: Continue IVF. # Intractable back pain, with ESR of 19, tenderness throughout thoracic lumbar spine, immobility: Will order CT lumbar spine, thoracic spine, pain control # Rhabdomyolysis, IV fluids, monitor CPK # History of grand mal seizures, # Has petit mall seizures throughout the day, which is ordinary for patient, that according to family has been resistant to most treatment, it was recommended for patient to have neurosurgery for the seizures however patient declined #Hyperlycemia: #IDDM2 #Diabetic gastroparesis - On Lantus qAM & qHS, low dose SSI in the day and low dose SSI at night. - A1c of 12.6 on 05/11/2023. #GERD: PPI IVP #HTN: Blood pressures have been elevated today, start clonidine point 1 twice daily #PAD s/p b/l Iliac stents #Carotid Artery Stenosis s/p R. Carotid endarterectomy & severe L. Carotid stenosis #HLD, statin currently on hold given rhabdomyolysis - On Aspirin, Cilostazol, #Anxiety d/o: Resume BuSpar DVT ppx: Lovenox. Plan for today, up out of bed, PT OT, speech therapy eval, start clear liquid diet, resume Keppra 500 twice daily for pneumonia continue vancomycin, cefepime, continues to have severe intractable back pain, pain control, CT dedicated lumbar and thoracic spine, up out of bed, monitor electrolytes, monitor CPK, IV fluids Attestations 2 Medical Necessity Statement*: Patient requires hospitalization, for acute encephalopathy, pneumonia, rhabdomyolysis, seizures, intractable back pain, Diagnoses Acute encephalopathy G93.40 Toxic metabolic encephalopathy G92.8 Altered mental status R40.1 Altered mental status type: stupor Seizure disorder G40.909 Seizure R56.9 Type 2 diabetes mellitus with other specified complication, unspecified whether terminal superintendent insulin use E11.69 Diabetes mellitus terminal superintendent insulin use: unspecified terminal superintendent insulin use status Diabetes mellitus complication status: with other specified complication Primary hypertension I10 Hypertension type: primary hypertension Gastroparesis K31.84 PNA (pneumonia) J18.9 Rhabdomyolysis M62.82 Intractable back pain M54.9
[2023-05-12] MEDS: cloNIDine 0.1 mg Tablet 0.100000000000000006 MG PO ×2 (15:04→17:45)
[2023-05-12] MEDS: gabapentin 300 mg Capsule 600 MG PO ×2 (15:04→21:37)
[2023-05-12] MEDS: cefepime 1,000 MG in sodium chloride 0.9% (plus) 50 ML 100 MG IV (15:10)
[2023-05-12 16:16] LABS: Glucose Point of Care 133 mg/dL (70-110)
[2023-05-12] MEDS: levETIRAcetam 500 mg Tablet PO (17:45)
[2023-05-12] MEDS: pantoprazole DR 40 mg Tablet PO (17:45)
[2023-05-12] MEDS: cilostazol 100 mg Tablet 50 MG PO (17:47)
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
[2023-05-12 21:29] LABS: Glucose Point of Care 192 mg/dL (70-110)
[2023-05-12] MEDS: insulin glargine 100 units/1 mL 10 UNIT SUBCUT (21:37)
[2023-05-12] MEDS: enoxaparin 40 mg/0.4 mL Syringe SUBCUT (21:38)
[2023-05-12] MEDS: vancomycin 1,250 MG/250 ML PIGGYBACK 250 MG IV (22:31)
[2023-05-13] VITALS (11 sets, daily range): BP systolic 111–150; BP diastolic 58–77; PULSE 62–71; RESP 16–18; TEMP 36.4–36.8; O2SAT 93–99; BMI 31.4
[2023-05-13] MEDS: HYDROcodone-acetaminophen 5-325 mg Tablet 1 TAB PO ×2 (00:54→11:06)
[2023-05-13] MEDS: cefepime 1,000 MG in sodium chloride 0.9% (plus) 50 ML 100 MG IV ×2 (01:00→14:56)
[2023-05-13] MEDS: sodium chloride 0.9% 1,000 ML 100 ML IV ×2 (03:54→14:56)
[2023-05-13 05:48] LABS: Basophils % 0.4 %; Eosinophils # 0.1 10^3/uL (0.0-0.8); Eosinophils % 0.9 %; Hematocrit 30.7 % (36-47); Lymphocytes # 1.1 10^3/uL (0.8-4.8); Lymphocytes % 13.7 %; Mean Corpuscular HGB Conc 28.7 g/dL (30-55); Mean Corpuscular Volume 90.8 fl (85-98); Mean Platelet Volume 10.6 fL (7.4-10.4); Monocytes # 0.5 10^3/uL (0.2-0.9); Monocytes % 6.1 %; Neutrophils # 6.06 10^3/uL (1.8-7.7); Neutrophils % 78.5 %; Nucleated Red Blood Cells % 0 %; Platelet Count 175 10^3/cmm (157-399); Red Blood Count 3.38 10^6/uL (3.85-5.65); Red Cell Distribution Width 16.8 % (12.1-15.1); White Blood Count 7.72 10^3/uL (3.29-11.43)
[2023-05-13 06:03] LABS: Alanine Aminotransferase 10 U/L (0-33); Albumin Level 2.3 g/dL (3.5-5.2); Alkaline Phosphatase 122 U/L (35-105); Anion Gap 12.6 (5-19); Aspartate Amino Transferase 15 U/L (0-32); Blood Urea Nitrogen 14 mg/dL (8-23); Calcium 7.8 mg/dL (8.5-10.5); Carbon Dioxide 22 mmol/L (22-29); Chloride 109 mmol/L (98-107); Creatinine Clr Calc Pharmacy 49.1233; Globulin 2.7 g/dL (1.3-4.6); Glucose 133 mg/dL (65-115); Magnesium 2.2 mg/dL (1.7-2.3); Osmolality Calculated 292 mOsm/kg (285-295); Phosphorus 2.1 mg/dL (2.5-4.5); Potassium 3.6 mmol/L (3.5-5.1); Sodium 140 mmol/L (136-145); Total Bilirubin 0.3 mg/dL (0.15-1.2)
[2023-05-13] MEDS: pantoprazole DR 40 mg Tablet PO ×2 (06:13→17:13)
[2023-05-13 07:20] LABS: Glucose Point of Care 114 mg/dL (70-110)
[2023-05-13] MEDS: cilostazol 100 mg Tablet 50 MG PO ×2 (08:32→17:12)
[2023-05-13] MEDS: gabapentin 300 mg Capsule 600 MG PO ×3 (08:32→21:12)
[2023-05-13] MEDS: levETIRAcetam 500 mg Tablet PO ×2 (08:32→17:12)
[2023-05-13] MEDS: lamoTRIgine 100 mg Tablet 200 MG PO ×2 (08:32→17:12)
[2023-05-13] MEDS: BuSPIRONE 10 mg Tablet PO ×2 (08:32→17:12)
[2023-05-13] MEDS: dilTIAZem ER (24HR) 120 mg Capsule PO (08:32)
[2023-05-13] MEDS: cloNIDine 0.1 mg Tablet 0.100000000000000006 MG PO ×2 (08:32→17:12)
[2023-05-13] MEDS: aspirin 325 mg EC Tablet PO (08:32)
[2023-05-13] MEDS: insulin glargine 100 units/1 mL 15 UNIT SUBCUT (08:36)
[2023-05-13 08:45] LABS: Creatine Phosphokinase 376 U/L (26-192)
[2023-05-13] MEDS: insulin lispro 100 unit/1 mL SUBCUT ×3 (11:06→21:12)
[2023-05-13 11:30] LABS: Glucose Point of Care 202 mg/dL (70-110)
--- NOTE | 2023-05-13 13:39 | P.PN_ITS ---
Subjective 2 Subjective: Patient was seen this morning, family members at bedside she is alert oriented x 3, following all commands, she tells me that her back pain is significantly improved, we discussed her lumbar disc herniation in her lower lumbar spine as likely etiology, she does report that her diffuse musculoskeletal pain has improved we discussed her at her rhabdomyolysis as a cause, she tells me that she was able to ambulate with physical therapy, a better able to ambulate this morning, have actually able to go to the bathroom, she does want to try something more substantial, does continue to complain of generalized weakness and fatigue Vitals/I&O/Wt Last Vital Signs Temp 97.5 F L 05/13/23 10:55 Pulse 65 05/13/23 10:55 Resp 17 05/13/23 10:55 BP 141/77 05/13/23 10:55 Pulse Ox 94 05/13/23 10:55 O2 Del Method Nasal Cannula 05/13/23 10:55 O2 Flow Rate 2 05/13/23 10:55 05/12/23 05/13/23 05/13/23 22:59 06:59 14:59 Intake Total 1595 / 1885 850 / 2735 240 / 240 Output Total 450 / 900 Balance 1595 / 1435 400 / 1835 240 / 240 Weight last 48 hrs Weight 93.848 kg Weight 87.725 kg Physical Exam 2 Const: COMMON NORMALS: no acute distress and patient oriented x3 Resp: COMMON NORMALS: normal respiratory effort, No retractions, No use of accessory muscles and clear to auscultation bilaterally AUSCULTATION: clear to auscultation bilaterally Cardio: COMMON NORMALS: regular rate, regular rhythm, S1 normal heart sound present and S2 normal heart sound present RATE: regular rate RHYTHM: r egular rhythm HEART SOUNDS: S1 normal heart sound present and S2 normal heart sound present GI: COMMON NORMALS: Normal to inspection, nondistended, normoactive bowel sounds present and non-tender Extremity: COMMON NORMALS: no pedal edema Neuro: COMMON NORMALS: patient oriented x3 Psych: COMMON NORMALS: mental status grossly normal Urinary Catheter Management: Rodriguez Latex: Cath Placed During This Visit: yes Reason for Continuing Indwelling Catheter: Acute Urinary Retention or Obstruction Urinary Catheter Date of Insertion: 05/10/23 Urinary Catheter Time of Insertion: 21:55 Data 05/13/23 05:15 05/13/23 05:15 A&P Assessment and plan (1) Acute encephalopathy: (2) Toxic metabolic encephalopathy: (3) Altered mental status: Qualifiers: Altered mental status type: stupor Qualified Code(s): R40.1 - Stupor (4) Seizure disorder: (5) Seizure: (6) Type 2 diabetes mellitus: Qualifiers: Diabetes mellitus intermediate insulin use: unspecified exterminator termite insulin use status Diabetes mellitus complication status: with other specified complication Qualified Code(s): E11.69 - Type 2 diabetes mellitus with other specified complication (7) Hypertension: Qualifiers: Hypertension type: primary hypertension Qualified Code(s): I10 - Essential (primary) hypertension (8) Gastroparesis: (9) PNA (pneumonia): (10) Rhabdomyolysis: (11) Intractable back pain: Plan Brenda Stone is a 72 yo woman w/ seizure d/o, IDDM2, PAD s/p b/l iliac stents who was brought to the EMS on 05/10/2023 for AMS. Per ED notes, patient was given numerous IVP of Zofran arrival to the ED, and she did have loss of control of bowel and bladder. She was febrile, tachycardic and hypoxic in the ED. Her ABG was 7.42/38.8/56.9. She had a wbc of 15.7, a BG of 384 w/ an AGAP of 19. Her UA was negative for a UTI, but she had 4+ glucosuria. She was given 2L NS bolus. Her CT head was negative. Her CXR showed mild pulm vascular congestion, LLL atelectasis vs infiltrate. There was concern for a CVA vs a seizure. The Neurologist was consulted who deemed her to have had a generalized tonic clonic seizure. She was given Keppra 1g, Cipro 400mg IVP x 1, Azithromycin 500mg IV, & 1g of IV Tylenol, #Acute Encephalopathy: Currently alert oriented x 3, following all commands according to family she has several petit mall seizures throughout the day, and a few days after her grand mal seizures she has episodes of confusion, #Acute hypoxic respiratory failure: Wean O2 as tolerated. #Sepsis: Likely secondary to left upper lobe pneumonia, posterior lateral lobe, de-escalate to cefepime #ALEJANDRA pneumonia: noted on CT scan w/o contrast in the AM. F/u w/ CT chest in 3 months to r/o malignancy. #Lactic acidosis: Monitor. #Generalized tonic clonic seizure, #Seizure d/o: s/p Keppra 500 mg twice daily. Will continue. Differ EEG to Neurology. #AGAP metabolic acidosis: Monitor #MOOKIE on CKD: Continue IVF. # Intractable back pain, with ESR of 19, tenderness throughout thoracic lumbar spine, CT lumbar spine shows bulging disks at L4-L5, L5-S1 with multilevel facet arthropathy, continue pain control, PT OT, follow-up with primary care and Dr. Merrill as outpatient # Rhabdomyolysis, CPK improving, de-escalate antibiotics # History of grand mal seizures, # Has petit mall seizures throughout the day, which is ordinary for patient, that according to family has been resistant to most treatment, it was recommended for patient to have neurosurgery for the seizures however patient declined #Hyperlycemia: #IDDM2 #Diabetic gastroparesis - On Lantus qAM & qHS, low dose SSI in the day and low dose SSI at night. - A1c of 12.6 on 05/11/2023. #GERD: PPI IVP #HTN: Blood pressures have been elevated today, start clonidine point 1 twice daily #PAD s/p b/l Iliac stents #Carotid Artery Stenosis s/p R. Carotid endarterectomy & severe L. Carotid stenosis #HLD, statin currently on hold given rhabdomyolysis - On Aspirin, Cilostazol, #Anxiety d/o: Resume BuSpar DVT ppx: Lovenox. Plan for today, continue IV fluids, decrease rate to 50 cc, continue cefepime stop vancomycin, watch CPK, pain control, monitor for seizures, blood pressure control, plan on discharging in the next 24 hours Attestations 2 Medical Necessity Statement*: Patient requires hospitalization for acute encephalopathy, rhabdomyolysis, low back pain, pneumonia Diagnoses Acute encephalopathy G93.40 Toxic metabolic encephalopathy G92.8 Altered mental status R40.1 Altered mental status type: stupor Seizure disorder G40.909 Seizure R56.9 Type 2 diabetes mellitus with other specified complication, unspecified whether exterminator termite insulin use E11.69 Diabetes mellitus exterminator termite insulin use: unspecified exterminator termite insulin use status Diabetes mellitus complication status: with other specified complication Primary hypertension I10 Hypertension type: primary hypertension Gastroparesis K31.84 PNA (pneumonia) J18.9 Rhabdomyolysis M62.82 Intractable back pain M54.9
[2023-05-13 16:53] LABS: Glucose Point of Care 156 mg/dL (70-110)
[2023-05-13 20:53] LABS: Glucose Point of Care 173 mg/dL (70-110)
[2023-05-13] MEDS: insulin glargine 100 units/1 mL 10 UNIT SUBCUT (21:12)
[2023-05-13] MEDS: enoxaparin 40 mg/0.4 mL Syringe SUBCUT (21:12)
[2023-05-14] VITALS (13 sets, daily range): BP systolic 132–165; BP diastolic 55–73; PULSE 66–96; RESP 14–19; TEMP 36.6–37.9; O2SAT 91–98
[2023-05-14] MEDS: cefepime 1,000 MG in sodium chloride 0.9% (plus) 50 ML 100 MG IV ×2 (02:24→15:09)
[2023-05-14 05:01] LABS: Basophils % 0.4 %; Eosinophils # 0.1 10^3/uL (0.0-0.8); Eosinophils % 1.3 %; Hematocrit 32.1 % (36-47); Lymphocytes # 0.9 10^3/uL (0.8-4.8); Lymphocytes % 12.9 %; Mean Corpuscular HGB Conc 29.3 g/dL (30-55); Mean Corpuscular Hemoglobin 25.8 pg (27-33); Mean Corpuscular Volume 88.2 fl (85-98); Mean Platelet Volume 10.5 fL (7.4-10.4); Monocytes # 0.5 10^3/uL (0.2-0.9); Monocytes % 7.2 %; Neutrophils # 5.16 10^3/uL (1.8-7.7); Neutrophils % 77.5 %; Nucleated Red Blood Cells % 0 %; Platelet Count 220 10^3/cmm (157-399); Red Blood Count 3.64 10^6/uL (3.85-5.65); Red Cell Distribution Width 16.6 % (12.1-15.1); White Blood Count 6.67 10^3/uL (3.29-11.43)
[2023-05-14 05:29] LABS: Alanine Aminotransferase 11 U/L (0-33); Albumin Level 2.9 g/dL (3.5-5.2); Alkaline Phosphatase 119 U/L (35-105); Anion Gap 14.5 (5-19); Aspartate Amino Transferase 16 U/L (0-32); Blood Urea Nitrogen 11 mg/dL (8-23); Calcium 8.2 mg/dL (8.5-10.5); Carbon Dioxide 22 mmol/L (22-29); Chloride 107 mmol/L (98-107); Creatinine Clr Calc Pharmacy 55.9691; Globulin 2.8 g/dL (1.3-4.6); Glucose 121 mg/dL (65-115); Magnesium 1.9 mg/dL (1.7-2.3); Osmolality Calculated 291 mOsm/kg (285-295); Phosphorus 2.1 mg/dL (2.5-4.5); Potassium 3.5 mmol/L (3.5-5.1); Sodium 140 mmol/L (136-145); Total Bilirubin 0.2 mg/dL (0.15-1.2); Total Protein 5.7 g/dL (6.6-8.7)
[2023-05-14 05:30] LABS: Creatine Phosphokinase 196 U/L (26-192)
[2023-05-14] MEDS: sodium chloride 0.9% 1,000 ML 50 ML IV (06:22)
[2023-05-14] MEDS: pantoprazole DR 40 mg Tablet PO ×2 (06:22→18:05)
[2023-05-14 06:32] LABS: Glucose Point of Care 109 mg/dL (70-110)
[2023-05-14] MEDS: ipratropium-albuterol 3 mL Neb INHALATION (08:36)
[2023-05-14] MEDS: gabapentin 300 mg Capsule 600 MG PO ×3 (09:01→20:54)
[2023-05-14] MEDS: levETIRAcetam 500 mg Tablet PO ×2 (09:01→18:05)
[2023-05-14] MEDS: lamoTRIgine 100 mg Tablet 200 MG PO ×2 (09:01→18:05)
[2023-05-14] MEDS: dilTIAZem ER (24HR) 120 mg Capsule PO (09:01)
[2023-05-14] MEDS: cloNIDine 0.1 mg Tablet 0.100000000000000006 MG PO ×2 (09:01→18:05)
[2023-05-14] MEDS: aspirin 325 mg EC Tablet PO (09:01)
[2023-05-14] MEDS: cilostazol 100 mg Tablet 50 MG PO ×2 (09:02→18:04)
[2023-05-14] MEDS: insulin glargine 100 units/1 mL 15 UNIT SUBCUT (09:02)
[2023-05-14] MEDS: BuSPIRONE 10 mg Tablet PO ×2 (09:02→18:05)
--- NOTE | 2023-05-14 10:53 | PC.SOCIAL ---
IMM Update pg 2 of IMM updated and reviewed w/ patient. Copy provided and copy dated, initialed and placed in chart.
--- NOTE | 2023-05-14 11:01 | PC.OT ---
OT TREATMENT HELD TODAY DUE TO PLAN OF CARE.
[2023-05-14 11:21] LABS: Glucose Point of Care 213 mg/dL (70-110)
--- NOTE | 2023-05-14 12:30 | PM.PN ---
Subjective Subjective: Patient was seen this morning, she is sitting up in a chair, is at bedside, yesterday afternoon she was able to sit up in bed, sit up to the side of the bed, however this morning, according to physical therapy, she is a moderate to maximal assist, denies any ascending weakness, on examination she has good strength with dorsal and plantarflexion, good eversion inversion, good extension and flexion of anterior and posterior compartments of the lower extremity, good thigh extension, she tells me she feels unsteady on her feet, no facial droop no slurring of words, I cannot discern any focal weakness she has good upper extremity strength, she feels weaker today she is not exactly sure why, no focal weakness no facial droop no slurring of words no focal weakness she just feels weak all over she tells me, she also feels short of breath, she has a 2+ pitting edema on examination, denies any wheezing, she is on 2 L, denies any chest pain, no palpitations, currently denies any back pain she tells me that she received pain medication overnight, and she woke up without any significant back pain, denies any dysuria, hematuria, however Rodriguez catheter remains in place, she is tells me she is too weak today to go to use the bathroom, patient's is worried about her weakness, he tells me that he cannot manage with her at home there is strongly considering fpc for rehab Vitals/I&O/Wt Last Vital Signs Temp 98.2 F 05/14/23 12:00 Pulse 89 05/14/23 12:00 Resp 18 05/14/23 08:36 BP 132/64 05/14/23 12:00 Pulse Ox 92 05/14/23 12:00 O2 Del Method Nasal Cannula 05/14/23 12:00 O2 Flow Rate 2 05/14/23 08:36 05/13/23 05/14/23 05/14/23 22:59 06:59 14:59 Intake Total 996.667 / 2236.667 618.333 / 2855.000 240 / 240 Output Total 650 / 650 350 / 1000 450 / 450 Balance 346.667 / 1586.667 268.333 / 1855.000 -210 / -210 Weight last 48 hrs Weight 95.878 kg Weight 93.848 kg Physical Exam Const: COMMON NORMALS: no acute distress and patient oriented x3 Resp: COMMON NORMALS: normal respiratory effort, No retractions, No use of accessory muscles and clear to auscultation bilaterally AUSCULTATION: clear to auscultation bilaterally Cardio: COMMON NORMALS: regular rate, regular rhythm, S1 normal heart sound present and S2 normal heart sound present RATE: regular rate RHYTHM: regular rhythm HEART SOUNDS: S1 normal heart sound present and S2 normal heart sound present GI: COMMON NORMALS: Normal to inspection, nondistended, normoactive bowel sounds present and non-tender Extremity: COMMON NORMALS: no pedal edema Neuro: COMMON NORMALS: patient oriented x3, CN's II-XII intact bilaterally, moves all extremities and no focal motor deficits Psych: COMMON NORMALS: mental status grossly normal Urinary Catheter Management: Rodriguez Latex: Cath Placed During This Visit: yes Reason for Continuing Indwelling Catheter: Accurate Measurement of Urinary Output in Critically Ill Patients Urinary Catheter Date of Insertion: 05/10/23 Urinary Catheter Time of Insertion: 21:55 Data 05/14/23 04:32 05/14/23 04:32 A&P Assessment and plan (1) Acute encephalopathy: (2) Toxic metabolic encephalopathy: (3) Altered mental status: Qualifiers: Altered mental status type: stupor Qualified Code(s): R40.1 - Stupor (4) Seizure disorder: (5) Seizure: (6) Type 2 diabetes mellitus: Qualifiers: Diabetes mellitus skilled nursing insulin use: unspecified skilled nursing insulin use status Diabetes mellitus complication status: with other specified complication Qualified Code(s): E11.69 - Type 2 diabetes mellitus with other specified complication (7) Hypertension: Qualifiers: Hypertension type: primary hypertension Qualified Code(s): I10 - Essential (primary) hypertension (8) Gastroparesis: (9) PNA (pneumonia): (10) Rhabdomyolysis: (11) Intractable back pain: (12) CHF exacerbation: Plan Brenda Stone is a 72 yo woman w/ seizure d/o, IDDM2, PAD s/p b/l iliac stents who was brought to the EMS on 05/10/2023 for AMS. Per ED notes, patient was given numerous IVP of Zofran arrival to the ED, and she did have loss of control of bowel and bladder. She was febrile, tachycardic and hypoxic in the ED. Her ABG was 7.42/38.8/56.9. She had a wbc of 15.7, a BG of 384 w/ an AGAP of 19. Her UA was negative for a UTI, but she had 4+ glucosuria. She was given 2L NS bolus. Her CT head was negative. Her CXR showed mild pulm vascular congestion, LLL atelectasis vs infiltrate. There was concern for a CVA vs a seizure. The Neurologist was consulted who deemed her to have had a generalized tonic clonic seizure. She was given Keppra 1g, Cipro 400mg IVP x 1, Azithromycin 500mg IV, & 1g of IV Tylenol, #Acute Encephalopathy: Currently alert oriented x 3, following all commands according to family she has several petit mall seizures throughout the day, and a few days after her grand mal seizures she has episodes of confusion, #Acute hypoxic respiratory failure: Wean O2 as tolerated. #Sepsis: Likely secondary to left upper lobe pneumonia, posterior lateral lobe, de-escalate to cefepime #ALEJANDRA pneumonia: noted on CT scan w/o contrast in the AM. F/u w/ CT chest in 3 months to r/o malignancy. #Lactic acidosis: Monitor. #Generalized tonic clonic seizure, #Seizure d/o: s/p Keppra 500 mg twice daily. Will continue. Differ EEG to Neurology. #AGAP metabolic acidosis: Monitor #MOOKIE on CKD: Continue IVF. # Intractable back pain, with ESR of 19, tenderness throughout thoracic lumbar spine, CT lumbar spine shows bulging disks at L4-L5, L5-S1 with multilevel facet arthropathy, continue pain control, PT OT, follow-up with primary care and Dr. Merrill as outpatient # Rhabdomyolysis, CPK improving, de-escalate antibiotics # History of grand mal seizures, # Has petit mall seizures throughout the day, which is ordinary for patient, that according to family has been resistant to most treatment, it was recommended for patient to have neurosurgery for the seizures however patient declined #Hyperlycemia: #IDDM2 #Diabetic gastroparesis - On Lantus qAM & qHS, low dose SSI in the day and low dose SSI at night. - A1c of 12.6 on 05/11/2023. #GERD: PPI IVP #HTN: Blood pressures have been elevated today, start clonidine point 1 twice daily #PAD s/p b/l Iliac stents #Carotid Artery Stenosis s/p R. Carotid endarterectomy & severe L. Carotid stenosis #HLD, statin currently on hold given rhabdomyolysis - On Aspirin, Cilostazol, #Anxiety d/o: Resume BuSpar Generalized weakness, deconditioning, likely secondary to prolonged hospitalization, bedrest, continue PT OT, will order TSH, UA, she does appear to be fluid overloaded today, will give her 1 dose of Lasix consider further dosing of Lasix, order BMP, chest x-ray, DVT ppx: Lovenox. Attestations Medical Necessity Statement*: Patient requires hospitalization due to generalized weakness, deconditioning, now with shortness of breath likely concerns for CHF exacerbation fluid overload Diagnoses Acute encephalopathy G93.40 Toxic metabolic encephalopathy G92.8 Altered mental status R40.1 Altered mental status type: stupor Seizure disorder G40.909 Seizure R56.9 Type 2 diabetes mellitus with other specified complication, unspecified whether skilled nursing insulin use E11.69 Diabetes mellitus regional intermodal truck driver insulin use: unspecified regional intermodal truck driver insulin use status Diabetes mellitus complication status: with other specified complication Primary hypertension I10 Hypertension type: primary hypertension Gastroparesis K31.84 PNA (pneumonia) J18.9 Rhabdomyolysis M62.82 Intractable back pain M54.9 CHF exacerbation I50.9
[2023-05-14] MEDS: FUROsemide 10 mg/mL SDV 4mL 40 MG IVP ×2 (12:35→13:42)
[2023-05-14] MEDS: potassium chloride ER 20 mEq Tablet PO (12:36)
--- NOTE | 2023-05-14 12:37 | XR_ITS ---
WS: [id number] Exam: XR chest 1V portable [id number] Date/Time of Exam: 05/14/2023 12:39 PM Reason For Exam: sob Comparison 05/10/2023. There is pulmonary vascular congestion with probable mild interstitial pulmonary edema. The heart is slightly enlarged. The lungs are fully inflated. No pleural effusions. The mediastinum is unremarkabl e for technique. Regional bony elements are intact. IMPRESSION: 1. Pulmonary vascular congestion with interstitial infiltrates probably representing pulmonary edema. Findings suggest CHF. Fluid overload might be considered.
[2023-05-14 13:31] LABS: Glucose Point of Care 203 mg/dL (70-110)
[2023-05-14 13:31] LABS: NT Pro B Type Natriuretic Pept 1799 pg/mL (0-125); Thyroid Stimulating Hormone 3.99 uIU/mL (0.27-4.20)
[2023-05-14 13:45] LABS: ABG PCO2 35.4 mmHg (35-45); ABG PH Result 7.44 (7.35-7.45); Arterial Blood Gas Hematocrit 33.2 % (37-47); Base Excess ABG 0.4 mmol/L (-2.0-2.0); Blood Gas Allen Test Pos; Blood Gas Operator Identificat MONRO; Blood Gas Sample Site Radial, right; Blood Gas Sample Type Arterial; Carboxyhemoglobin 1.2 %THgb (0.4-20.1); HCO3 ABG 24.3 mmol/L (22-26); HGB O2 Sat 87.6 % (95-100); Ionized Calcium Level - ABG 1.2 mmol/L (1.1-1.4); Methemoglobin 0.5 % (0.4-1.5); Oxygen Device OXY MASK; Oxygen Saturation ABG 89.1; PO2 ABG 50.1 mmHg (80.0-100.0); PO2 FiO2 Ratio Arterial Blood 0; Potassium Level - ABG 3.2 mmol/L (3.5-5.0); Total Hemoglobin 10.8 g/dL (12-16)
[2023-05-14 16:07] LABS: Add Urine Microscopic? NO; Charge for UA Resulting for Rev
[2023-05-14 16:48] LABS: Bilirubin Urine Neg (Negative); Blood Urine Neg (Negative); Glucose Urine UA Norm (Normal); Ketones Urine Negative (Negative); Leukocyte Esterase Urine Negative (Negative); Nitrate Urine Negative (Negative); Protein Urine Neg (Negative); Specific Gravity, Urine 1.015 (1.005-1.030); Urine Appearance Clear (CLEAR); Urine Color Colorless (Yellow); Urobilinogen Urine Norm (Negative); pH Urine 5 (5-7)
[2023-05-14 17:02] LABS: Glucose Point of Care 174 mg/dL (70-110)
[2023-05-14 20:21] LABS: Glucose Point of Care 206 mg/dL (70-110)
[2023-05-14] MEDS: enoxaparin 40 mg/0.4 mL Syringe SUBCUT (20:54)
[2023-05-14] MEDS: insulin glargine 100 units/1 mL 10 UNIT SUBCUT (20:55)
[2023-05-14] MEDS: insulin lispro 100 unit/1 mL SUBCUT (20:55)
[2023-05-15] VITALS (14 sets, daily range): BP systolic 109–187; BP diastolic 55–95; PULSE 65–101; RESP 14–18; TEMP 36.7–39.3; O2SAT 92–99; BMI 30.7
[2023-05-15] MEDS: HYDROcodone-acetaminophen 5-325 mg Tablet 1 TAB PO ×2 (00:29→08:30)
[2023-05-15] MEDS: cefepime 1,000 MG in sodium chloride 0.9% (plus) 50 ML 100 MG IV ×2 (03:08→14:43)
[2023-05-15 05:18] LABS: Basophils % 0.6 %; Eosinophils % 0.6 %; Hematocrit 30.7 % (36-47); Lymphocytes # 0.9 10^3/uL (0.8-4.8); Lymphocytes % 17.5 %; Mean Corpuscular Hemoglobin 25.8 pg (27-33); Monocytes # 0.6 10^3/uL (0.2-0.9); Monocytes % 10.4 %; Neutrophils # 3.74 10^3/uL (1.8-7.7); Neutrophils % 69.8 %; Nucleated Red Blood Cells % 0 %; Platelet Count 221 10^3/cmm (157-399); Red Blood Count 3.57 10^6/uL (3.85-5.65); Red Cell Distribution Width 16.3 % (12.1-15.1); White Blood Count 5.36 10^3/uL (3.29-11.43)
[2023-05-15 05:35] LABS: Creatine Phosphokinase 130 U/L (26-192)
[2023-05-15 05:45] LABS: Alanine Aminotransferase 10 U/L (0-33); Albumin Level 2.7 g/dL (3.5-5.2); Alkaline Phosphatase 107 U/L (35-105); Anion Gap 13.2 (5-19); Aspartate Amino Transferase 16 U/L (0-32); Blood Urea Nitrogen 9 mg/dL (8-23); Calcium 8.1 mg/dL (8.5-10.5); Carbon Dioxide 26 mmol/L (22-29); Chloride 104 mmol/L (98-107); Creatinine Clr Calc Pharmacy 46.3082; Globulin 2.8 g/dL (1.3-4.6); Glucose 159 mg/dL (65-115); Osmolality Calculated 292 mOsm/kg (285-295); Phosphorus 2.9 mg/dL (2.5-4.5); Potassium 3.2 mmol/L (3.5-5.1); Sodium 140 mmol/L (136-145); Total Bilirubin 0.3 mg/dL (0.15-1.2); Total Protein 5.5 g/dL (6.6-8.7)
[2023-05-15] MEDS: pantoprazole DR 40 mg Tablet PO ×2 (06:05→17:10)
[2023-05-15 06:08] LABS: Glucose Point of Care 119 mg/dL (70-110)
[2023-05-15 06:29] LABS: Adenovirus Not Detected (NOT DETECT); Chlamydia Pneumoniae Not Detected (NOT DETECT); Coronavirus 229E,HKU1,NL63,OC4 Not Detected (NOT DETECT); Human Metapneumovirus Not Detected (NOT DETECT); Human Rhinovirus/Enterovirus Not Detected (NOT DETECT); Influenza A Not Detected (NOT DETECT); Influenza A H1 Not Detected (NOT DETECT); Influenza A H1-2009 Not Detected (NOT DETECT); Influenza A H3 Not Detected (NOT DETECT); Influenza B Not Detected (NOT DETECT); Mycoplasma Pneumoniae Not Detected (NOT DETECT); Parainfluenza Virus Type 1 Not Detected (NOT DETECT); Parainfluenza Virus Type 2 Not Detected (NOT DETECT); Parainfluenza Virus Type 3 Not Detected (NOT DETECT); Parainfluenza Virus Type 4 Not Detected (NOT DETECT); Respiratory Syncytial Virus A Not Detected (NOT DETECT); Respiratory Syncytial Virus B Not Detected (NOT DETECT); SARS-COV-2 Not Detected (NOT DETECT)
[2023-05-15] MEDS: albumin 25 G/100 ML BAG 60 G IV (07:23)
[2023-05-15] MEDS: metOLazone 5 MG Tablet PO (07:25)
[2023-05-15] MEDS: lidocaine 1% 5 ML in potassium chloride premix 100 ML 26.25 ML IV (07:28)
[2023-05-15] MEDS: FUROsemide 10 mg/mL SDV 4mL 40 MG IVP (07:32)
[2023-05-15] MEDS: lamoTRIgine 100 mg Tablet 200 MG PO ×2 (08:30→17:09)
[2023-05-15] MEDS: gabapentin 300 mg Capsule 600 MG PO ×2 (08:30→14:43)
[2023-05-15] MEDS: aspirin 325 mg EC Tablet PO (08:30)
[2023-05-15] MEDS: dilTIAZem ER (24HR) 120 mg Capsule PO (08:30)
[2023-05-15] MEDS: cloNIDine 0.1 mg Tablet 0.100000000000000006 MG PO ×2 (08:30→17:10)
[2023-05-15] MEDS: insulin glargine 100 units/1 mL 15 UNIT SUBCUT (08:31)
[2023-05-15] MEDS: levETIRAcetam 500 mg Tablet PO ×2 (08:31→17:10)
[2023-05-15] MEDS: cilostazol 100 mg Tablet 50 MG PO ×2 (08:31→17:10)
[2023-05-15] MEDS: BuSPIRONE 10 mg Tablet PO ×2 (08:31→17:11)
[2023-05-15 11:08] LABS: Glucose Point of Care 244 mg/dL (70-110)
--- NOTE | 2023-05-15 11:25 | PM.PN ---
Subjective Subjective: patient was seen this morning, she is alert oriented X3, her sob has improved, yesterday afternoon she had developed pulmonayr edema and respiratory failure requiring diureses and bipap, coutinue to have edema, uop3L, she does report that she feels better, afebrile but did have a low grade fever yesterday, resp viral panael negative, us WNL, chest xray showed pulmonary vascular congestion Vitals/I&O/Wt Last Vital Signs Temp 98.0 F 05/15/23 08:00 Pulse 78 05/15/23 08:00 Resp 16 05/15/23 08:00 BP 169/68 05/15/23 08:30 Pulse Ox 99 05/15/23 08:00 O2 Del Method Nasal Cannula 05/15/23 08:00 O2 Flow Rate 1 05/15/23 07:54 FiO2 40 05/14/23 16:00 05/14/23 05/15/23 05/15/23 22:59 06:59 14:59 Intake Total 920 / 1520 630 / 2150 340 / 340 Output Total 1500 / 3150 1350 / 1350 Balance 920 / -130 -870 / -1000 -1010 / -1010 Weight last 48 hrs Weight 91.626 kg Weight 95.878 kg Physical Exam Const: COMMON NORMALS: no acute distress and patient oriented x3 Resp: COMMON NORMALS: normal respiratory effort, No retractions, No use of accessory muscles and clear to auscultation bilaterally AUSCULTATION: clear to auscultation bilaterally Cardio: COMMON NORMALS: regular rate, regular rhythm, S1 normal heart sound present and S2 normal heart sound present RATE: regular rate RHYTHM: regular rhythm HEART SOUNDS: S1 normal heart sound present and S2 normal heart sound present GI: COMMON NORMALS: Normal to inspection, nondistended, normoactive bowel sounds present and non-tender Extremity: COMMON NORMALS: no pedal edema Neuro: COMMON NORMALS: patient oriented x3 Urinary Catheter Management: Rodriguez Latex: Cath Placed During This Visit: yes Reason for Continuing Indwelling Catheter: Accurate Measurement of Urinary Output in Critically Ill Patients Urinary Catheter Date of Insertion: 05/10/23 Urinary Catheter Time of Insertion: 21:55 Data 05/15/23 05:03 05/15/23 05:03 Micro: Microbiology 05/14/23 21:15 Blood Culture - Preliminary Blood SPECIMEN COLLECTED 05/14/23 21:15 Blood Culture - Preliminary Blood SPECIMEN COLLECTED A&P Assessment and plan (1) Acute encephalopathy: (2) Toxic metabolic encephalopathy: (3) Altered mental status: Qualifiers: Altered mental status type: stupor Qualified Code(s): R40.1 - Stupor (4) Seizure disorder: (5) Seizure: (6) Type 2 diabetes mellitus: Qualifiers: Diabetes mellitus fci insulin use: unspecified long term care pharmacist insulin use status Diabetes mellitus complication status: with other specified complication Qualified Code(s): E11.69 - Type 2 diabetes mellitus with other specified complication (7) Hypertension: Qualifiers: Hypertension type: primary hypertension Qualified Code(s): I10 - Essential (primary) hypertension (8) Gastroparesis: (9) PNA (pneumonia): (10) Rhabdomyolysis: (11) Intractable back pain: (12) CHF exacerbation: (13) Acute respiratory failure: Plan Brenda Stone is a 72 yo woman w/ seizure d/o, IDDM2, PAD s/p b/l iliac stents who was brought to the EMS on 05/10/2023 for AMS. Per ED notes, patient was given numerous IVP of Zofran arrival to the ED, and she did have loss of control of bowel and bladder. She was febrile, tachycardic and hypoxic in the ED. Her ABG was 7.42/38.8/56.9. She had a wbc of 15.7, a BG of 384 w/ an AGAP of 19. Her UA was negative for a UTI, but she had 4+ glucosuria. She was given 2L NS bolus. Her CT head was negative. Her CXR showed mild pulm vascular congestion, LLL atelectasis vs infiltrate. There was concern for a CVA vs a seizure. The Neurologist was consulted who deemed her to have had a generalized tonic clonic seizure. She was given Keppra 1g, Cipro 400mg IVP x 1, Azithromycin 500mg IV, & 1g of IV Tylenol, #acute respiratory failure, secondary to chf exacerbation: s/p 2 doses of 40mg IVP lasix yesterday, 3L OUP, will give another 40mg IVP lasix with metolazone, with albumin, with potassium, monitor urp #Acute Encephalopathy: Currently alert oriented x 3, following all commands according to family she has several petit mall seizures throughout the day, and a few days after her grand mal seizures she has episodes of confusion, #Acute hypoxic respiratory failure: Wean O2 as tolerated. #Sepsis: Likely secondary to left upper lobe pneumonia, posterior lateral lobe, de-escalate to cefepime #ALEJANDRA pneumonia: noted on CT scan w/o contrast in the AM. F/u w/ CT chest in 3 months to r/o malignancy. #Lactic acidosis: Monitor. #Generalized tonic clonic seizure, #Seizure d/o: s/p Keppra 500 mg twice daily. Will continue. Differ EEG to Neurology. #AGAP metabolic acidosis: Monitor #MOOKIE on CKD: Continue IVF. # Intractable back pain, with ESR of 19, tenderness throughout thoracic lumbar spine, CT lumbar spine shows bulging disks at L4-L5, L5-S1 with multilevel facet arthropathy, continue pain control, PT OT, follow-up with primary care and Dr. Merrill as outpatient # Rhabdomyolysis, CPK improving, de-escalate antibiotics # History of grand mal seizures, # Has petit mall seizures throughout the day, which is ordinary for patient, that according to family has been resistant to most treatment, it was recommended for patient to have neurosurgery for the seizures however patient declined #Hyperlycemia: #IDDM2 #Diabetic gastroparesis - On Lantus qAM & qHS, low dose SSI in the day and low dose SSI at night. - A1c of 12.6 on 05/11/2023. #GERD: PPI IVP #HTN: Blood pressures have been elevated today, start clonidine point 1 twice daily #PAD s/p b/l Iliac stents #Carotid Artery Stenosis s/p R. Carotid endarterectomy & severe L. Carotid stenosis #HLD, statin currently on hold given rhabdomyolysis - On Aspirin, Cilostazol, #Anxiety d/o: Resume BuSpar Generalized weakness, deconditioning, likely secondary to prolonged hospitalization, bedrest, continue PT OT, DVT ppx: Lovenox. will give another 40mg IVP lasix with metolazone, with albumin, with potassium, monitor uop, coutinue ivabx Attestations Medical Necessity Statement*: patient requires hospitalization for respiratoryt failure, chf exacerbation Diagnoses Acute encephalopathy G93.40 Toxic metabolic encephalopathy G92.8 Altered mental status R40.1 Altered mental status type: stupor Seizure disorder G40.909 Seizure R56.9 Type 2 diabetes mellitus with other specified complication, unspecified whether long term care pharmacist insulin use E11.69 Diabetes mellitus fci insulin use: unspecified long term care pharmacist insulin use status Diabetes mellitus complication status: with other specified complication Primary hypertension I10 Hypertension type: primary hypertension Gastroparesis K31.84 PNA (pneumonia) J18.9 Rhabdomyolysis M62.82 Intractable back pain M54.9 CHF exacerbation I50.9 Acute respiratory failure J96.00
[2023-05-15] MEDS: insulin lispro 100 unit/1 mL SUBCUT ×3 (12:52→22:09)
[2023-05-15 13:14] LABS: NT Pro B Type Natriuretic Pept 2647 pg/mL (0-125)
[2023-05-15 15:52] LABS: Ammonia 22 umol/L (11-51)
[2023-05-15 17:04] LABS: Glucose Point of Care 201 mg/dL (70-110)
[2023-05-15] MEDS: acetaminophen 325 mg Tablet 650 MG PO (17:09)
[2023-05-15] MEDS: meropenem 1,000 MG in sodium chloride 0.9% (plus) 50 ML 100 MG IV (17:34)
[2023-05-15 17:46] LABS: Erythrocyte Sedimentation Rate 53 mm/hr (0-15)
[2023-05-15 17:49] LABS: C Reactive Protein 110.6 mg/L (0.0-4.9)
--- NOTE | 2023-05-15 17:55 | CTR_ITS ---
PROCEDURE INFORMATION: Exam: CT Head Without Contrast Exam date and time: 05/15/2023 6:16 PM Age: 72 years old Clinical indication: Altered mental status/memory loss; Additional info: AMS TECHNIQUE: Imaging protocol: Computed tomography of the head without contrast. Radiation optimization: All CT scans at this facility use at least one of these dose optimization techniques: automated exposure control; mA and/or kV adjustment per patient size (includes targeted exams where dose is matched to clinical indication); or iterative reconstruction. COMPARISON: CT head thrombolytic [id number] 05/10/2023 1:42 PM RADIATION DOSE METRICS: Total DLP (mGy-cm): 1144 FINDINGS: Brain: Normal. No hemorrhage. Unremarkable white matter. No mass effect. Cerebral ventricles: No ventriculomegaly. Paranasal sinuses: Visualized sinuses are unremarkable. No fluid levels. Mastoid air cells: Visualized mastoid air cells are well aerated. Bones/joints: Unremarkable. No acute fracture. Soft tissues: Unremarkable. CT/CT head wo con* [id number] IMPRESSION: No acute intracranial abnormality.
--- NOTE | 2023-05-15 17:55 | CTR_ITS ---
PROCEDURE INFORMATION: Exam: CT Cervical Spine Without Contrast Exam date and time: 05/15/2023 6:19 PM Age: 72 years old Clinical indication: Other: Seizure; Additional info: AMS TECHNIQUE: Imaging protocol: Computed tomography of the cervical spine without contrast. Radiation optimization: All CT scans at this facility use at least one of these dose optimization techniques: automated exposure control; mA and/or kV adjustment per patient size (includes targeted exams where dose is matched to clinical indication); or iterative reconstruction. COMPARISON: MR cervical spine wo/w [id number] 01/19/2022 8:41 PM RADIATION DOSE METRICS: Total DLP (mGy-cm): 180 FINDINGS: Bones/joints: Lower cervical spine moderate to severe disc space narrowing and productive degenerative endplate changes. C2-C3: No significant disc bulge or herniation. No severe spinal canal stenosis. No significant neural foraminal narrowing. C3-C4: No significant disc bulge or herniation. No severe spinal canal stenosis. No significant neural foraminal narrowing. C4-C5: No significant disc bulge or herniation. No severe spinal canal stenosis. No significant neural foraminal narrowing. C5-C6: No significant disc bulge or herniation. No severe spinal canal stenosis. No significant neural foraminal narrowing. C6-C7: No significant disc bulge or herniation. No severe spinal canal stenosis. No significant neural foraminal narrowing. C7-T1: No significant disc bulge or herniation. No severe spinal canal stenosis. No significant neural foraminal narrowing. Lungs: Biapical emphysematous changes and subsegmental atelectasis. Vasculature: Left carotid artery atherosclerotic calcifications. Soft tissues: Unremarkable. CT/CT cervical spin wo con* [id number] IMPRESSION: 1. Negative for fracture or dislocation 2. Left carotid artery atherosclerotic calcifications. 3. Biapical emphysematous changes and subsegmental atelectasis. 4. Lower cervical spine moderate to severe disc space narrowing and productive degenerative endplate changes.
[2023-05-15 17:56] LABS: Procalcitonin 0.62 ng/mL (0-0.5)
--- NOTE | 2023-05-15 17:57 | XRR_ITS ---
PROCEDURE INFORMATION: Exam: XR Chest Exam date and time: 05/15/2023 6:11 PM Age: 72 years old Clinical indication: Other: AMS TECHNIQUE: Imaging protocol: Radiologic exam of the chest. Views: 1 view. COMPARISON: CR XR chest 1V portable [id number] 05/14/2023 12:43 PM FINDINGS: Lungs: Mild pulmonary vascular congestion. Pleural spaces: Trace bilateral pleural effusions. Heart/Mediastinum: Cardiomegaly. Bones/joints: Unremarkable. XR/XR chest 1V portable [id number] IMPRESSION: 1. Cardiomegaly. 2. Trace bilateral pleural effusions. 3. Mild pulmonary vascular congestion.
[2023-05-15 18:06] LABS: Glucose Point of Care 198 mg/dL (70-110)
[2023-05-15] MEDS: acetaminophen 1,000 MG/100 ML PIGGYBACK 400 MG IV (18:41)
[2023-05-15] MEDS: levETIRAcetam 1,000 MG/100 ML PREMIX 400 MG IV (18:48)
[2023-05-15] MEDS: vancomycin 1,000 MG in sodium chloride 0.9% 250 ML 250 MG IV (19:31)
[2023-05-15 20:49] LABS: Basophils % 0.4 %; Eosinophils % 0.4 %; Hematocrit 30.4 % (36-47); Lymphocytes # 0.8 10^3/uL (0.8-4.8); Lymphocytes % 11.6 %; Mean Corpuscular HGB Conc 30.6 g/dL (30-55); Mean Corpuscular Hemoglobin 25.8 pg (27-33); Mean Corpuscular Volume 84.4 fl (85-98); Mean Platelet Volume 10.1 fL (7.4-10.4); Monocytes # 0.8 10^3/uL (0.2-0.9); Neutrophils # 5.09 10^3/uL (1.8-7.7); Neutrophils % 74.9 %; Nucleated Red Blood Cells % 0 %; Platelet Count 244 10^3/cmm (157-399); Red Cell Distribution Width 16.2 % (12.1-15.1); White Blood Count 6.81 10^3/uL (3.29-11.43)
[2023-05-15 21:08] LABS: Alanine Aminotransferase 13 U/L (0-33); Albumin Level 3.2 g/dL (3.5-5.2); Alkaline Phosphatase 101 U/L (35-105); Ammonia 25 umol/L (11-51); Anion Gap 10.9 (5-19); Aspartate Amino Transferase 25 U/L (0-32); Blood Urea Nitrogen 12 mg/dL (8-23); Calcium 8.3 mg/dL (8.5-10.5); Carbon Dioxide 29 mmol/L (22-29); Chloride 100 mmol/L (98-107); Creatinine Clr Calc Pharmacy 43.0004; Globulin 2.6 g/dL (1.3-4.6); Glucose 155 mg/dL (65-115); Lactic Sepsis W/Reflex 0.7 mmol/L (0.5-2.2); Osmolality Calculated 287 mOsm/kg (285-295); Sodium 137 mmol/L (136-145); Total Bilirubin 0.3 mg/dL (0.15-1.2); Total Protein 5.8 g/dL (6.6-8.7)
[2023-05-15 21:42] LABS: Potassium 2.9 mmol/L (3.5-5.1)
[2023-05-15 21:42] LABS: Glucose Point of Care 177 mg/dL (70-110)
[2023-05-15] MEDS: insulin glargine 100 units/1 mL 10 UNIT SUBCUT (22:08)
[2023-05-15] MEDS: enoxaparin 40 mg/0.4 mL Syringe SUBCUT (22:08)
--- NOTE | 2023-05-15 22:14 | PC.NURSE ---
pt having difficulty following instructions, having difficulty taking a drink, became agitated and refused to drink or take po meds at this time.
[2023-05-15] MEDS: potassium chloride oral liq 20 mEq/15 mL UDC 40 MEQ PO (22:49)
[2023-05-16] VITALS (12 sets, daily range): BP systolic 118–168; BP diastolic 51–80; PULSE 65–80; RESP 16–20; TEMP 36.6–38.1; O2SAT 94–98; BMI 29.0
[2023-05-16] MEDS: meropenem 1,000 MG in sodium chloride 0.9% (plus) 50 ML 100 MG IV ×3 (01:03→17:24)
[2023-05-16 04:21] LABS: Basophils % 0.6 %; Eosinophils # 0.1 10^3/uL (0.0-0.8); Hematocrit 33.3 % (36-47); Lymphocytes # 1.1 10^3/uL (0.8-4.8); Mean Corpuscular Hemoglobin 25.7 pg (27-33); Mean Corpuscular Volume 85.6 fl (85-98); Mean Platelet Volume 10.5 fL (7.4-10.4); Monocytes # 0.6 10^3/uL (0.2-0.9); Monocytes % 8.6 %; Neutrophils # 5.19 10^3/uL (1.8-7.7); Neutrophils % 74.2 %; Nucleated Red Blood Cells % 0 %; Platelet Count 248 10^3/cmm (157-399); Red Blood Count 3.89 10^6/uL (3.85-5.65); Red Cell Distribution Width 16.4 % (12.1-15.1); White Blood Count 6.99 10^3/uL (3.29-11.43)
[2023-05-16 04:30] LABS: Beta-Hydroxybutyrate 0.08 mmol/L
[2023-05-16 04:45] LABS: Creatine Phosphokinase 228 U/L (26-192)
[2023-05-16 04:46] LABS: Alanine Aminotransferase 15 U/L (0-33); Albumin Level 3.4 g/dL (3.5-5.2); Alkaline Phosphatase 121 U/L (35-105); Anion Gap 15.5 (5-19); Aspartate Amino Transferase 26 U/L (0-32); Blood Urea Nitrogen 13 mg/dL (8-23); Calcium 8.8 mg/dL (8.5-10.5); Carbon Dioxide 29 mmol/L (22-29); Chloride 99 mmol/L (98-107); Creatinine Clr Calc Pharmacy 43.0004; Globulin 3.1 g/dL (1.3-4.6); Glucose 180 mg/dL (65-115); Magnesium 2.1 mg/dL (1.7-2.3); Osmolality Calculated 295 mOsm/kg (285-295); Potassium 3.5 mmol/L (3.5-5.1); Sodium 140 mmol/L (136-145); Total Bilirubin 0.4 mg/dL (0.15-1.2); Total Protein 6.5 g/dL (6.6-8.7)
[2023-05-16] MEDS: pantoprazole DR 40 mg Tablet PO ×2 (06:25→17:23)
[2023-05-16 06:51] LABS: Glucose Point of Care 196 mg/dL (70-110)
[2023-05-16 07:11] LABS: SARS Covid-2 Antigen negative (Negative)
[2023-05-16 08:49] LABS: C Reactive Protein 167.1 mg/L (0.0-4.9)
--- NOTE | 2023-05-16 08:56 | MR_ITS ---
WS: [id number] MRI HEAD WITHOUT CONTRAST TECHNIQUE: Sagittal T1, T2 axial, T2 axial FLAIR, axial and coronal T1 images, axial susceptibility w eighted imaging, axial diffusion weighted images, and coronal T2 images were obtained. CLINICAL INFORMATION: ams, deleirum COMPARISON: MRI 01/19/[address] 05/15/2023 FINDINGS: No evidence of restricted diffusion to suggest acute ischemia. Ventricular system and basal cisterns are patent. Mild small vessel changes. Moderate parenchymal volume loss. Chronic infarct in the RIGHT frontal lobe laterally with encephalomalacia and gliosis. Tiny chronic lacunar infarct RIGHT cerebel lum. Normal vascular flow voids at the skull base. No extra-axial fluid collections. No evidence of mass o r mass effect. Paranasal sinuses are well aerated. Mastoid air cells are well aerated. Normal posteri or nasopharynx. No hemosiderin on the susceptibility weighted images. Normal optic chiasm and pituita ry infundibulum. Moderate symmetric atrophy temporal lobes and hippocampal formations. IMPRESSION: 1. No evidence of restricted diffusion to suggest acute ischemia. 2. Mild small vessel changes with moderate parenchymal volume loss. 3. Small chronic infarct in the RIGHT frontal lobe laterally with encephalomalacia and gliosis. 4. Moderate symmetric atrophy temporal lobes and hippocampal formations. 5. Tiny chronic lacunar infarct RIGHT cerebellum. 6. No acute intracranial findings.
--- NOTE | 2023-05-16 08:56 | FL_ITS ---
WS: [id number] LUMBAR PUNCTURE CLINICAL INFORMATION: ams COMPARISON: None. TECHNIQUE: Informed consent: The procedure and its potential risk and complications were discussed with the erick ent. Verbal and written consent was obtained. Timeout: A timeout was performed to confirm correct patient, procedure, and site. Patient was prepped and draped in the usual sterile fashion. Lidocaine 1% was used for local anesthes ia. Utilizing fluoroscopic guidance, a 3.5 inch 22-gauge spinal needle was advanced into the subarach noid space at L3-L4 via LEFT oblique sublaminar approach. Free flow of clear CSF was obtained. 10 cc of CSF was collected and sent the lab for further analysis. FLUOROSCOPIC TIME: 1min [id number] # of spot films: 2 IMPRESSION: Fluoroscopically guided lumbar puncture. No immediate complications
[2023-05-16 08:57] LABS: Erythrocyte Sedimentation Rate 48 mm/hr (0-15)
[2023-05-16] MEDS: albumin 25 G/100 ML BAG 60 G IV (09:28)
[2023-05-16] MEDS: FUROsemide 10 mg/mL SDV 4mL 40 MG IVP (09:32)
[2023-05-16] MEDS: lidocaine 1% 5 ML in potassium chloride premix 100 ML 52.5 ML IV (09:39)
[2023-05-16] MEDS: HYDROcodone-acetaminophen 5-325 mg Tablet 1 TAB PO (09:51)
[2023-05-16] MEDS: insulin lispro 100 unit/1 mL SUBCUT ×2 (09:54→13:55)
[2023-05-16] MEDS: insulin glargine 100 units/1 mL 15 UNIT SUBCUT (09:54)
[2023-05-16] MEDS: lamoTRIgine 100 mg Tablet 200 MG PO ×2 (09:56→17:23)
[2023-05-16] MEDS: aspirin 325 mg EC Tablet PO (09:57)
[2023-05-16] MEDS: dilTIAZem ER (24HR) 120 mg Capsule PO (09:57)
[2023-05-16] MEDS: BuSPIRONE 10 mg Tablet PO ×2 (09:57→17:24)
[2023-05-16] MEDS: gabapentin 300 mg Capsule 600 MG PO ×2 (09:57→15:40)
[2023-05-16] MEDS: cloNIDine 0.1 mg Tablet 0.100000000000000006 MG PO ×2 (09:57→17:24)
[2023-05-16] MEDS: levETIRAcetam 500 mg Tablet PO (09:57)
[2023-05-16 10:10] LABS: Lamotrigine (Lamictal) Level 3.9 mcg/mL (2.5-15.0)
--- NOTE | 2023-05-16 10:44 | PM.PN ---
Subjective Subjective: - Yesterday evening, patient had episodes of becoming less responsive, increasingly confused, with febrile up to 102, I had added on vancomycin, broaden her antibiotic coverage to meropenem, CT head within normal limits, CT neck no acute findings, her CRP is 167, Pro-David 0.5, sed rate was 55, according to patient's , yesterday evening, she was able to talk to him, sit up in bed, -This morning she is seen alert to person, to place, not to time, she can follow commands at times but is encephalopathic, physical therapy and is at bedside, they were not able to work with physical therapy due to generalized weakness she remains generalized weak this morning -I spoke to patient's it is possible that she is having breakthrough seizures, versus infection versus drug fevers -He thinks that she might of had a seizure yesterday evening, potentially also Friday, she was given a loading dose of Keppra yesterday Vitals/I&O/Wt Last Vital Signs Temp 99.3 F 05/16/23 08:00 Pulse 80 05/16/23 08:00 Resp 20 H 05/16/23 03:50 BP 154/74 05/16/23 09:57 Pulse Ox 98 05/16/23 08:00 O2 Del Method Nasal Cannula 05/16/23 03:50 O2 Flow Rate 3 05/16/23 03:50 FiO2 40 05/14/23 16:00 05/15/23 05/16/23 05/16/23 22:59 06:59 14:59 Intake Total 550 / 1235 250 / 1485 120 / 120 Output Total 2300 / 3650 350 / 4000 Balance -1750 / -2415 -100 / -2515 120 / 120 Weight last 48 hrs Weight 86.818 kg Weight 91.626 kg Physical Exam Const: COMMON NORMALS: no acute distress ORIENTATION/CONSCIOUSNESS: Yes awake, Yes oriented to person and Yes confused; not oriented to place and not oriented to time Eye: COMMON NORMALS: Equal, round and reactive pupils present PUPIL: Yes Equal, round and reactive pupils present Resp: COMMON NORMALS: normal respiratory effort, No retractions, No use of accessory muscles and clear to auscultation bilaterally AUSCULTATION: clear to auscultation bilaterally Cardio: COMMON NORMALS: regular rate, regular rhythm, S1 normal heart sound present and S2 normal heart sound present RATE: regular rate RHYTHM: regular rhythm HEART SOUNDS: S1 normal heart sound present and S2 normal heart sound present GI: COMMON NORMALS: Normal to inspection, nondistended, normoactive bowel sounds present and non-tender Extremity: COMMON NORMALS: no pedal edema Neuro: SENSORIUM/ORIENTATION: Yes oriented to person, No oriented to place and No oriented to time Urinary Catheter Management: Rodriguez Latex: Cath Placed During This Visit: yes Reason for Continuing Indwelling Catheter: Acute Urinary Retention or Obstruction Urinary Catheter Date of Insertion: 05/10/23 Urinary Catheter Time of Insertion: 21:55 Data 05/16/23 03:41 05/16/23 03:41 Micro: Microbiology 05/14/23 21:15 Blood Culture - Preliminary Blood NEGATIVE TO DATE 05/14/23 21:15 Blood Culture - Preliminary Blood NEGATIVE TO DATE 05/10/23 14:15 Blood Culture - Final Blood NO GROWTH AFTER 5 DAYS 05/10/23 14:20 Blood Culture - Final Blood NO GROWTH AFTER 5 DAYS A&P Assessment and plan (1) Acute encephalopathy: (2) Toxic metabolic encephalopathy: (3) Altered mental status: Qualifiers: Altered mental status type: stupor Qualified Code(s): R40.1 - Stupor (4) Seizure disorder: (5) Seizure: (6) Type 2 diabetes mellitus: Qualifiers: Diabetes mellitus technician terminal and repeater insulin use: unspecified chcf insulin use status Diabetes mellitus complication status: with other specified complication Qualified Code(s): E11.69 - Type 2 diabetes mellitus with other specified complication (7) Hypertension: Qualifiers: Hypertension type: primary hypertension Qualified Code(s): I10 - Essential (primary) hypertension (8) Gastroparesis: (9) PNA (pneumonia): (10) Rhabdomyolysis: (11) Intractable back pain: (12) CHF exacerbation: (13) Acute respiratory failure: Plan Brenda Stone is a 72 yo woman w/ seizure d/o, IDDM2, PAD s/p b/l iliac stents who was brought to the EMS on 05/10/2023 for AMS. Per ED notes, patient was given numerous IVP of Zofran arrival to the ED, and she did have loss of control of bowel and bladder. She was febrile, tachycardic and hypoxic in the ED. Her ABG was 7.42/38.8/56.9. She had a wbc of 15.7, a BG of 384 w/ an AGAP of 19. Her UA was negative for a UTI, but she had 4+ glucosuria. She was given 2L NS bolus. Her CT head was negative. Her CXR showed mild pulm vascular congestion, LLL atelectasis vs infiltrate. There was concern for a CVA vs a seizure. The Neurologist was consulted who deemed her to have had a generalized tonic clonic seizure. She was given Keppra 1g, Cipro 400mg IVP x 1, Azithromycin 500mg IV, & 1g of IV Tylenol, # Acute encephalopathy -With febrile episodes typically in the evening -Drug fevers versus meningitis versus breakthrough seizures - on admission there was concerns for sepsis secondary to left upper lobe pneumonia, repeat chest x-ray shows fluid overload, antibiotic coverage broadened as below -Give an elevated ESR at 58, she has undergone a chadwick CT scan of her spine without any significant radiographic evidence of spinal abscess or osteomyelitis or discitis Plan -Will continue to monitor neurologic status closely neurochecks, stroke scale aspiration precautions -Monitor for fevers -Repeat blood cultures so far no growth -Monitor ESR, CRP, Pro-David -On broad expanded from antibiotics vancomycin, meropenem -Add on acyclovir -Lumbar puncture ordered -MRI of the brain ordered -EEG ordered -Will consider tagged white blood cell scan based on clinical progress -Keppra increased to thousand twice daily -Tick panel, HIV, beta glucan, hep panel #acute respiratory failure, secondary to chf exacerbation: He is on 3 L, does have scattered crackles on examination, diuresed over 3 L yesterday, plan for today 1 dose albumin, 1 dose Lasix, 1 dose of IV potassium #Acute hypoxic respiratory failure: Wean O2 as tolerated. #Sepsis: Likely secondary to left upper lobe pneumonia, #ALEJANDRA pneumonia: noted on CT scan w/o contrast in the AM. F/u w/ CT chest in 3 months to r/o malignancy. #Lactic acidosis: Monitor. #Generalized tonic clonic seizure, #Seizure d/o: s/p Keppra 1000 mg twice daily. Will continue. #AGAP metabolic acidosis: Monitor #MOOKIE on CKD: Monitor # Intractable back pain, resolving, with ESR of 55, chadwick CT scan as above, currently no tenderness on examination, CT lumbar spine shows bulging disks at L4-L5, L5-S1 with multilevel facet arthropathy, continue pain control, PT OT, follow-up with primary care and Dr. Merrill as outpatien # Rhabdomyolysis, CPK improving, # History of grand mal seizures, # Has petit mall seizures throughout the day, which is ordinary for patient, that according to family has been resistant to most treatment, it was recommended for patient to have neurosurgery for the seizures however patient declined #Hyperlycemia: #IDDM2 #Diabetic gastroparesis - On Lantus qAM & qHS, low dose SSI in the day and low dose SSI at night. - A1c of 12.6 on 05/11/2023. #GERD: PPI IVP #HTN: Blood pressures have been elevated today, start clonidine point 1 twice daily #PAD s/p b/l Iliac stents #Carotid Artery Stenosis s/p R. Carotid endarterectomy & severe L. Carotid stenosis #HLD, statin currently on hold given rhabdomyolysis - On Aspirin, Cilostazol, #Anxiety d/o: Resume BuSpar Generalized weakness, deconditioning, likely secondary to prolonged hospitalization, bedrest, continue PT OT, DVT ppx: Lovenox. Plan for today, will need extensive workup for persists assisting in developing acute encephalopathy and fevers including EEG, MRI, lumbar puncture broaden antibiotic coverage to vancomycin, meropenem added on viral coverage tick panel HIV, ESR CRP Pro-David hep C beta D glucan ordered, monitoring mentation, Keppra increased to thousand twice daily, increasing diuresis, spoke to nursing staff, spoke to patient's spoke to patient Attestations Medical Necessity Statement*: Patient requires hospitalization for acute encephalopathy, requiring further workup, meningitis versus breakthrough seizures, versus drug fevers, fluid overload requiring diuresis Diagnoses Acute encephalopathy G93.40 Toxic metabolic encephalopathy G92.8 Altered mental status R40.1 Altered mental status type: stupor Seizure disorder G40.909 Seizure R56.9 Type 2 diabetes mellitus with other specified complication, unspecified whether technician terminal and repeater insulin use E11.69 Diabetes mellitus technician terminal and repeater insulin use: unspecified technician terminal and repeater insulin use status Diabetes mellitus complication status: with other specified complication Primary hypertension I10 Hypertension type: primary hypertension Gastroparesis K31.84 PNA (pneumonia) J18.9 Rhabdomyolysis M62.82 Intractable back pain M54.9 CHF exacerbation I50.9 Acute respiratory failure J96.00
--- NOTE | 2023-05-16 10:46 | PC.SOCIAL ---
IMM Update pg 2 of IMM updated and reviewed w/ patient. Copy provided and copy dated, initialed and placed in chart.
[2023-05-16] MEDS: acyclovir 500 MG in sodium chloride 0.9% (100 ml) 100 ML 110 MG IV (10:52)
[2023-05-16 11:38] LABS: Glucose Point of Care 203 mg/dL (70-110)
[2023-05-16 11:39] LABS: HIV 1 & 2 Antibody Non-Reactive (Non-Reactiv); HIV 1 & 2 Antigen Non-Reactive (Non-Reactiv); Hepatitis A Antibody IgM Non-Reactive (Nonreactive); Hepatitis B Core IgM Non-Reactive (Nonreactive); Hepatitis B Surface Antigen Non-Reactive (Nonreactive); Hepatitis C Virus Antibody Non-Reactive (Nonreactive)
[2023-05-16 12:54] LABS: Cyto Order Verification No Order
--- NOTE | 2023-05-16 13:53 | PC.OT ---
Attempted to see pt for OT tx with pt unavailable; will attempt at later time.
[2023-05-16 14:23] LABS: CSF Mononuclear # 0.003 10^3/uL (50-90); Mononuclear WBC CSF % 60 % (50-90); Polynuclear Cells ,CSF # 0.002 10^3/uL (0-10); Polynuclear WBC CSF % 40 % (0-10); Red Blood Cell CSF 0 10^3/uL (0-0); White Blood Cell CSF 5 /uL (0-5)
[2023-05-16 14:36] LABS: Appearance CSF CLEAR (CLEAR); CSF Specific Gravity 1.005; Color CSF COLORLESS (COLORLESS)
[2023-05-16 14:37] LABS: Pathology Referral Yes
[2023-05-16 14:44] LABS: Glucose CSF 104 mg/dL (40-70); Total Protein CSF 40 mg/dL (15-45)
[2023-05-16 17:09] LABS: Glucose Point of Care 78 mg/dL (70-110)
[2023-05-16] MEDS: levETIRAcetam 1,000 MG/100 ML PREMIX 400 MG IV (17:28)
[2023-05-16] MEDS: vancomycin 1,000 MG in sodium chloride 0.9% 250 ML 250 MG IV (18:32)
[2023-05-16] MEDS: acyclovir 500 MG in sodium chloride 0.9% (plus) 100 ML 110 MG IV (18:39)
[2023-05-16] MEDS: insulin glargine 100 units/1 mL 10 UNIT SUBCUT (21:01)
[2023-05-16 21:12] LABS: Glucose Point of Care 139 mg/dL (70-110)
[2023-05-17] VITALS (12 sets, daily range): BP systolic 148–176; BP diastolic 68–78; PULSE 63–96; RESP 16–18; TEMP 37.2–39.1; O2SAT 90–94
[2023-05-17] MEDS: meropenem 1,000 MG in sodium chloride 0.9% (plus) 50 ML 100 MG IV ×3 (00:37→21:53)
[2023-05-17] MEDS: acyclovir 500 MG in sodium chloride 0.9% (plus) 100 ML 110 MG IV ×3 (02:08→23:59)
[2023-05-17] MEDS: levETIRAcetam 1,000 MG/100 ML PREMIX 400 MG IV ×2 (05:03→21:17)
[2023-05-17 05:08] LABS: Basophils % 0.4 %; Eosinophils % 0.6 %; Hematocrit 35.1 % (36-47); Lymphocytes # 0.8 10^3/uL (0.8-4.8); Lymphocytes % 11.8 %; Mean Corpuscular HGB Conc 31.1 g/dL (30-55); Mean Corpuscular Hemoglobin 25.6 pg (27-33); Mean Corpuscular Volume 82.6 fl (85-98); Mean Platelet Volume 10.4 fL (7.4-10.4); Monocytes # 0.7 10^3/uL (0.2-0.9); Monocytes % 9.1 %; Neutrophils # 5.51 10^3/uL (1.8-7.7); Neutrophils % 77.3 %; Nucleated Red Blood Cells % 0 %; Platelet Count 306 10^3/cmm (157-399); Red Blood Count 4.25 10^6/uL (3.85-5.65); White Blood Count 7.13 10^3/uL (3.29-11.43)
[2023-05-17 05:30] LABS: Alanine Aminotransferase 10 U/L (0-33); Albumin Level 3.5 g/dL (3.5-5.2); Alkaline Phosphatase 110 U/L (35-105); Aspartate Amino Transferase 13 U/L (0-32); Blood Urea Nitrogen 16 mg/dL (8-23); C Reactive Protein 183.4 mg/L (0.0-4.9); Calcium 8.8 mg/dL (8.5-10.5); Carbon Dioxide 30 mmol/L (22-29); Chloride 94 mmol/L (98-107); Glucose 132 mg/dL (65-115); Magnesium 1.8 mg/dL (1.7-2.3); Osmolality Calculated 291 mOsm/kg (285-295); Phosphorus 2.8 mg/dL (2.5-4.5); Sodium 139 mmol/L (136-145); Total Bilirubin 0.4 mg/dL (0.15-1.2); Total Protein 6.5 g/dL (6.6-8.7)
[2023-05-17 05:32] LABS: Creatinine Clr Calc Pharmacy 36.6605
[2023-05-17 05:37] LABS: Lactate (Lactic Acid level) 0.8 mmol/L (0.5-2.2)
[2023-05-17 05:40] LABS: NT Pro B Type Natriuretic Pept 2044 pg/mL (0-125); Procalcitonin 0.46 ng/mL (0-0.5)
[2023-05-17] MEDS: potassium chloride ER 20 mEq Tablet 40 MEQ PO (06:20)
[2023-05-17] MEDS: pantoprazole DR 40 mg Tablet PO (06:20)
[2023-05-17 06:50] LABS: Glucose Point of Care 139 mg/dL (70-110)
[2023-05-17] MEDS: LORazepam 2 mg/mL INJ 10 mL MDV 1 MG IVP (10:04)
[2023-05-17 10:16] LABS: Erythrocyte Sedimentation Rate 89 mm/hr (0-15)
[2023-05-17] MEDS: lidocaine 1% 5 ML in potassium chloride premix 100 ML 52.5 ML IV (10:58)
[2023-05-17 11:12] LABS: Glucose Point of Care 141 mg/dL (70-110)
--- NOTE | 2023-05-17 13:11 | PC.NURSE ---
pt refusing all po meds today thus far, states she just wants to be done with life . Dr. Mejia aware.
[2023-05-17] MEDS: morphine 4 mg/mL SDV 1 mL 1 MG IVP (14:56)
--- NOTE | 2023-05-17 15:25 | P.PN_ITS ---
Subjective 2 Subjective: - Patient was seen early this morning - overnight she had Tmax of 102.3 - normotensive, on 2 L, good urine outpu t, -I had a detailed discussion with coty crawford's family at bedside -Currently no significant leukocytosis n o significant electrolyte abnormalities, potassium is 3.0 will replace -We discussed the LP CSF findings, no si gnificant evidence of bacterial meningitis, possible viral meningitis I started her on acyclovir -I am going to stop her antibiotics, as her CSF studies are within normal limits blood cultures no normal limits urinalysis within normal limits, I am concerned for possible drug fevers, as patient has developed a cyclic phenomenon with her fevers, typically developing in the evening, segment stop her antibiotics to see if that helps with her fever and possibly her mentation as meropenem is associate with increased anxiety and encephalopathy -I discussed her MRI in detail, discusse terra the 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 laterally with encephalomalacia and gliosis, and a tiny lacunar infarct right cerebellum no acute CVA -Potentially her right frontal lobe CVA could be a nidus for seizure-like episodes -How liver I gave her dose of high-dose Keppra yesterday she has not really responded to it -The issue this morning is is that sherita sutherland is alert to person, to place, not to time, she has generalized weakness she tells me she feels weak all over -We discussed her and elevated inflammat ory markers her CRP is 183.4, her sed rate is now up to 89, I am going to have a CT scan of her spine to rule out discitis vertebral osteomyelitis or epidural abscess which was a normal limits ammonia levels are within normal limits, -Certainly something rheumatologic could be going on with her persistently elevated ESR, -I did an examination, all her joints, i ncluding her hip, her knees, or ankles, she really does not have any specific swelling or erythema or tenderness -We did discuss that she had lower lumba r spinal pain, but lumbar CT scan did not show disc herniation -She tells me she wants everything to be stopped that she has done, that she wants to -When asked her why, she is just tired o f being like this, but she is not able to elaborate -I asked her if she is hurting anywhere she tells me that she hurts all over but does not give me a specific explanation or specific area that is hurting her -When asked her if anything is bothering her just that she just is tired of doing all this, when asked to elaborate, she tells me she is done she is ready to -I asked her if she feels down depressed and sad she tells me yes, I asked her if she has any thoughts of hurting herself she tells me yes I asked her if she have any thoughts of killing herself she says yes, I asked her if she has any plan, she tells me no -I had a detailed discussion with family that I think that potentially drug fevers and drug-induced encephalopathy could be an etiology behind her persistent weakness, now confusion, and I have stopped the vancomycin, stop the meropenem certainly Keppra could be an etiology so I have stopped that -However right now she is severely depre ssed, and she does not want to take any of her medications, she has reported active suicidal ideation, but no plan I think that based upon what she has told me and told family tell nursing staff she is is just done she just wants to be comfortable and I confirmed this with patient and family at bedside -But given her active suicidal ideation reports although she is not able to elaborate on them, we will have to consult psychiatry and place her on suicide precautions although I do not think she is currently a harm to herself or family members are always at her bedside she has not displayed any self-harm behaviors or any specific thoughts -However for the last 24 to 48 hours it seems as if her condition has worsened, she has been become more encephalopathic has had generalized weakness, she has had significant upper and lower extremity weakness with persistently elevated ESR without any clear etiology -Thoughts could be breakthrough seizures I have ordered an EEG however we cannot do that immediately, one of the thoughts was transferring her to tertiary level center for continuous EEG monitoring and family tells me that they will think about this, we can certainly do an EEG on Friday with consultation with neurology -The other thought is we could try high- dose steroids given elevated ESR to see if that would help stimulate her to give her more energy potentially something rheumatologic could be going on such as PMR certainly on examination she has significant upper extremity weakness, complains of bilateral shoulder pain, diffuse musculoskeletal pain, with low-grade fevers, elevated ESR CRP PMR could be a possibility explain her weakness, fatigue, poor appetite, her cultures remain negative, white blood cell count remains negative, I will try to 125 mg of Solu-Medrol -Family tells me that she is never respo nded to seizure medications, and she has been on multiple seizure medications, the other thought is that if she having multiple seizures resulting in weakness, certainly this is a possibility, will continue to monitor for seizures -On examination she has generalized weak ness, she is diminished him manager strength in bilateral upper extremities, bilateral shoulder pain, diffuse musculoskeletal aches and pains, although on examination no shoulder joint elbow joint knee joint appears to be swollen erythematous, she does have bilateral lower extremity weakness, she does have Babinski's downward going bilaterally she does report sensation of bilateral extremities, Vitals/I&O/Wt Last Vital Signs Temp 98.9 F 05/17/23 12:00 Pulse 87 05/17/23 12:00 Resp 18 05/17/23 14:56 BP 148/68 05/17/23 12:00 Pulse Ox 94 05/17/23 14:56 O2 Del Method Nasal Cannula 05/17/23 09:01 O2 Flow Rate 1 05/17/23 09:01 FiO2 40 05/14/23 16:00 05/17/23 05/17/23 05/17/23 06:59 14:59 22:59 Intake Total 260 / 1375 50 / 50 Output Total 250 / 1000 Balance 10 / 375 50 / 50 Weight last 48 hrs Weight 86.818 kg Physical Exam 2 Const: COMMON NORMALS: no acute distress Resp: COMMON NORMALS: normal respiratory effort, No retractions, No use of accessory muscles and clear to auscultation bilaterally AUSCULTATION: clear to auscultation bilaterally Cardio: COMMON NORMALS: regular rate, regular rhythm, S1 normal heart sound present and S2 normal heart sound present RATE: regular rate RHYTHM: r egular rhythm HEART SOUNDS: S1 normal heart sound present and S2 normal heart sound present GI: COMMON NORMALS: Normal to inspection, nondistended, normoactive bowel sounds present and non-tender Extremity: COMMON NORMALS: no pedal edema Psych: COMMON NORMALS: mental status grossly normal Urinary Catheter Management: Rodriguez Latex: Cath Placed During This Visit: yes Reason for Continuing Indwelling Catheter: Acute Urinary Retention or Obstruction Urinary Catheter Date of Insertion: 05/10/23 Urinary Catheter Time of Insertion: 21:55 Data 05/17/23 04:16 05/17/23 04:16 Micro: Microbiology 05/16/23 11:55 Gram Stain - Final Cerebrospinal Fluid A&P Assessment and plan (1) Acute encephalopathy: (2) Toxic metabolic encephalopathy: (3) Altered mental status: Qualifiers: Altered mental status type: stupor Qualified Code(s): R40.1 - Stupor (4) Seizure disorder: (5) Seizure: (6) Type 2 diabetes mellitus: Qualifiers: Diabetes mellitus custodial insulin use: unspecified terminal makeup operator insulin use status Diabetes mellitus complication status: with other specified complication Qualified Code(s): E11.69 - Type 2 diabetes mellitus with other specified complication (7) Hypertension: Qualifiers: Hypertension type: primary hypertension Qualified Code(s): I10 - Essential (primary) hypertension (8) Gastroparesis: (9) PNA (pneumonia): (10) Rhabdomyolysis: (11) Intractable back pain: (12) CHF exacerbation: (13) Acute respiratory failure: (14) Suicidal ideation: (15) Anxiety and depression: Plan Brenda Stone is a 72 yo woman w/ seizure d/o, IDDM2, PAD s/p b/l iliac stents who was brought to the EMS on 05/10/2023 for AMS. Per ED notes, patient was given numerous IVP of Zofran arrival to the ED, and she did have loss of control of bowel and bladder. She was febrile, tachycardic and hypoxic in the ED. Her ABG was 7.42/38.8/56.9. She had a wbc of 15.7, a BG of 384 w/ an AGAP of 19. Her UA was negative for a UTI, but she had 4+ glucosuria. She was given 2L NS bolus. Her CT head was negative. Her CXR showed mild pulm vascular congestion, LLL atelectasis vs infiltrate. There was concern for a CVA vs a seizure. The Neurologist was consulted who deemed her to have had a generalized tonic clonic seizure. She was given Keppra 1g, Cipro 400mg IVP x 1, Azithromycin 500mg IV, & 1g of IV Tylenol, # Acute encephalopathy -With febrile episodes typically in the evening -Drug fevers versus meningitis versus breakthrough seizures - on admission there was concerns for sepsis secondary to left upper lobe pneumonia, repeat chest x-ray shows fluid overload, antibiotic coverage broadened as below -Give an elevated ESR at 58, she has undergone a [place] CT scan of her spine without any significant radiographic evidence of spinal abscess or osteomyelitis or discitis Plan -Will continue to monitor neurologic status closely neurochecks, stroke scale aspiration precautions -Monitor for fevers -Repeat blood cultures so far no growth -Add on acyclovir -EEG ordered #acute respiratory failure, secondary to chf exacerbation: He is on 3 L, does have scattered crackles on examination, diuresed over 3 L yesterday, plan for today 1 dose albumin, 1 dose Lasix, 1 dose of IV potassium #Acute hypoxic respiratory failure: Wean O2 as tolerated. #Sepsis: Likely secondary to left upper lobe pneumonia, #ALEJANDRA pneumonia: noted on CT scan w/o contrast in the AM. F/u w/ CT chest in 3 months to r/o malignancy. #Lactic acidosis: Monitor. #Generalized tonic clonic seizure, #Seizure d/o: s/p Keppra 1000 mg twice daily. Will continue. #AGAP metabolic acidosis: Monitor #MOOKIE on CKD: Monitor # Intractable back pain, resolving, with ESR of 55, chad[place] CT scan as above, currently no tenderness on examination, CT lumbar spine shows bulging disks at L4-L5, L5-S1 with multilevel facet arthropathy, continue pain control, PT OT, follow-up with primary care and Dr. Merrill as outpatien # Rhabdomyolysis, CPK improving, # History of grand mal seizures, # Has petit mall seizures throughout the day, which is ordinary for patient, that according to family has been resistant to most treatment, it was recommended for patient to have neurosurgery for the seizures however patient declined #Hyperlycemia: #IDDM2 #Diabetic gastroparesis - On Lantus qAM & qHS, low dose SSI in the day and low dose SSI at night. - A1c of 12.6 on 05/11/2023. #GERD: PPI IVP #HTN: Blood pressures have been elevated today, start clonidine point 1 twice daily #PAD s/p b/l Iliac stents #Carotid Artery Stenosis s/p R. Carotid endarterectomy & severe L. Carotid stenosis #HLD, statin currently on hold given rhabdomyolysis - On Aspirin, Cilostazol, #Anxiety d/o: Resume BuSpar Generalized weakness, deconditioning, likely secondary to prolonged hospitalization, bedrest, continue PT OT, DVT ppx: Lovenox. Plan for today, will need extensive workup for persists assisting in developing acute encephalopathy and fevers including EEG, MRI, lumbar puncture broaden antibiotic coverage to vancomycin, meropenem added on viral coverage tick panel HIV, ESR CRP Pro-David hep C beta D glucan ordered, monitoring mentation, Keppra increased to thousand twice daily, increasing diuresis, spoke to nursing staff, spoke to patient's spoke to patient - Patient was seen early this morning - overnight she had Tmax of 102.3 - normotensive, on 2 L, good urine output, -I had a detailed discussion with patient's family at bedside -Currently no significant leukocytosis no significant electrolyte abnormalities, potassium is 3.0 will replace -We discussed the LP CSF findings, no significant evidence of bacterial meningitis, possible viral meningitis I started her on acyclovir -I am going to stop her antibiotics, as her CSF studies are within normal limits blood cultures no normal limits urinalysis within normal limits, I am concerned for possible drug fevers, as patient has developed a cyclic phenomenon with her fevers, typically developing in the evening, segment stop her antibiotics to see if that helps with her fever and possibly her mentation as meropenem is associate with increased anxiety and encephalopathy -I discussed her MRI in detail, discussed the 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 laterally with encephalomalacia and gliosis, and a tiny lacunar infarct right cerebellum no acute CVA -Potentially her right frontal lobe CVA could be a nidus for seizure-like episodes -How liver I gave her dose of high-dose Keppra yesterday she has not really responded to it -The issue this morning is is that patient is alert to person, to place, not to time, she has generalized weakness she tells me she feels weak all over -We discussed her and elevated inflammatory markers her CRP is 183.4, her sed rate is now up to 89, I am going to have a CT scan of her spine to rule out discitis vertebral osteomyelitis or epidural abscess which was a normal limits ammonia levels are within normal limits, -Certainly something rheumatologic could be going on with her persistently elevated ESR, -I did an examination, all her joints, including her hip, her knees, or ankles, she really does not have any specific swelling or erythema or tenderness -We did discuss that she had lower lumbar spinal pain, but lumbar CT scan did not show disc herniation -She tells me she wants everything to be stopped that she has done, that she wants to -When asked her why, she is just tired of being like this, but she is not able to elaborate -I asked her if she is hurting anywhere she tells me that she hurts all over but does not give me a specific explanation or specific area that is hurting her -When asked her if anything is bothering her just that she just is tired of doing all this, when asked to elaborate, she tells me she is done she is ready to -I asked her if she feels down depressed and sad she tells me yes, I asked her if she has any thoughts of hurting herself she tells me yes I asked her if she have any thoughts of killing herself she says yes, I asked her if she has any plan, she tells me no -I had a detailed discussion with family that I think that potentially drug fevers and drug-induced encephalopathy could be an etiology behind her persistent weakness, now confusion, and I have stopped the vancomycin, stop the meropenem certainly Keppra could be an etiology so I have stopped that -However right now she is severely depressed, and she does not want to take any of her medications, she has reported active suicidal ideation, but no plan I think that based upon what she has told me and told family tell nursing staff she is is just done she just wants to be comfortable and I confirmed this with patient and family at bedside -But given her active suicidal ideation reports although she is not able to elaborate on them, we will have to consult psychiatry and place her on suicide precautions although I do not think she is currently a harm to herself or family members are always at her bedside she has not displayed any self-harm behaviors or any specific thoughts -However for the last 24 to 48 hours it seems as if her condition has worsened, she has been become more encephalopathic has had generalized weakness, she has had significant upper and lower extremity weakness with persistently elevated ESR without any clear etiology -Thoughts could be breakthrough seizures I have ordered an EEG however we cannot do that immediately, one of the thoughts was transferring her to tertiary level center for continuous EEG monitoring and family tells me that they will think about this, we can certainly do an EEG on Friday with consultation with neurology -The other thought is we could try high-dose steroids given elevated ESR to see if that would help stimulate her to give her more energy potentially something rheumatologic could be going on such as PMR certainly on examination she has significant upper extremity weakness, complains of bilateral shoulder pain, diffuse musculoskeletal pain, with low-grade fevers, elevated ESR CRP PMR could be a possibility explain her weakness, fatigue, poor appetite, her cultures remain negative, white blood cell count remains negative, I will try to 125 mg of Solu-Medrol -Family tells me that she is never responded to seizure medications, and she has been on multiple seizure medications, the other thought is that if she having multiple seizures resulting in weakness, certainly this is a possibility, will continue to monitor for seizures -Spoke to family, spoke to , spoke to daughter, multiple meetings outside the room, family wants to give her 24 hours, psychiatry consultation, trial off antibiotics, continue acyclovir, will continue steroids, monitor mentation -On examination she has generalized weakness, she is diminished him manager strength in bilateral upper extremities, bilateral shoulder pain, diffuse musculoskeletal aches and pains, although on examination no shoulder joint elbow joint knee joint appears to be swollen erythematous, she does have bilateral lower extremity weakness, she does have Babinski's downward going bilaterally she does report sensation of bilateral extremities, Attestations 2 Medical Necessity Statement*: Patient requires hospitalization for acute encephalopathy, suicidal ideation, anxiety depression Diagnoses Acute encephalopathy G93.40 Toxic metabolic encephalopathy G92.8 Altered mental status R40.1 Altered mental status type: stupor Seizure disorder G40.909 Seizure R56.9 Type 2 diabetes mellitus with other specified complication, unspecified whether terminal makeup operator insulin use E11.69 Diabetes mellitus custodial insulin use: unspecified custodial insulin use status Diabetes mellitus complication status: with other specified complication Primary hypertension I10 Hypertension type: primary hypertension Gastroparesis K31.84 PNA (pneumonia) J18.9 Rhabdomyolysis M62.82 Intractable back pain M54.9 CHF exacerbation I50.9 Acute respiratory failure J96.00 Suicidal ideation R45.851 Anxiety and depression F41.9; F32.A
[2023-05-17] MEDS: lidocaine 1% 5 ML in potassium chloride premix 100 ML 25 ML IV (15:55)
--- NOTE | 2023-05-17 15:56 | PC.NURSE ---
second k-rider late because infusion rate had to be slowed to 25 mL/hr due to pt complaint of pain
[2023-05-17] MEDS: HYDROcodone-acetaminophen 5-325 mg Tablet 1 TAB PO (16:29)
[2023-05-17] MEDS: methylPREDNISolone sod succ 125 mg/2 mL INJ IVP (16:40)
[2023-05-17 17:23] LABS: Glucose Point of Care 172 mg/dL (70-110)
[2023-05-17 17:57] LABS: Cortisol Random 24.27 ug/dL (2.47-19.5)
--- NOTE | 2023-05-17 19:07 | P.TS_ITS ---
Transfer Summary Providers Date of Admission: 05/10/23 17:05 Date of Discharge/Transfer: 05/29/23 Attending Provider at Admission: Erika Cosme MD Attending Provider at Transfer: Yordan Mejia MD Primary Care Provider: XIMENA Su Transfer Plans: Anticipated date of transfer: 05/29/23 . Diagnoses at Discharge Discharge Diagnosis (1) Acute encephalopathy: Status: Acute (2) Toxic metabolic encephalopathy: Status: Acute (3) Altered mental status: Status: Acute Qualifiers: Altered mental status type: stupor Qualified Code(s): R40.1 - Stupor (4) Seizure disorder: Status: Acute (5) Seizure: Status: Acute (6) Type 2 diabetes mellitus: Status: Acute Qualifiers: Diabetes mellitus complication status: with other specified complication Diabetes mellitus detention insulin use: unspecified terminal supervisor insulin use status Qualified Code(s): E11.69 - Type 2 diabetes mellitus with other specified complication (7) Hypertension: Status: Acute Qualifiers: Hypertension type: primary hypertension Qualified Code(s): I10 - Essential (primary) hypertension (8) Gastroparesis: Status: Acute (9) PNA (pneumonia): Status: Acute (10) Rhabdomyolysis: Status: Acute (11) Intractable back pain: Status: Acute (12) CHF exacerbation: Status: Acute (13) Acute respiratory failure: Status: Acute (14) Suicidal ideation: Status: Acute (15) Anxiety and depression: Status: Acute Reason for Visit Reason for Visit AMS Hospital Course Hospital Course Brenda Stone is a 72 yo woman w/ who was brought to the EMS on 05/10/2023 for AMS. Per , patient woke up around 6am, had her morning routine, then she tried on clothes in anticipation of a planned cruise next month. Around 10:30am, she complained that she felt really cold, so the helped her back to bed and turned the heater on. Around 11:30am, she wanted to use the restroom, but she could not get out of bed. The helped her get to the bathroom, but the patient lost control of her bladder on her way to the bathroom. The states that the patient could move her feet, but he had to physically support her. He cleaned her up and got her to her recliner in the living room. The patient's then noticed that the patient was not coherent, could not recognize him, could not talk without mumbling, did not know her birthdate, and was seeing fuzzies on the carpet. With these, the called EMS. When EMS arrived, prior to putting the patient in the ambulance, she vomited; however, according to the patient's , prior to this state of AMS, the patient had not had any complaints of abdominal pain,n/v, diarrhea, constipation, melena, hematochezia, dysuria, hematuria, increased urinary urgency/freq, f/c, malaise, poor appetite, CP, palpitation, dizziness, light headedness, headaches, visual disturbances, The states that the patient has not had a grand mal seizure in ~3 years, but she gets petite seizures, where she gets confused for ~10-20secs at a time. Per , patient had just completed PT to strengthen her b/l LE. They had made plans to go to the movies today. Per ED notes, patient was given numerous IVP of Zofran arrival to the ED, and she did have loss of control of bowel and bladder. She was febrile, tachycardic and hypoxic in the ED. Her ABG was 7.42/38.8/56.9. She had a wbc of 15.7, a BG of 384 w/ an AGAP of 19. Her UA was negative for a UTI, but she had 4+ glucosuria. She was given 2L NS bolus. Her CT head was negative. Her CXR showed mild pulm vascular congestion, LLL atelectasis vs infiltrate. There was concern for a CVA vs a seizure. The Neurologist was consulted who deemed her to have had a generalized tonic clonic seizure. She was given Keppra 1g, Cipro 400mg IVP x 1, Azithromycin 500mg IV, & 1g of IV Tylenol, Patient was admitted to [facility] for acute encephalopathy, initially thought to be secondary to breakthrough seizures, was managed with additional Keppra, however due to fluctuating mentation, she was placed on antibiotics for concerns for meningitis, managed with IV antibiotics, due to persistence of fluctuating mentation, antivirals were added, so far blood cultures, no growth so far CSF studies no growth, brain MRI no acute findings, ch[place] CT scan of the spine no evidence of discitis vertebral osteomyelitis or epidural abscess, her seizure medications were also optimized, she had an extensive workup for other sources which were with normal limits, however due to persistent encephalopathy during her hospitalization, fluctuating mentation, patient was transferred to tertiary level center, [facility] for evaluation by neurology, consideration of continuous EEG monitoring, infectious disease evaluation Patient's hospitalization was complicated with respiratory failure secondary fluid overload improved with diuresis and BiPAP therapy Concerns for left upper lobe pneumonia was managed with antibiotics Intractable back pain, resolving, with ESR of 55, ch[place] CT scan as above, currently no tenderness on examination, CT lumbar spine shows bulging disks at L4-L5, L5-S1 with multilevel facet arthropathy, continue pain control, PT OT, follow-up with primary care and Dr. Merrill as outpatien Rhabdomyolysis, managed with IV fluids Physical Exam Const: COMMON NORMALS: no acute distress Resp: COMMON NORMALS: normal respiratory effort, No retractions, No use of accessory muscles and clear to auscultation bilaterally AUSCULTATION: clear to auscultation bilaterally Cardio: COMMON NORMALS: regular rate, regular rhythm, S1 normal heart sound present and S2 normal heart sound present RATE: regular rate RHYTHM: regular rhythm HEART SOUNDS: S1 normal heart sound present and S2 normal heart sound present GI: COMMON NORMALS: Normal to inspection, nondistended, normoactive bowel sounds present and non-tender Extremity: COMMON NORMALS: no pedal edema Urinary Catheter Management: Rodriguez Latex: Cath Placed During This Visit: yes Reason for Continuing Indwelling Catheter: Acute Urinary Retention or Obstruction Urinary Catheter Date of Insertion: 05/10/23 Urinary Catheter Time of Insertion: 21:55 TS Data Studies Completed and Pending Pending at discharge Category Date Time Status EEG electroencephalogram Routine Exams 05/16/23 08:56 Ordered 1-3 Beta D Glucan [Fungitell Glucan Assay (Blood)] Lab 05/16/23 13:55 Received Routine KELLY Profile Rheumatology Stat Lab 05/17/23 13:20 Received Blood Culture Stat Lab 05/14/23 21:15 Results C Reactive Protein AM LABS Lab 05/18/23 04:00 Ordered C Reactive Protein AM LABS Lab 05/19/23 04:00 Ordered CSF Culture & Gram Stain Stat Lab 05/16/23 11:55 Results Complete Blood Count w/Auto AM LABS Lab 05/18/23 04:00 Ordered Complete Blood Count w/Auto AM LABS Lab 05/19/23 04:00 Ordered Comprehensive Metabolic Panel AM LABS Lab 05/18/23 04:00 Ordered Comprehensive Metabolic Panel AM LABS Lab 05/19/23 04:00 Ordered Erythrocyte Sedimentation Rate AM LABS Lab 05/17/23 18:34 Ordered Lactate (Lactic Acid level) AM LABS Lab 05/18/23 04:00 Ordered Lactate (Lactic Acid level) AM LABS Lab 05/19/23 04:00 Ordered Lymes Disease Antibodies CSF Stat Lab 05/16/23 11:55 Received Magnesium AM LABS Lab 05/18/23 04:00 Ordered Magnesium AM LABS Lab 05/19/23 04:00 Ordered NT Pro B Type Natriuretic Pept QAM Lab 05/18/23 06:00 Ordered NT Pro B Type Natriuretic Pept QAM Lab 05/19/23 06:00 Ordered Phosphorus AM LABS Lab 05/18/23 04:00 Ordered Phosphorus AM LABS Lab 05/19/23 04:00 Ordered Procalcitonin AM LABS Lab 05/18/23 04:00 Ordered Procalcitonin AM LABS Lab 05/19/23 04:00 Ordered Sputum Culture and Gram Stain Stat Lab 05/14/23 17:30 Uncollected [facility].Virus IFA CSF Stat Lab 05/16/23 11:55 Received Tick Panel Stat Lab 05/16/23 13:55 Received VDRL on CSF Stat Lab 05/16/23 11:55 Received West Nile Virus AB Panel,CSF Stat Lab 05/16/23 11:55 Received Completed Studies During Hospitalization Category Date Time Status CT cervical spin wo con* [id number] Routine Cat Scan 05/15/23 17:[address] chest abdomen pelvis [[place] [id number] Cat Scan 05/11/23 11:21 Completed ] Routine CT head thrombolytic [id number] Stat Cat Scan 05/10/23 13:[address] head wo con* [id number] Routine Cat Scan 05/15/23 17:[address] lumbar spine wo con* [id number] Stat Cat Scan 05/12/23 11:[address] thoracic spin wo con* [id number] Routine Cat Scan 05/12/23 11:50 Completed FL guided lumbarpunc dx* [id number] Stat Exams 05/16/23 08:56 Completed XR chest 1V portable [id number] Routine Exams 05/14/23 12:37 Completed XR chest 1V portable [id number] Routine Exams 05/15/23 17:57 Completed XR chest 1V portable [id number] Stat Exams 05/10/23 13:49 Completed MR head wo con* [id number] Stat MRI 05/16/23 08:56 Completed Laboratory Last Values WBC 7.13 10^3/uL (3.29-11.43) 05/17/23 04:16 RBC 4.25 10^6/uL (3.85-5.65) 05/17/23 04:16 Hgb 10.90 g/dL (11.27-16.99) L 05/17/23 04:16 Hct 35.1 % (36-47) L 05/17/23 04:16 MCV 82.6 fl (85-98) L 05/17/23 04:16 MCH 25.6 pg (27-33) L 05/17/23 04:16 MCHC 31.1 g/dL (30-55) 05/17/23 04:16 RDW 16.0 % (12.1-15.1) H 05/17/23 04:16 Plt Count 306 10^3/cmm (157-399) 05/17/23 04:16 MPV 10.4 fL (7.4-10.4) 05/17/23 04:16 Neut % (Auto) 77.3 % 05/17/23 04:16 Lymph % (Auto) 11.8 % 05/17/23 04:16 Forrest % (Auto) 9.1 % 05/17/23 04:16 Eos % (Auto) 0.6 % 05/17/23 04:16 Baso % (Auto) 0.4 % 05/17/23 04:16 Neut # (Auto) 5.51 10^3/uL (1.8-7.7) 05/17/23 04:16 Lymph # (Auto) 0.8 10^3/uL (0.8-4.8) 05/17/23 04:16 Forrest # (Auto) 0.7 10^3/uL (0.2-0.9) 05/17/23 04:16 Eos # (Auto) 0.0 10^3/uL (0.0-0.8) 05/17/23 04:16 Baso # (Auto) 0.0 10^3/uL (0.0-0.1) 05/17/23 04:16 Nucleated RBC % (auto) 0 % 05/17/23 04:16 Nucleated RBCs # 0.0 /100WBC 05/17/23 04:16 ESR 89 mm/hr (0-15) H 05/17/23 04:16 PT 13.70 SECONDS (12.1-14.9) 05/11/23 02:38 INR 1.02 (0.8-1.2) 05/11/23 02:38 APTT 33.8 SECONDS (23.9-36.7) 05/11/23 02:38 Specimen Type Arterial 05/14/23 13:32 Sample Site Radial, right 05/14/23 13:32 ABG pH 7.44 (7.35-7.45) 05/14/23 13:32 ABG pCO2 35.4 mmHg (35-45) 05/14/23 13:32 ABG pO2 50.1 mmHg (80.0-100.0) L 05/14/23 13:32 ABG PO2/FiO2 Ratio 0 05/14/23 13:32 ABG HCO3 24.3 mmol/L (22-26) 05/14/23 13:32 ABG O2 Saturation 89.1 05/14/23 13:32 ABG Base Excess 0.4 mmol/L (-2.0-2.0) 05/14/23 13:32 Kiran Test Pos 05/14/23 13:32 A-a O2 Gradient Not Reportable 05/14/23 13:32 Hematocrit 33.2 % (37-47) L 05/14/23 13:32 Hgb O2 Saturation 87.6 % (95-100) L 05/14/23 13:32 Carboxyhemoglobin 1.2 %THgb (0.4-20.1) 05/14/23 13:32 Methemoglobin 0.5 % (0.4-1.5) 05/14/23 13:32 Total Hemoglobin 10.8 g/dL (12-16) L 05/14/23 13:32 Sodium 141.0 mmol/L (131-143) 05/14/23 13:32 Potassium 3.2 mmol/L (3.5-5.0) L 05/14/23 13:32 Glucose 198.0 mg/dL (70-115) H 05/14/23 13:32 Ionized Calcium 1.2 mmol/L (1.1-1.4) 05/14/23 13:32 O2 Delivery Device Oxy mask 05/14/23 13:32 O2 Liters/Min 32.0 % 05/14/23 13:32 FiO2 3.0 % 05/14/23 13:32 Costume Draper ID Suman 05/14/23 13:32 Sodium 139 mmol/L (136-145) 05/17/23 04:16 Potassium 3.0 mmol/L (3.5-5.1) L 05/17/23 04:16 Chloride 94 mmol/L (98-107) L 05/17/23 04:16 Carbon Dioxide 30 mmol/L (22-29) H 05/17/23 04:16 Anion Gap 18.0 (5-19) 05/17/23 04:16 BUN 16 mg/dL (8-23) 05/17/23 04:16 Creatinine 1.6 mg/dL (0.5-0.9) H 05/17/23 04:16 GFR Calculation Not Reportable 05/17/23 04:16 Glucose 132 mg/dL (65-115) H 05/17/23 04:16 POC Glucose 172 mg/dL (70-110) H 05/17/23 17:04 Estimat Average Glucose 315 05/11/23 02:38 Hemoglobin A1c 12.6 % (4.0-6.0) H 05/11/23 02:38 Calculated Osmolality 291 mOsm/kg (285-295) 05/17/23 04:16 Lactic Acid 0.7 mmol/L (0.5-2.2) 05/15/23 20:13 Lactic Acid (Sepsis) 2.6 mmol/L (0.5-2.2) H 05/10/23 16:40 Lactate 0.8 mmol/L (0.5-2.2) 05/17/23 04:16 Calcium 8.8 mg/dL (8.5-10.5) 05/17/23 04:16 Phosphorus 2.8 mg/dL (2.5-4.5) 05/17/23 04:16 Magnesium 1.8 mg/dL (1.7-2.3) 05/17/23 04:16 Total Bilirubin 0.4 mg/dL (0.15-1.2) 05/17/23 04:16 AST 13 U/L (0-32) 05/17/23 04:16 ALT 10 U/L (0-33) 05/17/23 04:16 Alkaline Phosphatase 110 U/L (35-105) H 05/17/23 04:16 Ammonia 25 umol/L (11-51) 05/15/23 20:13 Creatine Kinase 228 U/L (26-192) H 05/16/23 03:41 Troponin T Baseline 41 ng/L (0-10) H 05/10/23 13:35 Troponin T 120 Minute 33.66 ng/L (0-10) H 05/10/23 15:12 Delta Troponin T -7.34 ABS# (0-10) L 05/10/23 15:12 Troponin T Hi Sens 6Hr 49.27 ng/L (0-10) H 05/10/23 19:22 Troponin T Hi Sens 6Hr Delta 8.27 ng/L (0-12) 05/10/23 19:22 C-Reactive Protein 183.4 mg/L (0.0-4.9) H 05/17/23 04:16 NT-Pro-B Natriuret Pep 2044 pg/mL (0-125) H 05/17/23 04:16 Total Protein 6.5 g/dL (6.6-8.7) L 05/17/23 04:16 Albumin 3.5 g/dL (3.5-5.2) 05/17/23 04:16 Globulin 3.0 g/dL (1.3-4.6) 05/17/23 04:16 Beta-Hydroxybutyrate 0.08 mmol/L 05/10/23 22:17 Procalcitonin 0.46 ng/mL (0-0.5) 05/17/23 04:16 TSH 3.99 uIU/mL (0.27-4.20) 05/14/23 04:32 Prolactin 16.79 ng/mL (4.8-23.3) 05/10/23 13:35 Random Cortisol 24.27 ug/dL (2.47-19.5) H 05/17/23 16:46 Urine Color Colorless (Yellow) 05/14/23 15:57 Urine Appearance Clear (CLEAR) 05/14/23 15:57 Urine pH 5 (5-7) 05/14/23 15:57 Ur Specific Hope 1.015 (1.005-1.030) 05/14/23 15:57 Urine Protein Neg (Negative) 05/14/23 15:57 Urine Glucose (UA) Norm (Normal) 05/14/23 15:57 Urine Ketones Negative (Negative) 05/14/23 15:57 Urine Blood Neg (Negative) 05/14/23 15:57 Urine Nitrate Negative (Negative) 05/14/23 15:57 Urine Bilirubin Neg (Negative) 05/14/23 15:57 Urine Urobilinogen Norm mg/dL (Negative) 05/14/23 15:57 Ur Leukocyte Esterase Negative (Negative) 05/14/23 15:57 CSF Appearance Clear (CLEAR) 05/16/23 11:55 CSF Color Colorless (COLORLESS) 05/16/23 11:55 CSF Specific Hope 1.005 05/16/23 11:55 CSF WBC 5 /uL (0-5) 05/16/23 11:55 CSF RBC 0 10^3/uL (0-0) 05/16/23 11:55 CSF Mononuclear # Auto 0.003 10^3/uL (50-90) L 05/16/23 11:55 CSF Mononuclear WBCs % 60 % (50-90) 05/16/23 11:55 CSF Polynuclear WBCs # 0.002 10^3/uL (0-10) 05/16/23 11:55 CSF Polynuclear WBCs % 40 % (0-10) H 05/16/23 11:55 CSF Diff Comment Yes 05/16/23 11:55 CSF Glucose 104 mg/dL (40-70) H 05/16/23 11:55 CSF Total Protein 40 mg/dL (15-45) 05/16/23 11:55 Urine Opiates Screen Negative ng/mL (Negative) 05/10/23 14:02 Ur Barbiturates Screen Negative ng/mL (Negative) 05/10/23 14:02 Lamotrigine 3.9 mcg/mL (2.5-15.0) 05/11/23 02:38 Ur Phencyclidine Scrn Negative ng/mL (Negative) 05/10/23 14:02 Ur Amphetamines Screen Negative ng/mL (Negative) 05/10/23 14:02 U Benzodiazepines Scrn Negative ng/mL (Negative) 05/10/23 14:02 Urine Cocaine Screen Negative ng/mL (Negative) 05/10/23 14:02 U Marijuana (THC) Screen Negative ng/mL (Negative) 05/10/23 14:02 Ethyl Alcohol < 10 mg/dL (0-10) 05/10/23 13:35 Serum Ketones Negative (Negative) 05/10/23 13:35 Adenovirus (PCR) Not detected (NOT DETECT) 05/15/23 04:40 C. pneumoniae DNA (PCR) Not detected (NOT DETECT) 05/15/23 04:40 Coronavirus 229E (PCR) Not detected (NOT DETECT) 05/15/23 04:40 Hepatitis A IgM Ab Non-reactive (Nonreactive) 05/16/23 03:41 Hep Bs Antigen Non-reactive (Nonreactive) 05/16/23 03:41 Hep B Core IgM Ab Non-reactive (Nonreactive) 05/16/23 03:41 Hepatitis C Antibody Non-reactive (Nonreactive) 05/16/23 03:41 HIV 1&2 Ab & HIV 1 Ag Non-reactive (Non-Reactiv) 05/16/23 03:41 HIV 1&2 Antibody Non-reactive (Non-Reactiv) 05/16/23 03:41 Human Metapneumovir PCR Not detected (NOT DETECT) 05/15/23 04:40 Influenza A (H1) PCR Not detected (NOT DETECT) 05/15/23 04:40 Influ A (H1/09) PCR Not detected (NOT DETECT) 05/15/23 04:40 Influenza A (H3) PCR Not detected (NOT DETECT) 05/15/23 04:40 Influenza Type A (PCR) Not detected (NOT DETECT) 05/15/23 04:40 Influenza Type B (PCR) Not detected (NOT DETECT) 05/15/23 04:40 M. pneumoniae (PCR) Not detected (NOT DETECT) 05/15/23 04:40 Parainfluenza 1 (PCR) Not detected (NOT DETECT) 05/15/23 04:40 Parainfluenza 2 (PCR) Not detected (NOT DETECT) 05/15/23 04:40 Parainfluenza 3 (PCR) Not detected (NOT DETECT) 05/15/23 04:40 Parainfluenza 4 (PCR) Not detected (NOT DETECT) 05/15/23 04:40 RSV Type A (PCR) Not detected (NOT DETECT) 05/15/23 04:40 RSV Type B (PCR) Not detected (NOT DETECT) 05/15/23 04:40 Entero/Rhino (PCR) Not detected (NOT DETECT) 05/15/23 04:40 SARS-CoV-2 (PCR) Not detected (NOT DETECT) 05/15/23 04:40 SARS-CoV-2 Ag (Rapid) negative (Negative) 05/16/23 06:30 Radiology Impressions Chest/Abdomen/Pelvis CT 05/11/23 11:21 IMPRESSION: 1. Localized area of airspace consolidation in the posterolateral aspect of the left upper lobe most likely representing infectious/inflammatory pathology. Given partial nodular morphology as described above, posttreatment follow-up in 3 months is recommended to exclude underlying fixed pathology including neoplasm. 2. Severe pulmonary emphysema and trace pleural effusions. IMPRESSION: 1. No acute abdominopelvic pathology. 2. Minor findings described above. Thoracic Spine CT 05/12/23 11:50 IMPRESSION: 1. I see no acute bony abnormality. 2. Osteoporosis 3. Multilevel vertebral body spurring 4. Bilateral pleural effusions Lumbar Spine CT 05/12/23 11:51 IMPRESSION: 1. I see no acute abnormality. 2. Osteoporosis 3. Multilevel facet arthropathy 4. Bulging discs at L4-L5 and L5-S1 Cervical Spine CT 05/15/23 17:55 IMPRESSION: 1. Negative for fracture or dislocation 2. Left carotid artery atherosclerotic calcifications. 3. Biapical emphysematous changes and subsegmental atelectasis. 4. Lower cervical spine moderate to severe disc space narrowing and productive degenerative endplate changes. Head CT 05/15/23 17:55 IMPRESSION: No acute intracranial abnormality. Chest X-Ray 05/15/23 17:57 IMPRESSION: 1. Cardiomegaly. 2. Trace bilateral pleural effusions. 3. Mild pulmonary vascular congestion. Recent Clincial Data Last Vital Signs Temp 100.1 F H 05/17/23 16:00 Pulse 96 05/17/23 16:00 Resp 18 05/17/23 16:00 BP 176/78 05/17/23 16:00 Pulse Ox 93 05/17/23 16:00 O2 Del Method Nasal Cannula 05/17/23 09:01 O2 Flow Rate 1 05/17/23 09:01 FiO2 40 05/14/23 16:00 Vital Signs Temp Pulse Resp BP Pulse Ox O2 Del Method O2 Flow Rate 05/17/23 16:00 100.1 F H 96 18 176/78 93 05/17/23 16:00 18 05/17/23 14:56 18 94 05/17/23 14:00 18 05/17/23 12:00 18 05/17/23 12:00 98.9 F 87 18 148/68 94 05/17/23 09:01 80 16 93 Nasal Cannula 1 05/17/23 08:00 99.3 F 84 18 154/77 91 Intake & Output/Weight 05/15/23 05/16/23 05/17/23 05/18/23 06:59 06:59 06:59 06:59 Intake Total 2150 / 2150 1485 / 1485 1375 / 1375 275.833 / 275.833 Output Total 3150 / 3150 4000 / 4000 1000 / 1000 Balance -1000 / -1000 -2515 / -2515 375 / 375 275.833 / 275.833 Weight 91.626 kg 86.818 kg Vitals Last Vital Signs Temp 100.1 F H 05/17/23 16:00 Pulse 96 05/17/23 16:00 Resp 18 05/17/23 16:00 BP 176/78 05/17/23 16:00 Pulse Ox 93 05/17/23 16:00 O2 Del Method Nasal Cannula 05/17/23 09:01 O2 Flow Rate 1 05/17/23 09:01 FiO2 40 05/14/23 16:00 TS Medications Medications Acetaminophen (Acetaminophen 325 Mg Tablet) 650 mg PO Q6H PRN PRN Reason: FEVER Acetaminophen (Acetaminophen 650 Mg Supp) 650 mg WA Q6H PRN PRN Reason: FEVER Hydrocodone Bitart/Acetaminophen (Hydrocodone-Acetaminophen 5-325 Mg Tablet) 1 tab PO Q4H PRN PRN Reason: MODERATE PAIN Last Admin: 05/17/23 16:29 Dose: 1 tab Albuterol/Ipratropium (Ipratropium-Albuterol 3 Ml Neb) 3 ml INHALATION Q4H PRN PRN Reason: SHORTNESS OF BREATH Last Admin: 05/14/23 08:36 Dose: 3 ml Aspirin (Aspirin 325 Mg Ec Tablet) 325 mg PO DAILY DEREK Last Admin: 05/17/23 11:17 Dose: Not Given Buspirone HCl (Buspirone 10 Mg Tablet) 10 mg PO BID [facility] Last Admin: 05/17/23 17:15 Dose: Not Given Cilostazol (Cilostazol 100 Mg Tablet) 50 mg PO BID [facility] Last Admin: 05/17/23 17:15 Dose: Not Given Citalopram Hydrobromide (Citalopram 20 Mg Tablet) 20 mg PO DAILY [facility] Last Admin: 05/17/23 13:09 Dose: Not Given Clonidine HCl (Clonidine 0.1 Mg Tablet) 0.1 mg PO BID [facility] Last Admin: 05/17/23 17:15 Dose: Not Given Diltiazem HCl (Diltiazem Er (24hr) 120 Mg Capsule) 120 mg PO DAILY [facility] Last Admin: 05/17/23 11:17 Dose: Not Given Enoxaparin Sodium (Enoxaparin 40 Mg/0.4 Ml Syringe) 40 mg SUBCUT Q24H [facility] Last Admin: 05/15/23 22:08 Dose: 40 mg Estradiol (Estradiol 1 Mg Tablet) 0.5 mg PO DAILY [facility] Last Admin: 05/17/23 14:41 Dose: Not Given Gabapentin (Gabapentin 300 Mg Capsule) 600 mg PO TID [facility] Last Admin: 05/17/23 14:41 Dose: Not Given Dextrose (D5w) 500 mls @ 0 mls/hr IV ONCE PRN; Protocol PRN Reason: Adult Acute Hypoglycemia Prot Dextrose (D10w) 125 mls @ 750 mls/hr IV PRN PRN; Protocol PRN Reason: Adult Acute Hypoglycemia Nursing Protocol Dextrose (D10w) 250 mls @ 1,000 mls/hr IV PRN PRN; Protocol PRN Reason: Adult Acute Hypoglycemia Nursing Protocol Acyclovir 500 mg/ Sodium (Chloride) 110 mls @ 110 mls/hr IV Q12H [facility] Last Infusion: 05/17/23 16:20 Dose: Infused Insulin Glargine (Insulin Glargine 100 Units/1 Ml) 15 unit SUBCUT DAILY [facility] Last Admin: 05/17/23 11:18 Dose: Not Given Insulin Glargine (Insulin Glargine 100 Units/1 Ml) 10 unit SUBCUT BEDTIME [facility] Last Admin: 05/16/23 21:01 Dose: 10 unit Insulin Human Lispro (Insulin Lispro 100 Unit/1 Ml) 0 unit SUBCUT TIDWM [facility]; Protocol Last Admin: 05/17/23 17:16 Dose: Not Given Insulin Human Lispro (Insulin Lispro 100 Unit/1 Ml) 0 unit SUBCUT BEDTIME [facility]; Protocol Last Admin: 05/16/23 21:00 Dose: Not Given Lactulose (Lactulose Oral Liq 20 Gm/30 Ml Udc) 30 gm PO DAILY PRN; Protocol PRN Reason: Constipation (see protocol) Lamotrigine (Lamotrigine 100 Mg Tablet) 200 mg PO BID [facility] Last Admin: 05/17/23 17:16 Dose: Not Given Lorazepam (Lorazepam 2 Mg/Ml Inj 10 Ml Mdv) 1 mg IVP Q8H PRN PRN Reason: ANXIETY Last Admin: 05/17/23 10:04 Dose: 1 mg Metoclopramide HCl (Metoclopramide 5 Mg/Ml Sdv 2 Ml) 5 mg IVP Q6H PRN PRN Reason: NAUSEA AND VOMITING Morphine Sulfate (Morphine 4 Mg/Ml Sdv 1 Ml) 1 mg IVP Q4H PRN PRN Reason: SEVERE PAIN Last Admin: 05/17/23 14:56 Dose: 1 mg Naloxone HCl (Naloxone 0.4 Mg/Ml Sdv) 0.1 mg IVP Q2M PRN PRN Reason: RESPIRATORY RATE < 8/MIN Ondansetron HCl (Ondansetron 4 Mg Tablet) 4 mg PO Q6H PRN PRN Reason: NAUSEA Pantoprazole Sodium (Pantoprazole Dr 40 Mg Tablet) 40 mg PO BIDAC [facility] Last Admin: 05/17/23 16:50 Dose: Not Given Discontinued Medications Acetaminophen (Acetaminophen 325 Mg Tablet) 650 mg PO Q6H PRN PRN Reason: Mild/Mod Pain Or Temp >/= 101 Last Admin: 05/15/23 17:09 Dose: 650 mg Azithromycin (Azithromycin 500 Mg Sdv) Confirm Administered Dose 500 mg .ROUTE .STK-MED ONE Stop: 05/11/23 15:38 Diltiazem HCl (Diltiazem 30 Mg Tablet) 30 mg PO ONCE ONE Stop: 05/12/23 04:15 Last Admin: 05/12/23 04:30 Dose: 30 mg Enoxaparin Sodium (Enoxaparin 30 Mg/0.3 Ml Syringe) 30 mg SUBCUT Q24H [facility] Furosemide (Furosemide 10 Mg/Ml Sdv 4ml) 40 mg IVP ONCE ONE Stop: 05/14/23 11:54 Last Admin: 05/14/23 12:35 Dose: 40 mg Furosemide (Furosemide 10 Mg/Ml Sdv 4ml) 40 mg IVP ONCE ONE Stop: 05/14/23 13:37 Last Admin: 05/14/23 13:42 Dose: 40 mg Furosemide (Furosemide 10 Mg/Ml Sdv 4ml) 40 mg IVP ONCE ONE Stop: 05/15/23 06:44 Last Admin: 05/15/23 07:32 Dose: 40 mg Furosemide (Furosemide 10 Mg/Ml Sdv 4ml) 40 mg IVP ONCE ONE Stop: 05/16/23 08:21 Last Admin: 05/16/23 09:32 Dose: 40 mg Hydralazine HCl (Hydralazine 20 Mg/Ml Inj 1 Ml) 10 mg IVP ONCE ONE Stop: 05/10/23 14:42 Last Admin: 05/10/23 14:53 Dose: 10 mg Hydromorphone HCl (Hydromorphone 1 Mg/Ml Inj 1 Ml) 0.5 mg IVP ONCE ONE Stop: 05/11/23 08:31 Last Admin: 05/11/23 08:57 Dose: 0.5 mg Hydromorphone HCl (Hydromorphone 1 Mg/Ml Inj 1 Ml) 1 mg IVP Q4H PRN PRN Reason: SEVERE PAIN Last Admin: 05/12/23 02:32 Dose: 1 mg Acetaminophen (Acetaminophen) 1,000 mg in 100 mls @ 400 mls/hr IV ONCE ONE Stop: 05/10/23 14:25 Last Admin: 05/10/23 15:01 Dose: Not Given Sodium Chloride (Sodium Chloride 0.9%) 1,000 mls @ 999 mls/hr IV .Q1H1M ONE Stop: 05/10/23 15:11 Last Infusion: 05/10/23 17:00 Dose: Infused Ciprofloxacin/Dextrose (Cipro) 400 mg in 200 mls @ 200 mls/hr IV ONCE ONE; Protocol Stop: 05/10/23 15:23 Last Infusion: 05/10/23 20:53 Dose: Infused Azithromycin 500 mg/ Sodium (Chloride) 250 mls @ 250 mls/hr IV ONCE ONE; Protocol Stop: 05/10/23 15:23 Last Infusion: 05/10/23 17:00 Dose: Infused Levetiracetam (Keppra) 1,000 mg in 100 mls @ 400 mls/hr IV ONCE ONE Stop: 05/10/23 15:13 Last Infusion: 05/10/23 17:00 Dose: Infused Sodium Chloride (Sodium Chloride 0.9%) 1,000 mls @ 75 mls/hr IV .[id number] DEREK Last Infusion: 05/12/23 20:29 Dose: Infused Acetaminophen (Acetaminophen) 1,000 mg in 100 mls @ 400 mls/hr IV ONCE ONE Stop: 05/10/23 21:06 Last Infusion: 05/10/23 21:22 Dose: Infused Sodium Chloride (Sodium Chloride 0.9%) 1,000 mls @ 250 mls/hr IV .Q4H ONE Stop: 05/11/23 01:23 Last Infusion: 05/11/23 03:18 Dose: Infused Cefepime HCl 1,000 mg/ Sodium (Chloride) 50 mls @ 100 mls/hr IV Q8H DEREK; Protocol Last Admin: 05/10/23 22:31 Dose: Not Given Azithromycin 500 mg/ Sodium (Chloride) 250 mls @ 250 mls/hr IV Q24H DEREK; Protocol Last Infusion: 05/11/23 16:51 Dose: Infused Vancomycin/PEG/NADA/Lysine/Water (Vancocin) 1,750 mg in 350 mls @ 233.333 m ls/hr IV ONCE ONE Stop: 05/11/23 00:29 Last Infusion: 05/11/23 00:09 Dose: Infused Vancomycin/PEG/NADA/Lysine/Water (Vancocin) 1,250 mg in 250 mls @ 250 mls/hr IV Q24H DEREK Last Infusion: 05/12/23 23:38 Dose: Infused Cefepime HCl 1,000 mg/ Sodium (Chloride) 50 mls @ 100 mls/hr IV Q12H DEREK Last Infusion: 05/11/23 09:24 Dose: Infused Cefepime HCl 2 mg/ Sodium (Chloride) 50 mls @ 100 mls/hr IV Q12H DEREK Last Infusion: 05/11/23 13:39 Dose: Infused Cefepime HCl 2,000 mg/ Sodium (Chloride) 50 mls @ 100 mls/hr IV Q12H DEREK; Protocol Last Infusion: 05/12/23 12:37 Dose: Infused Sodium Chloride (Sodium Chloride 0.9%) 1,000 mls @ 50 mls/hr IV .Q20H DEREK Last Infusion: 05/14/23 19:33 Dose: Infused Cefepime HCl 1,000 mg/ Sodium (Chloride) 50 mls @ 100 mls/hr IV Q12H [facility]; Protocol Last Admin: 05/13/23 15:56 Dose: Not Given Cefepime HCl 1,000 mg/ Sodium (Chloride) 50 mls @ 100 mls/hr IV Q12H DEREK; Protocol Last Infusion: 05/15/23 15:20 Dose: Infused Lidocaine HCl 5 ml/ Potassium (Chloride) 105 mls @ 26.25 mls/hr IV ONCE ONE Stop: 05/15/23 10:42 Last Infusion: 05/15/23 12:22 Dose: Infused Albumin Human (Albumin) 25 g in 100 mls @ 60 mls/hr IV ONCE ONE Stop: 05/15/23 08:24 Last Infusion: 05/15/23 10:25 Dose: Infused Meropenem 1,000 mg/ Sodium (Chloride) 50 mls @ 100 mls/hr IV Q8H [facility]; Protocol Last Infusion: 05/17/23 10:20 Dose: Infused Levetiracetam (Keppra) 1,000 mg in 100 mls @ 400 mls/hr IV ONCE ONE Stop: 05/15/23 18:09 Last Admin: 05/15/23 19:21 Dose: Not Given Acetaminophen (Acetaminophen) 1,000 mg in 100 mls @ 400 mls/hr IV ONCE ONE Stop: 05/15/23 18:09 Last Infusion: 05/15/23 19:21 Dose: Infused Vancomycin HCl / Sodium (Chloride) 250 mls @ 0 mls/hr [id number] PROTOCOL [facility]; Protocol Levetiracetam (Keppra) 1,000 mg in 100 mls @ 400 mls/hr IV ONCE ONE Stop: 05/15/23 18:29 Last Infusion: 05/15/23 19:21 Dose: Infused Vancomycin HCl 1,000 mg/ (Sodium Chloride) 250 mls @ 250 mls/hr IV Q24H [facility] Last Infusion: 05/16/23 19:40 Dose: Infused Albumin Human (Albumin) 25 g in 100 mls @ 60 mls/hr IV ONCE ONE Stop: 05/16/23 09:59 Last Infusion: 05/16/23 13:46 Dose: Infused Lidocaine HCl 5 ml/ Potassium (Chloride) 105 mls @ 52.5 mls/hr IV ONCE ONE Stop: 05/16/23 10:20 Last Infusion: 05/16/23 16:02 Dose: Infused Acyclovir 500 mg/ Sodium (Chloride) 110 mls @ 110 mls/hr IV Q8H DEREK Stop: 05/16/23 12:00 Last Infusion: 05/16/23 15:44 Dose: Infused Acyclovir 500 mg/ Sodium (Chloride) 110 mls @ 110 mls/hr IV Q8H DEREK Last Admin: 05/17/23 16:20 Dose: Not Given Levetiracetam (Keppra) 1,000 mg in 100 mls @ 400 mls/hr IV Q12H [facility] Last Infusion: 05/17/23 05:27 Dose: Infused Lidocaine HCl 5 ml/ Potassium (Chloride) 105 mls @ 52.5 mls/hr IV ONCE ONE Stop: 05/17/23 11:59 Last Infusion: 05/17/23 16:21 Dose: Infused Lidocaine HCl 5 ml/ Potassium (Chloride) 105 mls @ 52.5 mls/hr IV ONCE ONE Stop: 05/17/23 13:59 Last Infusion: 05/17/23 16:21 Dose: Infused Insulin Human Lispro (Insulin Lispro 100 Unit/1 Ml) 0 unit SUBCUT TIDWM [facility]; Protocol Last Admin: 05/11/23 16:53 Dose: Not Given Insulin Human Lispro (Insulin Lispro 100 Unit/1 Ml) 0 unit SUBCUT BEDTIME DEREK; Protocol Last Admin: 05/11/23 21:10 Dose: Not Given Levetiracetam (Levetiracetam 500 Mg Tablet) 500 mg PO Q12H DEREK Last Admin: 05/12/23 20:28 Dose: Not Given Levetiracetam (Levetiracetam 500 Mg Tablet) 500 mg PO BID [facility] Last Admin: 05/16/23 09:57 Dose: 500 mg Lorazepam (Lorazepam 2 Mg/Ml Inj 10 Ml Mdv) 2 mg IVP Q6H PRN PRN Reason: SEIZURES Methylprednisolone Sodium Succinate (Methylprednisolone Sod Succ 125 Mg/2 Ml Inj) 250 mg IVP ONCE ONE Stop: 05/17/23 15:59 Last Admin: 05/17/23 16:21 Dose: Not Given Methylprednisolone Sodium Succinate (Methylprednisolone Sod Succ 125 Mg/2 Ml Inj) 125 mg IVP ONCE ONE Stop: 05/17/23 15:59 Last Admin: 05/17/23 16:40 Dose: 125 mg Metolazone (Metolazone 5 Mg Tablet) 5 mg PO ONCE ONE Stop: 05/15/23 06:44 Last Admin: 05/15/23 07:25 Dose: 5 mg Ondansetron HCl (Ondansetron 2 Mg/Ml Sdv 2 Ml) 4 mg IVP Q6H PRN PRN Reason: vomiting, or N/V if npo Last Admin: 05/12/23 03:12 Dose: 4 mg Ondansetron HCl (Ondansetron 2 Mg/Ml Sdv 2 Ml) 4 mg IVP ONCE ONE Stop: 05/12/23 04:14 Last Admin: 05/12/23 04:30 Dose: 4 mg Ondansetron HCl (Ondansetron 2 Mg/Ml Sdv 2 Ml) 8 mg IVP Q6H PRN PRN Reason: vomiting, or N/V if npo Last Admin: 05/12/23 10:03 Dose: 8 mg Pantoprazole Sodium (Pantoprazole 40 Mg Sdv) 40 mg IVP ACBREAKFAST DEREK Last Admin: 05/12/23 06:15 Dose: 40 mg Potassium Chloride (Potassium Chloride Er 20 Meq Tablet) 20 meq PO ONCE ONE Stop: 05/14/23 11:54 Last Admin: 05/14/23 12:36 Dose: 20 meq Potassium Chloride (Potassium Chloride Oral Liq 20 Meq/15 Ml Udc) 40 meq PO ONCE ONE Stop: 05/15/23 22:24 Last Admin: 05/15/23 22:49 Dose: 40 meq Potassium Chloride (Potassium Chloride Er 20 Meq Tablet) 40 meq PO ONCE ONE Stop: 05/17/23 06:02 Last Admin: 05/17/23 06:20 Dose: 40 meq Allergies pentoxifylline Allergy (Severe, Verified 05/10/23 14:19) ITCHING Penicillins Allergy (Mild, Verified 05/10/23 14:19) unknown Sulfa (Sulfonamide Antibiotics) Allergy (Mild, Verified 05/10/23 14:19) unknown Home Medications buspirone 10 mg tablet 10 mg PO BID 10/18/19 [History Confirmed 05/10/23] gabapentin 600 mg tablet 600 mg PO TID 10/18/19 [History Confirmed 05/10/23] lamotrigine 200 mg tablet 200 mg PO BID 10/18/19 [History Confirmed 05/10/23] Diabetic shoes with 3 inserts #1 ea 09/12/20 [Rx Confirmed 05/10/23] aspirin 325 mg tablet,delayed release 325 mg PO DAILY #30 tabs 04/22/21 [Rx Confirmed 05/10/23] cilostazol 50 mg tablet 50 mg PO BID #180 tabs 05/08/21 [Rx Confirmed 05/10/23] potassium chloride 10 mEq tablet,extended release 10 meq PO DAILY 03/20/22 [History Confirmed 05/10/23] pantoprazole 40 mg tablet,delayed release 40 mg PO BID 30 days #60 tabs 05/06/22 [Rx Confirmed 05/10/23] furosemide 20 mg tablet (Lasix) 10 mg PO DAILY 07/01/22 [History Confirmed 05/10/23] nifedipine 30 mg tablet,extended release 30 mg PO DAILY #90 tabs 07/11/22 [Rx Confirmed 05/10/23] albuterol sulfate 90 mcg/actuation breath activated powder inhaler 2 inh inhalation Q6H PRN Shortness Of Breath Or Wheezing 01/23/23 [History Confirmed 05/10/23] atorvastatin 20 mg tablet 20 mg PO BEDTIME 05/10/23 [History Confirmed 05/10/23] estradiol 1 mg tablet 0.5 mg PO DAILY 05/10/23 [History Confirmed 05/10/23] insulin glargine U-300 conc 300 unit/mL (1.5 mL) subcutaneous pen (Toujeo SoloStar U-300 Insulin) See Rx Instructions .Route .COMPLEX 05/10/23 [History Confirmed 05/10/23] Discharge Plan Discharge Patient Disposition: Xfer Short-Term Hosp Condition: Stable Prescriptions: No Action buspirone 10 mg tablet 10 mg PO BID gabapentin 600 mg tablet 600 mg PO TID lamotrigine 200 mg tablet 200 mg PO BID (DME) Diabetic shoes with 3 inserts See Rx Instructions .ROUTE .MEDSUPPLY Qty: 1 0RF Rx Instructions: As directed by DIAN&O cilostazol 50 mg tablet 50 mg PO BID Qty: 180 3RF furosemide [Lasix] 20 mg tablet 10 mg PO DAILY potassium chloride 10 mEq tablet extended release 10 meq PO DAILY albuterol sulfate 90 mcg/actuation aerosol powdr breath activated 2 inh inhalation Q6H PRN (Reason: Shortness Of Breath Or Wheezing) nifedipine 30 mg tablet extended release 30 mg PO DAILY Qty: 90 4RF aspirin 325 mg tablet,delayed release (DR/EC) 325 mg PO DAILY Qty: 30 0RF pantoprazole 40 mg tablet,delayed release (DR/EC) 40 mg PO BID 30 Days Qty: 60 0RF atorvastatin 20 mg tablet 20 mg PO BEDTIME estradiol 1 mg tablet 0.5 mg PO DAILY Toulesvia SoloStar U-300 Insulin 300 unit/mL (1.5 mL) insulin pen See Rx Instructions .ROUTE .COMPLEX Rx Instructions: 15 unit subcutaneously IN THE MORNING AND 20 UNITS IN THE EVENING Discharge Orders: Transfer Out of Facility (Order); Ordered 05/17/23 Ordered By: Yordan Mejia Other Ambulatory Orders: Physical Therapy Eval and Treat Outpatient (Order) Timeframe: 3 Days Location: Determined by Patient Ordered By: Yordan Mejia Referrals: [facility] [Outside] Santiago Andrade PA [Primary Care Provider] - 05/20/23 9:30 am (Please send d/c summary ) Patient Instructions: Altered Mental Status (ED), Opioid Safety Transfer Attestations Time Spent in Transfer Care: greater than 30 min Quality Metrics Clinical Quality Measures [ No reported AMI, CVA or VTE this stay] Coding Level of Care Code 25359 Total time (in minutes) for Discharge: 45 Diagnoses Acute encephalopathy G93.40 Toxic metabolic encephalopathy G92.8 Altered mental status R40.1 Altered mental status type: stupor Seizure disorder G40.909 Seizure R56.9 Type 2 diabetes mellitus with other specified complication, unspecified whether terminal supervisor insulin use E11.69 Diabetes mellitus complication status: with other specified complication Diabetes mellitus detention insulin use: unspecified terminal supervisor insulin use status Primary hypertension I10 Hypertension type: primary hypertension Gastroparesis K31.84 PNA (pneumonia) J18.9 Rhabdomyolysis M62.82 Intractable back pain M54.9 CHF exacerbation I50.9 Acute respiratory failure J96.00 Suicidal ideation R45.851 Anxiety and depression F41.9; F32.A
[2023-05-17 20:05] LABS: Erythrocyte Sedimentation Rate 100 mm/hr (0-15)
[2023-05-17] MEDS: enoxaparin 40 mg/0.4 mL Syringe SUBCUT (21:17)
[2023-05-17] MEDS: gabapentin 300 mg Capsule 600 MG PO (21:18)
[2023-05-17 21:53] LABS: Glucose Point of Care 269 mg/dL (70-110)
[2023-05-17] MEDS: insulin lispro 100 unit/1 mL SUBCUT (23:42)
[2023-05-17] MEDS: insulin glargine 100 units/1 mL 10 UNIT SUBCUT (23:42)
[2023-05-17] MEDS: vancomycin 1,000 MG in sodium chloride 0.9% 250 ML 250 MG IV (23:43)
[2023-05-18] VITALS: BP 158/85; PULSE 85; RESP 17; TEMP 36.4; O2SAT 97
[2023-05-18 04:00] VITALS: BP 147/80; PULSE 93; RESP 18; TEMP 36.4; O2SAT 94
[2023-05-18] MEDS: meropenem 1,000 MG in sodium chloride 0.9% (plus) 50 ML 100 MG IV (04:12)
[2023-05-18 05:03] LABS: Basophils % 0.4 %; Hematocrit 43.6 % (36-47); Lymphocytes # 0.8 10^3/uL (0.8-4.8); Lymphocytes % 15.4 %; Mean Corpuscular HGB Conc 30.5 g/dL (30-55); Mean Corpuscular Hemoglobin 25.4 pg (27-33); Mean Corpuscular Volume 83.4 fl (85-98); Mean Platelet Volume 10.1 fL (7.4-10.4); Monocytes # 0.1 10^3/uL (0.2-0.9); Monocytes % 1.8 %; Neutrophils # 4.18 10^3/uL (1.8-7.7); Neutrophils % 81.6 %; Nucleated Red Blood Cells % 0 %; Platelet Count 430 10^3/cmm (157-399); Red Blood Count 5.23 10^6/uL (3.85-5.65); Red Cell Distribution Width 15.5 % (12.1-15.1); White Blood Count 5.12 10^3/uL (3.29-11.43)
[2023-05-18 05:25] LABS: Alanine Aminotransferase 12 U/L (0-33); Alkaline Phosphatase 138 U/L (35-105); Anion Gap 19.6 (5-19); Aspartate Amino Transferase 12 U/L (0-32); Blood Urea Nitrogen 29 mg/dL (8-23); C Reactive Protein 218.7 mg/L (0.0-4.9); Calcium 9.9 mg/dL (8.5-10.5); Carbon Dioxide 27 mmol/L (22-29); Chloride 90 mmol/L (98-107); Glucose 304 mg/dL (65-115); Magnesium 2.4 mg/dL (1.7-2.3); Osmolality Calculated 293 mOsm/kg (285-295); Phosphorus 3.9 mg/dL (2.5-4.5); Potassium 3.6 mmol/L (3.5-5.1); Sodium 133 mmol/L (136-145); Total Bilirubin 0.4 mg/dL (0.15-1.2)
[2023-05-18 05:32] LABS: NT Pro B Type Natriuretic Pept 1134 pg/mL (0-125); Procalcitonin 0.32 ng/mL (0-0.5)
[2023-05-18 05:54] VITALS: PULSE 85
[2023-05-18] MEDS: pantoprazole DR 40 mg Tablet PO (06:37)
[2023-05-18 06:55] LABS: Glucose Point of Care 322 mg/dL (70-110)
[2023-05-18 08:00] VITALS: BP 154/78; PULSE 85; RESP 18; TEMP 36.6; O2SAT 92
[2023-05-19 12:45] LABS: Lyme AB Screen <0.90 index
[2023-05-19 15:00] LABS: CENTROMERE B ANTIBODY <1.0 NEG AI (<1.0 NEG); JO-1 ANTIBODY <1.0 NEG AI (<1.0 NEG); RNP ANTIBODY <1.0 NEG AI (<1.0 NEG); SCL-70 ANTIBODY <1.0 NEG AI (<1.0 NEG); SJOGREN'S ANTIBODY (SS-A) <1.0 NEG AI (<1.0 NEG); SM ANTIBODY <1.0 NEG AI (<1.0 NEG); SS-B <1.0 NEG AI (<1.0 NEG)
[2023-05-20 13:10] LABS: COMPLEMENT COMPONENT C3C 197 mg/dL (83-193); COMPLEMENT COMPONENT C4C 46 mg/dL (15-57)
[2023-05-20 15:34] LABS: ANA SCREEN, IFA NEGATIVE (NEGATIVE)
[2023-05-20 16:55] LABS: RMSF IGG NOT DETECTED; RMSF IGM NOT DETECTED
[2023-05-20 20:34] LABS: E. Chaffeensis AB IGG <1:64; E. Chaffeensis AB IGM <1:20
[2023-05-21 08:04] LABS: THYROID PEROXIDASE ANTIBODIES 2 IU/mL (<9)
[2023-05-21 13:19] LABS: COMPLEMENT, TOTAL (CH50) >60 U/mL (31-60)
[2023-05-21 18:33] LABS: Fungitell 1-3-B Glucan Assay <31 pg/mL; Interpretation NEGATIVE
[2023-05-21 20:09] LABS: Lyme Disease AB (IGG),IBL NO BANDS DETECTED; Lyme Disease AB (IGM), IBL NO BANDS DETECTED
[2023-05-21 21:29] LABS: St. Louis Enceph.Virus IGG CSF <1:1; St. Louis Enceph.Virus IGM CSF <1:1
[2023-05-22 00:54] LABS: VDRL on CSF NON-REACTIVE
[2023-05-23 01:08] LABS: HSV 1 DNA NOT DETECTED; HSV 2 DNA NOT DETECTED; HSV Source CEREBROSPINAL FLUID
[2023-05-23 08:19] LABS: West Nile Virus AB (IGG) <1.30 index; West Nile Virus AB (IGM) <0.90 index
[2023-05-25 16:25] LABS: DNA AB (DS) CRITHIDIA,IFA NEGATIVE (NEGATIVE)
== END 2023-05-18 08:30 | disposition short-term general hospital (02) | DRG 100 ==
LOC: ER 17:05 → MEDSURG 18:42
PROVIDERS: Admitting Provider Internal Medicine; Emergency Provider Emergency Medicine; PCP Physician Assistant Medical; Visit Provider Family Medicine
DX: G40.409 Other generalized epilepsy and epileptic syndromes, not intractable, without status epilepticus (principal); J69.0 Pneumonitis due to inhalation of food and vomit; G93.40 Encephalopathy, unspecified; R45.851 Suicidal ideations; M62.82 Rhabdomyolysis; N17.9 Acute kidney failure, unspecified; E87.20 Acidosis, unspecified; G40.A09 Absence epileptic syndrome, not intractable, without status epilepticus; R15.9 Full incontinence of feces; R32 Unspecified urinary incontinence; E11.65 Type 2 diabetes mellitus with hyperglycemia; E11.51 Type 2 diabetes mellitus with diabetic peripheral angiopathy without gangrene; E11.43 Type 2 diabetes mellitus with diabetic autonomic (poly)neuropathy; K31.84 Gastroparesis; I65.23 Occlusion and stenosis of bilateral carotid arteries; E11.22 Type 2 diabetes mellitus with diabetic chronic kidney disease; I12.9 Hypertensive chronic kidney disease with stage 1 through stage 4 chronic kidney disease, or unspecified chronic kidney disease; N18.9 Chronic kidney disease, unspecified; E78.5 Hyperlipidemia, unspecified; E87.70 Fluid overload, unspecified; F41.9 Anxiety disorder, unspecified; F32.A Depression, unspecified; M51.26 Other intervertebral disc displacement, lumbar region; K21.9 Gastro-esophageal reflux disease without esophagitis; R00.0 Tachycardia, unspecified; Z11.52 Encounter for screening for COVID-19; Z79.890 Hormone replacement therapy; Z79.4 Long term (current) use of insulin; Z79.82 Long term (current) use of aspirin; Z95.820 Peripheral vascular angioplasty status with implants and grafts; Z87.891 Personal history of nicotine dependence
CPT/HCPCS: 36415; 36416; 36600; 51702; 62328; 70450; 70551; 71045; 71250; 72125; 72128; 72131; 74176; 80051; 80053; 80074; 80175; 80306; 80307; 80503; 81003; 82009; 82010; 82140; 82330; 82533; 82550; 82805; 82945; 82947; 82962; 83036; 83605; 83735; 83880; 84100; 84145; 84146; 84157; 84315; 84443; 84484; 85025; 85610; 85651; 85730; 86140; 86160; 86162; 86235; 86255; 86376; 86592; 86617; 86618; 86653; 86666; 86757; 86788; 86789; 87040; 87070; 87075; 87205; 87426; 87449; 87486; 87530; 87581; 87633; 87806; 89050; 92610; 93005; 94640; 94664; 96365; 96366; 96367; 96372; 96375; 97110; 97116; 97161; 97165; 97530; 97535; 99291; C9113; J0131; J0133; J0360; J0456; J0692; J0744; J1170; J1650; J1815; J1940; J1953; J2060; J2185; J2270; J2405; J2930; J3370; J3372; J3480; J7030; J7050; P9046

== ENCOUNTER 2023-06-13 21:15 | Emergency (ER) | payer MEDICARE, OTHER, SELFPAY ==
[2023-06-13 21:16] VITALS: BP 144/78; PULSE 104; RESP 18; TEMP 36.3; O2SAT 97
--- NOTE | 2023-06-13 21:18 | ECG_ITS ---
[facility] Test Date: 2023-06-13 Pat Name: Brenda Stone Department: Room: Gender: Female Log Driver: : 1950 Requested By: Norberto Gil Order Number: [id number] Rosangela MD: Yanet Darby M.D. Measurements Intervals [place] Rate: 106 P: 57 WI: 196 QRS: -28 QRSD: 93 T: 80 QT: 415 QTc: 551 Interpretive Statements SINUS TACHYCARDIA VOLTAGE CRITERIA FOR LVH [MEETS CRITERIA IN ONE OF: R(aVL), S(V1), R(V5), R(V5/V6)+S(V1)] POSSIBLE SEPTAL MYOCARDIAL INFARCTION , PROBABLY OLD [30 ms Q WAVE IN V1/V2] Compared to ECG 05/10/2023 21:18:37 Myocardial infarct finding now present Sinus rhythm no longer present T-wave abnormality no longer present Electronically Signed On 06-14-2023 10:59:57 CDT by Yanet Darby M.D. [id number]
--- NOTE | 2023-06-13 21:18 | XRR_ITS ---
PROCEDURE INFORMATION: Exam: XR Chest Exam date and time: 06/13/2023 9:31 PM Age: 72 years old Clinical indication: Chest wall pain; Additional info: Chest pain TECHNIQUE: Imaging protocol: Radiologic exam of the chest. Views: 1 view. COMPARISON: CR (CHEST, ) 05/15/2023 6:11 PM FINDINGS: Lungs: Unremarkable. No consolidation. Pleural spaces: Unremarkable. No pleural effusion. No pneumothorax. Heart/Mediastinum: Unremarkable. No cardiomegaly. Bones/joints: Unremarkable. XR/XR chest 1V portable [id number] IMPRESSION: No acute findings.
--- NOTE | 2023-06-13 21:18 | W.ED.CHESTPA ---
HPI - Chest Pain General: Chief Complaint: Chest Pain Stated Complaint: CP Time Seen by Provider: 06/13/23 21:17 History of Present Illness: 72-year-old female presents emergency department via EMS personnel with complaints of substernal chest pain. She states her chest pain started at approximately 5 PM this evening. She states she did take a sublingual nitro without relief. She became very anxious and called EMS personnel. Upon arrival EMS personnel state that the patient was very anxious and complaining of chest pain. She did receive cardiac dose aspirin via EMS as well as 2 additional sublingual nitros. Patient does have history of diabetes, hypertension and high cholesterol. She has also had 2 previous CVAs and history of epilepsy. And is seen by Dr. Villagomez. It does appear that the patient had a stress test on 07/31/2022 which was normal. Review of Systems General: Reports: 10 or more systems reviewed and unremarkable except in HPI and below Card: Reports: chest pain Psych: Reports: anxiety [facility] ED PFSH: Medical History Dizziness Fever Bilateral leg weakness Hypomagnesemia Hypertension Type 2 diabetes mellitus Hyperlipemia Epilepsy FH: carotid endarterectomy Stenosis of peripheral vascular stent Surgical History H/O abdominal hysterectomy S/P knee surgery Family History Other Cancer Diabetes Heart disease Social History Smoking and tobacco/nicotine status: former use of tobacco/nicotine Quit status (tobacco/nicotine): has quit using Year quit tobacco: 2020 Alcohol intake: former Substance/Drug Use: never Adopted: No service: No Current gender identity: Female Physical Exam Narrative: EXAM NARRATIVE: Constitutional: the patient appears well nourished and with normal development. Vital signs reviewed as documented. HENMT: Normocephalic, atraumatic. External ears normal appearance without drainage. Nose without drainage, normal appearance. Mucus membranes moist. Neck is supple, No jugular venous distension, trachea is midline, no appreciable carotid bruits. No lymphadenopathy. No meningeal signs. Flexion, extension and lateral rotation is without pain. Eyes: Pupils are equal, round, reactive to light and accommodation. No scleral icterus. Extra-ocular movement are intact. Thorax is symmetrical and with equal rise and fall with respirations. Resp: Lungs are clear to auscultation. No wheezes, rales, crackles or ronchi at present. Cardio: Regular rate and rhythm. Positive S1, S2. No appreciable murmurs, rubs or gallops. GI: Abdominal exam reveals normal bowel sounds to all quadrants. No organomegaly. No obvious palpable masses noted. No hepatomegally appreciated. Soft, non-tender to palpation. Extremity: Extremities are non-edematous and both femoral and pedal pulses are 2+ and equal bilaterally. Moves all extremities well, sensation in all extremities. Neuro: Alert and oriented x4, person, place, time and situation. Cranial nerves II through XII are grossly intact, there is no focal neurological deficits that I can appreciate at present. Sensation intact to all extremities. 2-point discrimination intact. Light touch intact to all extremities. Motor strength in the upper and lower extremities are equal and bilateral 5/5. Psych: Cooperative, calm, normal thought process, appropriate judgment. Skin: No lesions, rashes. No gross abnormalities noted. Back: Symmetrical, no obvious deformity, No CVA tenderness Course Vital Signs: Vital signs: Vital Signs Temperature 97.4 F L 06/13/23 21:16 Pulse Rate 98 06/14/23 00:39 Respiratory Rate 16 06/14/23 00:39 Blood Pressure 112/78 06/14/23 00:39 Pulse Oximetry 95 06/14/23 00:39 Oxygen Delivery Me thod Room Air 06/14/23 00:27 MDM - Chest Pain Medical Decision Making Physical exam completed and documented, I will obtain serial cardiac enzymes, serial twelve-lead EKGs, chest x-ray, CBC, CMP, urinalysis, B-type natriuretic peptide, PT/PTT/INR, and a chest x-ray. I have reviewed previous and pertinent medical records for assist in obtaining beneficial medical information to improved the care and treatment of the patient. Medical Records I reviewed the patient's medical records. Lab Data I reviewed the patient's lab results. 06/13/23 20:30 06/13/23 20:30 Radiology Impressions Chest X-Ray 06/13/23 21:18 IMPRESSION: No acute findings. Laboratory Results WBC 8.28 10^3/uL (3.29-11.43) 06/13/23 20: RBC 4.32 10^6/uL (3.85-5.65) 06/13/23 20: Hgb 11.60 g/dL (11.27-16.99) 06/13/23 20:30 Hct 37.5 % (36-47) 06/13/23 20: MCV 86.8 fl (85-98) 06/13/23 20: MCH 26.9 pg (27-33) L 06/13/23 20: MCHC 30.9 g/dL (30-55) 06/13/23 20: RDW 17.3 % (12.1-15.1) H 06/13/23 20: Plt Count 256 10^3/cmm (157-399) 06/13/23 20: MPV 12.0 fL (7.4-10.4) H 06/13/23 20: Neut % (Auto) 68.2 % 06/13/23 20:30 Lymph % (Auto) 22.7 % 06/13/23 20:30 [place] % (Auto) 6.3 % 06/13/23 20:30 Eos % (Auto) 1.9 % 06/13/23 20: Baso % (Auto) 0.5 % 06/13/23 20: Neut # (Auto) 5.65 10^3/uL (1.8-7.7) 06/13/23 20: Lymph # (Auto) 1.9 10^3/uL (0.8-4.8) 06/13/23 20:30 [place] # (Auto) 0.5 10^3/uL (0.2-0.9) 06/13/23 20: Eos # (Auto) 0.2 10^3/uL (0.0-0.8) 06/13/23 20: Baso # (Auto) 0.0 10^3/uL (0.0-0.1) 06/13/23 20: Nucleated RBC % (auto) 0 % 06/13/23 20: Nucleated RBCs # 0.0 /100WBC 06/13/23 20:30 PT 12.00 SECONDS (12.1-14.9) L 06/13/23 20:30 INR 0.86 (0.8-1.2) 06/13/23 20:30 Sodium 135 mmol/L (136-145) L 06/13/23 20:30 Potassium 4.2 mmol/L (3.5-5.1) 06/13/23 20:30 Chloride 98 mmol/L (98-107) 06/13/23 20:30 Carbon Dioxide 23 mmol/L (22-29) 06/13/23 20:30 Anion Gap 18.2 (5-19) 06/13/23 20:30 BUN 13 mg/dL (8-23) 06/13/23 20:30 Creatinine 1.4 mg/dL (0.5-0.9) H 06/13/23 20:30 GFR Calculation Not Reportable 06/13/23 20: Glucose 234 mg/dL (65-115) H 06/13/23 20:30 Calculated Osmolality 288 mOsm/kg (285-295) 06/13/23 20:30 Calcium 9.4 mg/dL (8.5-10.5) 06/13/23 20:30 Total Bilirubin 0.2 mg/dL (0.15-1.2) 06/13/23 20:30 AST 14 U/L (0-32) 06/13/23 20:30 ALT 8 U/L (0-33) 06/13/23 20:30 Alkaline Phosphatase 176 U/L (35-105) H 06/13/23 20:30 Troponin T Baseline 23 ng/L (0-10) H 06/13/23 20:30 Troponin T 120 Minute 28.25 ng/L (0-10) H 06/13/23 22:27 Delta Troponin T 5.25 ABS# (0-10) 06/13/23 22: NT-Pro-B Natriuret Pep 217 pg/mL (0-125) H 06/13/23 20:30 Total Protein 6.5 g/dL (6.6-8.7) L 06/13/23 20:30 Albumin 4.0 g/dL (3.5-5.2) 06/13/23 20:30 Globulin 2.5 g/dL (1.3-4.6) 06/13/23 20:30 Urine Color Yellow (Yellow) 06/13/23 21:42 Urine Appearance Clear (CLEAR) 06/13/23 21:42 Urine pH 5 (5-7) 06/13/23 21:42 Ur Specific [place] 1.015 (1.005-1.030) 06/13/23 21:42 Urine Protein Neg (Negative) 06/13/23 21:42 Urine Glucose (UA) 4+ (Normal) H 06/13/23 21:42 Urine Ketones Negative (Negative) 06/13/23 21:42 Urine Blood Neg (Negative) 06/13/23 21:42 Urine Nitrate Negative (Negative) 06/13/23 21:42 Urine Bilirubin Neg (Negative) 06/13/23 21:42 Urine Urobilinogen Neg mg/dL (Negative) 06/13/23 21:42 Ur Leukocyte Esterase Negative (Negative) 06/13/23 21:42 All radiology interpretation(s) finalized by discharge Discharge Plan Discharge Patient Disposition: Home Clinical Impression: Atypical chest pain Condition: Stable Prescriptions: No Action buspirone 10 mg tablet 10 mg PO BID gabapentin 600 mg tablet 600 mg PO TID lamotrigine 200 mg tablet 200 mg PO BID (DME) Diabetic shoes with 3 inserts See Rx Instructions .ROUTE .MEDSUPPLY Qty: 1 0RF Rx Instructions: As directed by DIAN&O cilostazol 50 mg tablet 50 mg PO BID Qty: 180 3RF furosemide [Lasix] 20 mg tablet 10 mg PO DAILY potassium chloride 10 mEq tablet extended release 10 meq PO DAILY albuterol sulfate 90 mcg/actuation aerosol powdr breath activated 2 inh inhalation Q6H PRN (Reason: Shortness Of Breath Or Wheezing) nifedipine 30 mg tablet extended release 30 mg PO DAILY Qty: 90 4RF aspirin 325 mg tablet,delayed release (DR/EC) 325 mg PO DAILY Qty: 30 0RF pantoprazole 40 mg tablet,delayed release (DR/EC) 40 mg PO BID 30 Days Qty: 60 0RF atorvastatin 20 mg tablet 20 mg PO BEDTIME estradiol 1 mg tablet 0.5 mg PO DAILY [place] Cordero U-300 Insulin 300 unit/mL (1.5 mL) insulin pen See Rx Instructions .ROUTE .COMPLEX Rx Instructions: 15 unit subcutaneously IN THE MORNING AND 20 UNITS IN THE EVENING Discharge Orders: Discharge ED (Routine); Ordered 06/14/23 Ordered By: Norberto Gil Referrals: Santiago Andrade PA [Primary Care Provider] - Discharge Diet: Cardiac and Low Salt Discharge Activity: Resume usual activity Patient Instructions: Opioid Safety, Pain Management Activity Restrictions/Additional Instructions: Activity Restrictions/Additional Instructions: Thank you for choosing [facility] for your healthcare needs today. Please realize that you were seen in the Emergency Department and that we are providing you with an emergency medical screening exam and this may not be a complete and all inclusive of all the testing and or medical work-up that you may need to determine your ailment or severity of your illness. It is very important that you follow-up as instructed with your Primary care provider or Specialist for additional evaluation and to discuss your medical treatment plan. You may return to the Emergency Department should you have concerns or if your condition changes or worsens in any way. Coding Level of Care Code ED Purse Seining Hand for Rain Tran
[2023-06-13 21:35] LABS: Basophils % 0.5 %; Eosinophils # 0.2 10^3/uL (0.0-0.8); Eosinophils % 1.9 %; Hematocrit 37.5 % (36-47); Lymphocytes # 1.9 10^3/uL (0.8-4.8); Lymphocytes % 22.7 %; Mean Corpuscular HGB Conc 30.9 g/dL (30-55); Mean Corpuscular Hemoglobin 26.9 pg (27-33); Mean Corpuscular Volume 86.8 fl (85-98); Monocytes # 0.5 10^3/uL (0.2-0.9); Monocytes % 6.3 %; Neutrophils # 5.65 10^3/uL (1.8-7.7); Neutrophils % 68.2 %; Nucleated Red Blood Cells % 0 %; Platelet Count 256 10^3/cmm (157-399); Red Blood Count 4.32 10^6/uL (3.85-5.65); Red Cell Distribution Width 17.3 % (12.1-15.1); White Blood Count 8.28 10^3/uL (3.29-11.43)
[2023-06-13 21:47] LABS: Add Urine Microscopic? NO; Charge for UA Resulting for Rev
[2023-06-13 21:48] LABS: Bilirubin Urine Neg (Negative); Blood Urine Neg (Negative); Glucose Urine UA 4+ (Normal); Ketones Urine Negative (Negative); Leukocyte Esterase Urine Negative (Negative); Nitrate Urine Negative (Negative); Protein Urine Neg (Negative); Specific Gravity, Urine 1.015 (1.005-1.030); Urine Appearance Clear (CLEAR); Urine Color Yellow (Yellow); Urobilinogen Urine Neg (Negative); pH Urine 5 (5-7)
[2023-06-13 21:52] LABS: INR 0.86 (0.8-1.2)
[2023-06-13 22:03] LABS: Troponin(5th) Baseline 23 ng/L (0-10)
[2023-06-13 22:10] LABS: Alkaline Phosphatase 176 U/L (35-105); Blood Urea Nitrogen 13 mg/dL (8-23); Calcium 9.4 mg/dL (8.5-10.5); Carbon Dioxide 23 mmol/L (22-29); Chloride 98 mmol/L (98-107); Creatinine Clr Calc Pharmacy 40.7116; Globulin 2.5 g/dL (1.3-4.6); Glucose 234 mg/dL (65-115); NT Pro B Type Natriuretic Pept 217 pg/mL (0-125); Osmolality Calculated 288 mOsm/kg (285-295); Sodium 135 mmol/L (136-145); Total Bilirubin 0.2 mg/dL (0.15-1.2); Total Protein 6.5 g/dL (6.6-8.7)
[2023-06-13 22:12] LABS: Anion Gap 18.2 (5-19); Aspartate Amino Transferase 14 U/L (0-32); Potassium 4.2 mmol/L (3.5-5.1)
[2023-06-13 22:13] LABS: Alanine Aminotransferase 8 U/L (0-33)
[2023-06-13 22:50] LABS: Troponin 5 2HR 28.25 ng/L (0-10); Troponin 5 2HR Delta 5.25 ABS# (0-10)
[2023-06-14 00:27] VITALS: BP 174/75; PULSE 101; RESP 18; O2SAT 94
[2023-06-14 00:39] VITALS: BP 112/78; PULSE 98; RESP 16; O2SAT 95
== END 2023-06-14 00:39 | disposition home or self-care (01) ==
PROVIDERS: Emergency Provider Internal Medicine; PCP Physician Assistant Medical
DX: R07.89 Other chest pain (principal); Z79.82 Long term (current) use of aspirin; Z79.4 Long term (current) use of insulin; Z87.891 Personal history of nicotine dependence; I10 Essential (primary) hypertension; E11.9 Type 2 diabetes mellitus without complications; E78.5 Hyperlipidemia, unspecified; Z86.73 Personal history of transient ischemic attack (TIA), and cerebral infarction without residual deficits
CPT/HCPCS: 71045; 80053; 81003; 83880; 84484; 85025; 85610; 93005; 99285

== ENCOUNTER 2023-06-23 09:13 | Outpatient (CLI) | payer MEDICARE, OTHER, SELFPAY ==
--- NOTE | 2023-06-23 09:30 | USCV_ITS ---
Bertha Brenda Age: 72 Gender: F : 1950 Exam Date: 06/23/2023 09:28 Ordering Phys: Margarito Lott MD (Andy) ([email or web address]) Technologist: ABRAHAM Exam Location: [facility] [place] Indication: carotid stenosis, right endarterectomy Risk Factors: Previous Vascular Surgery: R CEA Right Brachial BP: / Left Brachial BP: / Right Left Velocity (cm/s) Spectral Plaque Velocity (cm/s) Spectral Plaque Syst/Diast Broadening Syst/Diast Broadening 97.80/ 19.80 Prox CCA 89.80 / 21.90 David 92.40/ 22.60 David Mid CCA 85.10 / 25.50 David 91.80/ 19.70 David Distal CCA 132.80/ 37.80 Hetro 98.40/ 19.60 Prox ICA 216.50/ 38.30 David 137.10/23.20 Mid ICA 137.10/ 23.20 David 97.90/ 25.50 Distal ICA 112.80/ 25.50 133.90 ECA 133.90 1.40 ICA/CCA 1.60 Antegrade Vertebral Antegrade 107.4/ 19.90 cm/s 87.10/ 24.30 cm/s 0 Tri Subclavian Tri 155.0 349.5 0 0 FINDINGS Comparison:. 12/25/22 No significant elevation of systolic or diastolic velocities. Waveforms are normal. Diffuse bilateral scattered calcified plaque and intimal thickening throughout the common carotid arteries and extending through the bifurcation. Antegrade vertebral arteries. CONCLUSIONS Bilateral ICA stenosis less than 50%. Mild progression of carotid atherosclerosis. Dr. Marely Gilmore DO (Electronically Signed) Final Date: 23 June 2023 12:37 S
== END 2023-06-23 09:14 | disposition home or self-care (01) ==
LOC: RAD 09:16
PROVIDERS: PCP Physician Assistant Medical; Visit Provider Thoracic Surgery (Cardiothoracic Vascular Surgery)
DX: I65.23 Occlusion and stenosis of bilateral carotid arteries
CPT/HCPCS: 93880

== ENCOUNTER → 2023-06-30 13:31 | Outpatient (BNVA) | payer MEDICARE, OTHER, SELFPAY | PROVIDERS: PCP Physician Assistant Medical; Visit Provider Internal Medicine | DX: I10 Essential (primary) hypertension (principal); E11.51 Type 2 diabetes mellitus with diabetic peripheral angiopathy without gangrene; Z79.4 Long term (current) use of insulin; Z87.891 Personal history of nicotine dependence | CPT/HCPCS: 99214 ==

== ENCOUNTER → 2023-07-21 14:09 | Outpatient (BNVA) | payer MEDICARE, OTHER, SELFPAY | PROVIDERS: PCP Physician Assistant Medical; Visit Provider Thoracic Surgery (Cardiothoracic Vascular Surgery) | DX: I65.23 Occlusion and stenosis of bilateral carotid arteries (principal); F17.200 Nicotine dependence, unspecified, uncomplicated; I10 Essential (primary) hypertension | CPT/HCPCS: 99213 ==

== ENCOUNTER → 2023-10-29 09:47 | Outpatient (BNVA) | payer MEDICARE, OTHER, SELFPAY | PROVIDERS: PCP Physician Assistant Medical; Referring Provider Physician Assistant Medical; Visit Provider Psychiatry & Neurology Neurology | DX: G40.419 Other generalized epilepsy and epileptic syndromes, intractable, without status epilepticus (principal); G40.219 Localization-related (focal) (partial) symptomatic epilepsy and epileptic syndromes with complex partial seizures, intractable, without status epilepticus; M54.9 Dorsalgia, unspecified; K57.90 Diverticulosis of intestine, part unspecified, without perforation or abscess without bleeding; R29.898 Other symptoms and signs involving the musculoskeletal system; Z72.0 Tobacco use; E11.51 Type 2 diabetes mellitus with diabetic peripheral angiopathy without gangrene; Z79.4 Long term (current) use of insulin | CPT/HCPCS: 99203 ==

== ENCOUNTER 2023-10-30 07:24 | Outpatient (CLI) | payer MEDICARE, OTHER, SELFPAY ==
[2023-10-30 09:22] LABS: Blood Urea Nitrogen 15 mg/dL (8-23); Glucose 178 mg/dL (65-115); Potassium 3.9 mmol/L (3.5-5.1); Sodium 139 mmol/L (136-145)
== END 2023-10-30 07:25 | disposition home or self-care (01) ==
PROVIDERS: PCP Physician Assistant Medical; Visit Provider Psychiatry & Neurology Neurology
DX: R56.9 Unspecified convulsions (principal); E11.69 Type 2 diabetes mellitus with other specified complication; I65.22 Occlusion and stenosis of left carotid artery; I73.9 Peripheral vascular disease, unspecified; K57.90 Diverticulosis of intestine, part unspecified, without perforation or abscess without bleeding
CPT/HCPCS: 36415; 80175; 82565; 82947; 84132; 84295; 84520

== ENCOUNTER → 2023-11-28 13:06 | Outpatient (BNVA) | payer MEDICARE, OTHER, SELFPAY | PROVIDERS: PCP Physician Assistant Medical; Visit Provider Psychiatry & Neurology Neurology | DX: G40.419 Other generalized epilepsy and epileptic syndromes, intractable, without status epilepticus (principal); G40.219 Localization-related (focal) (partial) symptomatic epilepsy and epileptic syndromes with complex partial seizures, intractable, without status epilepticus | CPT/HCPCS: 95816 ==

== ENCOUNTER 2023-12-04 10:41 | Outpatient (CLI) | payer MEDICARE, OTHER, SELFPAY ==
--- NOTE | 2023-12-04 11:00 | MR_ITS ---
WS: [id number] MRI LUMBAR SPINE NONCONTRAST TECHNIQUE: Sagittal T1, T2 and STIR imaging. Axial T1 and T2 imaging. CLINICAL INFORMATION: M54.9 - Dorsalgia, unspecified COMPARISON: MRI 2021. FINDINGS: Mild lumbar curve. No acute compression. Disc bulging worse at L5-S1. L1-L2: Mild facet arthropathy. Spinal canal and foramen are patent. L2-L3: No significant disc bulging. Moderate facet arthropathy. Spinal canal and foramen are patent. L3-L4: Mild annular bulging. Moderate facet arthropathy. Foramen are patent. L4-L5: Mild annular bulging. Mild central canal stenosis. Slight impingement of traversing L5 nerve r oots bilaterally. Mild foraminal narrowing. Tiny LEFT foraminal protrusion with slight contact of the exiting LEFT L4 nerve root L5-S1: Mild disc bulging with osteophyte ridging. Moderate facet arthropathy. Mild to moderate RIGHT and no significant LEFT foraminal narrowing. Moderate facet arthropathy. Visualized pelvic bony structures: Normal. Paravertebral soft tissues: Normal. MR/MR lumbar spine wo con* [id number] IMPRESSION: 1. Mild lumbar curve. No acute compression. 2. Mild central canal stenosis L4-5 with slight effacement of ventral thecal s ac and slight impingement of traversing L5 nerve roots appears slightly progres sed compared to previous. Moderate facet arthropathy with ligamentum flavum hyp ertrophy. 3. Mild RIGHT L5-S1 foraminal narrowing with slight contact of the far exiting RIGHT L5 nerve root. 4. Mild annular bulge L3-4 with slight effacement of the ventral thecal sac. 5. Tiny LEFT foraminal protrusion L4-5 with slight contact of the exiting L4 n erve root appears progressed 6. Moderate facet arthropathy L3-L5.
== END 2023-12-04 10:42 | disposition home or self-care (01) ==
LOC: RAD 10:41
PROVIDERS: PCP Physician Assistant Medical; Visit Provider Psychiatry & Neurology Neurology
DX: M47.896 Other spondylosis, lumbar region (principal)
CPT/HCPCS: 72148

== ENCOUNTER → 2023-12-18 08:36 | Outpatient (BNVA) | payer MEDICARE, OTHER, SELFPAY | PROVIDERS: PCP Physician Assistant Medical; Visit Provider Orthopaedic Surgery | DX: M54.9 Dorsalgia, unspecified (principal) | CPT/HCPCS: 72110; 99204 ==

== ENCOUNTER 2023-12-22 08:02 | Outpatient (CLI) | payer MEDICARE, OTHER, SELFPAY ==
--- NOTE | 2023-12-22 08:15 | USCV_ITS ---
Bertha Brenda Age: 73 Gender: F : 1950 Exam Date: 12/22/2023 08:11 Ordering Phys: Margarito Lott MD (Andy) ([email or web address] Technologist: R Exam [place] [facility] [place] Indication: stenosis Risk Factors: Previous Vascular Surgery: Right Brachial BP: / Left Brachial BP: / Right Left Velocity (cm/s) Spectral Plaque Velocity (cm/s) Spectral Plaque Syst/Diast Broadening Syst/Diast Broadening 88.00/ 15.40 Prox CCA 80.90 / 17.90 88.00/ 23.20 Mid CCA 106.50/ 26.50 77.40/ 17.10 Distal CCA 99.30 / 21.70 96.70/ 28.10 Prox ICA 208.70/ 34.80 67.40/ 18.70 Mid ICA 182.30/ 31.20 69.20/ 22.30 Distal ICA 88.00 / 20.00 107.60 ECA 140.30 1.20 ICA/CCA 2.10 Antegrade Vertebral Antegrade 56.10/ 11.00 cm/s 89.20/ 21.50 cm/s Tri Subclavian Tri 106.3 251.0 0 0 FINDINGS Comparison:. 06/23/23. Increase in plaque and velocity left carotid artery since the prior exam, greatest on the left. Antegrade vertebral arteries. CONCLUSIONS Left ICA stenosis 50-69%. Right ICA stenosis < 50%. Progression of carotid atherosclerosis and stenosis since the prior exam. Dr. Marely Gilmore DO (Electronically Signed) Final Date: 22 December 2023 11:08 S
== END 2023-12-22 08:03 | disposition home or self-care (01) ==
LOC: RAD 08:03
PROVIDERS: PCP Physician Assistant Medical; Visit Provider Thoracic Surgery (Cardiothoracic Vascular Surgery)
DX: I65.23 Occlusion and stenosis of bilateral carotid arteries (principal)
CPT/HCPCS: 93880

== ENCOUNTER → 2023-12-31 14:29 | Outpatient (BNVA) | payer MEDICARE, OTHER, SELFPAY | PROVIDERS: PCP Physician Assistant Medical; Visit Provider Internal Medicine | DX: I10 Essential (primary) hypertension (principal); E11.51 Type 2 diabetes mellitus with diabetic peripheral angiopathy without gangrene; Z79.4 Long term (current) use of insulin; Z72.0 Tobacco use | CPT/HCPCS: 99214 ==

== ENCOUNTER → 2024-03-25 10:37 | Outpatient (BNVA) | payer MEDICARE, OTHER, SELFPAY | PROVIDERS: PCP Physician Assistant Medical; Visit Provider Psychiatry & Neurology Neurology | DX: G40.419 Other generalized epilepsy and epileptic syndromes, intractable, without status epilepticus (principal); G40.909 Epilepsy, unspecified, not intractable, without status epilepticus; G40.219 Localization-related (focal) (partial) symptomatic epilepsy and epileptic syndromes with complex partial seizures, intractable, without status epilepticus; M54.9 Dorsalgia, unspecified; R29.898 Other symptoms and signs involving the musculoskeletal system; R26.9 Unspecified abnormalities of gait and mobility | CPT/HCPCS: 99212 ==

== ENCOUNTER → 2024-05-11 08:35 | Outpatient (BNVA) | payer MEDICARE, OTHER, SELFPAY | PROVIDERS: PCP Physician Assistant Medical; Visit Provider Anesthesiology Pain Medicine | DX: M48.062 Spinal stenosis, lumbar region with neurogenic claudication (principal) | CPT/HCPCS: 99204 ==

== ENCOUNTER → 2024-05-18 13:23 | Outpatient (BNVA) | payer MEDICARE, OTHER, SELFPAY | PROVIDERS: PCP Physician Assistant Medical; Visit Provider Orthopaedic Surgery | DX: Z09 Encounter for follow-up examination after completed treatment for conditions other than malignant neoplasm (principal) | CPT/HCPCS: 99203 ==

== ENCOUNTER → 2024-06-29 08:43 | Outpatient (BNVA) | payer MEDICARE, OTHER, SELFPAY | PROVIDERS: PCP Physician Assistant Medical; Visit Provider Anesthesiology Pain Medicine | DX: M48.062 Spinal stenosis, lumbar region with neurogenic claudication (principal); F17.200 Nicotine dependence, unspecified, uncomplicated | CPT/HCPCS: 99214 ==

== ENCOUNTER → 2024-06-30 08:38 | Outpatient (BNVA) | payer MEDICARE, OTHER, SELFPAY | PROVIDERS: PCP Physician Assistant Medical; Visit Provider Nurse Practitioner Family | DX: I73.9 Peripheral vascular disease, unspecified (principal); I65.22 Occlusion and stenosis of left carotid artery; R06.00 Dyspnea, unspecified; I10 Essential (primary) hypertension; G40.909 Epilepsy, unspecified, not intractable, without status epilepticus; R53.1 Weakness; Z72.0 Tobacco use | CPT/HCPCS: 99214 ==

== ENCOUNTER → 2024-08-10 15:49 | Outpatient (BNVA) | payer MEDICARE, OTHER, SELFPAY | PROVIDERS: PCP Physician Assistant Medical; Visit Provider Psychiatry & Neurology Neurology | DX: G40.419 Other generalized epilepsy and epileptic syndromes, intractable, without status epilepticus (principal); G40.909 Epilepsy, unspecified, not intractable, without status epilepticus; G40.219 Localization-related (focal) (partial) symptomatic epilepsy and epileptic syndromes with complex partial seizures, intractable, without status epilepticus; M54.9 Dorsalgia, unspecified; R29.898 Other symptoms and signs involving the musculoskeletal system; R26.9 Unspecified abnormalities of gait and mobility; F17.200 Nicotine dependence, unspecified, uncomplicated | CPT/HCPCS: 99212 ==

== ENCOUNTER → 2024-10-26 08:27 | Outpatient (BNVA) | payer MEDICARE, OTHER, SELFPAY | PROVIDERS: PCP Physician Assistant Medical; Visit Provider Orthopaedic Surgery | DX: M48.062 Spinal stenosis, lumbar region with neurogenic claudication (principal); E11.9 Type 2 diabetes mellitus without complications; Z01.818 Encounter for other preprocedural examination; R29.898 Other symptoms and signs involving the musculoskeletal system | CPT/HCPCS: 36415; 72110; 80053; 81001; 83036; 85025; 99214 ==

== ENCOUNTER 2024-11-12 06:37 | Day surgery (SDC) | payer MEDICARE, OTHER, SELFPAY ==
[2024-11-12] VITALS (16 sets, daily range): BP systolic 95–192; BP diastolic 38–83; PULSE 60–76; RESP 12–21; TEMP 36.1–36.8; O2SAT 91–98; BMI 25.7
--- NOTE | 2024-11-12 04:29 | ANES.PREANE2 ---
Pre-Anesthetic Assessment Height/Weight: Height 5 ft 8 in Preop Diagnosis: Spinal stenosis Operation Date: 11/12/24 08:00 Proposed Procedures p Lumbar Spine Decompression Lumbar Decompression(Not Applicable) - Danial Merrill, DO Was Beta Williams taken within 24 hours: Yes Was Clonidine taken within 24 hours: N/A Social Tobacco and No alcohol Exam alert, oriented x 3 and regular rate & rhythm Decreased breath sounds bilaterally Airway Submandibular: within normal limits Cervical ROM: Other (Neck pain) Mallampati: Class III Comments: Comments: Edentulous Anesthetic Plan ASA status: 4 Anesthesia: General Other: No prior issues with anesthesia NPO since yesterday evening Current smoker Carotid artery disease, s/p right endarterectomy CKD, no dialysis Seizures, on Lamictal. Taken this morning IDDM, preop BS 140 Hypertension on losartan GERD, controlled with Protonix Labs reviewed from 10/26/2024 and acceptable for procedure Prior echo 2021 showing EF of 55 to 60% EKG showing sinus tachycardia with LVH Plan for GETA Medications/Allergies Home Medications ?Medication ?Instructions ?Recorded ?Confirmed ?Last Taken ?Type buspirone 10 mg tablet 10 mg PO BID 10/18/19 11/11/24 11/11/24 History Diabetic shoes with 3 inserts #1 ea 09/12/20 10/26/24 Unknown Rx aspirin 325 mg tablet,delayed 325 mg PO DAILY #30 tabs 04/22/21 11/11/24 11/11/24 Rx release cilostazol 50 mg tablet 50 mg PO BID #180 tabs 05/08/21 11/11/24 11/11/24 Rx pantoprazole 40 mg tablet,delayed 40 mg PO BID 30 days #60 tabs 05/06/22 11/11/24 11/11/24 Rx release furosemide 20 mg tablet (Lasix) 10 mg PO DAILY 07/01/22 11/11/24 11/11/24 History albuterol sulfate 90 mcg/actuation 2 inh inhalation Q6H PRN Shortness 01/23/23 11/11/24 11/11/24 History breath activated powder inhaler Of Breath Or Wheezing estradiol 1 mg tablet 0.5 mg PO DAILY 05/10/23 11/11/24 11/11/24 History atorvastatin 80 mg tablet 80 mg PO DAILY 10/29/23 11/11/24 11/11/24 History lamotrigine 200 mg tablet 200 mg PO BID 90 days #180 tabs 08/10/24 11/11/24 11/11/24 Rx lamotrigine 25 mg tablet 50 mg (2 x 25 mg) PO .hs 90 days 08/10/24 11/11/24 11/11/24 Rx #180 tabs insulin glargine U-300 conc 300 36 unit SUBCUT QAM 10/26/24 11/11/24 11/11/24 History unit/mL (1.5 mL) subcutaneous pen (Toujeo SoloStar U-300 Insulin) insulin lispro 100 unit/mL 5 unit SUBCUT TID PRN blood sugars 11/05/24 11/11/24 Unknown History subcutaneous pen (Humalog KwikPen (U-100) Insulin) losartan 50 mg tablet 50 mg PO QDAY 11/05/24 11/11/24 11/11/24 History nifedipine 30 mg tablet,extended 30 mg PO DAILY 11/05/24 11/11/24 11/11/24 History release potassium chloride 10 mEq 20 meq PO DAILY 11/05/24 11/11/24 11/11/24 History tablet,extended release gabapentin 600 mg tablet 600 mg PO TID 11/11/24 11/11/24 11/11/24 History (Neurontin) Allergies Allergy/AdvReac Type Severity Reaction Status Date / Time pentoxifylline Allergy Severe ITCHING Verified 11/11/24 09:08 Penicillins Allergy Mild rash Verified 11/11/24 09:08 Sulfa (Sulfonamide Allergy Mild rash Verified 11/11/24 09:08 Antibiotics) [facility] Anesthesia Medical History Dizziness Fever Bilateral leg weakness Hypomagnesemia Hypertension Type 2 diabetes mellitus Hyperlipemia Epilepsy FH: carotid endarterectomy Stenosis of peripheral vascular stent Surgical History H/O abdominal hysterectomy S/P knee surgery Family History Other Cancer Diabetes Heart disease Social History Smoking and tobacco/nicotine status: current every day tobacco/nicotine user Quit status (tobacco/nicotine): has quit using Year quit tobacco: 2020 Alcohol intake: former Substance/Drug Use: never Adopted: No service: No Current gender identity: Female Data Anesthesia Cardiac Studies: Echocardiogram 11/08/21 Sestamibi Stress Test (Cardiology) 07/31/22 Cardiac Event Monitor 03/20/22
--- NOTE | 2024-11-12 06:43 | W.PM.OPSUD ---
Surgery/Procedure H&P Update DATE OF PROCEDURE: November 12, 2024 DATE H&P PERFORMED: 10/26/24 H&P UPDATE INFORMATION: I have reviewed H&P completed within last 30 days, I have examined patient prior to procedure and No changes to prior documentation PLANNED PROCEDURE: Operation Date: 11/12/24 08:00 Proposed Procedures p Lumbar Spine Decompression Lumbar Decompression(Not Applicable) - Danial Merrill DO
[2024-11-12] MEDS: lidocaine-epi 1% 20 mL INJ INJECTION (08:12)
--- NOTE | 2024-11-12 09:07 | XR_ITS ---
WS: [id number] Exam: XR lumbar spine 2-3V* [id number] Date/Time of Exam: 11/12/2024 9:07 AM Reason For Exam: OR PICS DLP: Limited AP intraoperative C-arm images of the lower lumbar spine are submitted. Images were obtained for preoperative localization purposes.
--- NOTE | 2024-11-12 09:25 | PM.OP ---
Operative Report Date of procedure: November 12, 2024 Pre-op diagnosis: Lumbar stenosis with neurogenic claudication Post-op diagnosis: same Procedure done: 1. L3/4 laminectomy with partial facetectomy 2. L4/5 laminectomy with partial facetectomy 3. L5/S1 laminectomy partial facetectomy Surgeon: Danial Merrill DO Estimated blood loss (mL): 20 Procedure: 1. L3/4 laminectomy with partial facetectomy 2. L4/5 laminectomy with partial facetectomy 3. L5/S1 laminectomy partial facetectomy Patient is brought to the operative suite. After undergoing anesthesia they are placed in the prone position. All areas of impingement are well padded. Patient is then prepped and draped in the normal sterile fashion. A skin incision is made over the L3/4 level. This is confirmed under c-arm guidance. A series of dilators are passed and the tubular retractor is docked on the L3 lamina. A bovie is used to clear the soft tissue off the lamina and the L 3/4 facet joint. A high speed roseann is then used to perform the laminectomy and take down the medial aspect of the L 3/4 facet joint. A kerrison rongeure was then used to take down the remaining lamina and smooth the edge of the laminectomy up to the point where the ligamentum flavum attaches. Attention was then brought to the medial aspect of the facet joint. The remaining medial aspect of the superior and inferior aspect of the facet joint were taken down with the kerrison from the pedicle of L3 to L 4. The facet joint had significant hypertrophy. Attention was then brought to the Ligamentum Flavum. The ligament was taken down from the lamina of L3 to L4 and out medially to the remaining facet joint. The ligament was thick. The dura was then exposed. The dura was in good repair. The L3 nerve was then traced with a curette out the L3/4 foramen and found to be adequately decompressed. The L4 nerve was traced with a curette around the L4 pedicle. The lateral recess was opened with a kerrison helping to further decompress the L4 nerve. Wound is then irrigated copiously with saline and surgiflo is used to stop any bleeding. The tubular retractor is removed A skin incision is made over the L4/5 level. This is confirmed under c-arm guidance. A series of dilators are passed and the tubular retractor is docked on the L4 lamina. A bovie is used to clear the soft tissue off the lamina and the L 4/5 facet joint. A high speed roseann is then used to perform the laminectomy and take down the medial aspect of the L 4/5 facet joint. A kerrison rongeure was then used to take down the remaining lamina and smooth the edge of the laminectomy up to the point where the ligamentum flavum attaches. Attention was then brought to the medial aspect of the facet joint. The remaining medial aspect of the superior and inferior aspect of the facet joint were taken down with the kerrison from the pedicle of L4 to L 5. The facet joint had significant hypertrophy. Attention was then brought to the Ligamentum Flavum. The ligament was taken down from the lamina of L4 to L5 and out medially to the remaining facet joint. The ligament was thick. The dura was then exposed. The dura was in good repair. The L4 nerve was then traced with a curette out the L4/5 foramen and found to be adequately decompressed. The L5 nerve was traced with a curette around the L5 pedicle. The lateral recess was opened with a kerrison helping to further decompress the L5 nerve. Wound is then irrigated copiously with saline and surgiflo is used to stop any bleeding. The tubular retractor is removed A skin incision is made over the L5/S1 level. This is confirmed under c-arm guidance. A series of dilators are passed and the tubular retractor is docked on the L5 lamina. A bovie is used to clear the soft tissue off the lamina and the L 5/S1 facet joint. A high speed roseann is then used to perform the laminectomy and take down the medial aspect of the L 5/S1 facet joint. A kerrison rongeure was then used to take down the remaining lamina and smooth the edge of the laminectomy up to the point where the ligamentum flavum attaches. Attention was then brought to the medial aspect of the facet joint. The remaining medial aspect of the superior and inferior aspect of the facet joint were taken down with the kerrison from the pedicle of L5 to S1. The facet joint had significant hypertrophy. Attention was then brought to the Ligamentum Flavum. The ligament was taken down from the lamina of L5 to S1 and out medially to the remaining facet joint. The ligament was thick. The dura was then exposed. The dura was in good repair. The L5 nerve was then traced with a curette out the L5/S1 foramen and found to be adequately decompressed. The S1 nerve was traced with a curette around the S1 pedicle. The lateral recess was opened with a kerrison helping to further decompress the S1 nerve. Wound is then irrigated copiously with saline and surgiflo is used to stop any bleeding. The tubular retractor is removed and the wound is closed with vicryl and monocryl suture. Steri strips were applied. A sterile dressing is then placed. Patient was then placed in the supine position and transferred to the PACU in stable condition.
[2024-11-12] MEDS: fentaNYL 50 mcg/mL INJ 2mL IVP ×2 (09:39→09:47)
--- NOTE | 2024-11-12 10:10 | ANE.PACU2 ---
Inpatient post-anesthesia follow up: Airway intact: Yes Vital signs: Temperature 97.0 F Pulse Rate 60 Respiratory Rate 16 Blood Pressure 124/53 Pulse Oximetry 91 Oxygen Delivery Me thod Nasal Cannula Oxygen Flow Rate 2 Fraction of Inspir ed Oxygen Hydration adequate: Yes Nausea and vomiting: No Pain level: 1 Mental status: Baseline
[2024-11-12] MEDS: HYDROcodone-acetaminophen 5-325 mg Tablet 1 TAB PO ×2 (10:37→10:40)
== END 2024-11-12 10:43 | disposition home or self-care (01) ==
PROVIDERS: PCP Physician Assistant Medical; Visit Provider Orthopaedic Surgery
PROC: (CPT 63005; principal; 2024-11-12 08:00)
DX: M48.062 Spinal stenosis, lumbar region with neurogenic claudication (principal); I25.10 Atherosclerotic heart disease of native coronary artery without angina pectoris; E11.22 Type 2 diabetes mellitus with diabetic chronic kidney disease; I12.9 Hypertensive chronic kidney disease with stage 1 through stage 4 chronic kidney disease, or unspecified chronic kidney disease; N18.9 Chronic kidney disease, unspecified; K21.9 Gastro-esophageal reflux disease without esophagitis; R00.0 Tachycardia, unspecified; Z79.82 Long term (current) use of aspirin; Z79.4 Long term (current) use of insulin; E78.5 Hyperlipidemia, unspecified; G40.909 Epilepsy, unspecified, not intractable, without status epilepticus; F17.200 Nicotine dependence, unspecified, uncomplicated
CPT/HCPCS: 63047; 63048 ×2; 36416; 72100; 76000; 82962; C9358; J0690; J2704; J3010; J3490; J7030; J9999

== ENCOUNTER 2024-11-16 07:35 | Inpatient (IN) | payer MEDICARE, OTHER, SELFPAY ==
--- OUTSIDE RECORDS SUMMARY | 2024-07-12 05:30 | XMS_ITS | Continuity of Care Document ---
Author Organization [facility] Address [address] [place] [address] Phone Care Team Providers Care Streetcar Dispatcher Name Role Phone Robbie Gallo MD Unavailable Unavailable Allergies, Adverse Reactions, Alerts Substance Reaction Status Criticality hydralazine Active No Information lansoprazole Active No Information IODINE Active No Information amlodipine Active No Information GAIL Inhibitors Unknown Active No Informatio n PENICILLIN Active No Information Medications Medication Instructions Dosage Effective Dates (start - stop) Status Comments timolol maleate 0.5 % eye drops instill 1 Drop by Ophthalmic route every day in each eye 1 Drop - Active carvedilol 12.5 mg tablet Take 1 tablet twice a day - Active aspirin 81 mg tablet,delayed release Take 1 tablet at night - Active losartan 100 mg tablet Take 1 tablet at night - Active simvastatin 20 mg tablet Take 1 tablet at night - Active spironolactone 25 mg tablet - Active timolol maleate 0.5 % eye drops instill 1 Drop by Ophthalmic route every day in each eye 1 Drop - No Longer Active Procedures Procedure Date <content ID='ProcedureDescri ption_0' xmlns='urn:[email or web address]-org:[email or web address]'>Visual Field Exam W/i&r; Exten</content> Ophth Serv: Med Exam; Interm E Refraction Ophth Serv: Med Exam; Comp Est Refraction Fundus Photography W/i&r Ophth Serv: Med Exam; Comp New PQRI Measure 117 OCT Posterior Chamber Of Optic Nerve July Advance Directives Directive Yes / No Effective Date File Name No Information Encounters Encounter Description Practice Location Reason(s) For Visit Diagnoses Date Provider Providers Copied on Encounter [facility], [address], [place], [place], [id number] , [place] tel: [phone] [facility] No Information 5 Sabino Arguelles [address], [place], [id number] , [place]. tel: [phone] Referring Provider: Robbie Martinez, [address], [place], [address] . tel:[phone] [facility], [address], [place], [place], [id number] , [place] tel: [phone] [facility] VF IOP check (chief complaint) Open angle with borderline findings, high risk, bilateral 4 Sabino Arguelles [address], [place], [id number] , [place]. tel: [phone] Referring Provider: Robbie Martinez, [address], [place], [address] . tel:[phone] [facility], [address], [place], [place], [address] , [place] tel: [phone] [facility] TE (chief complaint) Open angle with borderline findings, high risk, bilateralFamily history of glaucomaType 2 diabetes mellitus without complicationsComb ined forms of age-related cataract, bilateral 4 Sabino Arguelles [address], [place], [id number] , [place]. tel: [phone] Referring Provider: Robbie Martinez, [address], [place], [address] . tel:[phone] [facility], [address], [place], [place], [address] , [place] tel: [phone] [facility] comprehensive eye exam (chief complaint) Open angle with borderline findings, high risk, bilateralFamily history of glaucomaType 2 diabetes mellitus without complicationsComb ined forms of age-related cataract, bilateral 3 Sabino Avalos. [address], [place], [place], [id number] , [place]. tel: [phone] Referring Provider: Elif Alarcon, [address] [facility] [address], [place], [address]. tel:[phone] Family History Family Member Type Diagnosis Age At Onset Mother Problem (finding) glaucoma Payers Payer name Insurance type Covered constitution party ID Authortracea melia(s) Medicare [place] YESSENIA [id number] [facility] Health Care Options CI [id number] Social History Type Description Quantity Date Captured Comments Alcohol Use Details Unknown Caffeine Use Details Unknown Tobacco Use Status No Information Smoking Status No Information Sex Female Chief Complaint And Reason For Visit No Information Reason For Referral Reason For Referral No Information Plan Of Treatment Date Type Action Status Appointment Brenda Lares BOOKED Appointment Brenda Lares BOOKED History Of Present Illness Encounter Date Complaint History Of Prese nt Illness VF IOP check TE The 73 year old female presents for TE. Pt reports that she hasn't noticed any changes in either her near or distance vision, but states that her tremors effect her vision a bit. Pt denies any pain or other discomfort.NIDDM LBS unknown doesn't ckLast A1C 6.8 to be cked again in Oct comprehensive eye exam The 71 ye ar old female presents for comprehensive eye exam in the both eyes. Pt is pre-diabetic. LBS unknown and A1C 6.6.Pt states vision is stable. Pt states a couple days ago she had a broken blood vessel in OD and went to the ER at [facility] in [place], [place]. She given eye was and tobramycin. Functional Status Date Functional Assessmen t No Information Instructions Date Instruction Additional Infor mation Open angle with bord teresa findings, high risk, bilateral, OU - VF normal. Continue Timolol Q am OU Related to Open angle with borderline findings, high risk, bilateral Patient education Related to Com bined forms of age-related cataract, bilateral Open angle with bord teresa findings, high risk, bilateral, OU - Discussed IOP higher than we would like it to be. Will start Timolol Qam OUWill do 30-2 VF OU at next visit in 6 mos. Related to Open angle with borderline findings, high risk, bilateral Family history of gl aucoma, - + fam h/o glaucoma ( mother ) Related to Family history of glaucoma Type 2 diabetes fely itus without complications, - Patient was advised of condition. Emphasized continued blood sugar control with patient. Related to Type 2 diabetes mellitus without complications Combined forms of ag e-related cataract, bilateral, OU - Cataract is ready when she is but she is dealing with other health issues at this time and would like to wait. Related to Combined forms of age-related cataract, bilateral Patient education Related to Typ e 2 diabetes mellitus without complications Patient education Related to Com bined forms of age-related cataract, bilateral Open angle with bord teresa findings, high risk, bilateral, OU - Discussed findings of OCT. Patient has never been told that she has glaucoma. Optos done for baseline. Will do 30-2 VF OU at next visit in 6 mos. Related to Open angle with borderline findings, high risk, bilateral Family history of gl aucoma, - + fam h/o glaucoma ( mother ) Related to Family history of glaucoma Type 2 diabetes fely itus without complications, - Patient was advised of condition. Emphasized continued blood sugar control with patient. Related to Type 2 diabetes mellitus without complications Combined forms of ag e-related cataract, bilateral, OU - Mild cataracts Related to Combined forms of age-related cataract, bilateral Assessments Type Assessment Date No Information Patient Care Teams Name Effective Dates (start - stop) Status Members No Information
[2024-11-16] VITALS (17 sets, daily range): BP systolic 91–187; BP diastolic 56–131; PULSE 81–109; RESP 16–23; TEMP 37–39.3; O2SAT 91–100; BMI 27.3
--- OUTSIDE RECORDS SUMMARY | 2024-11-16 07:39 | XMS_ITS | Clinical Summary ---
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 30 Tablet 2 8 Active hydrOXYzine HCL (ATARAX) 25 mg tablet Take 1 Tablet (25 mg) by mouth every 6 hours as needed for Anxiety. 30 Tablet 4 Active insulin glargine (Basaglar KwikPen U-100 Insulin) 100 unit/mL pen syringe Inject 20 Units by subcutaneous injection daily at bedtime. 15 mL 4 Active insulin lispro (HumaLOG) 100 unit/mL pen syringe Inject 4 Units by subcutaneous injection 3 times daily with meals. 15 mL 4 Active insulin glargine (Basaglar KwikPen U-100 Insulin) 100 unit/mL pen syringe Inject 15 Units by subcutaneous injection daily with breakfast. 15 mL 4 Active Blood-Glucose Meter Kit Use to test blood sugar 1 Each 4 Active lancets Test blood sugar 2-3 times per day 200 Each 4 Active blood sugar diagnostic Strip Use to test blood sugar 2-3 times per day 200 Each 4 Active Active Problems Problem Noted Date Diagnosed Date Acute metabolic encephalopathy 05/24/2023 Impaired mobility and ADLs 05/24/2023 Diabetic polyneuropathy asso ciated with type 2 diabetes mellitus 05/23/2023 History of pulmonary embolism 09/25/2017 Post menopausal syndrome 10/21/2013 Generalized tonic clonic epilepsy 12/21/2012 Uncontrolled diabetes mellitus with hyperglycemi a 08/16/2011 Other pulmonary embolism and infarction 08/16/19 12 Palpitations 08/13/2011 Regular astigmatism 01/04/2011 Carotid artery stenosis 11/17/2009 Anxiety state 01/04/2009 Heartburn 01/04/2009 Other and unspecified hyperlipidemia 01/04/2009 Female stress incontinence 01/04/2009 Tobacco use disorder 01/04/2009 Resolved Problems Problem Noted Date Diagnosed Date Resolved Date Personal history of colonic polyps 06/19/2011 11/12/2017 Pain in joint, lower leg 07/03/2010 Immunizations Immunization Administration Dates Next Due (PNEUMOVAX 23)(50 YRS UP) PN EUMOCOCCAL POLYSACCHARIDE (PPV23) 0.5 ML, IM 04/15/2013 Family History Medical History Relation Name Comments Heart Disease Brother Diabetes Mother Heart Disease Mother High Cholesterol Mother Relation Name Status Comments Brother Mother Social History Tobacco Use Types Packs/Day Years Used Date Smoking Tobacco: Every Day Cigarettes 1.5 40 Smokeless Tobacco: Never Tobacco Cessation:Ready to Q uit: No; Counseling Given: No Alcohol Use Standard Drinks/Week Comments No 0 (1 standard drink = 0.6 oz pur e alcohol) Feeling Safe Answer Date Recorded Are you in a relationship wi th someone who hurts you emotionally and/or physically? 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19 05/23/2023 5:14 PM FAMILY MEDIATOR Plan of Treatment Health Maintenance Due Date Last Done Comments DTAP/TDAP/TD VACCINES (1 - Tdap) 1969 FIT-DNA Q 3 years 09/07/1995 FIT/FOBT Q 1 year 09/07/1995 Flex Sig/CT Colonography Q 5 years 09/07/1995 ZOSTER VACCINE (1 of 2) 2000 RSV VACCINE (60+ or ) (1 - Risk 60-74 years 1-dose series) 2010 DIABETES ANNUAL FOOT EXAM 07/22/2013 07/22/2012 PNEUMOCOCCAL VACCINE 50+ YEA RS (2 of 2 - PCV) 04/15/2014 04/15/2013 BREAST CANCER SCREENING 02/18/2017 02/19/20 16, 02/19/2016, 06/13/2010 (Previously completed) DIABETES ANNUAL RETINAL EXAM 06/10/2018, 05/24/2016, 04/12/2015 DIABETES MICROALBUMIN ANNUAL SCREEN 08/13/2018 08/13/2017, 10/18/2013, 07/10/2012 LDL CHOLESTEROL ANNUAL 08/13/2018 8, 10/18/2013, 02/15/2013, Additional history exists DIABETES HBA1C Q 6 MONTHS 02/13/20192018, 08/13/2017, 10/18/2013, Additional history exists OSTEOPOROSIS SCREENING 02/18/2021 02/19/2016 INFLUENZA VACCINE (#1) 2024 12/27/2021, 2020 COLORECTAL SCREENING 07/16/2027 07/15/2017, 03/12/2017, 08/29/2016 (Previously completed), Additional history exists Colorectal Cancer Screening 07/16/2027 Procedures Procedure Name Priority Date/Time Associated Diagnosis Comments MICROALBUMIN/CREATININ E RATIO, RANDOM UR Routine 08/13/2017 LIPID PANEL Routine 08/13/2017 HEMOGLOBIN A1C Routine 08/13/2017 from Last 3 Months or Most Recently Relevant to Health Maintenance Results * MICROALBUMIN/CREATININE RATIO, RANDOM UR (08/13/2017) Pathologist [facility] ABSTRACTED MICROALBUMIN,URI NE EXTERNAL LAB MICROALBUMIN, URINE 0.5 mg/dL EXTERNAL LAB CREATININE, URINE EXTERNAL LAB MICROALBUMIN/CRE AT RATIO, UR EXTERNAL LAB MICROALBUMIN, URINE mg/dL EXTERNAL LAB CREATININE, URINE 29.0 - 226.0 mg/dL EXTERNAL LAB MICROALBUMIN/CRE AT RATIO, UR 7.4 <=25.0 mg/g EXTERNAL LAB Urine URINE SPECIMEN OBTAINED BY CLEAN CATCH PROCEDURE / Unknown us Abstract Provider URINE ORDERABLES Edited Result - Final EXTERNAL LAB * (ABNORMAL) HEMOGLOBIN A1C (08/13/2017) Pathologist [facility] ABSTRACTED HGB A1C EXTERNAL LAB HEMOGLOBIN A1C 7.0(A) 4.7 - 6.4 % EXTERNAL LAB HEMOGLOBIN A1C EXTERNAL LAB GLUCOSE, MEAN BLOOD EXTERNAL LAB Blood us Abstract Provider CHEMISTRY ORDERABLES Edited Re sult - Final EXTERNAL LAB * (ABNORMAL) LIPID PANEL (08/13/2017) ABSTRACTED CHOLESTEROL EXTERNAL LAB ABSTRACTED TRIGLYCERIDE EXTERNAL LAB ABSTRACTED HDL EXTERNAL LAB ABSTRACTED LDL CALCULATED EXTERNAL LAB CHOLESTEROL 177 <=200 mg/dL EXTERNAL LAB TRIGLYCERIDE 176(A) <=150 mg/dL EXTERNAL LAB HDL 36(A) 40 - 59 mg/dL EXTERNAL LAB LDL CALCULATED 106(A) <=100 mg/dL EXTERNAL LAB Blood us Abstract Provider CHEMISTRY ORDERABLES Edited Re sult - Final EXTERNAL LAB from Last 3 Months or Most Recently Relevant to Health Maintenance Insurance MEDICARE PART A AND B [facility] Advance Directives For more information, please contact: [phone] * Full Code (Latest Code Status on File) Date Activated Date Inactivated Comments 05/23/2023 5:52 PM 06/06/2023 11:06 AM
--- OUTSIDE RECORDS SUMMARY | 2024-11-16 07:39 | XMS_ITS | Patient Health Record ---
Author Organization [facility] Address [address] [place] [address] Care Team Providers Care Fulfillment Representative Name Role Phone Kal Mike Primary Care Provider [phone] Sweetie Jc Unavailable [phone] Santiago Don Unavailable Unavailable Raffaele Bailon Unavailable [phone] Allergies Allergen (clinical drug ingredient) Drug/Non Drug Allergy documented on EMR Reaction Allergy Type Onset Date Status Penicillin hives Drug Allergy Active Substance with sulfonamide structure and antibacterial mechanism of action (substance) Sulfa Antibiotics hives Drug Allergy Active Results Component Value Reference Range Flag Notes Blood Urea Nitrogen (BUN) 84 520 Reviewed date:02/24/2024 04:45:43 PM Interpretation: Performing Lab: Notes/Report: Diagnosis Description: Atherosclerosis of moapa arteries of extremities with intermittent claudication, unspecified extremity BUN 20 7-21 MG/DL Creatinine (B) 10577 Reviewed date:02/24/2024 04:45:43 PM Interpretation: Performing Lab: Notes/Report: Diagnosis Description: Atherosclerosis of moapa arteries of extremities with intermittent claudication, unspecified extremity Creat 1.37 .51-1.17 MG/DL HI E-rdbntl-u-benzoquinon e imine (NAPQI) is a metabolite of acetaminophen, NAPQI concentrations of apparoximately 10 mg/L correlation to toxic levels of acetaminophen demonstrates a greater than or equil to 10% change in results. NAPQI concentrations greater than this may lead to falsely depressed results for patient samples. Use of this assay is not recommended for patients undergoing treatment with phenindione, due to the potential for falsely depressed results. GFR n/a NA Calculation pe rformed from GFR calculator provided by the [employer]. Glomerular Filtration rate(GRF) is the best overall index of kidney function. Normal GFR varies according to age,sex, body size, and declines with age. The National Kid[employer] Foundation recommends using the CKD-EPI Creatinine Equation(2020) to estimate GFR. CTA AFRO w/ + w/o Contrast-7 5635 Reviewed date:02/24/2024 04:45:43 PM Interpretation: Performing Lab: Notes/Report: See Below For Report CTA AFRO w/ + w/o Contrast Read See Below For Report CTA AFRO w/ + w/o Contrast-7 5635 Reviewed date:02/24/2024 04:45:43 PM Interpretation: Performing Lab: Notes/Report: [id number] US Doppler Aorta, IVC, Iliac -31430 Reviewed date:02/05/2024 04:55:10 PM Interpretation: Performing Lab: Notes/Report: This report was dictated at the Pending Sale To [facility] FINAL REPORT Read This report was dictated at the Pending Sale To [facility] US Doppler Aorta, IVC, Iliac -[id number] Reviewed date:02/05/2024 04:55:10 PM Interpretation: Performing Lab: Notes/Report: [id number] Schedule Confirmation Reviewed date:02/24/2024 04:45:43 PM Interpretation: Performing Lab: Notes/Report: CTA AFRO w/ + w/o Contrast Schedule Confirmation Reviewed date:02/05/2024 04:54:17 PM Interpretation: Performing Lab: Notes/Report: CTA AFRO w/ + w/o Contrast Reason For Referral Reason carotid stenosis - O [facility] carotid Duplex 12/22/23: left ICA stenosis 50-69%, right ICA stenosis less than 50% Diagnosis 1 Carotid stenosis, bi lateral (I65.23) Referring Provider Last Name Julianna Soni thcare Medical Records Referring Provider [facility] Referred Organization [facility] Referred Provider Raffaele Bailon Referred Address [address] [place] [address] [address],[address] Referred Provider Specialty Vascular Elaine shanell General Notes Shelly Meredith 01/05/20 04:40:10 PM >please schedule with next available vascular surgeonWoo Brittany M 01/07/2024 09:59:37 AM >Called patient Woo UNDERWOODMoniqueNatasha M 01/07/2024 02:16:45 PM >Appointment scheduled on 01.20 @ 8:30 Referral Priority Routine Medications Medication SIG (Take, Route, Frequency, Duration) Notes Start Date End Date Status Cilostazol 50 MG Tablet 1 tablet 30 minutes before or 2 hours after breakfast and dinner Orally Twice a day Not-Taking Farxiga 5 MG Tablet 1 tablet Orally Once a day; Duration: 30 days 08/02/2024 Not-Taking Farxiga 5 MG Tablet 1 tablet Orally Once a day; Duration: 30 days May sub generic This Rx to replace the Jardiance, please do not fill both 11/09/2024 Active Potassium Chloride ER 10 MEQ Tablet Extended Release 1 tablet with food Orally Twice a day Active Aspirin 325 MG Tablet 1 tablet Orally Once a day Active Meclizine HCl prn Active Glucagon Emergency 1 MG/ML Solution Reconstituted as directed Injection PRN; Duration: 365 days May sub glucagen if needed 01/13/2024 01/12/2026 Not-Taking Fiasp FlexTouch 100 UNIT/ML Solution Pen-injector as directed based on sliding scale Subcutaneous TID; Duration: 30 days Dx: E11.65 Up to 50 Units daily 02/03/2024 Not-Taking HumaLOG 100 UNIT/ML Solution 5 units Injection Three times per day prn Not-Taking Gvoke HypoPen 2-Pack 1 MG/0.2ML Solution Auto-injector as directed Subcutaneous PRN; Duration: 365 days 01/12/2024 01/11/2026 Not-Taking Estradiol 1 MG Tablet 0.5 tab Orally Once a day Active NIFEdipine ER 30 MG Tablet Extended Release 24 Hour 1 tablet on an empty stomach Orally Once a day Not-Taking busPIRone HCl 10 MG Tablet 1 tablet Orally Twice a day Active LORazepam 0.5 MG Tablet 1 tablet at bedtime as needed Orally three times a day Not-Taking Gabapentin 600 MG Tablet 1tablet in Am 1 tablet at noon, 2 tablets at hs Orally Active Toujeo Max SoloStar 300 UNIT/ML Solution Pen-injector Inject 30 Units Subcutaneous Once daily; Duration: 30 days Dx: E11.65, may sub generic insulin glargine per insurance Dx: E11.65 07/01/2023 Not-Taking Jardiance 10 MG Tablet 1 tablet Orally Once a day; Duration: 30 days Dx; E11.65 11/02/2024 Active Furosemide 20 MG Tablet 0.5 tablet Orally Once a day Active predniSONE 10 MG Tablet 1 tablet Orally Once a day Not-Taking HumaLOG KwikPen 100 UNIT/ML Solution Pen-injector Inject up to 50 units Subcutaneous Daily; Duration: 30 days 1:40 correction, 1:10g, [employer] BG120 01/12/2024 Not-Taking Atorvastatin Calcium 80 MG Tablet 1 tablet Orally Once a day Active Lansoprazole 30 MG Capsule Delayed Release 1 capsule before a meal Orally Once a day; Duration: 30 day(s) 04/24/2022 Not-Taking Jardiance 10 MG Tablet 1 tablet Orally Once a day; Duration: 30 days This Rx to replace the [place]amariaga, per insurance. Please do not fill both 08/11/2024 Not-Taking Pantoprazole Sodium 40 MG Tablet Delayed Release 1 tablet Orally Twice a day Active lamoTRIgine 200 MG Tablet 1 tablet in AM and 1.5 tablet at night Orally Active Insulin Glargine Max SoloStar 300 UNIT/ML Solution Pen-injector inject 36 units Subcutaneous daily; Duration: 30 days Dx: E11.65 Insurance covers only this generic 10/11/2024 Active Toujeo Max SoloStar 300 UNIT/ML Solution Pen-injector Inject up to 60 Units Subcutaneous Daily; Duration: 30 days 08/02/2024 Not-Taking Metoprolol Tartrate 25 MG Tablet 0.5 tablet Orally Once a day Active Social History Tobacco Use: Social History Observation Description Date Details (start date - stop date) Current Smoker NA - NA Social History Depression Screening Social Info Question Answer Notes PHQ-9 Little interest or pleasure in doing thin gs Several days Feeling down, depressed, or hopeless Several day s Trouble falling or staying asleep, or sleeping t oo much Not at all Feeling tired or having little energy Several da ys Poor appetite or overeating Several days Feeling bad about yourself, or that you are a failure, or have let yourself or your family down Not at all Trouble concentrating on thi ngs, such as reading the newspaper or watching television Not at all Moving or speaking so slowly that other people could have noticed. Or the opposite ? being so fidgety or restless that you have been moving around a lot more than usual Not at all Thoughts that you would be b pavel off , or of hurting yourself in some way Not at all Total Score 4 Interpretation Minimal Depression Drugs/Alcohol: Social Info Question Answer Notes Alcohol Screen (Audit-C) Did you have a drink containing alcohol in the past year? No Points 0 Interpretation Negative Drugs Have you used drugs other than those for medical reasons in the past 12 months? No Caffeine Intake: 3-4 cups per day Tobacco Use: Social Info Question Answer Notes Tobacco Control (Standard) Tobacco use: Current smoker How often do you smoke cigarettes? Every day How many cigarettes a day do you smoke? 21-30 How soon after you wake up do you smoke your first cigarette? 6-30 minutes Are you interested in quitting? Not ready to quit Additional Details Category Social Info Options Details Drugs/Alcohol: Do you smoke marijuana? De nies Do you drink alcohol? No Section Notes: 04-24-22 smoke/alchol/depress ion screening 04-24-22 smoke/alchol/depress ion screening 04-24-22 smoke/alchol/depress ion screening 04-24-22 smoke/alchol/depress ion screening 04-24-22 smoke/alchol/depress ion screening 04-24-22 smoke/alchol/depress ion screening 04-24-22 smoke/alchol/depress ion screening 04-24-22 smoke/alchol/depress ion screening 04-24-22 smoke/alchol/depress ion screening 04-24-22 smoke/alchol/depress ion screening 04-24-22 smoke/alchol/depress ion screening Problems Problem Type SNOMED Code ICD Code Onset Dates Problem Status W/U Status Risk Notes Problem Hyperglycemia due to type 2 diabetes mellitus (477386482499372) Type 2 diabetes mellitus with hyperglycemia (E11.65) Active confirmed Problem Functional diarrhea (38048799) Functional diarrhea (K59.1) Active confirmed Problem Long-term current use of insulin (597918103) manager intermediate (current) use of insulin (Z79.4) Active confirmed Problem Occlusion and stenosis of multiple and bilateral cerebral arteries (997075442) Carotid stenosis, bilateral (I65.23) Active confirmed Problem Hyperglycemia due to type 2 diabetes mellitus (023795048796725) Type 2 diabetes mellitus with hyperglycemia, without long-term current use of insulin (E11.65) Active confirmed Problem Hyperlipidaemia (36456302) Hyperlipemia (E78.5) Active confirmed Problem Hypertension (37207768) Hypertension (I10) Active confirmed Problem Intermittent claudication due to atherosclerosis of artery of limb (finding) (349631192) Atherosclerotic peripheral vascular disease with intermittent claudication (I70.219) Active confirmed Problem Nausea and vomiting (57124701) Nausea and vomiting, unspecified vomiting type (R11.2) Active confirmed Problem Chronic kidney disease stage 3B (disorder) (324453709) CKD stage 3b, GFR 30-44 ml/min (N18.32) Active confirmed Vital Signs Heart Rate 77 /min 11/02/2024 Temperature 98.3 degrees Fahrenheit 02/26/2024 Respiratory Rate 16 /min 02/26/2024 Blood pressure diastolic 63 mm Hg 11/02/2024 Oximetry 90 % 11/02/2024 Height-cm 195.58 cm 11/02/2024 Weight-kg 79.83 kg 11/02/2024 Height 77 in 11/02/2024 Blood pressure systolic 125 mm Hg 11/02/2024 Weight 176 lbs 11/02/2024 BMI 20.87 kg/m2 11/02/2024 Encounters Encounter Location Date Provider Diagnosis [facility] [address] [place] [address] 01/12/2024 Sweetie Jc Type 2 diabetes mellitus with hyperglycemia E11.65 ; manager intermediate (current) use of insulin Z79.4 ; Hyperlipemia E78.5 ; Elevated hemoglobin A1c R73.09 ; At risk for hypoglycemia Z91.89 and Uses self-applied continuous glucose monitoring device Z97.8 Pending Sale To [facility] [address] [place], [place] [address] 01/21/2024 Raffaele Adamaris Carotid stenosis, bilateral I65.23 and Atherosclerotic peripheral vascular disease with intermittent claudication I70.219 Pending Sale To [facility] [address] [place] [address] 02/26/2024 Raffaele Bailon Atherosclerotic peripheral vascular disease with intermittent claudication I70.219 [facility] [address] [address] [place] [address] 04/26/2024 Sweetie Jc Type 2 diabetes mellitus with hyperglycemia E11.65 ; manager intermediate (current) use of insulin Z79.4 ; Hyperlipemia E78.5 ; Hypertension I10 and Uses self-applied continuous glucose monitoring device Z97.8 [facility] [address] [place] [address] 08/02/2024 Sweetie Jc Type 2 diabetes mellitus with hyperglycemia E11.65 ; shelter (current) use of insulin Z79.4 ; Hypertension I10 ; Hyperlipemia E78.5 and Uses self-applied continuous glucose monitoring device Z97.8 [facility] [address] [place] [address] 11/02/2024 Sweetie Jc Type 2 diabetes mellitus with hyperglycemia E11.65 ; shelter (current) use of insulin Z79.4 ; Hyperlipemia E78.5 ; Hypertension I10 ; CKD stage 3b, GFR 30-44 ml/min N18.32 and Uses self-applied continuous glucose monitoring device Z97.8 Pending [facility] To [facility] [address] [place] [address] [facility] [address] [place] [address] 01/12/2024 Sweetie Jc Pending Sale To [facility] [address] [place] [address] 01/23/2024 Raffaele Bailon Atherosclerotic peripheral vascular disease with intermittent claudication I70.219 Pending Sale To [facility] [address] [place] [address] 01/26/2024 Raffaele Bailon [facility] [address] [place], [place] [address] [address] 02/02/2024 Sweetie Jc [facility] [place] [address] 04/06/2024 Sweetie Everardolit [facility] [address] [place] [address] 08/10/2024 Sweetie Jc Type 2 diabetes mellitus with hyperglycemia E11.65 [facility] [address] [place] [address] 10/08/2024 Sweetie Jc [facility] [address] [place] [address] 10/11/2024 Sweetie Everardolit [facility] [address] [place] [address] 11/03/2024 Sweetie Jc Assessments Encounter Date Diagnosis (ICD Code) Assessment Notes Treatment Notes Treatment Clinical Notes Section Notes 01/12/2024 Type 2 diabetes mellitus with hyperglycemia (ICD-10 - E11.65) Dexcom G7 data download complete, information interpreted and reviewed with patient. The patient has an average blood glucose of 169 mg/dL with most hyperglycemia noted after breakfast and dinner and some hypoglycemia noted at night. Discussed use of the Humalog based on 1:40 correction and 1:10 gram carb ration, encouraged her to take this with meals and continue the Toujeo Max 30 Units once daily. She may also be a good candidate for an SGLT-2 in the future. Discussed use of glucagon for hypoglycemia treatment, education provided to patient and spouse for use of Gvoke pen. A new prescription is sent to her pharmacy. Encouraged patient to continue to follow a low carbohydrate heart healthy diet, eat low carbohydrate snacks and drink only non-calorie beverages. Patient verbalizes understanding of all instructions and all questions are answered. Patient agrees to follow up with her primary care clinic as directed and with [facility] clinic in three months or PRN. Total time is 35 minutes 01/12/2024 shelter (current) use of insulin (ICD-10 - Z79.4) 01/21/2024 Carotid stenosis, bilateral (ICD-10 - I65.23) Carotid duplex report notes elevated velocities bilaterally with the left being worse than the right. Based on the velocities I would estimate 60 to 79% stenosis bilaterally most likely at the lower end of the range. Recommend continuing with yearly surveillance with carotid duplex, aspirin, and statin. Follow-up in 1 year. 01/21/2024 Atherosclerotic peripheral vascular disease with intermittent claudication (ICD-10 - I70.219) History of bilateral iliac stent placement. Her symptoms are concerning for vascular claudication. Will evaluate further with AARON and ultrasound in the office today. ABIs today are 0.95 on the right and 1.01 on the left. Aortoiliac arterial duplex shows wide patency of the aorta. There is a high-grade stenosis in the right common iliac artery and a moderate to high-grade stenosis in the left common iliac artery. External iliac arteries are widely patent bilaterally. She has monophasic flow in the right femoral artery and biphasic flow in the left femoral artery. Findings are consistent with significant flow-limiting stenosis in the right common iliac artery and moderate stenosis in the left common iliac artery. Plan CT angiography for further assessment of her vascular disease for consideration of revascularization. Follow-up after CT. 01/23/2024 Atherosclerotic peripheral vascular disease with intermittent claudication (ICD-10 - I70.219) 02/26/2024 Atherosclerotic peripheral vascular disease with intermittent claudication (ICD-10 - I70.219) Images of CT angiogram were reviewed. She has diffuse calcified atherosclerosis of the aorta and bilateral iliac arteries. She has some mild stenosis of the mid infrarenal abdominal aorta which is less than 30% stenosis. She has bilateral common iliac artery stents in place which appear to be widely patent. She does have some calcified atherosclerotic plaque in the distal right common iliac artery which appears to give about 50% stenosis and a lesser amount on the left. External iliac arteries and common femoral arteries appear widely patent. Superficial femoral arteries are widely patent bilaterally. She appears to have three-vessel runoff to both feet. Exercise ABIs: Show an AARON of 0.99 on the right and 0.96 on the left before exercise. After exercise the ABIs 0.92 on the right and 0.94 on the left. No significant change before and after exercise. Considering this finding I would not recommend any vascular intervention. Her symptoms are likely neurogenic in origin. Follow-up in 1 year with carotid duplex and ABIs for surveillance of her carotid and peripheral vascular disease. 04/26/2024 Type 2 diabetes mellitus with hyperglycemia (ICD-10 - E11.65) [facility] [place] G7 cgm data download complete, information interpreted and reviewed with patient. The patient has an average blood glucose of 174 mg/dL with most hyperglycemia noted after meals and some mild hypoglycemia noted at NOC and in early AM. Adjusted the Low alarm to 60mg/dL and High alarm to 300mg/dL to prevent alarm fatigue for patient. She does have glucagon for hypoglycemia rescue. She is concerned that the Dexcom is not reading her accurately since her last A1C was 9.3% and the Dexcom was reporting much lower averages. Discussed calibration of the Dexcom, today her FSBG is 147mg/dl and the Dexcom is reading at 93mg/dL. Education provided on how to calibrate the Dexcom with the FSBG and a new Contour Next glucometer kit is provided. Encouraged her to calibrate within 24 hours of her placing a new sensor and then compare data with her next A1C. Patient and spouse verbalized understanding. Encouraged patient to continue to follow a low carbohydrate low sodium and heart healthy diet, eat low carbohydrate snacks and drink only non-calorie beverages. Provided information on appropriate HS snacks. Patient verbalizes understanding of all instructions and all questions are answered. Patient agrees to follow up with her primary care clinic as directed and with [facility] clinic in three months or PRN. Total time is 30 minutes. 04/26/2024 manager intermediate (current) use of insulin (ICD-10 - Z79.4) 08/02/2024 Type 2 diabetes mellitus with hyperglycemia (ICD-10 - E11.65) Dexcom G7 data download complete, information interpreted and reviewed with patient. The patient has an average blood glucose of 176 mg/dL with hyperglycemia noted after breakfast. The Dexcom G7 data has been consistently lower than her A1C average, calibrated today and advised patient to please calibrate each sensor within 24 [address] of [address] a new sensor and anytime her symptoms do not match her readings. Patient and spouse verbalized understanding. Discussed increasing the Toujeo Max to 36 Units daily and adding Farxiga 5mg daily, she will also begin to use the Humalog based on sliding scale starting at 200mg/dL=5 Units, 250=6 Units, 300=7 Units, above 350= 8 units. Encouraged patient to continue to follow a low carbohydrate low sodium and heart healthy diet, eat low carbohydrate snacks and drink only non-calorie beverages. Patient verbalizes understanding of all instructions and all questions are answered. Patient agrees to follow up with her primary care clinic as directed and with [facility] clinic in three months or PRN. Total time is 35 minutes. 08/02/2024 manager intermediate (current) use of insulin (ICD-10 - Z79.4) 08/10/2024 Type 2 diabetes mellitus with hyperglycemia (ICD-10 - E11.65) 11/02/2024 Type 2 diabetes mellitus with hyperglycemia (ICD-10 - E11.65) Dexcom G7 data download complete, information interpreted and reviewed with patient. The patient has an average blood glucose of 159 mg/dL with most hyperglycemia noted after meals. ' She was not able to get the Jardiance prescription after her last visit, discussed use of SLGT-2 therapy and importance of diabetes management for kidney protection and health. Patient will try to get the Jardiance and get started, provided her with two week sample of 10mg tablets. Encouraged patient to continue to follow a low carbohydrate low sodium and heart healthy diet, eat low carbohydrate snacks and drink only non-calorie beverages. Patient verbalizes understanding of all instructions and all questions are answered. Patient agrees to follow up with her primary care clinic as directed and with [facility] clinic in three months or PRN. Total time is 30 minutes. 11/02/2024 shelter (current) use of insulin (ICD-10 - Z79.4) 11/02/2024 Hyperlipemia (ICD-10 - E78.5) 08/02/2024 Hypertension (ICD-10 - I10) 04/26/2024 Hyperlipemia (ICD-10 - E78.5) 01/12/2024 Hyperlipemia (ICD-10 - E78.5) 01/12/2024 Elevated hemoglobin A1c (ICD-10 - R73.09) 04/26/2024 Hypertension (ICD-10 - I10) 08/02/2024 Hyperlipemia (ICD-10 - E78.5) 11/02/2024 Hypertension (ICD-10 - I10) 11/02/2024 CKD stage 3b, GFR 30-44 ml/min (ICD-10 - N18.32) 08/02/2024 Uses self-applied continuous glucose monitoring device (ICD-10 - Z97.8) 04/26/2024 Uses self-applied continuous glucose monitoring device (ICD-10 - Z97.8) 01/12/2024 At risk for hypoglycemia (ICD-10 - Z91.89) 01/12/2024 Uses self-applied continuous glucose monitoring device (ICD-10 - Z97.8) 11/02/2024 Uses self-applied continuous glucose monitoring device (ICD-10 - Z97.8) Plan Of Treatment Pending Test Test Name Order Date Blood Urea Nitrogen (BUN) 17511 01/23/20 24 Creatinine (B) 32421 01/23/2024 Next Appt Details Provider Name:Sweetie castano, 02/02/2025 09:00:00 AM, [address] [place] [address] , [place], [address], Provider Name:Ar bacon, 02/23/2025 12:30:00 PM, [address] [place] [address] , [address], [place], [address], Provider Name:Eve caputo, 02/23/2025 01:00:00 PM, [address] [place] [address] , [address], [place], [address], Insurance Providers Payer Name Payer Address Payer Phone Subscriber Number Group Number Insured Name Patient Relationship to Insured Coverage Start Date Coverage End Date [place] [address] [place] [phone] [id number] Vikas Stonea Self - patient is the insured [address] [phone] [id number] Vikas Stonea Self - patient is the insured Medical (General) History Medical History History ICD Code epilepsy gastric paresis high chollesterol poor circulation anxiety type II diabetes Kidney disease Surgical History Surgery Date(Month/Year) stent in abdomen for legs done in cath l ab right side carotid stents- 6 or 7 years ago hysterectomy left knee scope shoulder surgery left gallbladder removal Hospitalization History Reason Date(Month/Year) Seizures 03/2023 see surgical
--- NOTE | 2024-11-16 07:41 | W.ED.SEIZURE ---
HPI - Seizure General: Chief Complaint: Seizure Stated Complaint: seizure Source: patient and EMS Mode of arrival: EMS Limitations: no limitations History of Present Illness: HPI Narrative: 74-year-old female who has history of seizures in the past. Patient had a seizures morning found her postictal EMS states when they arrived she was postictal she is now back to her baseline she is answer my questions appropriately states she just feels a little tired. Denies any vomiting denies any diarrhea denies any fevers. Did have recent back surgery last week but has no complaints with that Associated symptoms: Deny chest pain, chills or fever(s) Related Data Home Medications ?Medication ?Instructions ?Recorded ?Confirmed buspirone 10 mg tablet 10 mg PO BID 10/18/19 11/16/24 furosemide 20 mg tablet (Lasix) 10 mg PO DAILY 07/01/22 11/16/24 albuterol sulfate 90 mcg/actuation 2 inh inhalation Q6H PRN Shortness 01/23/23 11/16/24 breath activated powder inhaler Of Breath Or Wheezing estradiol 1 mg tablet 0.5 mg PO DAILY 05/10/23 11/16/24 atorvastatin 80 mg tablet 80 mg PO DAILY 10/29/23 11/16/24 insulin glargine U-300 conc 300 36 unit SUBCUT QAM 10/26/24 11/16/24 unit/mL (1.5 mL) subcutaneous pen (Toujeo SoloStar U-300 Insulin) insulin lispro 100 unit/mL 5 unit SUBCUT TID PRN blood sugars 11/05/24 11/16/24 subcutaneous pen (Humalog KwikPen (U-100) Insulin) losartan 50 mg tablet 50 mg PO QDAY 11/05/24 11/16/24 nifedipine 30 mg tablet,extended 30 mg PO DAILY 11/05/24 11/16/24 release potassium chloride 10 mEq 20 meq PO DAILY 11/05/24 11/16/24 tablet,extended release gabapentin 600 mg tablet 600 mg PO TID 11/11/24 11/16/24 (Neurontin) hydrocodone 5 mg-acetaminophen 325 1 - 2 tab PO .Q4-6H PRN Pain 11/16/24 11/16/24 mg tablet Previous Rx's ?Medication ?Instructions ?Recorded Diabetic shoes with 3 inserts #1 ea 06/29/21 aspirin 325 mg tablet,delayed 325 mg PO DAILY #30 tabs 04/22/21 release Held on 11/12/24. Instructions: Resume on 11/14/24. cilostazol 50 mg tablet 50 mg PO BID #180 tabs 05/08/21 pantoprazole 40 mg tablet,delayed 40 mg PO BID 30 days #60 tabs 05/06/22 release lamotrigine 200 mg tablet 200 mg PO BID 90 days #180 tabs 08/10/24 lamotrigine 25 mg tablet 50 mg (2 x 25 mg) PO .hs 90 days 08/10/24 #180 tabs Allergies Allergy/AdvReac Type Severity Reaction Status Date / Time pentoxifylline Allergy Severe ITCHING Verified 11/12/24 07:02 Penicillins Allergy Mild rash Verified 11/12/24 07:02 Sulfa (Sulfonamide Allergy Mild rash Verified 11/12/24 07:02 Antibiotics) Review of Systems Const: Denies: fever(s), chills, body aches or change in appetite ENMT: Denies: throat pain or dental pain Card: Denies: chest pain Resp: Denies: dyspnea GI: Denies: abdominal pain, nausea, vomiting or diarrhea Musc: Denies: neck pain or back pain Skin/Breast: Denies: rash Neuro: Reports: seizure-like activity; Denies: headache(s) PFSH ED PFSH: Medical History Dizziness Fever Bilateral leg weakness Hypomagnesemia Hypertension Type 2 diabetes mellitus Hyperlipemia Epilepsy FH: carotid endarterectomy Stenosis of peripheral vascular stent Surgical History H/O abdominal hysterectomy S/P knee surgery Family History Other Cancer Diabetes Heart disease Social History Smoking and tobacco/nicotine status: current every day tobacco/nicotine user Quit status (tobacco/nicotine): has quit using Year quit tobacco: 2020 Alcohol intake: former Substance/Drug Use: never Adopted: No service: No Current gender identity: Female Physical Exam Const: COMMON NORMALS: no acute distress, patient oriented x3 and healthy appearing HENMT: COMMON NORMALS: normocephalic and atraumatic HEAD & SCALP: normocephalic and atraumatic Eye: COMMON NORMALS: Equal, round and reactive pupils present and EOMs intact bilaterally PUPIL: Yes Equal, round and reactive pupils present Neck/C-Spine: COMMON NORMALS: full ROM and supple Chest: COMMONS NORMALS: normal inspection of the chest and normal palpation of entire chest wall Resp: COMMON NORMALS: normal respiratory effort, No retractions, No use of accessory muscles and clear to auscultation bilaterally AUSCULTATION: clear to auscultation bilaterally Cardio: COMMON NORMALS: regular rate, regular rhythm and No murmurs present (Cardio) RATE: regular rate RHYTHM: regular rhythm GI: COMMON NORMALS: Normal to inspection, nondistended, normoactive bowel sounds present, Soft to palpation, non-tender and no masses PALPATION: Yes Soft to palpation Extremity: COMMON NORMALS: normal to inspection and full ROM Neuro: COMMON NORMALS: patient oriented x3, moves all extremities and no focal motor deficits Psych: COMMON NORMALS: mental status grossly normal, Normal thought process present and cooperative THOUGHT PROCESS: Normal thought process present Skin: COMMON NORMALS: no rashes or lesions noted and no wounds GENERAL SKIN EXAM: no rashes or lesions noted Course Vital Signs: Vital signs: Vital Signs Temperature 99.2 F 11/16/24 07:35 Pulse Rate 87 11/16/24 08:15 Respiratory Rate 21 H 11/16/24 08:15 Blood Pressure 124/71 11/16/24 08:15 Pulse Oximetry 91 11/16/24 08:15 MDM - Seizure MDM Narrative Medical decision making narrative: Patient presents here after a seizure she states she is also been having some general weakness she has had some mild hypoxia here. Blood work here has been normal but she does have a right lower lobe pneumonia she has had some generalized weakness she states since her surgery as well spoke to the hospitalist will admit at this time. Lab Data 11/16/24 07:00 11/16/24 07:00 Labs: Radiology Impressions Chest X-Ray 11/16/24 09:42 IMPRESSION: Consolidation in the right lung base, concerning for infiltrate/collapse. Laboratory Results WBC 10.04 10^3/uL (3.29-11.43) 11/16/24 07:00 RBC 4.53 10^6/uL (3.85-5.65) 11/16/24 07:00 Hgb 12.90 g/dL (11.27-16.99) 11/16/24 07:00 Hct 40.3 % (36-47) 11/16/24 07:00 MCV 89.0 fl (85-98) 11/16/24 07:00 MCH 28.5 pg (27-33) 11/16/24 07:00 MCHC 32.0 g/dL (30-55) 11/16/24 07:00 RDW 15.1 % (12.1-15.1) 11/16/24 07:00 Plt Count 212 10^3/cmm (157-399) 11/16/24 07:00 MPV 11.3 fL (7.4-10.4) H 11/16/24 07:00 Neut % (Auto) 80.5 % 11/16/24 07:00 Lymph % (Auto) 10.3 % 11/16/24 07:00 [place] % (Auto) 8.2 % 11/16/24 07:00 Eos % (Auto) 0.2 % 11/16/24 07:00 Baso % (Auto) 0.4 % 11/16/24 07:00 Neut # (Auto) 8.09 10^3/uL (1.8-7.7) H 11/16/24 07:00 Lymph # (Auto) 1.0 10^3/uL (0.8-4.8) 11/16/24 07:00 [place] # (Auto) 0.8 10^3/uL (0.2-0.9) 11/16/24 07:00 Eos # (Auto) 0.0 10^3/uL (0.0-0.8) 11/16/24 07:00 Baso # (Auto) 0.0 10^3/uL (0.0-0.1) 11/16/24 07:00 Nucleated RBC % (auto) 0 % 11/16/24 07:00 Nucleated RBCs # 0.0 /100WBC 11/16/24 07:00 Sodium 136 mmol/L (136-145) 11/16/24 07:00 Potassium 3.9 mmol/L (3.5-5.1) 11/16/24 07:00 Chloride 101 mmol/L (98-107) 11/16/24 07:00 Carbon Dioxide 24 mmol/L (22-29) 11/16/24 07:00 Anion Gap 14.9 (5-19) 11/16/24 07:00 BUN 15 mg/dL (8-23) 11/16/24 07:00 Creatinine 1.3 mg/dL (0.5-0.9) H 11/16/24 07:00 GFR Calculation Not Reportable 11/16/24 07:00 Glucose 161 mg/dL (65-115) H 11/16/24 07:00 Calculated Osmolality 286 mOsm/kg (285-295) 11/16/24 07:00 Calcium 9.3 mg/dL (8.5-10.5) 11/16/24 07:00 Total Bilirubin 0.4 mg/dL (0.15-1.2) 11/16/24 07:00 AST 12 U/L (0-32) 11/16/24 07:00 ALT 7 U/L (0-33) 11/16/24 07:00 Alkaline Phosphatase 123 U/L (35-105) H 11/16/24 07:00 Total Protein 6.7 g/dL (6.6-8.7) 11/16/24 07:00 Albumin 3.2 g/dL (3.5-5.2) L 11/16/24 07:00 Globulin 3.5 g/dL (1.3-4.6) 11/16/24 07:00 Urine Color Yellow (Yellow) 11/16/24 07:55 Urine Appearance Clear (CLEAR) 11/16/24 07:55 Urine pH Not Reportable 11/16/24 07:55 Ur Specific [place] Not Reportable 11/16/24 07:55 Urine Protein Not Reportable 11/16/24 07:55 Urine Glucose (UA) Not Reportable 11/16/24 07:55 Urine Ketones Not Reportable 11/16/24 07:55 Urine Blood Not Reportable 11/16/24 07:55 Urine Nitrate Not Reportable 11/16/24 07:55 Urine Bilirubin Not Reportable 11/16/24 07:55 Urine Urobilinogen Not Reportable 11/16/24 07:55 Ur Leukocyte Esterase Not Reportable 11/16/24 07:55 Urine RBC 0-2 /hpf (0-2) 11/16/24 07:55 Urine WBC 0-4 /hpf (0-5) H 11/16/24 07:55 Ur Squamous Epith Cells 0-2 /hpf (0-5) 11/16/24 07:55 Amorphous Sediment Not Reportable 11/16/24 07:55 Urine Bacteria Trace /hpf (NONE) 11/16/24 07:55 All radiology interpretation(s) finalized by discharge ED provider radiology interpretation(s): cxr: rll pneumonia EKG Data EKG 1: Attestation: I personally reviewed and interpreted this EKG as follows: EKG interpretation date: 11/16/24 EKG interpretation time: 07:50 Interpretation: nsr hr [address] elevation qrs 97 qtc 414 Discharge Plan Discharge Patient Disposition: Admitted As Inpatient Clinical Impression: Seizure, General weakness Pneumonia Qualifiers: Pneumonia type: due to unspecified organism Lung location: lower lobe of lung Condition: Stable Coding Level of Care Code ED Home Health Care Coordinator for Rain Tran
[2024-11-16 08:17] LABS: Add Urine Microscopic? NO
[2024-11-16 08:20] LABS: Hematocrit 40.3 % (36-47); Hemoglobin 12.90 g/dL (11.27-16.99); Mean Corpuscular HGB Conc 32.0 g/dL (30-55); Mean Corpuscular Hemoglobin 28.5 pg (27-33); Mean Corpuscular Volume 89.0 fl (85-98); Nucleated Red Blood Cells % 0 %; Platelet Count 212 10^3/cmm (157-399); Red Blood Count 4.53 10^6/uL (3.85-5.65); White Blood Count 10.04 10^3/uL (3.29-11.43)
--- NOTE | 2024-11-16 08:21 | ECG_ITS ---
[facility]24[facility]16 Pat Name: Brenda Stone Department: Room: Gender: Female Day Care Assistant: : 1950 Requested By: Martin Fay Order Number: [id number] Rosangela MD: Yanet Darby M.D. Measurements Intervals [place] Rate: 86 P: 53 SD: 197 QRS: -20 QRSD: 97 T: 47 QT: 370 QTc: 444 Interpretive Statements SINUS RHYTHM MODERATE VOLTAGE CRITERIA FOR LVH, CONSIDER NORMAL VARIANT [MEETS CRITERIA IN ONE OF: R(aVL), S(V1), R(V5), R(V5/V6)+S(V1)] NONSPECIFIC T-WAVE ABNORMALITY Compared to ECG 06/13/2023 21:20:17 T-wave abnormality now present Sinus tachycardia no longer present Myocardial infarct finding no longer present Electronically Signed On 11-16-2024 21:54:07 CDT by Yanet Darby M.D. [email or web address]
[2024-11-16 08:33] LABS: Alanine Aminotransferase 7 U/L (0-33); Albumin Level 3.2 g/dL (3.5-5.2); Alkaline Phosphatase 123 U/L (35-105); Anion Gap 14.9 (5-19); Aspartate Amino Transferase 12 U/L (0-32); Blood Urea Nitrogen 15 mg/dL (8-23); Calcium 9.3 mg/dL (8.5-10.5); Carbon Dioxide 24 mmol/L (22-29); Chloride 101 mmol/L (98-107); Creatinine Clr Calc Pharmacy 42.5538; Globulin 3.5 g/dL (1.3-4.6); Glucose 161 mg/dL (65-115); Osmolality Calculated 286 mOsm/kg (285-295); Potassium 3.9 mmol/L (3.5-5.1); Sodium 136 mmol/L (136-145); Total Protein 6.7 g/dL (6.6-8.7)
[2024-11-16 09:30] LABS: UA Manual Slide Review YES; UA Slide Review UA Slide Review Perf
[2024-11-16 09:34] LABS: Charge for UA Resulting for Rev
--- NOTE | 2024-11-16 09:42 | XRR_ITS ---
PROCEDURE INFORMATION: Exam: XR Chest Exam date and time: 11/16/2024 9:48 AM Age: 74 years old Clinical indication: Other: Seizure TECHNIQUE: Imaging protocol: Radiologic exam of the chest. Views: 1 view. COMPARISON: CR XR chest 1V portable [id number] 06/13/2023 9:31 PM FINDINGS: Lungs: Consolidation in the right lung base. The left lung is clear. Pleural spaces: No sizable pleural effusion or pneumothorax. Heart/Mediastinum: No cardiomegaly. Bones/joints: Unremarkable. XR/XR chest 1V portable [id number] IMPRESSION: Consolidation in the right lung base, concerning for infiltrate/collapse.
--- NOTE | 2024-11-16 09:53 | PC.PHAR ---
Spouse presented current med list post surgery last Friday
--- NOTE | 2024-11-16 11:27 | PM.HP ---
Providers/Chief Complaint Admitting Physician: Arnulfo Toledo Primary Care Provider: XIMENA Su Chief Complaint: seizure History of Present Illness Brenda Stone is a 74 year old woman with a history of epilepsy (intractable since 2003, on lamotrigine and gabapentin), type 2 diabetes mellitus, hypertension, hyperlipidemia, peripheral vascular disease, chronic kidney disease (baseline creatinine 1.2?1.6 mg/dL), history of carcinoma, and current tobacco use. Recently hospitalized for L3?S1 laminectomy with partial facetectomies (last Friday). Found postictal by spouse this morning after a brief episode (~30 seconds) with confusion afterward. Spouse reports intermittent brief ?petite? episodes with confusion at baseline; last generalized tonic?clonic seizure was April of last year. Since the weekend, she has been very weak with difficulty standing and required assistance to get up; no choking with food noted. Reports cough with some phlegm; denies fever, chills, sore throat, vomiting, diarrhea, rashes, hematuria, melena, dysuria, or leg swelling. Uses an inhaler as needed; no known sleep apnea. Post-op pain managed at home with an opioid per bottle instructions (variable dosing) and intermittent ibuprofen; spouse notes she is sensitive to opioids. Uses a walker and cane. In the emergency department she appeared tired but answered appropriately; mild hypoxia was noted. Review of Systems General: Reports: ROS unobtainable due to mental status Const: Reports: fatigue (Gen weakness) Card: Denies: chest pain Resp: Reports: productive cough; Denies: hemoptysis GI: Reports: diarrhea; Denies: nausea or vomiting : Denies: flank pain or difficulty voiding Musc: Reports: back pain Skin/Breast: Denies: rash Neuro: Denies: headache(s) or numbness in extremities Medications/Allergies Home Medications ?Medication ?Instructions ?Recorded ?Confirmed ?Last Taken ?Type buspirone 10 mg tablet 10 mg PO BID 10/18/19 11/16/24 11/15/24 History Diabetic shoes with 3 inserts #1 ea 09/12/20 11/16/24 Unknown Rx aspirin 325 mg tablet,delayed 325 mg PO DAILY #30 tabs 04/22/21 11/16/24 11/15/24 Rx release Held on 11/12/24. Instructions: Resume on 11/14/24. cilostazol 50 mg tablet 50 mg PO BID #180 tabs 05/08/21 11/16/24 11/15/24 Rx pantoprazole 40 mg tablet,delayed 40 mg PO BID 30 days #60 tabs 05/06/22 11/16/24 11/15/24 Rx release furosemide 20 mg tablet (Lasix) 10 mg PO DAILY 07/01/22 11/16/24 11/15/24 History albuterol sulfate 90 mcg/actuation 2 inh inhalation Q6H PRN Shortness 01/23/23 11/16/24 11/08/24 History breath activated powder inhaler Of Breath Or Wheezing estradiol 1 mg tablet 0.5 mg PO DAILY 05/10/23 11/16/24 11/15/24 History atorvastatin 80 mg tablet 80 mg PO DAILY 10/29/23 11/16/24 11/15/24 History lamotrigine 200 mg tablet 200 mg PO BID 90 days #180 tabs 08/10/24 11/16/24 11/15/24 Rx lamotrigine 25 mg tablet 50 mg (2 x 25 mg) PO .hs 90 days 08/10/24 11/16/24 11/15/24 Rx #180 tabs insulin glargine U-300 conc 300 36 unit SUBCUT QAM 10/26/24 11/16/24 11/15/24 History unit/mL (1.5 mL) subcutaneous pen (Toujeo SoloStar U-300 Insulin) insulin lispro 100 unit/mL 5 unit SUBCUT TID PRN blood sugars 11/05/24 11/16/24 11/11/24 History subcutaneous pen (Humalog KwikPen (U-100) Insulin) losartan 50 mg tablet 50 mg PO QDAY 11/05/24 11/16/24 11/15/24 History nifedipine 30 mg tablet,extended 30 mg PO DAILY 11/05/24 11/16/24 11/15/24 History release potassium chloride 10 mEq 20 meq PO DAILY 11/05/24 11/16/24 11/15/24 History tablet,extended release gabapentin 600 mg tablet 600 mg PO TID 11/11/24 11/16/24 11/15/24 History (Neurontin) hydrocodone 5 mg-acetaminophen 325 1 - 2 tab PO .Q4-6H PRN Pain 11/16/24 11/16/24 Unknown History mg tablet Allergies Allergy/AdvReac Type Severity Reaction Status Date / Time pentoxifylline Allergy Severe ITCHING Verified 11/12/24 07:02 Penicillins Allergy Mild rash Verified 11/12/24 07:02 Sulfa (Sulfonamide Allergy Mild rash Verified 11/12/24 07:02 Antibiotics) PFSH Acute PFSH: Medical History Dizziness Fever Bilateral leg weakness Hypomagnesemia Hypertension Type 2 diabetes mellitus Hyperlipemia Epilepsy FH: carotid endarterectomy Stenosis of peripheral vascular stent Surgical History H/O abdominal hysterectomy S/P knee surgery Family History Other Cancer Diabetes Heart disease Social History Smoking and tobacco/nicotine status: current every day tobacco/nicotine user Quit status (tobacco/nicotine): has quit using Year quit tobacco: 2020 Alcohol intake: former Substance/Drug Use: never Adopted: No service: No Current gender identity: Female Vitals/I&O/Wt Last Vital Signs Temp 99.2 F 11/16/24 07:35 Pulse 87 11/16/24 08:15 Resp 21 H 11/16/24 08:15 BP 124/71 11/16/24 08:15 Pulse Ox 91 11/16/24 08:15 11/15/24 11/16/24 11/16/24 22:59 06:59 14:59 Intake Total 600 / 600 Balance 600 / 600 Weight last 48 hrs Weight 81.647 kg Physical Exam Narrative: Accompanied by her Const: COMMON NORMALS: patient oriented x3 GENERAL APPEARANCE: cooperative ORIENTATION/CONSCIOUSNESS: Yes lethargic HENMT: COMMON NORMALS: oropharynx normal Neck/C-Spine: COMMON NORMALS: no JVD Resp: COMMON NORMALS: normal respiratory effort and clear to auscultation bilaterally AUSCULTATION: clear to auscultation bilaterally Cardio: COMMON NORMALS: no JVD, regular rhythm, S1 normal heart sound present, S2 normal heart sound present and No murmurs present (Cardio) RHYTHM: regular rhythm HEART SOUNDS: S1 normal heart sound present and S2 normal heart sound present GI: COMMON NORMALS: Normal to inspection, nondistended, normoactive bowel sounds present, Soft to palpation and non-tender PALPATION: Yes Soft to palpation Extremity: COMMON NORMALS: no joint enlargement and no pedal edema Neuro: COMMON NORMALS: patient oriented x3 and moves all extremities SENSORIUM/ORIENTATION: Yes alert Skin: COMMON NORMALS: no rashes or lesions noted GENERAL SKIN EXAM: no rashes or lesions noted Data 11/16/24 07:00 11/16/24 07:00 Micro: Microbiology 11/16/24 10:35 Blood Culture - Preliminary Blood SPECIMEN COLLECTED 11/16/24 10:30 Blood Culture - Preliminary Blood SPECIMEN COLLECTED A&P Assessment and plan 1. Acute encephalopathy: Acute encephalopathy with confusion and delirium : Confusion noted by spouse and in ED; assessment associates encephalopathy with pneumonia and mild hypoxia, and also with recent pain medication use post-surgery. Reviewed vitals, CBC, CMP, UA, chest x-ray, EKG, requesting Lamictal level, requesting TSH. Reviewed ED provider note, discussed with ED provider. - Treat underlying pneumonia. - Reorient as needed. - Fall precautions. - NPO for now with sips/chips and medications. 2. Seizure: Brief episode this morning (~30 seconds) suspected by the , without convulsions, with postictal confusion; known intractable epilepsy on lamotrigine and gabapentin; follows neurology. - Obtain lamotrigine level. - Contact neurology (treating neurologist) for guidance. Continue current medications. - [place] seizure precautions. 3. Right lower lobe pneumonia: Chest X-ray showed consolidation at the right lung base concerning for infiltrate/collapse; mild hypoxia present. - Treat with ceftriaxone and azithromycin. - Monitor oxygenation. - Monitor clinical response; add anaerobic coverage if indicated based on response. - Monitor for risk of Clostridioides difficile with antibiotics. - Monitor for risk of QT prolongation with azithromycin; review EKG (currently without QT prolongation); repeat EKG tomorrow. - Reassess blood counts. - Reassess chemistry. -Obtain MRSA PCR, obtain urine Legionella antigen, urine bacterial antigens. -Breathing treatments as needed 4. Status post lumbar laminectomy: Post-operative status after L3?S1 laminectomy with pain : Recent lumbar surgery with postoperative pain; spouse has been administering opioid and ibuprofen; concern for sedation from opioids. - Reach out to orthopedics to notify hospitalization after recent surgery. Discussed with orthopedic surgeon. - Use acetaminophen (Tylenol) and consider lidocaine patch for pain control to minimize opioids. - Use opioid only if alert; hold opioid if somnolent. - Acetaminophen as needed for pain. Lidocaine patch. Avoid hydrocodone if possible, but will give in case alert and not responding to other measures. As per discussion with her . Plan: Type 2 diabetes mellitus : Diabetes noted; spouse monitored sugars. - Continue insulin on sliding scale. - Monitor hlpis-ao-ugmx (POC) glucose. Chronic kidney disease : Baseline creatinine 1.2?1.6 mg/dL; current creatinine 1.3 mg/dL. Hypertension : History of hypertension. Monitor blood pressures. Resume losartan. Consider resuming nifedipine. Monitor for risk of hypotension. Hyperlipidemia : History of hyperlipidemia. Peripheral vascular disease : History of peripheral vascular disease. Tobacco use : Current smoker; recently restarted after prior cessation. Nicotine replacement as needed. PDMP PDMP Reviewed: Not Reviewed Attestations Medical Necessity Statement*: Admission of over 2 midnights anticipated for assessment management of pneumonia, possible aspiration pneumonia, acute encephalopathy, seizure in a lady with underlying DM2, CKD, additional comities, with recent lumbosacral laminectomy. and High MDM includes amount and/or complexity of data reviewed/ordered [ previous or external records, resulted lab(s)/test(s), ordered lab(s)/test(s), independent historian and other healthcare professional discussion] and described risk of complication, morbidity or mortality of management as documented Diagnoses Acute encephalopathy G93.40 Seizure R56.9 Right lower lobe pneumonia J18.9 Status post lumbar laminectomy Z98.890
[2024-11-16] MEDS: cefTRIAXone 1,000 mg SDV 1000 MG IVP (12:50)
[2024-11-16 13:02] LABS: Thyroid Stimulating Hormone 0.78 uIU/mL (0.27-4.20)
[2024-11-16 19:11] LABS: MRSA PCR OZH (swab) NOT DETECTED (Not Detecte)
[2024-11-17] VITALS (17 sets, daily range): BP systolic 90–159; BP diastolic 52–70; PULSE 60–100; RESP 15–17; TEMP 36.4–38.8; O2SAT 91–99
[2024-11-17] MEDS: insulin glargine 100 units/1 mL 20 UNIT SUBCUT (05:12)
[2024-11-17 05:27] LABS: Hematocrit 39.9 % (36-47); Hemoglobin 12.20 g/dL (11.27-16.99); Mean Corpuscular HGB Conc 30.6 g/dL (30-55); Mean Corpuscular Hemoglobin 28.3 pg (27-33); Mean Corpuscular Volume 92.6 fl (85-98); Nucleated Red Blood Cells % 0 %; Platelet Count 194 10^3/cmm (157-399); Red Blood Count 4.31 10^6/uL (3.85-5.65); White Blood Count 9.81 10^3/uL (3.29-11.43)
[2024-11-17 05:44] LABS: Anion Gap 18.7 (5-19); Blood Urea Nitrogen 17 mg/dL (8-23); Calcium 9.0 mg/dL (8.5-10.5); Carbon Dioxide 23 mmol/L (22-29); Chloride 103 mmol/L (98-107); Creatinine Clr Calc Pharmacy 46.0999; Glucose 161 mg/dL (65-115); Osmolality Calculated 297 mOsm/kg (285-295); Potassium 3.7 mmol/L (3.5-5.1); Sodium 141 mmol/L (136-145)
--- NOTE | 2024-11-17 08:00 | ECG_ITS ---
[employer] [facility] Test Date: 2024-11-17 Pat Name: Brenda Stone Department: Room: 253 Gender: Female Molder Offbearer: : 1950 Requested By: Arnulfo Toledo Order Number: [id number] Rosangela MD: Yanet Darby M.D. Measurements Intervals [place] Rate: 102 P: 50 DE: 156 QRS: -21 QRSD: 94 T: 30 QT: 316 QTc: 413 Interpretive Statements SINUS TACHYCARDIA WITH FREQUENT VENTRICULAR PREMATURE COMPLEXES BORDERLINE LEFT AXIS DEVIATION [QRS AXIS < -20] MODERATE VOLTAGE CRITERIA FOR LVH, CONSIDER NORMAL VARIANT [MEETS CRITERIA IN ONE OF: R(aVL), S(V1), R(V5), R(V5/V6)+S(V1)] NONSPECIFIC T-WAVE ABNORMALITY ABNORMAL RHYTHM ECG Compared to ECG 11/16/2024 07:50:12 Ventricular premature complex(es) now present Sinus rhythm no longer present T-wave abnormality still present Electronically Signed On 11-19-2024 20:47:20 CDT by Yanet Darby M.D. [email or web address]
[2024-11-17] MEDS: cefTRIAXone 1,000 mg SDV 1000 MG IVP (08:42)
[2024-11-17] MEDS: morphine 4 mg/mL SDV 1 mL 2 MG IVP (09:35)
--- NOTE | 2024-11-17 09:49 | PC.CHAP ---
Pastoral Care Encounter/Spiritual Assessment Type of Contact [] Declined miller helper distillery visit [] Patient/Family/Request visit [] Outpatient visit [] Follow-up visit [] Physician referral [] Code/Alert [x] Routine visit [] Staff referral [] Actively dying [] Patient sleeping [x] Family support [] [] Out of room [] Palliative care [] [] Receiving care in room [] Pre-surgical visit [] Trauma [] Long length of stay [] ICU visit [] Other: Relational/Emotional Strength [x] Patient feels connected with others/family/visitors/staff [x] Distress [] Loneliness/isolation [] Abandonment Spirituality of Patient [x] Person of Татьяна [] Attends Denominational of their Татьяна [x] Believes in Prayer [] Reads Bible or Islam materials [] There are Spiritual issues to be addressed [employer] Member Interventions [x] Prayer [x] Active listening [x] Non-anxious presence [x] Spiritual/emotional support [] Crisis/trauma care [] Spiritual counseling [] Bereavement support [] Provided bereavement packet [] Provided Bible/devotional materials [] Provided toy/stuffed animal, coloring book to patient or family member [] Provided Communion [] Anointing/[place] [] Salvation [x] Completed spiritual assessment [] Other: Impact on Illness or Injury [] Angry [] Fearful [] Anxious [] Often cries [] Exhaustion [] Unable to work [] Unable to attend judaism [] Unable to walk/stand [] Unable to read [] Unable to drive [] Unable to eat/drink [] Unable to sleep [] Unable to be with family [] Patient intubated [] Other: Summary Time spent with patient 10 min
--- NOTE | 2024-11-17 15:32 | PC.OT ---
OT EVALUATION ATTEMPTED; PATIENT SLEEPING SOUNDLY AND DOES NOT AWAKEN. WILL ATTEMPT AGAIN TOMORROW.
[2024-11-17] MEDS: HYDROcodone-acetaminophen 5-325 mg Tablet 1 TAB PO (16:04)
--- NOTE | 2024-11-17 17:08 | PM.CONSULT ---
Providers/Reason For Consult Consulting Physician/Specialty*: Hospitalist Reason for Consult*: Previous back surgery Attending Physician: Arnulfo Toledo Primary Care Provider: XIMENA Su History of Present Illness History of Present Illness Brenda Stone is a 74 year old female patient is had surgery on 11/12/2024. She was recently admitted for back pain and possible seizure activity. At this point patient is resting comfortably. She was noted to have pneumonia on this admission. Review of Systems General: Reports: ROS unobtainable due to mental status Const: Reports: fatigue (Gen weakness) Card: Denies: chest pain Resp: Reports: productive cough; Denies: hemoptysis GI: Reports: diarrhea; Denies: nausea or vomiting : Denies: flank pain or difficulty voiding Musc: Reports: back pain Skin/Breast: Denies: rash Neuro: Denies: headache(s) or numbness in extremities Medications/Allergies Home Medications ?Medication ?Instructions ?Recorded ?Confirmed ?Last Taken ?Type buspirone 10 mg tablet 10 mg PO BID 10/18/19 11/16/24 11/15/24 History Diabetic shoes with 3 inserts #1 ea 09/12/20 11/16/24 Unknown Rx aspirin 325 mg tablet,delayed 325 mg PO DAILY #30 tabs 04/22/21 11/16/24 11/15/24 Rx release Held on 11/12/24. Instructions: Resume on 11/14/24. cilostazol 50 mg tablet 50 mg PO BID #180 tabs 05/08/21 11/16/24 11/15/24 Rx pantoprazole 40 mg tablet,delayed 40 mg PO BID 30 days #60 tabs 05/06/22 11/16/24 11/15/24 Rx release furosemide 20 mg tablet (Lasix) 10 mg PO DAILY 07/01/22 11/16/24 11/15/24 History albuterol sulfate 90 mcg/actuation 2 inh inhalation Q6H PRN Shortness 01/23/23 11/16/24 11/08/24 History breath activated powder inhaler Of Breath Or Wheezing estradiol 1 mg tablet 0.5 mg PO DAILY 05/10/23 11/16/24 11/15/24 History atorvastatin 80 mg tablet 80 mg PO DAILY 10/29/23 11/16/24 11/15/24 History lamotrigine 200 mg tablet 200 mg PO BID 90 days #180 tabs 08/10/24 11/16/24 11/15/24 Rx lamotrigine 25 mg tablet 50 mg (2 x 25 mg) PO .hs 90 days 08/10/24 11/16/24 11/15/24 Rx #180 tabs insulin glargine U-300 conc 300 36 unit SUBCUT QAM 10/26/24 11/16/24 11/15/24 History unit/mL (1.5 mL) subcutaneous pen (Toujeo SoloStar U-300 Insulin) insulin lispro 100 unit/mL 5 unit SUBCUT TID PRN blood sugars 11/05/24 11/16/24 11/11/24 History subcutaneous pen (Humalog KwikPen (U-100) Insulin) losartan 50 mg tablet 50 mg PO QDAY 11/05/24 11/16/24 11/15/24 History nifedipine 30 mg tablet,extended 30 mg PO DAILY 11/05/24 11/16/24 11/15/24 History release potassium chloride 10 mEq 20 meq PO DAILY 11/05/24 11/16/24 11/15/24 History tablet,extended release gabapentin 600 mg tablet 600 mg PO TID 11/11/24 11/16/24 11/15/24 History (Neurontin) hydrocodone 5 mg-acetaminophen 325 1 - 2 tab PO .Q4-6H PRN Pain 11/16/24 11/16/24 Unknown History mg tablet Allergies Allergy/AdvReac Type Severity Reaction Status Date / Time pentoxifylline Allergy Severe ITCHING Verified 11/12/24 07:02 Penicillins Allergy Mild rash Verified 11/12/24 07:02 Sulfa (Sulfonamide Allergy Mild rash Verified 11/12/24 07:02 Antibiotics) Current Medications Generic Name Dose Route Start Last Admin Trade Name Freq PRN Reason Stop Dose Admin Acetaminophen 650 mg 11/16/24 12:18 11/17/24 10:04 Acetaminophen 325 Mg Tablet PO 650 mg Q6H PRN Administration Mild/Mod Pain Or Temp >/= 101 Hydrocodone Bitart/Acetaminophen 1 tab 11/17/24 08:59 11/17/24 16:04 Hydrocodone-Acetaminophen 5-325 Mg Tablet PO 1 tab Q6H PRN Administration PAIN Albuterol/Ipratropium 3 ml 11/16/24 12:45 11/16/24 13:14 Ipratropium-Albuterol 3 Ml Neb INHALATION 3 ml Q4H.RESPIRATORY PRN Administration SHORTNESS OF BREATH Albuterol/Ipratropium 3 ml 11/16/24 16:00 11/17/24 15:16 Ipratropium-Albuterol 3 Ml Neb INHALATION Not Given Q4H.RESPIRATORY DEREK Aspirin 325 mg 11/16/24 12:18 11/17/24 08:42 Aspirin 325 Mg Ec Tablet PO 325 mg DAILY DEREK Administration Atorvastatin Calcium 80 mg 11/16/24 21:00 11/16/24 20:25 Atorvastatin 40 Mg Tablet PO 80 mg BEDTIME DEREK Administration Ceftriaxone Sodium 1,000 mg 11/17/24 09:00 11/17/24 08:42 Ceftriaxone 1,000 Mg Sdv IVP 1,000 mg DAILY DEREK Administration Protocol Cilostazol 50 mg 11/16/24 17:00 11/17/24 16:04 Cilostazol 100 Mg Tablet PO 50 mg BID@0500,1700 DEREK Administration Enoxaparin Sodium 30 mg 11/16/24 12:18 11/17/24 12:21 Enoxaparin 30 Mg/0.3 Ml Syringe SUBCUT 30 mg Q24H DEREK Administration Gabapentin 600 mg 11/16/24 15:00 11/17/24 16:04 Gabapentin 300 Mg Capsule PO 600 mg TID DEREK Administration Azithromycin 250 mg/ Sodium 250 mls @ 250 mls/hr 11/17/24 09:00 11/17/24 10:17 Chloride IV Infused DAILY DEREK Infusion Protocol Insulin Glargine 20 unit 11/17/24 06:00 11/17/24 05:12 Insulin Glargine 100 Units/1 Ml SUBCUT 20 unit QAM DEREK Administration Insulin Human Lispro 0 unit 11/16/24 18:00 11/17/24 12:16 Insulin Lispro 100 Unit/1 Ml SUBCUT Not Given WM&BEDTIME DEREK Protocol Lamotrigine 200 mg 11/16/24 17:00 11/17/24 16:04 Lamotrigine 100 Mg Tablet PO 200 mg BID@0500,1700 DEREK Administration Lamotrigine 50 mg 11/16/24 21:00 11/16/24 20:25 Lamotrigine 25 Mg Tablet PO 50 mg BEDTIME DEREK Administration Losartan Potassium 50 mg 11/17/24 09:00 11/17/24 08:42 Losartan 50 Mg Tablet PO 50 mg DAILY DEREK Administration PFSH Acute PFSH: Medical History (Updated 11/16/24 @ 12:21 by Arnulfo Toledo MD) Dizziness Fever Bilateral leg weakness Hypomagnesemia Hypertension Type 2 diabetes mellitus Hyperlipemia Epilepsy FH: carotid endarterectomy Stenosis of peripheral vascular stent Surgical History (Updated 11/16/24 @ 12:21 by Arnulfo Toledo MD) H/O abdominal hysterectomy S/P knee surgery Family History Other Cancer Diabetes Heart disease Social History Smoking and tobacco/nicotine status: current every day tobacco/nicotine user Quit status (tobacco/nicotine): has quit using Year quit tobacco: 2020 Alcohol intake: former Substance/Drug Use: never Adopted: No service: No Current gender identity: Female Vitals/I&O/Wt Last Vital Signs Temp 98.1 F 11/17/24 16:00 Pulse 79 11/17/24 16:00 Resp 16 11/17/24 16:00 BP 147/70 11/17/24 16:00 Pulse Ox 98 11/17/24 16:00 O2 Del Method Nasal Cannula 11/17/24 16:00 O2 Flow Rate 2 11/17/24 15:16 11/17/24 11/17/24 11/17/24 06:59 14:59 22:59 Intake Total 250 / 250 Balance 250 / 250 Weight last 48 hrs Weight 113 lb 7 oz Weight 180 lb Physical Exam Narrative: Patient is currently sleeping. Discussed with physical therapist he stated that she was up walking today without any back pain. Data 11/17/24 05:02 11/17/24 05:02 Micro: Microbiology 11/16/24 10:35 Blood Culture - Preliminary Blood NEGATIVE TO DATE 11/16/24 10:30 Blood Culture - Preliminary Blood NEGATIVE TO DATE 11/16/24 07:55 Bacterial Antigens - Final Urine,Voided 11/16/24 07:55 Legionella Urinary Antigen - Final Unknown Source A&P Assessment and plan 1. Status post lumbar laminectomy: Will continue to follow along. Continue up with therapy if able. PDMP PDMP Reviewed: Not Reviewed Coding Level of Care Code Acute Code for Chg Fwd Diagnoses Status post lumbar laminectomy Z98.890
--- NOTE | 2024-11-17 17:19 | P.PN_ITS ---
Subjective 2 Subjective: She is more alert today. This morning she was having back pain 10 out of 10 but responded well to pain medication. Remains alert. She was coughing quite a bit earlier today per her . Currently feels comfortable. Still some confusion but otherwise no discomfort. Vitals/I&O/Wt Last Vital Signs Temp 98.1 F 11/17/24 16:00 Pulse 79 11/17/24 16:00 Resp 16 11/17/24 16:00 BP 147/70 11/17/24 16:00 Pulse Ox 98 11/17/24 16:00 O2 Del Method Nasal Cannula 11/17/24 16:00 O2 Flow Rate 2 11/17/24 15:16 11/17/24 11/17/24 11/17/24 06:59 14:59 22:59 Intake Total 250 / 250 Balance 250 / 250 Weight last 48 hrs Weight 51.454 kg Weight 81.647 kg Physical Exam 2 Narrative: Accompanied by her Const: COMMON NORMALS: patient oriented x3 and alert GENERAL APPEARANCE: c ooperative and lethargic ORIENTATION/CONSCIOUSNESS: Yes lethargic HENMT: COMMON NORMALS: oropharynx normal Neck/C-Spine: COMMON NORMALS: no JVD Resp: COMMON NORMALS: normal respiratory effort and clear to auscultation bilaterally AUSCULTATION: clear to auscultation bilaterally Cardio: COMMON NORMALS: no JVD, regular rhythm, S1 normal heart sound present, S2 normal heart sound present and No murmurs present (Cardio) RHYTHM: regular rhythm HEART SOUNDS: S1 normal heart sound present and S2 normal heart sound present GI: COMMON NORMALS: Normal to inspection, nondistended, normoactive bowel sounds present, Soft to palpation and non-tender PALPATION: Yes Soft to palpation Back/Pelvis: OTHER: Clean appearing incision with some old blood otherwise without surrounding erythema no edema dehiscence or purulent drainage Extremity: COMMON NORMALS: no joint enlargement and no pedal edema Neuro: COMMON NORMALS: patient oriented x3 and moves all extremities S ENSORIUM/ORIENTATION: Yes alert and Yes lethargic Skin: COMMON NORMALS: no rashes or lesions noted GENERAL SKIN EXAM: no rashes or lesions noted Data 11/17/24 05:02 11/17/24 05:02 Micro: Microbiology 11/16/24 10:35 Blood Culture - Preliminary Blood NEGATIVE TO DATE 11/16/24 10:30 Blood Culture - Preliminary Blood NEGATIVE TO DATE 11/16/24 07:55 Bacterial Antigens - Final Urine,Voided 11/16/24 07:55 Legionella Urinary Antigen - Final Unknown Source A&P Assessment and plan 1. Acute encephalopathy: With improvement, much more alert today. In pain. Requiring pain medication with IV morphine. Still residual mild confusion. Getting closer to her baseline. Spiking fever. Back pain earlier today but wound appears good. At current time without signs of infection. Discussed consideration of additional imaging in case of further worsening or other symptoms with her, her and orthospine surgeon. Acute encephalopathy with confusion and delirium : Confusion noted by spouse and in ED; assessment associates encephalopathy with pneumonia and mild hypoxia, and also with recent pain medication use post-surgery. Reviewed vitals, CBC, CMP, UA, chest x-ray, EKG, requesting Lamictal level, requesting TSH. Reviewed ED provider note, discussed with ED provider. Trial of oral diet. Appreciate ST assessment. - Treat underlying pneumonia. - Reorient as needed. - Fall precautions. 2. Seizure: Brief episode this morning (~30 seconds) suspected by the , without convulsions, with postictal confusion; known intractable epilepsy on lamotrigine and gabapentin; follows neurology. - Reviewed pending lamotrigine level. - seizure precautions. 3. Right lower lobe pneumonia: Continue treatment of pneumonia. She has had further fever spikes, cough. Continue ceftriaxone and azithromycin. Reviewed EKG, monitor for risk of QT prolongation. - Treat with ceftriaxone and azithromycin. - Monitor oxygenation. - Monitor clinical response; add anaerobic coverage if indicated based on response. - Monitor for risk of Clostridioides difficile with antibiotics. - Reassess blood counts. - Reassess chemistry. - Reviewed MRSA PCR, obtain urine Legionella antigen, urine bacterial antigens. MRSA noted negative. -Breathing treatments were scheduled IV fluid discontinued. 4. Status post lumbar laminectomy: Post-operative status after L3?S1 laminectomy with pain : Recent lumbar surgery with postoperative pain; spouse has been administering opioid and ibuprofen; concern for sedation from opioids. - Reach out to orthopedics to notify hospitalization after recent surgery. Discussed with orthopedic surgeon. - Use acetaminophen (Tylenol) and consider lidocaine patch for pain control to minimize opioids. - Caution with opioids. - Acetaminophen as needed for pain. Plan: Type 2 diabetes mellitus : Diabetes noted; spouse monitored sugars. - Continue insulin on sliding scale. - Monitor vvfvt-ed-azth (POC) glucose. Chronic kidney disease : Baseline creatinine 1.2?1.6 mg/dL; current creatinine 1.3 mg/dL. Hypertension : History of hypertension. Monitor blood pressures. Resume losartan. Consider resuming nifedipine. Monitor for risk of hypotension. Hyperlipidemia : History of hyperlipidemia. Peripheral vascular disease : History of peripheral vascular disease. Tobacco use : Current smoker; recently restarted after prior cessation. Nicotine replacement as needed. PDMP PDMP Reviewed: Not Reviewed Attestations 2 Medical Necessity Statement*: Continue assessment management of pneumonia, acute encephalopathy, further assessment after seizure with recent hospitalization with lumbosacral laminectomy. and High MDM includes amount and/or complexity of data reviewed/ordered [ resulted lab(s)/test(s), ordered lab(s)/test(s), independent historian and other healthcare professional discussion] as documented Diagnoses Acute encephalopathy G93.40 Seizure R56.9 Right lower lobe pneumonia J18.9 Status post lumbar laminectomy Z98.890
[2024-11-18] VITALS (16 sets, daily range): BP systolic 101–167; BP diastolic 51–73; PULSE 70–99; RESP 15–17; TEMP 36.4–37.4; O2SAT 91–96
[2024-11-18 04:09] LABS: Hematocrit 34.9 % (36-47); Hemoglobin 11.10 g/dL (11.27-16.99); Mean Corpuscular HGB Conc 31.8 g/dL (30-55); Mean Corpuscular Hemoglobin 28.5 pg (27-33); Mean Corpuscular Volume 89.5 fl (85-98); Nucleated Red Blood Cells % 0 %; Platelet Count 210 10^3/cmm (157-399); Red Blood Count 3.90 10^6/uL (3.85-5.65); White Blood Count 8.31 10^3/uL (3.29-11.43)
[2024-11-18] MEDS: HYDROcodone-acetaminophen 5-325 mg Tablet 1 TAB PO ×2 (04:29→15:44)
[2024-11-18 04:43] LABS: Anion Gap 15.7 (5-19); Blood Urea Nitrogen 22 mg/dL (8-23); Calcium 8.9 mg/dL (8.5-10.5); Carbon Dioxide 24 mmol/L (22-29); Chloride 105 mmol/L (98-107); Creatinine Clr Calc Pharmacy 28.6366; Glucose 137 mg/dL (65-115); Osmolality Calculated 297 mOsm/kg (285-295); Potassium 3.7 mmol/L (3.5-5.1); Sodium 141 mmol/L (136-145)
[2024-11-18] MEDS: insulin glargine 100 units/1 mL 20 UNIT SUBCUT (06:57)
[2024-11-18] MEDS: cefTRIAXone 1,000 mg SDV 1000 MG IVP (08:26)
[2024-11-18] MEDS: polyethylene glycol 3350 Pkt 17 gm PO (09:44)
--- NOTE | 2024-11-18 12:02 | P.PN_ITS ---
Subjective 2 Subjective: It is challenging for her to walk or worked with therapy today, did somewhat worse today. Breathing gradually improving. Weaning down on oxygen. Vitals/I&O/Wt Last Vital Signs Temp 98.2 F 11/18/24 11:42 Pulse 85 11/18/24 11:42 Resp 16 11/18/24 11:42 BP 167/73 11/18/24 11:42 Pulse Ox 92 11/18/24 11:42 O2 Del Method Nasal Cannula 11/18/24 11:42 O2 Flow Rate 1 11/18/24 11:30 11/17/24 11/18/24 11/18/24 22:59 06:59 14:59 Intake Total 480 / 730 370 / 370 Output Total 300 / 300 Balance 180 / 430 370 / 370 Weight last 48 hrs Weight 51.256 kg Weight 51.454 kg Physical Exam 2 Narrative: Accompanied by her Const: COMMON NORMALS: patient oriented x3 and alert GENERAL APPEARANCE: c ooperative and lethargic ORIENTATION/CONSCIOUSNESS: Yes lethargic HENMT: COMMON NORMALS: oropharynx normal Neck/C-Spine: COMMON NORMALS: no JVD Resp: COMMON NORMALS: normal respiratory effort and clear to auscultation bilaterally AUSCULTATION: clear to auscultation bilaterally Cardio: COMMON NORMALS: no JVD, regular rhythm, S1 normal heart sound present, S2 normal heart sound present and No murmurs present (Cardio) RHYTHM: regular rhythm HEART SOUNDS: S1 normal heart sound present and S2 normal heart sound present GI: COMMON NORMALS: Normal to inspection, nondistended, normoactive bowel sounds present, Soft to palpation and non-tender PALPATION: Yes Soft to palpation Extremity: COMMON NORMALS: no joint enlargement and no pedal edema Neuro: COMMON NORMALS: patient oriented x3 and moves all extremities S ENSORIUM/ORIENTATION: Yes alert and Yes lethargic Skin: COMMON NORMALS: no rashes or lesions noted GENERAL SKIN EXAM: no rashes or lesions noted Data 11/18/24 02:29 11/18/24 02:29 Micro: Microbiology 11/16/24 10:35 Blood Culture - Preliminary Blood NEGATIVE TO DATE 11/16/24 10:30 Blood Culture - Preliminary Blood NEGATIVE TO DATE 11/16/24 07:55 Bacterial Antigens - Final Urine,Voided 11/16/24 07:55 Legionella Urinary Antigen - Final Unknown Source A&P Assessment and plan 1. Right lower lobe pneumonia: Chest X-ray showed consolidation at the right lung base concerning for infiltrate/collapse; mild hypoxia present. - Treat with ceftriaxone and azithromycin. - Monitor oxygenation. - Monitor clinical response; add anaerobic coverage if indicated based on response. - Monitor for risk of Clostridioides difficile with antibiotics. - Monitor for risk of QT prolongation with azithromycin; review EKG (currently without QT prolongation); repeat EKG tomorrow. - Reassess blood counts. - Reassess chemistry. -Obtain MRSA PCR, obtain urine Legionella antigen, urine bacterial antigens. -Breathing treatments as needed 2. Status post lumbar laminectomy: More difficulty walking today per discussion with PT. Continue PT. With deconditioning additional arrangements for SNF per discussion with case management, nursing. Reviewed orthospine note. Post-operative status after L3?S1 laminectomy with pain : Recent lumbar surgery with postoperative pain; spouse has been administering opioid and ibuprofen; concern for sedation from opioids. - Reach out to orthopedics to notify hospitalization after recent surgery. - Use acetaminophen (Tylenol) and consider lidocaine patch for pain control to minimize opioids. - Use opioid only if alert; hold opioid if somnolent. - Acetaminophen as needed for pain. As required hydrocodone. 3. Acute encephalopathy: Resolved acute encephalopathy so far. She is awake and alert. Answering appropriately. Continue treatment of pneumonia. Acute encephalopathy with confusion and delirium : Confusion noted by spouse and in ED; assessment associates encephalopathy with pneumonia and mild hypoxia, and also with recent pain medication use post-surgery. - Treat underlying pneumonia. - Reorient as needed. - Fall precautions. 4. Seizure: So far without recurrence of any seizures. Brief episode this morning (~30 seconds) suspected by the , without convulsions, with postictal confusion; known intractable epilepsy on lamotrigine and gabapentin; follows neurology. - Obtain lamotrigine level. - Contact neurology (treating neurologist) for guidance. Continue current medications. - [place] seizure precautions. Plan: Constipation: Has not had a bowel movement in days. Requested Dulcolax suppository. MiraLAX. Type 2 diabetes mellitus : Diabetes noted; spouse monitored sugars. - Continue insulin on sliding scale. - Monitor [id number]-li-tfdr (POC) glucose. Chronic kidney disease : Baseline creatinine 1.2?1.6 mg/dL; current creatinine 1.4 mg/dL. Hypertension : History of hypertension. Monitor blood pressures. Resume losartan. Consider resuming nifedipine. Monitor for risk of hypotension. Hyperlipidemia : History of hyperlipidemia. Peripheral vascular disease : History of peripheral vascular disease. Tobacco use : Current smoker; recently restarted after prior cessation. Nicotine replacement as needed. PDMP PDMP Reviewed: Not Reviewed Attestations 2 Medical Necessity Statement*: Continue assessment management of pneumonia, resolving acute encephalopathy, further assessment after seizure with recent hospitalization with lumbosacral laminectomy close discharge planning and arrangements with deconditioning and difficulty with ambulation. and High MDM includes amount and/or complexity of data reviewed/ordered [ resulted lab(s)/test(s), ordered lab(s)/test(s) and other healthcare professional discussion] as documented Diagnoses Right lower lobe pneumonia J18.9 Status post lumbar laminectomy Z98.890 Acute encephalopathy G93.40 Seizure R56.9
[2024-11-19] VITALS (9 sets, daily range): BP systolic 122–165; BP diastolic 62–72; PULSE 75–89; RESP 16–18; TEMP 36.4–36.9; O2SAT 93–97
[2024-11-19 05:31] LABS: Hematocrit 35.4 % (36-47); Hemoglobin 11.10 g/dL (11.27-16.99); Mean Corpuscular HGB Conc 31.4 g/dL (30-55); Mean Corpuscular Hemoglobin 28.4 pg (27-33); Mean Corpuscular Volume 90.5 fl (85-98); Nucleated Red Blood Cells % 0 %; Platelet Count 223 10^3/cmm (157-399); Red Blood Count 3.91 10^6/uL (3.85-5.65); White Blood Count 6.82 10^3/uL (3.29-11.43)
[2024-11-19 06:01] LABS: Anion Gap 16.9 (5-19); Blood Urea Nitrogen 21 mg/dL (8-23); Calcium 8.6 mg/dL (8.5-10.5); Carbon Dioxide 22 mmol/L (22-29); Chloride 106 mmol/L (98-107); Creatinine Clr Calc Pharmacy 39.1492; Glucose 163 mg/dL (65-115); Osmolality Calculated 299 mOsm/kg (285-295); Potassium 3.9 mmol/L (3.5-5.1); Sodium 141 mmol/L (136-145)
[2024-11-19] MEDS: insulin glargine 100 units/1 mL 20 UNIT SUBCUT (06:35)
[2024-11-19] MEDS: cefTRIAXone 1,000 mg SDV 1000 MG IVP (09:02)
[2024-11-19] MEDS: HYDROcodone-acetaminophen 5-325 mg Tablet 1 TAB PO (09:05)
--- NOTE | 2024-11-19 12:35 | P.PN_ITS ---
Subjective 2 Subjective: Patient says her back pain is getting better she has been ambulating with physical therapy. [facility] Vitals/I&O/Wt Last Vital Signs Temp 97.6 F 11/19/24 11:27 Pulse 83 11/19/24 11:48 Resp 16 11/19/24 11:40 BP 133/62 11/19/24 11:27 Pulse Ox 96 11/19/24 11:40 O2 Del Method Nasal Cannula 11/19/24 11:40 O2 Flow Rate 2 11/19/24 11:40 11/18/24 11/19/24 11/19/24 22:59 06:59 14:59 Intake Total 60 / 670 370 / 370 Output Total 121 / 121 Balance 60 / 670 -121 / 549 370 / 370 Weight last 48 hrs Weight 121 lb Weight 113 lb Physical Exam 2 Narrative: Alert and oriented x 3 Head is normocephalic atraumatic Respirations are intact No evidence of any rashes or infection Data 11/19/24 04:54 11/19/24 04:54 A&P Assessment and plan 1. Status post lumbar laminectomy: Patient is possibly weeks status post lumbar decompression. At this point plan is to have her follow-up in the clinic in 2 weeks. PDMP PDMP Reviewed: Not Reviewed Attestations 2 Medical Necessity Statement*: Per primary service Coding Level of Care Code Acute Code for Chg Fwd Diagnoses Status post lumbar laminectomy Z98.890
--- NOTE | 2024-11-19 12:38 | PM.DCS ---
Discharge Providers Date of Admission: 11/16/24 13:00 Date of Discharge: November 19, 2024 Attending Provider at Admission: Arnulfo Toledo Attending Provider at Discharge: Arnulfo Toledo Primary Care Provider: XIMENA Su Diagnoses at Discharge Discharge Diagnosis 1. Status post lumbar laminectomy: Reason for Visit Reason for Visit: seizure Brief History: Brenda Stone is a 74 year old woman with a history of epilepsy (intractable since 2003, on lamotrigine and gabapentin), type 2 diabetes mellitus, hypertension, hyperlipidemia, peripheral vascular disease, chronic kidney disease (baseline creatinine 1.2?1.6 mg/dL), history of carcinoma, and current tobacco use. Recently hospitalized for L3?S1 laminectomy with partial facetectomies (last Friday). Found postictal by spouse this morning after a brief episode (~30 seconds) with confusion afterward. Spouse reports intermittent brief ?petite? episodes with confusion at baseline; last generalized tonic?clonic seizure was April of last year. Since the weekend, she has been very weak with difficulty standing and required assistance to get up; no choking with food noted. Reports cough with some phlegm; denies fever, chills, sore throat, vomiting, diarrhea, rashes, hematuria, melena, dysuria, or leg swelling. Uses an inhaler as needed; no known sleep apnea. Post-op pain managed at home with an opioid per bottle instructions (variable dosing) and intermittent ibuprofen; spouse notes she is sensitive to opioids. Uses a walker and cane. In the emergency department she appeared tired but answered appropriately; mild hypoxia was noted. Acute metabolic encephalopathy secondary to pneumonia and hypoxia, possible acute toxic encephalopathy secondary to medications including opioids, in addition to postictal state after seizure. Hospital Course Hospital Course She was admitted and initially maintained n.p.o. with aspiration precautions, treated for right lower lobe pneumonia with ceftriaxone and azithromycin, MRSA PCR was negative. Wound assessed by orthopedic surgery, wound appears clean, without any discharge no signs of cellulitis or infection. Fevers subsided, and acute encephalopathy resolved and she had no recurrence of seizures. Due to deconditioning she is proceeding for additional rehabilitation at SNF after discharge. Please reassess recovery from pneumonia and constipation. She is asked to follow-up also for reassessment after lumbar spine surgery. Physical Exam Narrative: She is in good spirits. Feeling well. Denies any complaints. Const: COMMON NORMALS: patient oriented x3 and alert GENERAL APPEARANCE: cooperative ORIENTATION/CONSCIOUSNESS: Yes awake HENMT: COMMON NORMALS: oropharynx normal Neck/C-Spine: COMMON NORMALS: no JVD Resp: COMMON NORMALS: normal respiratory effort and clear to auscultation bilaterally AUSCULTATION: clear to auscultation bilaterally Cardio: COMMON NORMALS: no JVD, regular rhythm, S1 normal heart sound present, S2 normal heart sound present and No murmurs present (Cardio) RHYTHM: regular rhythm HEART SOUNDS: S1 normal heart sound present and S2 normal heart sound present GI: COMMON NORMALS: Normal to inspection, nondistended, normoactive bowel sounds present, Soft to palpation and non-tender PALPATION: Yes Soft to palpation Extremity: COMMON NORMALS: no joint enlargement and no pedal edema Neuro: COMMON NORMALS: patient oriented x3 and moves all extremities SENSORIUM/ORIENTATION: Yes alert Skin: COMMON NORMALS: no rashes or lesions noted GENERAL SKIN EXAM: no rashes or lesions noted Discharge Data Studies Completed and Pending Completed Studies During Hospitalization Category Date Time Status CXRP [XR chest 1V portable [id number]] Stat Exams 11/16/24 09:42 Completed Pending at discharge Category Date Time Status Blood Culture Stat Lab 11/16/24 10:35 Results Radiology Impressions Chest X-Ray 11/16/24 09:42 IMPRESSION: Consolidation in the right lung base, concerning for infiltrate/collapse. Laboratory Results WBC 6.82 10^3/uL (3.29-11.43) 11/19/24 04:54 RBC 3.91 10^6/uL (3.85-5.65) 11/19/24 04:54 Hgb 11.10 g/dL (11.27-16.99) L 11/19/24 04:54 Hct 35.4 % (36-47) L 11/19/24 04:54 MCV 90.5 fl (85-98) 11/19/24 04:54 MCH 28.4 pg (27-33) 11/19/24 04:54 MCHC 31.4 g/dL (30-55) 11/19/24 04:54 RDW 15.3 % (12.1-15.1) H 11/19/24 04:54 Plt Count 223 10^3/cmm (157-399) 11/19/24 04:54 MPV 10.5 fL (7.4-10.4) H 11/19/24 04:54 Neut % (Auto) 69.8 % 11/19/24 04:54 Lymph % (Auto) 16.1 % 11/19/24 04:54 [place] % (Auto) 11.6 % 11/19/24 04:54 Eos % (Auto) 1.5 % 11/19/24 04:54 Baso % (Auto) 0.7 % 11/19/24 04:54 Neut # (Auto) 4.76 10^3/uL (1.8-7.7) 11/19/24 04:54 Lymph # (Auto) 1.1 10^3/uL (0.8-4.8) 11/19/24 04:54 [place] # (Auto) 0.8 10^3/uL (0.2-0.9) 11/19/24 04:54 Eos # (Auto) 0.1 10^3/uL (0.0-0.8) 11/19/24 04:54 Baso # (Auto) 0.1 10^3/uL (0.0-0.1) 11/19/24 04:54 Nucleated RBC % (auto) 0 % 11/19/24 04:54 Nucleated RBCs # 0.0 /100WBC 11/19/24 04:54 Sodium 141 mmol/L (136-145) 11/19/24 04:54 Potassium 3.9 mmol/L (3.5-5.1) 11/19/24 04:54 Chloride 106 mmol/L (98-107) 11/19/24 04:54 Carbon Dioxide 22 mmol/L (22-29) 11/19/24 04:54 Anion Gap 16.9 (5-19) 11/19/24 04:54 BUN 21 mg/dL (8-23) 11/19/24 04:54 Creatinine 1.2 mg/dL (0.5-0.9) H 11/19/24 04:54 GFR Calculation Not Reportable 11/19/24 04:54 Glucose 163 mg/dL (65-115) H 11/19/24 04:54 POC Glucose 135 mg/dL (70-110) H 11/19/24 10:42 Calculated Osmolality 299 mOsm/kg (285-295) H 11/19/24 04:54 Calcium 8.6 mg/dL (8.5-10.5) 11/19/24 04:54 Total Bilirubin 0.4 mg/dL (0.15-1.2) 11/16/24 07:00 AST 12 U/L (0-32) 11/16/24 07:00 ALT 7 U/L (0-33) 11/16/24 07:00 Alkaline Phosphatase 123 U/L (35-105) H 11/16/24 07:00 Total Protein 6.7 g/dL (6.6-8.7) 11/16/24 07:00 Albumin 3.2 g/dL (3.5-5.2) L 11/16/24 07:00 Globulin 3.5 g/dL (1.3-4.6) 11/16/24 07:00 TSH 0.78 uIU/mL (0.27-4.20) 11/16/24 07:00 Urine Color Yellow (Yellow) 11/16/24 07:55 Urine Appearance Clear (CLEAR) 11/16/24 07:55 Urine pH Not Reportable 11/16/24 07:55 Ur Specific Success Not Reportable 11/16/24 07:55 Urine Protein Not Reportable 11/16/24 07:55 Urine Glucose (UA) Not Reportable 11/16/24 07:55 Urine Ketones Not Reportable 11/16/24 07:55 Urine Blood Not Reportable 11/16/24 07:55 Urine Nitrate Not Reportable 11/16/24 07:55 Urine Bilirubin Not Reportable 11/16/24 07:55 Urine Urobilinogen Not Reportable 11/16/24 07:55 Ur Leukocyte Esterase Not Reportable 11/16/24 07:55 Urine RBC 0-2 /hpf (0-2) 11/16/24 07:55 Urine WBC 0-4 /hpf (0-5) H 11/16/24 07:55 Ur Squamous Epith Cells 0-2 /hpf (0-5) 11/16/24 07:55 Amorphous Sediment Not Reportable 11/16/24 07:55 Urine Bacteria Trace /hpf (NONE) 11/16/24 07:55 Nasal MRSA (PCR) Not detected (Not Detecte) 11/16/24 17:45 Lamotrigine 6.2 mcg/mL (2.5-15.0) 11/16/24 07:00 Vitals Last Vital Signs Temp 97.6 F 11/19/24 11:27 Pulse 83 11/19/24 11:48 Resp 16 11/19/24 11:40 BP 133/62 11/19/24 11:27 Pulse Ox 96 11/19/24 11:40 O2 Del Method Nasal Cannula 11/19/24 11:40 O2 Flow Rate 2 11/19/24 11:40 Discharge Plan Discharge Patient Disposition: Xfer SNF Condition: Stable Prescriptions: New polyethylene glycol 3350 17 gram Powder In Packet 17 g PO BID@0500,1700 PRN (Reason: constipation) Qty: 60 0RF nicotine 21 mg/24 hr Patch 24 Hour 1 patch transdermal DAILY Qty: 30 0RF azithromycin 250 mg tablet 250 mg PO DAILY 4 Days Qty: 4 0RF Rx Instructions: start on day 2 of therapy cefdinir 300 mg capsule 300 mg PO BID 5 Days Qty: 10 0RF Continued buspirone 10 mg tablet 10 mg PO BID (DME) Diabetic shoes with 3 inserts See Rx Instructions .ROUTE .MEDSUPPLY Qty: 1 0RF Rx Instructions: As directed by DIAN&O cilostazol 50 mg tablet 50 mg PO BID Qty: 180 3RF furosemide [Lasix] 20 mg tablet 10 mg PO DAILY potassium chloride 10 mEq tablet extended release 20 meq PO DAILY atorvastatin 80 mg tablet 80 mg PO DAILY losartan 50 mg tablet 50 mg PO QDAY nifedipine 30 mg tablet extended release 30 mg PO DAILY insulin lispro [Humalog KwikPen Insulin] 100 unit/mL insulin pen 5 unit SUBCUT TID PRN (Reason: blood sugars) albuterol sulfate 90 mcg/actuation aerosol powdr breath activated 2 inh inhalation Q6H PRN (Reason: Shortness Of Breath Or Wheezing) lamotrigine 200 mg tablet 200 mg PO BID 90 Days Qty: 180 12RF lamotrigine 25 mg tablet 50 mg PO .hs 90 Days Qty: 180 12RF aspirin 325 mg tablet,delayed release (DR/EC) 325 mg PO DAILY Qty: 30 0RF gabapentin [Neurontin] 600 mg tablet 600 mg PO TID Rx Instructions: 600 mg p.o. every morning and 600 mg p.o. q. afternoon and 1200 mg p.o. nightly hydrocodone-acetaminophen 5-325 mg tablet 1 - 2 tab PO .Q4-6H PRN (Reason: Pain) pantoprazole 40 mg tablet,delayed release (DR/EC) 40 mg PO BID 30 Days Qty: 60 0RF estradiol 1 mg tablet 0.5 mg PO DAILY Cheyenne KruegeroStar U-300 Insulin 300 unit/mL (1.5 mL) insulin pen 36 unit SUBCUT QAM [place] [employer] OK for DC: Orthopedics Discharge Order = DC NOW: Discharge Order (Routine); Ordered 11/19/24 Ordered By: Arnulfo Toledo Referrals: Danial Merrill DO [Physician, Orthopedics] - 4-7 days David Simental MD [Physician, Neurology] - 1 week Referral Note: Seizure recurrence Santiago Andrade PA [Primary Care Provider, Unknown] - 4-7 days Discharge Diet: Cardiac and Diabetic Discharge Activity: As per PT/OT instructions Patient Instructions: Azithromycin (By mouth), Cefdinir (By mouth), Opioid Safety, Patient Portal & [place] Instructions Activity Restrictions/Additional Instructions: Complete treatment for pneumonia. Continue 1 L nasal cannula oxygen, wean off as tolerating. Target O2 saturation 92%. Follow-up with primary provider for reassessment. Follow-up with orthopedic surgery for reassessment after spine surgery. Maintain strict fall precautions. Appointment is also requested for you for follow-up with neurology for reassessment of seizure disorder. Continue bowel regimen for constipation. Seek medical attention in case any worsening or new concerning symptoms. Discharge Attestations Time Spent in Discharge Care*: greater than 30 min Quality Metrics Clinical Quality Measures [ No reported AMI, CVA or VTE this stay] Coding Level of Care Code 82564 Total time (in minutes) for Discharge: 40 Diagnoses Status post lumbar laminectomy Z98.890
--- NOTE | 2024-11-19 14:20 | PC.SOCIAL ---
IMM updated IMM dated and initialed, copy placed in chart and copy given to patient.
== END 2024-11-19 14:30 | disposition skilled nursing facility (03) | DRG 193 ==
LOC: ER 10:01 → MEDSURG 11:00
PROVIDERS: Admitting Provider Internal Medicine; Emergency Provider Emergency Medicine; PCP Physician Assistant Medical; Visit Provider Internal Medicine
DX: J18.9 Pneumonia, unspecified organism (principal); G92.8 Other toxic encephalopathy; G93.41 Metabolic encephalopathy; G40.909 Epilepsy, unspecified, not intractable, without status epilepticus; E11.51 Type 2 diabetes mellitus with diabetic peripheral angiopathy without gangrene; E11.22 Type 2 diabetes mellitus with diabetic chronic kidney disease; I12.9 Hypertensive chronic kidney disease with stage 1 through stage 4 chronic kidney disease, or unspecified chronic kidney disease; N18.9 Chronic kidney disease, unspecified; E78.5 Hyperlipidemia, unspecified; F17.200 Nicotine dependence, unspecified, uncomplicated; R09.02 Hypoxemia; T40.605A Adverse effect of unspecified narcotics, initial encounter; T39.315A Adverse effect of propionic acid derivatives, initial encounter; Z79.4 Long term (current) use of insulin; Z79.82 Long term (current) use of aspirin; Z79.891 Long term (current) use of opiate analgesic; Z79.85 Long-term (current) use of injectable non-insulin antidiabetic drugs; Z95.820 Peripheral vascular angioplasty status with implants and grafts; Z79.890 Hormone replacement therapy; Z98.1 Arthrodesis status
CPT/HCPCS: 36415; 36416; 71045; 80048; 80053; 80175; 81003; 82962; 84443; 85025; 86403; 87040; 87449; 92507; 92523; 92610; 93005; 94640; 96372; 97116; 97161; 97167; 97530; 99285; G0378; J0456; J0696; J1650; J1815; J2270; J7030; J7040; J7050; J9999

== ENCOUNTER → 2024-12-07 13:07 | Outpatient (BNVA) | payer MEDICARE, OTHER, SELFPAY | PROVIDERS: PCP Physician Assistant Medical; Visit Provider Orthopaedic Surgery | DX: Z98.890 Other specified postprocedural states (principal) | CPT/HCPCS: 99024 ==

== ENCOUNTER 2024-12-21 10:25 | Outpatient (CLI) | payer MEDICARE, OTHER, SELFPAY ==
--- NOTE | 2024-12-21 10:30 | CT_ITS ---
WS: [id number] CT HEAD TECHNIQUE: Noncontrast CT of the head obtained from the skullbase to the vertex. CLINICAL INFORMATION: R ARM WEAKNESS COMPARISON: CT 05/15/2023 DLP: 1082.[address] scans at [facility] use at least one of these dose optimization techniques: automated exposure control; mA and/or kV adjustment per patient size (includes targeted exams where dose is matched to clinical indication); or iterative reconstruction. FINDINGS: No evidence of intracranial hemorrhage or mass effect. Ventricular system and basal cisterns are patent. Mild small vessel changes with moderate parenchymal volume loss. No extra-axial fluid collections. No evidence of mass or mass effect. 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 Vascular calcification. Paranasal sinuses and mastoid air cells are well aerated. .Normal visualized soft tissues. CT/CT head wo con* [id number] IMPRESSION: 1. No evidence of intracranial hemorrhage or mass effect. 2. Mild small vessel changes. Moderate parenchymal volume loss. 3. 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 4. Vascular calcification. 5. No acute intracranial findings.
== END 2024-12-21 10:26 | disposition home or self-care (01) ==
LOC: RAD 10:26
PROVIDERS: PCP Physician Assistant Medical; Visit Provider Family Medicine
DX: R53.1 Weakness (principal); G93.89 Other specified disorders of brain; Z86.73 Personal history of transient ischemic attack (TIA), and cerebral infarction without residual deficits
CPT/HCPCS: 70450

== ENCOUNTER → 2024-12-23 12:51 | Outpatient (BNVA) | payer MEDICARE, OTHER, SELFPAY | PROVIDERS: PCP Physician Assistant Medical; Visit Provider Orthopaedic Surgery | DX: Z98.890 Other specified postprocedural states (principal) | CPT/HCPCS: 99024 ==

== ENCOUNTER → 2024-12-30 13:27 | Outpatient (BNVA) | payer MEDICARE, OTHER, SELFPAY | PROVIDERS: PCP Physician Assistant Medical; Visit Provider Internal Medicine | DX: I77.9 Disorder of arteries and arterioles, unspecified (principal); R42 Dizziness and giddiness | CPT/HCPCS: 99214 ==

== ENCOUNTER → 2024-12-30 14:18 | Outpatient (BNVA) | payer MEDICARE, OTHER, SELFPAY | PROVIDERS: PCP Physician Assistant Medical; Visit Provider Internal Medicine | DX: R00.2 Palpitations (principal); I49.8 Other specified cardiac arrhythmias; I49.3 Ventricular premature depolarization; I49.1 Atrial premature depolarization; R42 Dizziness and giddiness | CPT/HCPCS: 93242 ==

== ENCOUNTER 2025-01-12 08:14 | Outpatient (CLI) | payer MEDICARE, OTHER, SELFPAY ==
--- NOTE | 2025-01-12 08:30 | USCV_ITS ---
Bertha Brenda Age: 74 Gender: F : 1950 Exam Date: 01/12/2025 08:21 Ordering Phys: Martir Myers M.D ([email or web address]) Technologist: JAVIER Exam Location: [facility] [place] Indication: stenosis, right side graft Risk Factors: Previous Vascular Surgery: Right Brachial BP: / Left Brachial BP: / Right Left Velocity (cm/s) Spectral Plaque Velocity (cm/s) Spectral Plaque Syst/Diast Broadening Syst/Diast Broadening 91.50/ 12.40 Prox CCA 95.00 / 18.70 90.20/ 12.40 Mid CCA 98.50 / 22.40 101.80/13.70 Distal CCA 91.90 / 14.10 103.90/13.70 Prox ICA 58.90 / 5.90 107.50/24.50 Mid ICA 164.10/ 26.10 90.10/ 18.50 Distal ICA 80.00 / 16.30 110.20 ECA 136.00 1.00 ICA/CCA 0.60 Antegrade Vertebral Antegrade 48.00/ 5.10 cm/s 87.10/ 18.70 cm/s Tri Subclavian Tri 117.6 186.1 0 0 FINDINGS Comparison:. 12/22/23 Elevated systolic velocity left ICA. Scattered irregular plaque in the carotid arteries into the bifurcations, greater on the left. Antegrade vertebral arteries. CONCLUSIONS Left ICA stenosis 50-69%. Right ICA stenosis < 50%. Dr. Marely Gilmore DO (Electronically Signed) Final Date: 12 January 2025 09:44 S
== END 2025-01-12 08:15 | disposition home or self-care (01) ==
PROVIDERS: PCP Physician Assistant Medical; Visit Provider Internal Medicine
DX: I65.23 Occlusion and stenosis of bilateral carotid arteries (principal); I70.92 Chronic total occlusion of artery of the extremities
CPT/HCPCS: 93880

== ENCOUNTER → 2025-01-20 14:10 | Outpatient (BNVA) | payer MEDICARE, OTHER, SELFPAY | PROVIDERS: PCP Physician Assistant Medical; Visit Provider Specialist | DX: G40.219 Localization-related (focal) (partial) symptomatic epilepsy and epileptic syndromes with complex partial seizures, intractable, without status epilepticus (principal) | CPT/HCPCS: 99215 ==

== ENCOUNTER → 2025-02-17 10:58 | Outpatient (BNVA) | payer MEDICARE, OTHER, SELFPAY | PROVIDERS: PCP Physician Assistant Medical; Visit Provider Specialist | DX: R20.0 Anesthesia of skin (principal); R20.2 Paresthesia of skin; M79.631 Pain in right forearm; M79.632 Pain in left forearm; R29.898 Other symptoms and signs involving the musculoskeletal system | CPT/HCPCS: 95911 ==

== ENCOUNTER → 2025-02-22 13:47 | Outpatient (BNVA) | payer MEDICARE, OTHER, SELFPAY | PROVIDERS: PCP Physician Assistant Medical; Visit Provider Specialist | DX: G40.219 Localization-related (focal) (partial) symptomatic epilepsy and epileptic syndromes with complex partial seizures, intractable, without status epilepticus (principal) | CPT/HCPCS: 99215 ==

== ENCOUNTER 2025-03-15 09:30 | Outpatient (CLI) | payer MEDICARE, OTHER, SELFPAY ==
--- NOTE | 2025-03-15 09:37 | MR_ITS ---
WS: [id number] MRI CERVICAL SPINE NONCONTRAST HISTORY: neck stiffness and pain COMPARISON: 01/19/2022 Technique: Multiplanar, multisequence noncontrast imaging of the cervical spine. Very slight increase in the cervical lordosis. No acute fractures or marrow edema. Signal within the cord is normal. Ventral cervical cord is being displaced at C6-7. Large disc osteophyte complex. Craniocervical junction, C1 and C2 relationship, odontoid process and soft tissues are normal. C2-C3: Bilateral facet arthritis. C3-C4: Mild osteophytic ridging and facet disease. Mild bilateral foraminal stenosis. C4-C5: Mild annular disc bulging and mild osteophytic ridging. Mild bilateral facet arthritis. Mild central and LEFT foraminal stenosis. Facet joint arthropathy with fluid in the facet joint on the LEFT. C5-C6: Mild annular disc bulging with a shallow central disc protrusion. Mild osteophytic ridging and mild facet arthritis. Mild central and LEFT foraminal stenosis. C6-C7: Large central disc osteophyte complex effacing ventral CSF and deforming the cervical cord. Disc osteophyte complexes extend into the foramina. Moderate central and bilateral foraminal stenosis, LEFT greater than RIGHT. Slightly greater disc osteophyte contact on the RIGHT C7 nerve root. C7-T1: Normal. Small amount of fluid in the mastoid air cells. MR/MR cervical spin wo con* [id number] IMPRESSION: 1. Large, central disc osteophyte complex at C6-7 effacing CSF and deforming t he ventral cervical cord resulting in moderate stenosis. Slightly greater conta ct on the RIGHT C7 nerve root. Additional moderate bilateral foraminal stenosis , LEFT greater than RIGHT. 2. Mild bilateral foraminal stenosis at C3-4. 3. Mild central and LEFT foraminal stenosis at C4-5 and C5-6. 4. Bilateral facet joint arthropathy throughout the cervical spine, most signi ficant on the LEFT at C2-3, C3-4 and C4-5.
== END 2025-03-15 09:31 | disposition home or self-care (01) ==
LOC: RAD 09:31
PROVIDERS: PCP Physician Assistant Medical; Visit Provider Specialist
DX: M47.812 Spondylosis without myelopathy or radiculopathy, cervical region (principal); M43.6 Torticollis; M25.78 Osteophyte, vertebrae; M48.02 Spinal stenosis, cervical region
CPT/HCPCS: 72141